=== PATIENT | female | born 1965 | race Caucasian/White ===

== ENCOUNTER 2023-06-02 13:28 | Outpatient (AMB) | payer MEDICARE, MEDICAID, SELFPAY ==
--- NOTE | 2023-06-02 13:35 | HO.NEPHOV ---
HPI HPI Comments History of Present Illness Details I had the privilege of seeing Yadira in follow-up of her chronic kidney disease and hypertension. She has history of mental health disorder and had taken lithium from 1991 which she had discontinued a few years ago. Recently her mom was diagnosed with atrial fibrillation and she was wondering whether she has the same. She does not have any chest pain, palpitation, shortness of breath, proximal nocturnal dyspnea, orthopnea, pedal edema, orthostatic or urinary symptoms. Her blood pressure has been at goal. She has not been initiated on any new medications. She has not had any recent hospitalizations. She does not take any excessive nonsteroidal anti-inflammatory medications. Otherwise she was feeling well. [facility] Medical History (Updated 06/03/23 @ 13:12 by Lavelle Alan MD) Hypertension Chronic kidney disease, stage 3a Surgical History (Updated 06/02/23 @ 13:43 by Chelsey Anaya MA) S/P tonsillectomy Family History (Updated 06/02/23 @ 13:44 by Chelsey Anaya MA) Mother A-fib Father Lung cancer Social History (Updated 06/02/23 @ 13:44 by Chelsey Anaya MA) Alcohol intake: never Patient Tobacco Use Status: Former Tobacco user Substance Use Type: Marijuana Vital Signs 06/02/23 13:36 06/02/23 14:00 Height 5 ft 7 in Weight 186 lb 2 oz BMI 29.1 BP 140/90 H 120/80 Blood Pressure Location Rt brachial Position Sitting Pulse 75 Pulse Source Pulse Oximeter Pulse Oximetry (%) 98 Oxygen Delivery Method Room Air Physical Exam Vital Signs: Last Vital Signs Pulse 75 06/02/23 13:36 BP 120/80 06/02/23 14:00 Pulse Ox 98 06/02/23 13:36 Oxygen Delivery Method Room Air 06/02/23 13:36 BMI result Body Mass Index 29.1 Const General: comfortable and no acute distress Orientation/consciousness: patient oriented x3 HEENT Head: Yes normocephalic Mouth: Normal oral and palatal mucosa present Eyes EOM: EOMs intact bilaterally Neck Neck: Yes supple Resp Auscultation: clear to auscultation bilaterally Cardio Jugular venous distension: no JVD Rate: regular rate GI Palpation (GI): Soft to palpation Auscultation: normal bowel sounds General: Yes no CVA tenderness Back/Spine/Pelvis Back: no CVA tenderness Skin General skin exam: no rashes or lesions noted Neuro General: patient oriented x3 and moves all extremities Extrem General: Yes no pedal edema Assessment & Plan Assessment & Plan (1) Chronic Kidney Disease: Code(s): N18.9 - Chronic kidney disease, unspecified Qualifiers: Chronic kidney disease stage: stage 3 (moderate) Chronic kidney disease stage 3 subtype: stage 3a (GFR 45-59) Qualified Code(s): N18.31 - Chronic kidney disease, stage 3a (2) Chronic kidney disease, stage 3a: Code(s): N18.31 - Chronic kidney disease, stage 3a (3) Hypertension: Code(s): I10 - Essential (primary) hypertension Qualifiers: Hypertension type: primary hypertension Qualified Code(s): I10 - Essential (primary) hypertension Plan 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 She does not have any proteinuria. Her blood pressure has been at goal. Her renal functions are currently stable. She is not taking any non steroidal anti-inflammatories, LAUREN inhibitor or ARB. She is on amlodipine which is keeping her blood pressure at goal. She has diabetes mellitus and is on metformin. She has been taking Topamax but has not had any significant weight loss. She has not had any renal stones. I plan to consider initiating her on Farxiga or Jardiance at the next visit. She likely is a great candidate for LAUREN-inhibitor or ARB after discontinuation of amlodipine, if her electrolytes or serum creatinine permits. She needs to lose some weight and maintain good hydration. All these have been discussed. Follow-up lab work ordered. Follow-up appointment given. Orders: Orders Creatinine 06/02/23 N18.31 - Chronic kidney disease, stage 3a Complete Blood Count Auto Diff 06/02/23 N18.31 - Chronic kidney disease, stage 3a Protein Creatinine Ratio, Ur 06/02/23 N18.31 - Chronic kidney disease, stage 3a Electrolytes Today N18.31 - Chronic kidney disease, stage 3a Blood Urea Nitrogen 06/02/23 N18.31 - Chronic kidney disease, stage 3a Electrolytes 06/02/23 N18.31 - Chronic kidney disease, stage 3a Calcium 06/02/23 N18.31 - Chronic kidney disease, stage 3a Hemoglobin A1c 06/02/23 N18.31 - Chronic kidney disease, stage 3a Blood Urea Nitrogen Today N18.31 - Chronic kidney disease, stage 3a Creatinine Today N18.31 - Chronic kidney disease, stage 3a Phosphorus Today N18.31 - Chronic kidney disease, stage 3a Calcium Today N18.31 - Chronic kidney disease, stage 3a Vitamin D 25-OH Total Today N18.31 - Chronic kidney disease, stage 3a Parathyroid Hormone Intact Today N18.31 - Chronic kidney disease, stage 3a Medications: New amlodipine 2.5 mg PO DAILY 90 days 90 tabs 3RF Coding Level of Care Code Est Pt Level 4 (81967) Diagnoses Stage 3a chronic kidney disease N18.31 Chronic kidney disease stage: stage 3 (moderate) Chronic kidney disease stage 3 subtype: stage 3a (GFR 45-59) Chronic kidney disease, stage 3a N18.31 Primary hypertension I10 Hypertension type: primary hypertension Results Reviewed Nephrology Results: Hgb 14.3 g/dl (12.0-16.0) 06/02/23 WBC 9.8 X10*3/uL (4.8-10.8) 06/02/23 Plt Count 337 X10*3/uL (160-400) 06/02/23 Sodium 138 mmol/L (135-145) 06/02/23 Potassium 3.8 mmol/L (3.3-5.1) 06/02/23 Chloride 109 mmol/L (96-108) H 06/02/23 Carbon Dioxide 21 mmol/L (22-29) L 06/02/23 BUN 22 mg/dL (9-16) H 06/02/23 Creatinine 1.63 mg/dL (0.5-1.4) H 06/02/23 Calcium 9.7 mg/dL (8.4-10.2) 06/02/23 Phosphorus 4.4 MG/DL (2.7-4.5) 02/07/18 Urine Protein NEG (NEG - TRACE) 02/07/18 Urine Creatinine 81.67 mg/dL 06/02/23 Protein/Creatinin Ratio TNP 06/02/23
[2023-06-02 13:36] VITALS: BP 140/90; PULSE 75; O2SAT 98; BMI 29.1
[2023-06-02 14:00] VITALS: BP 120/80
== END 2023-06-02 14:04 | disposition home or self-care (01) ==
PROVIDERS: PCP Internal Medicine; Visit Provider Internal Medicine Nephrology
DX: N18.31 Chronic kidney disease, stage 3a (principal); I10 Essential (primary) hypertension
CPT/HCPCS: 99214

== ENCOUNTER 2023-06-02 13:28 | Outpatient (REF) | payer MEDICARE, MEDICAID, SELFPAY ==
[2023-06-02 14:23] LABS: MANUAL DIFF FLAG NO
[2023-06-02 15:43] LABS: Basophils Absolute Auto 0.1 X10*3/uL (0.0-0.2); Basophils Percent Auto 0.8 % (0-2); Eosinophils Absolute Auto 0.3 X10*3/uL (0.0-0.4); Eosinophils Percent Auto 2.6 % (0-4); Hematocrit 43.2 % (37.0-47.0); Hemoglobin 14.3 g/dl (12.0-16.0); Imm Gran Abs Auto 0.02 X10*3/uL (0.00-0.03); Imm Gran Pct Auto 0.2 % (0.0-0.4); Lymphocytes Absolute Auto 3.3 X10*3/uL (1.2-4.9); Lymphocytes Percent Auto 33.9 % (20-40); Mean Corpuscular HGB Conc 33.1 g/dl (31.0-35.0); Mean Corpuscular Hemoglobin 28.5 pg (27.0-33.0); Mean Corpuscular Volume 86.1 fL (80.0-98.0); Mean Platelet Volume 10.6 fL (9.4-12.3); Monocytes Absolute Auto 0.8 X10*3/uL (0.1-1.2); Monocytes Percent Auto 8.5 % (2-11); Neutrophils Absolute Auto 5.3 x10*3/uL (2.0-8.3); Platelet Count 337 X10*3/uL (160-400); Red Blood Count 5.02 X10*6/uL (4.20-5.50); Red Cell Distribution Width 14.2 % (11.0-16.0); White Blood Count 9.8 X10*3/uL (4.8-10.8)
[2023-06-02 15:51] LABS: Estimated Average Glucose 105 mg/dL; Hemoglobin A1c % 5.3 % (<6.0)
[2023-06-02 16:00] LABS: Creatinine Urine 81.67 mg/dL; Total Protein Urine Random < 7 mg/dL (<12)
[2023-06-02 16:13] LABS: Anion Gap 12 (12-20); Blood Urea Nitrogen 22 mg/dL (9-16); Calcium 9.7 mg/dL (8.4-10.2); Carbon Dioxide 21 mmol/L (22-29); Chloride 109 mmol/L (96-108); Estimated Glomerular Filt Rate 33; Potassium 3.8 mmol/L (3.3-5.1); Sodium 138 mmol/L (135-145)
== END 2023-06-02 13:29 | disposition home or self-care (01) ==
LOC: HO.LAB 13:28
PROVIDERS: PCP Nurse Practitioner; Visit Provider Internal Medicine Nephrology
DX: I12.9 Hypertensive chronic kidney disease with stage 1 through stage 4 chronic kidney disease, or unspecified chronic kidney disease (principal); N18.31 Chronic kidney disease, stage 3a
CPT/HCPCS: 36415; 80051; 82310; 82565; 82570; 83036; 84156; 84520; 85025; 99212

== ENCOUNTER 2023-08-25 13:32 | Outpatient (AMB) | payer MEDICARE, MEDICAID, SELFPAY ==
--- NOTE | 2023-08-25 13:30 | HO.NEPHOV_ITS ---
HPI HPI Comments History of Present Illness Details I had the privilege of seeing Yadira in follow-up of her chronic kidney disease and hypertension. She has history of mental health disorder and had taken lithium from 1991 which she had discontinued a few years ago. Recently her mom was diagnosed with atrial fibrillation and she was wondering whether she has the same. She does not have any chest pain, palpitation, shortness of breath, proximal nocturnal dyspnea, orthopnea, pedal edema, orthostatic or urinary symptoms. Her blood pressure has been at goal. She has not been initiated on any new medications. She has not had any recent hospitalizations. She does not take any excessive nonsteroidal anti-inflammatory medications. Otherwise she was feeling well. [facility] Medical History (Updated 06/03/23 @ 13:12 by Lavelle Alan MD) Hypertension Chronic kidney disease, stage 3a Surgical History (Updated 06/02/23 @ 13:43 by Chelsey Anaya MA) S/P tonsillectomy Family History (Updated 06/02/23 @ 13:44 by Chelsey Anaya MA) Mother A-fib Father Lung cancer Social History (Updated 06/02/23 @ 13:44 by Chelsey Anaya MA) Alcohol intake: never Patient Tobacco Use Status: Former Tobacco user Substance Use Type: Marijuana Vital Signs 08/25/23 13:37 Height 5 ft 7 in Weight 184 lb 6 oz BMI 28.9 BP 134/84 Blood Pressure Location Rt brachial Position Sitting Pulse 72 Pulse Source Pulse Oximeter Pulse Oximetry (%) 96 Oxygen Delivery Method Room Air Physical Exam Const General: comfortable and no acute distress Orientation/consciousness: patient oriented x3 HEENT Head: Yes normocephalic Mouth: Normal oral and palatal mucosa present Eyes EOM: EOMs intact bilaterally Neck Neck: Yes supple Resp Auscultation: clear to auscultation bilaterally Cardio Jugular venous distension: no JVD Rate: regular rate GI Palpation (GI): Soft to palpation Auscultation: normal bowel sounds General: Yes no CVA tenderness Back/Spine/Pelvis Back: no CVA tenderness Skin General skin exam: no rashes or lesions noted Neuro General: patient oriented x3 and moves all extremities Extrem General: Yes no pedal edema Assessment & Plan Assessment & Plan (1) Chronic kidney disease, stage 3a: Code(s): N18.31 - Chronic kidney disease, stage 3a (2) Hypertension: Code(s): I10 - Essential (primary) hypertension Qualifiers: Hypertension type: primary hypertension Qualified Code(s): I10 - Essential (primary) hypertension Rosa May has a 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 She does not have any proteinuria. Her blood pressure has been at goal. Her renal functions are currently stable. She is not taking any non steroidal anti- inflammatories, LAUREN inhibitor or ARB. She is on amlodipine which is keeping her blood pressure at goal. She has been taking Topamax but has not had any significant weight loss. She has not had any renal stones. She likely is a great candidate for LAUREN-inhibitor or ARB after discontinuation of amlodipine, if her electrolytes or serum creatinine permits. She needs to lose some weight and maintain good hydration. All these have been discussed. Follow-up lab work ordered. Follow-up appointment given Orders: Orders Creatinine Today I10 - Essential (primary) hypertension, N18.31 - Chronic kidney disease, stage 3a Blood Urea Nitrogen Today I10 - Essential (primary) hypertension, N18.31 - Chronic kidney disease, stage 3a Electrolytes Today I10 - Essential (primary) hypertension, N18.31 - Chronic kidney disease, stage 3a Coding Level of Care Code Est Pt Level 4 (14004) Diagnoses Chronic kidney disease, stage 3a N18.31 Primary hypertension I10 Hypertension type: primary hypertension Results Reviewed Nephrology Results: Hgb 14.3 g/dl (12.0-16.0) 06/02/23 WBC 9.8 X10*3/uL (4.8-10.8) 06/02/23 Plt Count 337 X10*3/uL (160-400) 06/02/23 Sodium 138 mmol/L (135-145) 06/02/23 Potassium 3.8 mmol/L (3.3-5.1) 06/02/23 Chloride 109 mmol/L (96-108) H 06/02/23 Carbon Dioxide 21 mmol/L (22-29) L 06/02/23 BUN 22 mg/dL (9-16) H 06/02/23 Creatinine 1.63 mg/dL (0.5-1.4) H 06/02/23 Calcium 9.7 mg/dL (8.4-10.2) 06/02/23 Phosphorus 4.4 MG/DL (2.7-4.5) 02/07/18 Urine Protein NEG (NEG - TRACE) 02/07/18 Urine Creatinine 81.67 mg/dL 06/02/23 Protein/Creatinin Ratio TNP 06/02/23
[2023-08-25 13:37] VITALS: BP 134/84; PULSE 72; O2SAT 96; BMI 28.9
== END 2023-08-25 13:52 | disposition home or self-care (01) ==
PROVIDERS: PCP Internal Medicine; Visit Provider Internal Medicine Nephrology
DX: N18.31 Chronic kidney disease, stage 3a (principal); I10 Essential (primary) hypertension
CPT/HCPCS: 99214

== ENCOUNTER → 2023-08-25 13:32 | Outpatient (BNVA) | payer MEDICARE, MEDICAID, SELFPAY | PROVIDERS: PCP Internal Medicine; Visit Provider Internal Medicine Nephrology | DX: I12.9 Hypertensive chronic kidney disease with stage 1 through stage 4 chronic kidney disease, or unspecified chronic kidney disease (principal); N18.31 Chronic kidney disease, stage 3a | CPT/HCPCS: 99212 ==

== ENCOUNTER 2023-12-24 11:47 | Outpatient (AMB) | payer OTHER, SELFPAY ==
[2023-12-24 12:13] VITALS: BP 122/80; PULSE 69; O2SAT 97; BMI 29.5
--- NOTE | 2023-12-24 12:13 | HO.NEPHOV ---
Vital Signs 12/24/23 12:13 Height 5 ft 7 in Weight 188 lb 2 oz BMI 29.5 BP 122/80 Blood Pressure Location Lt brachial Position Sitting Pulse 69 Pulse Source Pulse Oximeter Pulse Oximetry (%) 97 Oxygen Delivery Method Room Air Intake Visit Reasons: CKD STG 3A/ 4 MO FU/ Conf Assistant Signal Maintainer Required: No Accompanied by: Self / Same As Patient Allergies gabapentin [GABAPENTIN] Allergy (Intermediate, Verified 12/24/23 12:15) SWELLING iloperidone [From FANAPT] Allergy (Mild, Verified 12/24/23 12:15) RASH Penicillins [PENICILLINS] Allergy (Mild, Verified 12/24/23 12:15) RASH sertraline [From ZOLOFT] Allergy (Mild, Verified 12/24/23 12:15) RASH HPI Comments Details: I had the privilege of seeing Yadira in follow-up of her chronic kidney disease and hypertension. She has history of mental health disorder and had taken lithium from 1991 which she had discontinued a few years ago. She does not have any chest pain, palpitation, shortness of breath, proximal nocturnal dyspnea, orthopnea, pedal edema, orthostatic or urinary symptoms. Her blood pressure has been at goal. She has not been initiated on any new medications. She has not had any recent hospitalizations. She does not take any excessive nonsteroidal anti-inflammatory medications. She is not on Topmax now. Otherwise she was feeling well. [facility] Medical History (Updated 06/03/23 @ 13:12 by Lavelle Alan MD) Hypertension Chronic kidney disease, stage 3a Surgical History S/P tonsillectomy Family History Mother A-fib Father Lung cancer Social History Alcohol intake: never Patient Tobacco Use Status: Former Tobacco user Substance Use Type: Marijuana Review of Systems Const All systems reviewed & are unremarkable except as noted in HPI and below Physical Exam Vital Signs: Last Vital Signs Pulse 69 12/24/23 12:13 BP 122/86 12/24/23 12:13 Pulse Ox 97 12/24/23 12:13 Oxygen Delivery Method Room Air 12/24/23 12:13 BMI result Body Mass Index 29.5 Const General: comfortable and no acute distress Orientation/consciousness: patient oriented x3 HEENT Head: Yes normocephalic Mouth: Normal oral and palatal mucosa present Eyes EOM: EOMs intact bilaterally Neck Neck: Yes supple Resp Auscultation: clear to auscultation bilaterally Cardio Jugular venous distension: no JVD Rate: regular rate GI Palpation (GI): Soft to palpation Auscultation: normal bowel sounds General: Yes no CVA tenderness Back/Spine/Pelvis Back: no CVA tenderness Skin General skin exam: no rashes or lesions noted Neuro General: patient oriented x3 and moves all extremities Extrem General: Yes no pedal edema Assessment & Plan Assessment & Plan (1) Chronic kidney disease, stage 3a: Code(s): N18.31 - Chronic kidney disease, stage 3a Category: Medical (2) Hypertension: Code(s): I10 - Essential (primary) hypertension Category: Medical Qualifiers: Hypertension type: primary hypertension Qualified Code(s): I10 - Essential (primary) hypertension Plan 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 She does not have any proteinuria. Her blood pressure has been at goal. Her renal functions are currently stable. She is not taking any non steroidal anti-inflammatories, LAUREN inhibitor or ARB. She is on amlodipine which is keeping her blood pressure at goal. She has not had any renal stones. She likely is a great candidate for LAUREN-inhibitor or ARB after discontinuation of amlodipine, if her electrolytes or serum creatinine permits. She needs to lose some weight and maintain good hydration. All these have been discussed. Follow-up lab work ordered. Follow-up appointment given Orders: Orders Electrolytes Today I10 - Essential (primary) hypertension, N18.31 - Chronic kidney disease, stage 3a Creatinine Today I10 - Essential (primary) hypertension, N18.31 - Chronic kidney disease, stage 3a Blood Urea Nitrogen Today I10 - Essential (primary) hypertension, N18.31 - Chronic kidney disease, stage 3a Coding Level of Care Code Est Pt Level 4 (90779) Diagnoses Chronic kidney disease, stage 3a N18.31 Primary hypertension I10 Hypertension type: primary hypertension
== END 2023-12-24 12:34 | disposition home or self-care (01) ==
PROVIDERS: PCP Internal Medicine; Visit Provider Internal Medicine Nephrology
DX: N18.31 Chronic kidney disease, stage 3a (principal); I10 Essential (primary) hypertension
CPT/HCPCS: 99214

== ENCOUNTER → 2023-12-24 11:47 | Outpatient (BNVA) | payer OTHER, SELFPAY | PROVIDERS: PCP Internal Medicine; Visit Provider Internal Medicine Nephrology | DX: I12.9 Hypertensive chronic kidney disease with stage 1 through stage 4 chronic kidney disease, or unspecified chronic kidney disease (principal); N18.31 Chronic kidney disease, stage 3a | CPT/HCPCS: 99212 ==

== ENCOUNTER 2024-03-15 11:21 | Outpatient (AMB) | payer OTHER, SELFPAY ==
--- NOTE | 2024-03-15 11:34 | HO.NEPHOV_ITS ---
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 She has history of mental health disorder and had taken lithium from 1991 which she had discontinued a few years ago. She does not have any chest pain, palpitation, shortness of breath, proximal nocturnal dyspnea, orthopnea, pedal edema, orthostatic or urinary symptoms. Her blood pressure has been at goal. She has not been initiated on any new medications. She does not take any excessive nonsteroidal anti-inflammatory medications. Otherwise she was feeling well. She was prescribed Wegovy by PCP which is uncomfortable taking & has not started it yet. COUNT INCLUDES THE [facility] Medical History (Updated 06/03/23 @ 13:12 by Lavelle Alan MD) Hypertension Chronic kidney disease, stage 3a Surgical History S/P tonsillectomy Family History Mother A-fib Father Lung cancer Social History Alcohol intake: never Patient Tobacco Use Status: Former Tobacco user Substance Use Type: Marijuana Review of Systems Const All systems reviewed & are unremarkable except as noted in HPI and below Physical Exam Vital Signs: Last Vital Signs Pulse 74 03/15/24 11:37 BP 120/78 03/15/24 11:37 Pulse Ox 96 03/15/24 11:37 Oxygen Delivery Method Room Air 03/15/24 11:37 BMI result Body Mass Index 28.8 Const General: comfortable and no acute distress Orientation/consciousness: patient oriented x3 HEENT Head: Yes normocephalic Mouth: Normal oral and palatal mucosa present Eyes EOM: EOMs intact bilaterally Neck Neck: Yes supple Resp Auscultation: clear to auscultation bilaterally Cardio Jugular venous distension: no JVD Rate: regular rate GI Palpation (GI): Soft to palpation Auscultation: normal bowel sounds General: Yes no CVA tenderness Back/Spine/Pelvis Back: no CVA tenderness Skin General skin exam: no rashes or lesions noted Neuro General: patient oriented x3 and moves all extremities Extrem General: Yes no pedal edema Assessment & Plan Assessment & Plan (1) Chronic kidney disease, stage 3a: Code(s): N18.31 - Chronic kidney disease, stage 3a Category: Medical (2) Hypertension: Code(s): I10 - Essential (primary) hypertension Category: Medical Qualifiers: Hypertension type: primary hypertension Qualified Code(s): I10 - Essential (primary) hypertension Plan 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 She does not have any proteinuria. Her blood pressure has been at goal. Her renal functions are currently stable. She is not taking any non steroidal anti- inflammatories, LAUREN inhibitor or ARB. She is on amlodipine which is keeping her blood pressure at goal. She has not had any renal stones. I discontinued her Metformin and started her on Jardiance 10 mg .She likely is a great candidate for LAUREN-inhibitor or ARB after discontinuation of amlodipine, if her electrolytes or serum creatinine permits. She needs to lose some weight and maintain good hydration. All these have been discussed. Follow-up lab work ordered. Follow-up appointment given Orders: Orders Blood Urea Nitrogen 2 Months I10 - Essential (primary) hypertension, N18.31 - Chronic kidney disease, stage 3a Electrolytes 2 Months I10 - Essential (primary) hypertension, N18.31 - Chronic kidney disease, stage 3a Creatinine 2 Months I10 - Essential (primary) hypertension, N18.31 - Chronic kidney disease, stage 3a Medications: New empagliflozin (Jardiance) 10 mg PO DAILY 90 tabs 6RF Coding Level of Care Code Est Pt Level 4 (23288) Diagnoses Chronic kidney disease, stage 3a N18.31 Primary hypertension I10 Hypertension type: primary hypertension
[2024-03-15 11:37] VITALS: BP 120/78; PULSE 74; O2SAT 96; BMI 28.8
== END 2024-03-15 12:03 | disposition home or self-care (01) ==
LOC: HO.HKA 11:22
PROVIDERS: PCP Internal Medicine; Visit Provider Internal Medicine Nephrology
DX: I12.9 Hypertensive chronic kidney disease with stage 1 through stage 4 chronic kidney disease, or unspecified chronic kidney disease (principal); N18.31 Chronic kidney disease, stage 3a
CPT/HCPCS: 99214

== ENCOUNTER → 2024-03-15 11:21 | Outpatient (BNVA) | payer OTHER, SELFPAY | PROVIDERS: PCP Internal Medicine; Visit Provider Internal Medicine Nephrology | DX: I12.9 Hypertensive chronic kidney disease with stage 1 through stage 4 chronic kidney disease, or unspecified chronic kidney disease (principal); N18.31 Chronic kidney disease, stage 3a | CPT/HCPCS: 99212 ==

== ENCOUNTER 2024-06-16 10:53 | Outpatient (AMB) | payer OTHER, SELFPAY ==
--- NOTE | 2024-06-16 11:09 | HO.NEPHOV ---
Vital Signs 06/16/24 11:10 Height 5 ft 7 in Weight 184 lb 8 oz BMI 28.9 BP 116/80 Blood Pressure Location Rt brachial Position Sitting Pulse 72 Pulse Source Pulse Oximeter Pulse Oximetry (%) 97 Oxygen Delivery Method Room Air Intake Visit Reasons: CKD-Conf Steam Press Operator Required: No Accompanied by: Self / Same As Patient Allergies gabapentin [GABAPENTIN] Allergy (Intermediate, Verified 06/16/24 11:10) SWELLING iloperidone [From FANAPT] Allergy (Mild, Verified 06/16/24 11:10) RASH Penicillins [PENICILLINS] Allergy (Mild, Verified 06/16/24 11:10) RASH sertraline [From ZOLOFT] Allergy (Mild, Verified 06/16/24 11:10) RASH HPI Comments Details: Yadira was seen in follow-up of her chronic kidney disease and hypertension. She has history of mental health disorder and had taken lithium from 1991 which she had discontinued a few years ago. She does not have any chest pain, palpitation, shortness of breath, proximal nocturnal dyspnea, orthopnea, pedal edema, orthostatic or urinary symptoms. Her blood pressure has been at goal. She has not been initiated on any new medications. She does not take any excessive nonsteroidal anti-inflammatory medications. Otherwise she was feeling well. She was prescribed Wegovy by PCP which is uncomfortable taking & has not started it yet. She is going to have a lesion on her left breast biopsied next Wednesday. She had a renal USS in [facility] , results of which are pending. She also is found to have a benign lung nodule. [facility] Medical History (Updated 06/03/23 @ 13:12 by Lavelle Alan MD) Hypertension Chronic kidney disease, stage 3a Surgical History S/P tonsillectomy Family History Mother A-fib Father Lung cancer Social History Alcohol intake: never Patient Tobacco Use Status: Former Tobacco user Substance Use Type: Marijuana Review of Systems Const All systems reviewed & are unremarkable except as noted in HPI and below Physical Exam Vital Signs: Last Vital Signs Pulse 72 06/16/24 11:10 BP 116/80 06/16/24 11:10 Pulse Ox 97 06/16/24 11:10 Oxygen Delivery Method Room Air 06/16/24 11:10 BMI result Body Mass Index 28.9 Const General: comfortable and no acute distress Orientation/consciousness: patient oriented x3 HEENT Head: Yes normocephalic Mouth: Normal oral and palatal mucosa present Eyes EOM: EOMs intact bilaterally Neck Neck: Yes supple Resp Auscultation: clear to auscultation bilaterally Cardio Jugular venous distension: no JVD Rate: regular rate GI Palpation (GI): Soft to palpation Auscultation: normal bowel sounds General: Yes no CVA tenderness Back/Spine/Pelvis Back: no CVA tenderness Skin General skin exam: no rashes or lesions noted Neuro General: patient oriented x3 and moves all extremities Extrem General: Yes no pedal edema Results Reviewed Nephrology Results: Hgb 14.3 g/dl (12.0-16.0) 06/02/23 WBC 9.8 X10*3/uL (4.8-10.8) 06/02/23 Plt Count 337 X10*3/uL (160-400) 06/02/23 Sodium 138 mmol/L (135-145) 06/02/23 Potassium 3.8 mmol/L (3.3-5.1) 06/02/23 Chloride 109 mmol/L (96-108) H 06/02/23 Carbon Dioxide 21 mmol/L (22-29) L 06/02/23 BUN 22 mg/dL (9-16) H 06/02/23 Creatinine 1.63 mg/dL (0.5-1.4) H 06/02/23 Calcium 9.7 mg/dL (8.4-10.2) 06/02/23 Phosphorus 4.4 MG/DL (2.7-4.5) 02/07/18 Urine Protein NEG (NEG - TRACE) 02/07/18 Urine Creatinine 81.67 mg/dL 06/02/23 Protein/Creatinin Ratio TNP 06/02/23 Assessment & Plan Assessment & Plan (1) Chronic kidney disease, stage 3a: Code(s): N18.31 - Chronic kidney disease, stage 3a Category: Medical (2) Hypertension: Code(s): I10 - Essential (primary) hypertension Category: Medical Qualifiers: Hypertension type: primary hypertension Qualified Code(s): I10 - Essential (primary) hypertension Plan 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 She does not have any proteinuria. Her blood pressure has been at goal. Her renal functions are currently stable. She is not taking any non steroidal anti-inflammatories, LAUREN inhibitor or ARB. She is on amlodipine which is keeping her blood pressure at goal. She has not had any renal stones.She should continue Jardiance 10 mg, which I plan to increase to 25 mg at next visit .She likely is a great candidate for LAUREN-inhibitor or ARB after discontinuation of amlodipine, if her electrolytes or serum creatinine permits. She needs to lose some weight and maintain good hydration. All these have been discussed. Follow-up lab work ordered. Follow-up appointment given Orders: Orders Creatinine 3 Months I10 - Essential (primary) hypertension, N18.31 - Chronic kidney disease, stage 3a Electrolytes 3 Months I10 - Essential (primary) hypertension, N18.31 - Chronic kidney disease, stage 3a Blood Urea Nitrogen 3 Months I10 - Essential (primary) hypertension, N18.31 - Chronic kidney disease, stage 3a Calcium 3 Months I10 - Essential (primary) hypertension, N18.31 - Chronic kidney disease, stage 3a Coding Level of Care Code Est Pt Level 4 (73183) Diagnoses Chronic kidney disease, stage 3a N18.31 Primary hypertension I10 Hypertension type: primary hypertension
[2024-06-16 11:10] VITALS: BP 116/80; PULSE 72; O2SAT 97; BMI 28.9
--- OUTSIDE RECORDS SUMMARY | 2024-06-16 11:56 | XMS_ITS | Encounter Summary ---
Author Organization On License [facility] [employer] Address [address] [place] [address] 7t [place] [address] Care Team Providers Care Cart Driver Name Role Phone [facility] Primary Care Provider +1 [phone] Encounter Details Date Type Department Care Team (Latest Contact Info) Description 12/29/2021 Abstract [facility] Dental, Provider, DDS Social History Tobacco Use Types Packs/Day Years Used Date Smoking Tobacco: Never Assessed Comments Unknown Sex and Gender Information Value Date Recorded Sex Assigned at Female 06/05/2022 2:51 PM EST Legal Sex Female 5:36 PM EDT Gender Identity Female 06/05/2022 2:51 PM EST Sexual Orientation Straight 06/05/2022 2: 51 PM EST documented as of this encounter Plan of Treatment Upcoming Encounters Date Type Department Care Team (Late st Contact Info) Description 08/16/2024 11:40 AM EDT Office Visit [facility] MEDICAL [address] [place] [address] [place], [place] [facility] 70 [place] [address] 12/12/2024 11:00 AM EDT Office Visit [place] [facility] Dental [address] [place] [address] Urvashi Gamble LLD 9 [place] [address] documented as of this encounter Visit Diagnoses Not on filedocumented in this encounter Care Teams Cart Driver Relationship Specialty Start Date End Date [facility] F[facility] [address] [facility] [place] [address] PCP - General Family Medicine 05/06/22 documented as of this encounter
--- OUTSIDE RECORDS SUMMARY | 2024-06-16 11:56 | XMS_ITS | Encounter Summary ---
Author Organization [facility] [employer] Address [address] [place] [address] 7t [place] [address] Care Team Providers Care Property Disposal Officer Name Role Phone [facility] Primary Care Provider +1 [phone] Encounter Details Date Type Department Care Team (Late st Contact Info) Description 08/12/2023 Orders Only [facility] [address] [place] [address] [place], [place] [facility] 70 [place] [address] Social History Tobacco Use Types Packs/Day Years Used Date Smoking Tobacco: Former Cigarettes Q uit: 2019 Smokeless Tobacco: Never Alcohol Use Standard Drinks/Week Comments Not Currently 0 (1 standard drink = 0.6 oz pur e alcohol) Depression Answer Date Recorded Patient Health Questionnaire-9 Score 15 08/06/2022 Depression Answer Date Recorded Patient Health Questionnaire-2 Score 2 08/06/2022 Comments No Sex and Gender Information Value Date Recorded Sex Assigned at Female 06/05/2022 2:51 PM EST Legal Sex Female 5:36 PM EDT Gender Identity Female 06/05/2022 2:51 PM EST Sexual Orientation Straight 06/05/2022 2: 51 PM EST documented as of this encounter Plan of Treatment Upcoming Encounters Date Type Department Care Team (Late st Contact Info) Description 08/16/2024 11:40 AM EDT Office Visit [place] [facility] MEDICAL [address] [place] [address] [facility] 70 [place] [address] 12/12/2024 11:00 AM EDT Office Visit [facility] Dental 70 [place] [address] Urvashi Gamble LLD [address] [place] [address] documented as of this encounter Procedures Procedure Name Priority Date/Time Associated Diagnosis Comments HM FIT DNA/COLOGUARD CANCER SCREENING Routine 03/11/2023 11:25 AM EDT documented in this encounter Results * FIT DNA/Cologuard Cancer Screening (03/11/2023 11:25 AM EDT) Stool [facility] HEALTH MAINTENANCE Final Result documented in this encounter Visit Diagnoses Not on filedocumented in this encounter Additional Health Concerns Assessment Noted Time PHQ-9 Depression Total Score: 15 023 11:33 AM EDT documented as of this encounter Care Teams Property Disposal Officer Relationship Specialty Start Date End Date [facility] [address] [place] [address] PCP - General Family Medicine 05/06/22 documented as of this encounter
--- OUTSIDE RECORDS SUMMARY | 2024-06-16 11:56 | XMS_ITS | Encounter Summary ---
Author Organization [facility] [employer] Address [address] [place] [address] 7t [place] [address] Care Team Providers Care Elevator Repairer Helper Name Role Phone [facility] Primary Care Provider [phone] [phone] Encounter Details Date Type Department Care Team (Latest Contact Info) Description 12/15/2019 Abstract [facility] Dental, Provider, DDS Social [...] Description 08/16/2024 11:40 AM EDT Office [facility] MEDICAL [address] [place] [address] [place], [place] [facility] 70 [place] [address] 12/12/2024 11:00 AM EDT Office Visit [place] [facility] Dental [address] [place] [address] Urvashi Gamble LLD 9 [place] [address] documented as of this encounter Visit Diagnoses Not on filedocumented in this encounter Care Teams Elevator Repairer Helper Relationship Specialty Start Date End Date [facility] ELEVATOR TECHNICIAN [address] [place] [address] PCP - General Family Medicine 05/06/22 documented as of this encounter
--- OUTSIDE RECORDS SUMMARY | 2024-06-16 11:56 | XMS_ITS | Encounter Summary ---
Author Organization [facility] [employer] Address [address] [place] [address] 7t [place] [address] Care Team Providers Care Drop Wire Stringer Name Role Phone [facility] Primary Care Provider [phone] [phone] Encounter Details Date Type Department Care Team (Latest Contact Info) Description 12/17/2020 Abstract [facility] Dental, Provider, DDS Social [...] Description 08/16/2024 11:40 AM EDT Office Visit [facility] MEDICAL 70 [place] [address] [place], [place] [facility] 70 [place] [address] 12/12/2024 11:00 AM EDT Office Visit [place] [facility] Dental 70 [place] [address] Urvashi Gamble LLD 9 [place] [address] documented as of this encounter Visit Diagnoses Not on filedocumented in this encounter Care Teams Drop Wire Stringer Relationship Specialty Start Date End Date [facility] [address] [facility] [place] [address] PCP - General Family Medicine 05/06/22 documented as of this encounter
--- OUTSIDE RECORDS SUMMARY | 2024-06-16 11:57 | XMS_ITS | Encounter Summary ---
Author Organization [facility] [employer] Address [address] [place] [address] 7t [place] [address] Care Team Providers Care Oil Inspector Name Role Phone Litzy Raines Primary Care Provider [phone] [phone] Reason for Referral * Imaging (Routine) - Closed Specialty Diagnoses / Procedures Referred By Chance quispe Referred To Contact Radiology Diagnoses Former smoker Procedures CT Lung Screening Low dose Litzy Raines FNP [address] [place], [place] Phone: tel: [facility] [place] [address] [place] [address] Phone: tel: fax: Referral ID Status Reason Start Date Expiration Date Visits Re quested Visits Authorized [id number] Closed 05/17/2024 05/17/2025 1 1 Reason for Visit * Reason Comments Follow-up Encounter Details Date Type Department Care Team (Late st Contact Info) Description 05/17/2024 11:20 AM EST Office Visit [place] [facility] MEDICAL 70 [place] [address] Litzy Raines FNP [address] [place] [address] Former smoker (Primary Dx); Mild persistent asthma without complication; Stage 3b chronic kidney disease (CMS/HCC); Essential hypertension; Schizoaffective disorder, unspecified type (CMS/HCC) Social History Tobacco Use Types Packs/Day Years Used Date Smoking Tobacco: Former Cigarettes 1 37 1 982 - 2019 Smokeless Tobacco: Never Alcohol Use Standard Drinks/Week Comments Not Currently 0 (1 standard drink = 0.6 oz pur e alcohol) Depression Answer Date Recorded Patient Health Questionnaire-9 Score 15 02/14/2024 Patient Health Questionnaire-9 Score 15 02/14/2024 Last PHQ-9: Questionnaire Data Not on file 1 Housing Stability Answer Date Recorded What is your housing situation today? I have augustina davonte 02/14/[address] you li ve. Do you have problems with any of the following? None of the above 02/14/2024 Food Insecurity Answer Date Recorded Within the past 12 months, y ou worried that your food would run out before you got money to buy more: Never True 02/14/2024 Within the past 12 months,th e food you bought just didn't last and you didn't have enough money to get more: Never True 11/2023 Transportation Answer Date Recorded In the past 12 months, has l ack of transportation kept you from medical appts, meetings, work or from getting things needed for daily living? No 02/14/2024 Utilities Answer Date Recorded In the past 12 months, has t he electric, gas, oil or water company threatened to shut off services in your home? No 02/14/2024 Depression Answer Date Recorded Patient Health Questionnaire-2 Score 3 02/14/2024 Internet Access Answer Date Recorded Internet Access Q1 Yes 02/14/2024 Internet Access Q2 Not on file 02/14/2024 Comments No Sex and Gender Information Value Date Recorded Sex Assigned at Female 06/05/2022 2:51 PM EST Legal Sex Female 5:36 PM EDT Gender Identity Female 06/05/2022 2:51 PM EST Sexual Orientation Straight 06/05/2022 2: 51 PM EST documented as of this encounter Last Filed Vital Signs Vital Sign Reading Time Taken Comments Blood Pressure 135/83 05/17/2024 11:07 AM EST Pulse 72 05/17/2024 11:07 AM EST Temperature 36.3 ??C (97.3 ??F) 05/17/2024 11:[address] Respiratory Rate - - Oxygen Saturation - - Inhaled Oxygen Concentration - - Weight 82.6 kg (182 lb) 05/17/2024 11:07 AM EST Height - - Body Mass Index 29.38 03/17/2024 1:58 PM EST documented in this encounter Progress Notes * Litzy Taylorambrose, RAMY - 05/17/2024 11:20 AM EST Riana Jeter [id number] Chief Complaint: Chief Complaint Patient presents with Follow-up HPI: Riana Jeter is a 58 y.o. female here today for Follow-up. Was on antibiotics for tooth issue. She had diarrhea, but that since resolved. Was taking jardiance, prescribed by manager concrete. Stopped it due to fear of ketoacidosis due to noteating 3 times daily. Wants lung scan. Worries about lung cancer, her dad had it. She smoked 1 ppd x 37 years, quit in 2019. Still smokes marijuana daily. Wheezes when she lays down. She got noticed that new insurance will not cover albuterol. Uses it almost every night. Continue to follow with [facility]. Patient Active Problem List Diagnosis Date Noted Class 1 obesity due to excess calories with serious comorbidity and body mass index (BMI) of 30.0 to 30.9 in adult 03/17/2024 ZAVALA (dyspnea on exertion) 01/20/2024 Stage 3b chronic kidney disease (CMS/HCC) 08/06/2022 Acquired hypothyroidism 05/06/2022 Age-related cataract of both eyes 05/06/2022 Bilateral hearing loss 05/06/2022 Chronic constipation 05/06/2022 Chronic GERD 05/06/2022 Hiatal hernia 05/06/2022 Insomnia 05/06/2022 Mild intermittent asthma without complication 05/06/2022 PTSD (post-traumatic stress disorder) 05/06/2022 Schizoaffective disorder (CMS/HCC) 05/06/2022 Migraine headache 02/18/2022 Raynaud's disease 02/18/2022 Spinal stenosis of cervical region 02/18/2022 Hot flashes due to menopause 11/30/2019 Marijuana use, continuous 10/03/2019 Chronic maxillary sinusitis 05/13/2018 Fibromyalgia 04/12/2018 Essential hypertension 10/20/2017 Chronic tension headache 10/20/2017 Chronic right-sided thoracic back pain 08/25/2017 Memory loss 08/25/2017 Past Medical History: Diagnosis Date Cataracts, bilateral Cervical spinal stenosis has had TSERING with some relief 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 Endometriosis Fibroids Fibromyalgia GERD (gastroesophageal reflux disease) h/o ulcer Hiatal hernia Hypertension Hypothyroid IBS (irritable bowel syndrome) Kidney stone on right side 02/2016 3 mm nonobstructing stone lower R kidney CT 02/2016 Menopause 2017 , s/p chemically induced menopause 2016, ASCUS/HPV+ Pap 2011, CHRIS 1 colpo, NILM/neg 09/2013 Migraines Mild intermittent asthma OA (osteoarthritis) of ankle OA of R ankle s/p leg fx @ age 20 - has had steroid injections w/good relief in the past Raynaud's syndrome Schizoaffective disorder (CMS/HCC) Followed by psychiatrist at [facility] Thyroid nodule 04/2021 ultrasound 04/2021, no follow-up indicated Current Outpatient Medications on File Prior to Visit Medication Sig Dispense Refill amLODIPine (Norvasc) 2.5 MG tablet TAKE 1 TABLET BY MOUTH 1 TIME EACH DAY. buPROPion (Wellbutrin) 75 MG tablet Take 75 mg by mouth in the morning. docusate sodium (Colace) 100 MG capsule TAKE 1 CAPSULE BY MOUTH EVERY DAY NEEDED 30 capsule 1 fluticasone (Flonase) 50 MCG/ACT nasal spray Administer 2 sprays into each nostril in the morning. Shake gently. Before first use, prime pump. After use, clean tip and replace cap. 16 g 11 Fyavolv 1-5 MG-MCG tablet Take 1 tablet by mouth in the morning. haloperidol (Haldol) 2 MG tablet Take 2 mg by mouth Once per day. levothyroxine (Synthroid, Levoxyl) 75 MCG tablet TAKE 1 TABLET BY MOUTH BEFOTRE BREAKFAST 90 tablet3 OLANZapine (ZyPREXA) 5 MG tablet Take 5 mg by mouth Once per day. propranolol (Inderal) 40 MG tablet TAKE 1 TABLET BY MOUTH EVERY DAY IN THE MORNING 90 tablet 3 senna (Senokot) 8.6 MG tablet TAKE 2 TABLETS AT BEDTIME NEEDED ORALLY ONCE A DAY 60 tablet 3 topiramate (Topamax) 25 MG tablet Take 50 mg by mouth in the morning. traZODone (Desyrel) 50 MG tablet Take 100 mg by mouth. zolpidem (Ambien) 5 MG tablet Take 5 mg by mouth if needed at bedtime. [DISCONTINUED] albuterol 108 (90 Base) MCG/ACT inhaler INHALE 2 PUFFS EVERY 4 (FOUR) HOURS IF NEEDED FOR WHEEZING OR SHORTNESS OF BREATH. 8.5 g 0 Jardiance 10 MG Take 10 mg by mouth Once per day. (Patient not taking: Reported on 05/17/2024) [DISCONTINUED] azithromycin (Zithromax) 250 MG tablet Take 2 tabs on day 1, then 1 tab day 2 onwards until finished. (Patient not taking: Reported on 05/17/2024) 5 tablet 0 No current facility-administered medications on file prior to visit. Allergies Allergen Reactions Gabapentin Swelling Latex [place] Other reaction(s): kidney damage Fluconazole Rash Iloperidone Rash Other reaction(s): Other (see comments) Penicillins Rash Other reaction(s): Other (see comments) Sertraline Rash Other reaction(s): Other (see comments) Past Surgical History: Procedure Laterality Date HYSTEROSCOPY D&C with Mirena IUD insertion HYSTEROSCOPY W/ POLYPECTOMY 2017 MYOMECTOMY 2014 TONSILLECTOMY Family History Problem Relation Name Age of Onset Breast cancer Mother Atrial fibrillation Mother Social History Tobacco Use Smoking status: Former Current packs/day: 0.00 Average packs/day: 1 pack/day for 37.0 years (37.0 ttl pk-yrs) Types: Cigarettes Start date: 1981 Quit date: 2019 Years since quittin.0 Smokeless tobacco: Never Vaping Use Vaping status: Never Used Substance Use Topics Alcohol use: Not Currently Drug use: Yes Types: Marijuana Comment: daily Social History Substance and Sexual Activity Sexual Activity Yes Partners: Male Social History Social History Narrative On disability. Lives alone. Has boyfriend. Had guardian appointed, Evie Dharmesh of [facility] in [place]. Guardianship reversed years later due to patient doing well. Review of Symptoms: Review of Systems Constitutional: Negative for chills and fever. Respiratory: Positive for wheezing. Negative for cough and shortness of breath. Cardiovascular: Negative for chest pain. Gastrointestinal: Negative for abdominal pain, constipation, diarrhea, nausea and vomiting. Neurological: Negative for headaches. Physical Exam: BP 135/83 Pulse 72 Temp 97.3 ??F (36.3 ??C) Wt 182 lb (82.6 kg) BMI 29.38 kg/m?? Physical Exam Constitutional: General: She is awake. She is not in acute distress. Cardiovascular: Rate and Rhythm: Normal rate and regular rhythm. Heart sounds: No murmur heard. Pulmonary: Effort: Pulmonary effort is normal. Breath sounds: Normal breath sounds and air entry. Neurological: General: No focal deficit present. Mental Status: She is alert and oriented to person, place, and time. Gait: Gait is intact. Gait normal. Psychiatric: Mood and Affect: Mood normal. ASSESSMENT AND PLAN 1. Former smoker (Primary) Low dose lung cancer screening CT ordered. - CT Lung Screening Low dose 2. Mild persistent asthma without complication Uncontrolled. Recommended she cut down on smoking marijuana. Trial of daily symbicort. - budesonide-formoterol (Symbicort) 80-4.5 MCG/ACT inhaler; Inhale 2 puffs in the morning and at bedtime. Rinse mouth with water after use to reduce aftertaste and incidence of candidiasis. Do not swallow. Dispense: 10.2 g; Refill: 3 - albuterol 108 (90 Base) MCG/ACT inhaler; Inhale 2 puffs every 4 (four) hours if needed for wheezing or shortness of breath. Dispense: 18 g; Refill: 1 3. Stage 3b chronic kidney disease (CMS/HCC) Follows with nephrology. Recommended she restart Jardiance. Increase water intake. 4. Essential hypertension Continue amlodipine. 5. Schizoaffective disorder, unspecified type (CMS/HCC) Follows with [facility] psychiatry. Follow up in about 3 months (around 08/15/2024) for In person follow up, w/ VF chronic disease followup. Litzy Raines, MSN, E COMMERCE MARKETING ANALYST-C [address] [address] documented in this encounter Plan of Treatment Upcoming Encounters Date Type Department Care Team (Late st Contact Info) Description 08/16/2024 11:40 AM EDT Office Visit [facility] MEDICAL 70 [place] [address] Litzy Raines FNP [address] [place] [address] 12/12/2024 11:00 AM EDT Office Visit [facility] Dental [address] [place] [address] Urvashi Gamble LLD 9 [place] [address] documented as of this encounter Procedures Procedure Name Priority Date/Time Associated Diagnosis Comments LDCT LUNG SCREENING Routine 06/06/2024 Former smoker documented in this encounter Results * CT Lung Screening Low dose (06/06/2024) Anatomical Region Laterality Modality Lung Computed Tomogra phy [facility] IM CT PROCEDURES Final R esult documented in this encounter Visit Diagnoses Diagnosis Former smoker- Primary Personal history of tobacco use, presenting hazards to health Mild persistent asthma without complication Stage 3b chronic kidney disease (CMS/HCC) Essential hypertension Unspecified essential hypertension Schizoaffective disorder, unspecified type (CMS/HCC) documented in this encounter Additional Health Concerns Assessment Noted Time PHQ-9 Depression Total Score: 15 024 11:25 AM EDT documented as of this encounter Care Teams Oil Inspector Relationship Specialty Start Date End Date Litzy Raines FNP [address] [place] [address] PCP - General Family Medicine 05/06/22 documented as of this encounter
--- OUTSIDE RECORDS SUMMARY | 2024-06-16 11:57 | XMS_ITS | Encounter Summary ---
Author Organization [employer] Address [address] [facility] 7t [place] [address] Care Team Providers Care Theatrical Scenic Designer Name Role Phone [facility] Primary Care Provider [phone] [phone] Reason for Visit * Reason Onset Date Comments testing questions 09/21/2023 Encounter Details Date Type Department Care Team (Late st Contact Info) Description 09/21/2023 Telephone [facility] MEDICAL [address] [place] [address] [facility] 70 [place] [address] testing questions Social History Tobacco Use Types Packs/Day Years [...] PM EST documented as of this encounter Miscellaneous Notes * Telephone Encounter - Nallely Barron LPN - 09/22/2023 10:29 AM EDT Spoke with pt. Reviewed VF's message. Pt states she is still very nervous about the contrast and will be calling her kidney doctor. * Telephone Encounter - Nallely Barron LPN - 09/22/2023 10:25 AM EDT Images from the original note were not included. RAMY Muro to [facility] Triage Nurses 09/22/23 10:05 AM No concerns, recommend proceeding with nuclear stress test. * Telephone Encounter - Nallely Barron LPN - 09/22/2023 9:51 AM EDT TE to provider. Any concern about contrast? * Telephone Encounter - Nallely Barron LPN - 09/22/2023 9:49 AM EDT Spoke with Pamella at [facility] central scheduling. Notified her pt has diagnosis of stage 3b chronic kidney disease. Pamella states she will add this to pt's record. * Telephone Encounter - Nlalely Barron LPN - 09/22/2023 9:44 AM EDT Adele Owens to [facility] Triage [facility] [place] 09/21/23 3:58 PM [facility] radiology. Phone number [phone] for central scheduling. * Telephone Encounter - Nallely Barron LPN - 09/22/2023 9:44 AM EDT Magalie Yang RN to [facility] Referrals 09/21/23 12:49 PM Can you tell the nurses where the referral was sent so that we can call the office and make sure they know about her kidney disease? Please return TE to triage, not me. Thank you! * Telephone Encounter - Aminata Kirk - 09/21/2023 12:28 PM EDT Problem list and allergy list does not get sent with a stress test order. Sometimes the facility will call and ask for it. * Telephone Encounter - Mary Sherwood - 09/21/2023 8:39 AM EDT Patient called. Patient has some questions regarding her upcoming appointment for mpi test. MPI is scheduled for October 10. Patient has questions regarding the contrast dye they will be using due to her kidney disease. documented in this encounter Plan of Treatment Upcoming Encounters Date Type Department Care Team (Late st Contact Info) Description 08/16/2024 11:40 AM EDT Office Visit [facility] MEDICAL [address] [place] [address] [place], [place] [facility] [address] [place] [address] 12/12/2024 11:00 AM EDT Office Visit [facility] Dental [address] [place] [address] Urvashi Gamble LLD 9 [place] [address] documented as of this encounter Visit Diagnoses Not on filedocumented in this encounter Additional Health Concerns Assessment Noted Time PHQ-9 Depression Total Score: 15 08/06/ 023 11:33 AM EDT documented as of this encounter Care Teams Theatrical Scenic Designer Relationship Specialty Start Date End Date Litzy Raines [facility] [address] [place] [address] PCP - General Family Medicine 05/06/22 documented as of this encounter
--- OUTSIDE RECORDS SUMMARY | 2024-06-16 11:57 | XMS_ITS | Encounter Summary ---
Author Organization [facility] [employer] Address [address] [place] [address] 7t [place] [address] Care Team Providers Care Tube Coremaker Name Role Phone [facility] Primary Care Provider [phone] [phone] Encounter Details Date Type Department Care Team (Latest Contact Info) Description 03/27/2019 Abstract [facility] Dental, Provider, DDS Social [...] Description 08/16/2024 11:40 AM EDT Office Visit [facility] MEDICAL [address] [place] [address] [place], [place] [facility] [address] [place] [address] 12/12/2024 11:00 AM EDT Office Visit [facility] Dental [address] [place] [address] Urvashi Gamble LLD 9 [place] [address] documented as of this encounter Visit Diagnoses Not on filedocumented in this encounter Care Teams Tube Coremaker Relationship Specialty Start Date End Date [facility] DOMESTIC TECHNICIAN [address] [place] [address] PCP - General Family Medicine 05/06/22 documented as of this encounter
--- OUTSIDE RECORDS SUMMARY | 2024-06-16 11:57 | XMS_ITS | Clinical Summary ---
Author Organization [facility] Address [address] [place] [address] Phone Care Team Providers Care Manager Drug Name Role Phone Olu Litzy Primary Care Provider [phone] Allergies Active Allergy Reactions Criticality Noted Date Comments Fluconazole Rash Low 04/12/2017 Gabapentin Swelling,Other (see comments) 07/22/2017 Iloperidone Rash,Other (see comments) Low 03/17/2017 Latex 09/10/2021 [place] 05/06/2022 Other reaction(s): kidney damage Penicillins Other (see comments) 06/27/2020 Sertraline Rash,Other (see comments) Low 03/17/2017 Medications docusate sodium (COLACE) 100 MG capsule Take 1 capsule by mouth 1 (one) time each day Active haloperidol decanoate (HALDOL DECANOATE) 100 MG/ML injection every 30 (thirty) days Active levothyroxine (SYNTHROID, LEVOTHROID) 75 MCG tablet Take 1 tablet by mouth 1 (one) time each day Active metFORMIN (GLUCOPHAGE) 500 MG tablet Take 1 tablet by mouth 1 (one) time each day Active OLANZapine (ZyPREXA) 5 MG tablet Take 1 tablet by mouth 1 (one) time each day Active propranolol (INDERAL) 10 MG tablet 40 mg 1 (one) time each day Active Sennosides 8.6 MG capsule Take 1 capsule by mouth 1 (one) time each day Active zolpidem (AMBIEN) 5 MG tablet Take 1 tablet by mouth 1 (one) time each day Active Fyavolv 1-5 MG-MCG per tablet Take 1 mg by mouth 1 (one) time each day Active albuterol 0.63 MG/3ML nebulizer solution Take 0.63 mg by nebulization every 6 (six) hours if needed for wheezing Active traZODone (DESYREL) 100 MG tablet Take 100 mg by mouth every night Active buPROPion (WELLBUTRIN) 75 MG tablet Take 75 mg by mouth 1 (one) time each day Active amLODIPine (NORVASC) 2.5 MG tablet TAKE 1 TABLET BY MOUTH 1 TIME EACH DAY. 90 tablet 3 3 Active Active Problems Problem Noted Date Diagnosed Date Acquired hypothyroidism 05/06/2022 12/03/19 23 Bilateral age-related cataract 05/06/2022 0 12/02/2022 Bilateral hearing loss 05/06/2022 3 Chronic constipation 05/06/2022 12/02/2022 Hiatal hernia 05/06/2022 12/02/2022 Mild intermittent asthma 05/06/2022 023 Hypertension 02/26/2021 Stage 3a chronic kidney disease 06/27/2020 Hypertensive renal disease 06/27/2020 Cannabis use, unspecified, uncomplicated 020 Overview (12/02/2022): 3 times or more daily for yrs 3 times or more daily for yrs Chronic kidney disease 04/12/2018 Overview (09/10/2021): 10/03/19- per pt Stage 3 CKD due to prior lithium use Last Assessment & Plan: Yadira states that she has CKD and she will go for the above lab work today. She notes that she has an appt with a kidney specialist. Essential hypertension 10/20/2017 Overview (06/27/2020): Last Assessment & Plan: Yadira Jeter has hypertension and she is taking the above medication as directed without any side effects. her blood pressure is within normal limits and stable. she will follow up as directed. Resolved Problems Problem Noted Date Diagnosed Date Resolved Date Abdominal pain 09/10/2021 09/10/2021 Bipolar disorder 09/10/2021 09/10/2021 Eating disorder 09/10/2021 09/10/2021 Fibromyositis 09/10/2021 09/10/2021 H/O: chickenpox 09/10/2021 09/10/2021 Migraine 09/10/2021 09/10/2021 Mixed anxiety and depressive disorder 09/10/2021 09/10/2021 Polyp of corpus uteri 09/10/20212021 Raynaud's disease 09/10/2021 09/10/2021 Spinal stenosis of cervical region 09/10/2021 09/10/2021 Swelling of limb 09/10/2021 09/10/2021 Overview (09/10/2021): per patient report right arm and leg, not confirmed on physical exam Asthenia 06/27/2020 02/25/2021 Headache 11/30/2019 02/25/2021 Neck pain 11/30/2019 02/25/2021 Disorder of thyroid gland 11/30/2019 Menopausal flushing 11/30/2019 02/26/20 21 Migraine without aura, not refractory 11/30/2019 02/25/2021 Schizophrenia 05/27/2018 02/25/2021 Chronic maxillary sinusitis 05/13/2018 02/25/2021 Overview (06/27/2020): Last Assessment & Plan: Yadira has a sinusitis and she was given the above antibiotic. She was also given diflucan to prevent a yeast infection. She failed treatment with the Flonase for her sinusitis. She will call if there is any other issues. Gastro-esophageal reflux dis ease without esophagitis 05/13/2018 02/25/2021 Overview (06/27/2020): Last Assessment & Plan: Yadiar has GERD and she was given Pepcid to be taken as directed. Rib pain 04/28/2018 02/25/2021 Overview (06/27/2020): Last Assessment & Plan: Yadira presents for left rib pain for the past 5 days after an accidental fall while tripping over her backpack. She was advised to go for the above image study and I will update her with the results. She will use heat as needed, and she was advised of pillow pressure to help with deep breathing and coughing. She will call if there is any other issues. Fibromyalgia 04/12/2018 02/25/2021 Overview (06/27/2020): Last Assessment & Plan: Yadira has fibromyalgia and she was referred to neurology and she was referred to chronic pain specialty today as well. She was appreciative of this. Other chronic pain 04/12/2018 Overview (06/27/2020): Last Assessment & Plan: Yadira has chronic pain and she was given a referral to a chronic pain today. She was appreciative of this. Tobacco use 04/12/2018 02/25/2021 Overview (06/27/2020): Discontinued Jan 2019 Last Assessment & Plan: Yadira is smoking above 20 cigarettes a day. She is ready to quit. She is asking for a higher dose of the nicotine patch. We discussed smoking cessation for 3 minutes. Myalgia 11/04/2017 02/25/2021 Overview (06/27/2020): Last Assessment & Plan: Patient's complaints of severe muscle spasms all over cannot perceive that she has fibromyalgia and no obvious spasm palpable will change Flexeril to tizanidine. Did discuss possible follow-up with physiatry and check labs like a CPK if persists. Tension-type headache 10/20/20172020 Overview (06/27/2020): Last Assessment & Plan: Patient headaches really sounds like a muscle tension not due to the high BP as she's had it only as high as 180. Also do it does not sound migrainous without any photophobia no aura associated nausea. Patient does have poor posture which could be contributing discussed possible injection triggerpoints recommend ovidio chronic she does have Flexeril which takes periodically and ibuprofen for the inflammation Chronic thoracic back pain 08/25/2017 1 Overview (06/27/2020): Last Assessment & Plan: Pt w mod large spasm L parathoracic muscles No CVA tenderness andnno focal trigger pt causing LUQ abd pain Pt missed her GI apptmt due to ride failure Hypoadrenalism 08/25/2017 02/25/2021 Overview (06/27/2020): Last Assessment & Plan: Discussed sx of hypo and hyper fx adrenals Doubt either as doesn't have hump but poor posture and no wgt issues to suggest Cortisol issues but start w Am cortisol level Memory loss 08/25/2017 02/25/2021 Overview (06/27/2020): Last Assessment & Plan: No sign MID/NPH but 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 ck B12 but nonfocal exam likely due to her a/d undertreatment Psychophysiologic insomnia 08/25/2017 1 Overview (06/27/2020): Last Assessment & Plan: rec take flexeril HS and rx for ambiem 14 given But feel she urgently needs fu psyche yashira she she stopped her meds except low dose lamictal And concern for bipolar sx Immunizations Name Administration Dates Next Due Influenza, MDCK, PF, Quadrivalent 01/22/2019 Influenza, Quadrivalent, Pre servative Free 01/25/2020,12/28/2017,12/18/2016,2014 Influenza, Unspecified 02/22/2015,2013,01/22/2011,2009 Moderna SARS-COV-2 04/09/2021,10/01/2020, 021 Tdap 12/07/2017,11/26/2010,11/26/2010 Social History Tobacco Use Types Packs/Day Years Used Date Smoking Tobacco: Former Cigarettes Smokeless Tobacco: Never Tobacco Cessation:Counseling Given: Not Answered Alcohol Use Standard Drinks/Week Comments No 0 (1 standard drink = 0.6 oz pur e alcohol) Comments Unknown Sex and Gender Information Value Date Recorded Sex Assigned at Not on file Legal Sex Female 4:42 PM EST Gender Identity Not on file Sexual Orientation Not on file Last Filed Vital Signs Vital Sign Reading Time Taken Comments Blood Pressure 110/80 12/02/2022 1:14 PM EDT Pulse 71 12/02/2022 1:14 PM EDT Temperature - - Respiratory Rate - - Oxygen Saturation 97% 09/10/2021 2:19 PM EDT Inhaled Oxygen Concentration - - Weight 82 kg (180 lb 12.8 oz) 12/02/2022 1:14 PM EDT Height 170.2 cm (5' 7 ) 12/15/2019 12:00 PM EDT Body Mass Index 28.32 12/15/2019 12:00 PM EDT Plan of Treatment Health Maintenance Due Date Last Done Comments Breast Cancer Screening 1965 Pneumococcal Vaccine: Pediat rics (0 to 5 Years) and At-Risk Patients (6 to 64 Years) (1 of 2 - PCV) 1971 Hepatitis B Vaccine (1 of 3 - 19+ 3-dose series) 1984 Colorectal Cancer Screening: Annual FOBT 2014 Colorectal Cancer Screening: Colonoscopy 2014 Colorectal Cancer Screening: Sigmoidoscopy 2014 Influenza Vaccine (#1) 2024 0, 01/22/2019, 12/28/2017, Additional history exists Insurance MEDICARE [place]ICAID [place]ICA[place] Care Teams Manager Drug Relationship Specialty Start Date End Date [place], [place] [address] [place] [address] PCP - General Ct Scan Technologist 09/10/21
--- OUTSIDE RECORDS SUMMARY | 2024-06-16 11:57 | XMS_ITS | Encounter Summary ---
Author Organization [facility] [employer] Address [address] [place] [address] 7t [place] [address] Care Team Providers Care Genetic Scientist Name Role Phone [facility] Primary Care Provider [phone] Reason for Visit * Reason Comments Med Refill Encounter Details Date Type Department Care Team (Late Contact Info) Description 10/14/2023 Refill [place] [facility] MEDICAL [address] [place] [address] [facility] [address] [place] [address] Social History Tobacco Use Types Packs/Day Years [...] Encounters Date Type Department Care Team (Late Contact Info) Description 08/16/2024 11:40 AM EDT Office Visit [place] [facility] MEDICAL [address] [place] [address] [facility] [address] [place] [address] 12/12/2024 11:00 AM EDT Office Visit [place] [facility] Dental [address] [place] [address] Urvashi Gamble LLD [address] [place] [address] documented as of this encounter Visit Diagnoses Not on filedocumented in this encounter Additional Health Concerns Assessment Noted Time PHQ-9 Depression Total Score: 15 023 11:33 AM EDT documented as of this encounter Care Teams Genetic Scientist Relationship Specialty Start Date End Date Litzy Raines FNP [address] [place] [address] PCP - General Family Medicine 05/06/22 documented as of this encounter
--- OUTSIDE RECORDS SUMMARY | 2024-06-16 11:57 | XMS_ITS | Encounter Summary ---
Author Organization [employer] Address [address] [facility] 7t [place] [address] Care Team Providers Care Ticket Sales Agent Name Role Phone Litzy Raines PATIENT PLACEMENT COORDINATOR Primary Care Provider [phone] Reason for Visit * Reason Comments Routine Cleaning Dental Exam Encounter Details Date Type Department Care Team (Latest Contact Info) Description 06/13/2024 9:20 AM EST Office Visit [place] [facility] Dental [address] [place] [address] Urvashi Gamble LLD [address] [place] [address] Stage 2 grade B generalized periodontitis per AAP/EFP 2017 classification (Primary Dx); Encounter for dental examination Social History Tobacco Use Types Packs/Day Years Used Date Smoking Tobacco: Former Cigarettes 1 37 1 - 2018 Smokeless Tobacco: Never Alcohol Use Standard Drinks/Week Comments Not Currently 0 (1 standard drink = 0.6 oz pur e alcohol) Depression Answer Date Recorded Patient Health Questionnaire-9 Score 15 02/14/2024 Patient Health Questionnaire-9 Score 15 02/14/2024 Last PHQ-9: Questionnaire Data Not on file 1 Housing Stability Answer Date Recorded What is your housing situation today? I have augustina arauz 02/14/[address] you li [...] PM EST documented as of this encounter Patient Instructions * Patient Instructions* HOMERO Patrick - 06/13/2024 9:20 AM EST 1. Brushing 2x daily Regular brushing is a good basis to keep your teeth healthy for a long time: you should reach for the brush at least twice a day, preferably in the morning before breakfast (so that plaque which has formed over night is removed before eating) and in the evening before bedtime. 2. The right tools make the difference A good toothbrush has a short head, soft plastic bristles with rounded bristle ends and a planar bristle field. Good cleaning results can also be achieved with modern electric toothbrushes - you are best advised by your dentist. When you purchase your toothpaste make sure it contains fluoride. 3. Important: do not forget interdental spaces In addition to regular brushing, clean your interdental spaces with dental floss or interdental brushes, as this area is particularly prone to caries. Seek advice from your dentist as to what tools are best suited for your teeth. 4. Tongue cleaning The importance of cleaning your teeth regularly for good oral care is known. The tongue is, however, often forgotten - a coated tongue is a common cause of bad breath. Cleaning one???s tongue regularly, reduces the amount of harmful germs in the mouth and simultaneously provides fresh breath. Pharmacies and well- stocked supermarkets carry special brushes and scrapers for the removal of tongue coating. 5. Biannual dental check-ups documented in this encounter Progress Notes * HOMERO Patrick - 06/13/2024 9:20 AM EST + recall / Perio exam MH: no changes since last visit CC: none expressed. Adult OCS: WNL. IOE:nsf Today's TX: pre- rinse with [employer] Peroxyl, (Due to Covid-19 Questionnaire Perio Case Type: Type II Generalized. Grade B Oral Hygiene: Fair. generalized moderate plaque, localized calculus, lingual lower anterior X-Rays; No x-rays taken.. . No decay noted. Light scaling with hand instruments and Cavitron. ultrasonic with Releaf high speed suction OHI:tooth brushing with Guillermo technique and flossing instruction. Educational material dispensed: None dispensed. Exam by Dr KALIA WOODRUFF plan presented with risks, recommendations and alternatives. Referral (s): None given . . NV:6 [facility] NOTES:patient did great!! Urvashi Gamble documented in this encounter Plan of Treatment Upcoming Encounters Date Type Department Care Team (Late st Contact Info) Description 08/16/2024 11:40 AM EDT Office Visit [facility] MEDICAL [address] [place] [address] [place], [place] [facility] 70 [place] [address] 12/12/2024 11:00 AM EDT Office Visit [place] [facility] Dental [address] [place] [address] Urvashi Gamble LLD [address] [place] [address] documented as of this encounter Procedures Procedure Name Priority Date/Time Associated Diagnosis Comments Full PROPHYLAXIS - ADULT Routine 025 9:20 AM EST PERIODIC ORAL EVALUATION - ESTABLISHED PATIENT Routine 06/13/2024 9:20 AM EST ORAL HYGIENE INSTRUCTIONS Routine 2024 9:20 AM EST documented in this encounter Visit Diagnoses Diagnosis Stage 2 grade B generalized periodontitis per AAP/EFP 2017 classification- Primary Encounter for dental examination documented in this encounter Additional Health Concerns Assessment Noted Time PHQ-9 Depression Total Score: 15 024 11:25 AM EDT documented as of this encounter Care Teams Ticket Sales Agent Relationship Specialty Start Date End Date Litzy Raines FNP [address] [place] [address] PCP - General Family Medicine 05/06/22 documented as of this encounter
--- OUTSIDE RECORDS SUMMARY | 2024-06-16 11:57 | XMS_ITS | Encounter Summary ---
Author Organization [employer] Address [address] [facility] 7t [place] [address] Care Team Providers Care Historical Site Guide Name Role Phone [facility] Primary Care Provider [phone] Reason for Visit * Reason Onset Date Comments Medication Question 06/12/2024 Encounter Details Date Type Department Care Team (Late st Contact Info) Description 06/12/2024 Telephone [facility] MEDICAL [address] [place] [address] [facility] [address] [place] [address] Medication Question Social History Tobacco Use Types Packs/Day Years [...] Telephone Encounter - Nallely Barron LPN - 06/12/2024 12:44 PM EST Pt notified. * Telephone Encounter - RAMY Muro - 06/12/2024 12:25 PM EST She can just wait later in the day until she eats to take the Jardiance. (She has some anxiety around that medication and her eating schedule). * Telephone Encounter - Nallely Barron LPN - 06/12/2024 12:24 PM EST Please advise. * Telephone Encounter - Mary Sherwood - 06/12/2024 12:13 PM EST Patient called. Patient has a kidney US coming up which she was told not to eat before, should she still take the following medication the day of the US or should she wait until she is able to eat to take it Jardiance 10 MG documented in this encounter Plan of Treatment Upcoming Encounters Date Type Department Care Team (Late st Contact Info) Description 08/16/2024 11:40 AM EDT Office Visit [place] [facility] MEDICAL [address] [place] [address] [facility] LitzyRAMY [address] [facility] [address] [facility] [place] [address] 12/12/2024 11:00 AM EDT Office Visit [place] [facility] Dental [address] [facility] [place] [address] Urvashi Gamble LLD [address] [place] [address] documented as of this encounter Visit Diagnoses Not on filedocumented in this encounter Additional Health Concerns Assessment Noted Time PHQ-9 Depression Total Score: 15 024 11:25 AM EDT documented as of this encounter Care Teams Historical Site Guide Relationship Specialty Start Date End Date [place], [place] [facility] [address] [facility] [place] [address] PCP - General Family Medicine 05/06/22 documented as of this encounter
--- OUTSIDE RECORDS SUMMARY | 2024-06-16 11:57 | XMS_ITS | Encounter Summary ---
Author Organization [employer] Address [address] [facility] 7t [place] [address] Care Team Providers Care Bar Porter Name Role Phone Litzy Raines PAPER PRODUCTION ENGINEER Primary Care Provider [phone] Reason for Visit * Reason Comments Med Change Request Encounter Details Date Type Department Care Team (Late st Contact Info) Description 06/01/2024 Refill [place] [facility] MEDICAL [address] [place] [address] Cierra Alexandre MD [address] [place] [address] Mild persistent asthma without complication Social History Tobacco Use Types Packs/Day Years [...] encounter Miscellaneous Notes * Telephone Encounter - Paola Parson - 06/01/2024 12:18 PM EST Med queued for provider to send. documented in this encounter Plan of Treatment Upcoming Encounters Date Type Department Care Team (Late st Contact Info) Description 08/16/2024 11:40 AM EDT Office Visit [place] [facility] MEDICAL [address] [place] [address] [place], [place] [facility] [address] [place] [address] 12/12/2024 11:00 AM EDT Office Visit [place] [facility] Dental [address] [place] [address] Urvashi Gamble LLD 9 [place] [address] documented as of this encounter Visit Diagnoses Diagnosis Mild persistent asthma without complication documented in this encounter Additional Health Concerns Assessment Noted Time PHQ-9 Depression Total Score: 15 024 11:25 AM EDT documented as of this encounter Care Teams Bar Porter Relationship Specialty Start Date End Date [facility] [place], [facility] [address] [facility] [place] [address] PCP - General Family Medicine 05/06/22 documented as of this encounter
--- OUTSIDE RECORDS SUMMARY | 2024-06-16 11:57 | XMS_ITS | Encounter Summary ---
Author Organization [facility] [employer] Address [address] [place] [address] 7t [place] [address] Care Team Providers Care Compliance Field Technician Name Role Phone [facility] Primary Care Provider [phone] Encounter Details Date Type Department Care Team (Late st Contact Info) Description 09/09/2023 Orders Only [place] [facility] MEDICAL [address] [place] [address] [place], [place] [facility] [address] [place] [address] ZAVALA (dyspnea on exertion) Social History Tobacco Use Types Packs/Day Years [...] 08/16/2024 11:40 AM EDT Office Visit [place] [facility] MEDICAL [address] [place] [address] [place], [place] [facility] 70 [place] [address] 12/12/2024 11:00 AM EDT Office Visit [place] [facility] Dental [address] [place] [address] Urvashi Gamble LLD 9 [place] [address] documented as of this encounter Procedures Procedure Name Priority Date/Time Associated Diagnosis Comments STRESS TEST ONLY Routine 09/09/2023 ZAVALA (dyspnea on exertion) STRESS TEST WITH MYOCARDIAL PERFUSION Routine 09/09/2023 ZAVALA (dyspnea on exertion) documented in this encounter Results * Stress test (09/09/2023) [facility] [place] [facility] CV STRESS PROCEDURES Kim l Result * Stress test with myocardial perfusion (09/09/2023) [facility] [place] [facility] CV STRESS PROCEDURES Kim l Result documented in this encounter Visit Diagnoses Diagnosis ZAVALA (dyspnea on exertion) Other dyspnea and respiratory abnormality documented in this encounter Additional Health Concerns Assessment Noted Time PHQ-9 Depression Total Score: 15 023 11:33 AM EDT documented as of this encounter Care Teams Compliance Field Technician Relationship Specialty Start Date End Date [facility] [address] [place] [address] PCP - General Family Medicine 05/06/22 documented as of this encounter
--- OUTSIDE RECORDS SUMMARY | 2024-06-16 11:57 | XMS_ITS | Encounter Summary ---
Author Organization [facility] [employer] [facility] [employer] Address [address] [place] [address] [address] [place] [address] Care Team Providers Care Prop Maker Name Role Phone Litzy Raines Primary Care Provider [phone] Reason for Referral * Imaging (Routine) - Pending Review Specialty Diagnoses / Procedures Referred By Chance quispe Referred To Contact Radiology Diagnoses Lung nodule Former smoker Procedures CT Lung Screening Low dose Litzy Raines FNP [address] [place], [place] Phone: tel: fax: [facility] [address] Phone: tel: fax: Referral ID Status Reason Start Date Expiration Date V isits Requested Visits Authorized [id number] Pending Review 12/07/2024 06/09/2025 1 1 * Imaging (Routine) - Closed Specialty Diagnoses / Procedures Referred By Chance quispe Referred To Contact Radiology Diagnoses Hydronephrosis of right kidney Procedures US Renal Complete Litzy Raines FNP [address] [place], [place] Phone: tel: fax: [facility] [address] Phone: tel: fax: Referral ID Status Reason Start Date Expiration Date Visits Re quested Visits Authorized [id number] Closed 06/09/2024 06/09/2025 1 1 Reason for Visit * Reason Onset Date Comments Results 06/09/2024 Encounter Details Date Type Department Care Team (Late st Contact Info) Description 06/09/2024 Telephone [facility] [address] [facility] [place] [address] Litzy Raines FNP 70 [facility] [place] [address] Results Social History Tobacco Use Types Packs/Day Years [...] encounter Miscellaneous Notes * Telephone Encounter - Marion Sadler RN - 06/09/2024 10:16 AM EST Placed call to patient and advised of imaging results, she indicates understanding. Will have US performed. No questions at this time. * Telephone Encounter - RAMY Muro - 06/09/2024 9:[address] chest shows no concerning issues with lungs. Small nodule seen, recommend repeat CT chest in 1 year, ordered. They did see some mild swelling in her right kidney, recommend kidney ultrasound for further assess, ordered. documented in this encounter Plan of Treatment Upcoming Encounters Date Type Department Care Team (Late st Contact Info) Description 08/16/2024 11:40 AM EDT Office Visit [facility] [address] [place] [address] Litzy Raines FNP [address] [place] [address] 12/12/2024 11:00 AM EDT Office Visit [facility] [address] [place] [address] Urvashi Gamble LLD [address] [place] [address] Scheduled Orders Name Type Priority Associated Diagnoses Orde r Schedule CT Lung Screening Low dose Imaging Routine Lung nodule Former smoker Expected: 05/10/2025 (Approximate), Expires: 06/09/2025 documented as of this encounter Procedures Procedure Name Priority Date/Time Associated Diagnosis Comments US RENAL COMPLETE Routine 06/14/2024 Hydronephrosis of right kidney documented in this encounter Results * US Renal Complete (06/14/2024) Anatomical Region Laterality Modality Kidney Ultrasound Litzy MCCANN IM US PROCEDURES Final R esult documented in this encounter Visit Diagnoses Diagnosis Hydronephrosis of right kidney- Primary Hydronephrosis Lung nodule Other diseases of lung, not elsewhere classified Former smoker Personal history of tobacco use, presenting hazards to health documented in this encounter Additional Health Concerns Assessment Noted Time PHQ-9 Depression Total Score: 15 024 11:25 AM EDT documented as of this encounter Care Teams Prop Maker Relationship Specialty Start Date End Date Litzy Raines FNP [address] [place] [address] PCP - General Family Medicine 05/06/22 documented as of this encounter
--- OUTSIDE RECORDS SUMMARY | 2024-06-16 11:57 | XMS_ITS | Encounter Summary ---
Author Organization [employer] Address [address] [facility] 7[address] [place] [address] Care Team Providers Care Toll Gate Keeper Name Role Phone [facility] Primary Care Provider [phone] Reason for Visit * Reason Onset Date Comments Med Change Request 05/30/2024 Encounter Details Date Type Department Care Team (Late st Contact Info) Description 05/30/2024 Telephone [facility] [address] [place] [address] [place], [place], [facility] [address] [place] [address] Med Change Request Social History Tobacco Use Types Packs/Day Years Used Date Smoking Tobacco: Former Cigarettes 1 37 1 98 - 2019 Smokeless Tobacco: Never Alcohol Use [...] encounter Miscellaneous Notes * Telephone Encounter - Cierra Alexandre MD - 05/30/2024 12:45 PM EST [employer] with ELSY sent. * Telephone Encounter - RASHAWN Todd - 05/30/2024 9:03 AM EST Last OV: 05/17/24 Next OV: 08/16/24 RX QUED FOR COVERNG PROVIDER TO REVIEW AND SEND RYAN FOR VF *I COULD NOT FIND THIS SPECIFIC BRAND IN THE DATABASE* COVERING PROVIDER TO ENTER PATIENTS REQUEST FOR THE TEVA BRAND INHALER * Telephone Encounter - Reyna Leon - 05/30/2024 8:35 AM EST Pt called, reports albuterol 108 (90 Base) MCG/ACT inhaler [[id number]] is not working and would like to switch back to albuterol 108 (90 Base) MCG/ACT inhaler [[id number]] DISCONTINUED (Teva(?), red and white inhaler, reports she had been using the name brand before, and it had worked) Aware her insurance does not cover the name brand and wants to pay for it with [employer] card documented in this encounter Plan of Treatment Upcoming Encounters Date Type Department Care Team (Late st Contact Info) Description 08/16/2024 11:40 AM EDT Office Visit [facility] [address] [place] [address] Litzy Raines FNP [address] [place] [address] 12/12/2024 11:00 AM EDT Office Visit [place] [facility] [address] [place] [address] Urvashi Gamble LLD [address] [place] [phone] documented as of this encounter Visit Diagnoses Diagnosis Mild persistent asthma without complication- Primary documented in this encounter Additional Health Concerns Assessment Noted Time PHQ-9 Depression Total Score: 15 024 11:25 AM EDT documented as of this encounter Care Teams Toll Gate Keeper Relationship Specialty Start Date End Date Litzy Raines FNP [address] [place] [address] PCP - General Family Medicine 05/06/22 documented as of this encounter
--- OUTSIDE RECORDS SUMMARY | 2024-06-16 11:57 | XMS_ITS | Clinical Summary ---
Author Organization [employer] Address [address] [place] [address] [address] [place] [address] Care Team Providers Care Jersey Knitter Name Role Phone Litzy Raines MACHINE OPERATOR REPLANTER Primary Care Provider [phone] Allergies Active Allergy Reactions Criticality Noted Date Comments Fluconazole Rash Low 04/12/2017 Gabapentin Swelling 07/22/2017 Iloperidone Rash Low 03/17/2017 Other reaction(s): Other (see comments) Latex 09/10/2021 [place] 05/06/2022 Other reaction(s): kidney damage Penicillins Rash Low 07/22/2017 Other reaction(s): Other (see comments) Sertraline Rash Low 03/17/2017 Other reaction(s): Other (see comments) Medications amLODIPine (Norvasc) 2.5 MG tablet TAKE 1 TABLET BY MOUTH 1 TIME EACH DAY. 02/16/20 22 Active buPROPion (Wellbutrin) 75 MG tablet Take 75 mg by mouth in the morning. 01/20/20 22 Active Fyavolv 1-5 MG-MCG tablet Take 1 tablet by mouth in the morning. 04/01/20 22 Active traZODone (Desyrel) 50 MG tablet Take 100 mg by mouth. Active zolpidem (Ambien) 5 MG tablet Take 5 mg by mouth if needed at bedtime. 10/11/19 19 Active docusate sodium (Colace) 100 MG capsuleIndicatio ns:Constipation, unspecified constipation type TAKE 1 CAPSULE BY MOUTH EVERY DAY NEEDED 30 capsule 1 06/08/19 23 Active topiramate (Topamax) 25 MG tablet Take 50 mg by mouth in the morning. 12/19/19 23 Active propranolol (Inderal) 40 MG tabletIndication s:Essential (primary) hypertension TAKE 1 TABLET BY MOUTH EVERY DAY IN THE MORNING 90 tablet 3 05/25/19 24 Active fluticasone (Flonase) 50 MCG/ACT nasal sprayIndications :Chronic sinusitis, unspecified location Administer 2 sprays into each nostril in the morning. Shake gently. Before first use, prime pump. After use, clean tip and replace cap. 16 g 08/11/19 24 025 Active senna (Senokot) 8.6 MG tabletIndication s:Chronic constipation TAKE 2 TABLETS AT BEDTIME NEEDED ORALLY ONCE A DAY 60 tablet 3 08/19/19 24 Active haloperidol (Haldol) 2 MG tablet Take 2 mg by mouth Once per day. 09/24/19 24 Active OLANZapine (ZyPREXA) 5 MG tablet Take 5 mg by mouth Once per day. Active levothyroxine (Synthroid, Levoxyl) 75 MCG tablet TAKE 1 TABLET BY MOUTH BEFOTRE BREAKFAST 90 tablet 3 10/15/19 24 Active Jardiance 10 MG Take 10 mg by mouth Once per day. 03/15/20 24 Active budesonide-formo terol (Symbicort) 80-4.5 MCG/ACT inhalerIndicatio ns:Mild persistent asthma without complication Inhale 2 puffs in the morning and at bedtime. Rinse mouth with water after use to reduce aftertaste and incidence of candidiasis. Do not swallow. 10.2 g 05/17/19 25 026 Active Albuterol Sulfate, sensor, (ProAir Digihaler) 108 (90 Base) MCG/ACT aerosol powderIndication s:Mild persistent asthma without complication Inhale 2 puffs Every 4-6 hours as needed (wheezing). 1 each 06/01/19 25 Active albuterol 108 (90 Base) MCG/ACT inhalerIndicatio ns:Mild persistent asthma without complication Inhale 2 puffs every 4 (four) hours if needed for wheezing or shortness of breath. 18 g 05/17/19 25 025 Discontinued ProAir HFA 108 (90 Base) MCG/ACT inhalerIndicatio ns:Mild persistent asthma without complication Inhale 2 puffs every 6 (six) hours if needed for wheezing. 18 g 05/30/19 25 025 Discontinued Active Problems Problem Noted Date Diagnosed Date Lung nodule 06/09/2024 Hydronephrosis of right kidney 06/09/2024 Class 1 obesity due to exces s calories with serious comorbidity and body mass index (BMI) of 30.0 to 30.9 in adult 03/17/2024 ZAVALA (dyspnea on exertion) 01/20/2024 Stage 3b chronic kidney disease 08/06/2022 Acquired hypothyroidism 05/06/2022 Age-related cataract of both eyes 05/06/2022 Bilateral hearing loss 05/06/2022 Chronic constipation 05/06/2022 Chronic GERD 05/06/2022 Hiatal hernia 05/06/2022 Insomnia 05/06/2022 Mild intermittent asthma without complication PTSD (post-traumatic stress disorder) 05/06/2022 Schizoaffective disorder 05/06/2022 Migraine headache 02/18/2022 Raynaud's disease 02/18/2022 Spinal stenosis of cervical region 02/18/2022 Hot flashes due to menopause 11/30/2019 Marijuana use, continuous 10/03/2019 Overview (05/06/2022): 3 times or more daily for yrs Chronic maxillary sinusitis 05/13/2018 Overview (05/06/2022): Last Assessment & Plan: Yadira has a sinusitis and she was given the above antibiotic. She was also given diflucan to prevent a yeast infection. She failed treatment with the Flonase for her sinusitis. She will call if there is any other issues. Fibromyalgia 04/12/2018 Overview (05/06/2022): Last Assessment & Plan: Yadira has fibromyalgia and she was referred to neurology and she was referred to chronic pain specialty today as well. She was appreciative of this. Essential hypertension 10/20/2017 Overview (05/06/2022): Last Assessment & Plan: Yadira Jeter has hypertension and she is taking the above medication as directed without any side effects. her blood pressure is within normal limits and stable. she will follow up as directed. Last Assessment & Plan: Yadira Jeter has hypertension and she is taking the above medication as directed without any side effects. her blood pressure is within normal limits and stable. she will follow up as directed. Chronic tension headache 10/20/2017 Chronic right-sided thoracic back pain 8 Overview (05/06/2022): Last Assessment & Plan: Pt w mod large spasm L parathoracic muscles No CVA tenderness andnno focal trigger pt causing LUQ abd pain Pt missed her GI apptmt due to ride failure Last Assessment & Plan: Yadira has chronic pain and she was given a referral to a chronic pain today. She was appreciative of this. Memory loss 08/25/2017 Overview (05/06/2022): Last Assessment & Plan: No sign MID/NPH but 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 ck B12 but nonfocal exam likely due to her a/d undertreatment Resolved Problems Problem Noted Date Diagnosed Date Resolved Date 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/18/2022 08/06/2022 Mixed anxiety depressive disorder 02/18/2022 08/06/2022 Asthenia 06/27/2020 08/06/2022 Hypertensive renal disease 06/27/2020 0 08/06/2022 Stage 3a chronic kidney disease 06/27/2020 08/06/2022 Headache 11/30/2019 08/06/2022 Neck pain 11/30/2019 08/06/2022 Migraine without aura and re sponsive to treatment 11/30/2019 08/06/2022 Disorder of thyroid 11/30/2019 08/07/19 Rib pain on left side 04/28/20182022 Overview (05/06/2022): Last Assessment & Plan: Yadira presents for [...] call if there is any other issues. Chronic kidney disease 04/12/201808/06 Overview (05/06/2022): 10/03/19- per pt Stage 3 CKD due to prior lithium use Last Assessment & Plan: Yadira states that she has CKD and she will go for the above lab work today. She notes that she has an appt with a kidney specialist. 10/03/19- per pt Stage 3 CKD due to prior lithium use 10/03/19- per pt Stage 3 CKD due to prior lithium use Last Assessment & Plan: Yadira states that she has CKD and she will go for the above lab work today. She notes that she has an appt with a kidney specialist. Last Assessment & Plan: Yadira states that she has CKD and she will go for the above lab work today. She notes that she has an appt with a kidney specialist. Myalgia 11/04/2017 08/06/2022 Overview (05/06/2022): Last Assessment & Plan: Patient's complaints of severe muscle spasms all over cannot perceive that she has fibromyalgia and no obvious spasm palpable will change Flexeril to tizanidine. Did discuss possible follow-up with physiatry and check labs like a CPK if persists. Adrenal insufficiency 08/25/20172022 Overview (05/06/2022): Last Assessment & Plan: Discussed sx of hypo and hyper fx adrenals Doubt either as doesn't have hump but poor posture and no wgt issues to suggest Cortisol issues but start w Am cortisol level Bipolar disorder 08/25/2017 02/14/2024 Overview (05/06/2022): Last Assessment & Plan: Yadira has bipolar disorder and she is followed by her specialist. Psychophysiological insomnia 08/25/2017 08/06/2022 Overview (05/06/2022): Last Assessment & Plan: rec take flexeril HS and rx for ambiem 14 given But feel she urgently needs fu psyche yashira she she stopped her meds except low dose lamictal And concern for bipolar sx Encounters Date Type Department Care Team Description 06/13/2024 9:20 AM EST Office Visit [facility] [address] [place] [address] Urvashi Gamble LLD Stage 2 grade B generalized periodontitis per AAP/EFP 2017 classification (Primary Dx); Encounter for dental examination 06/12/2024 Telephone [facility] [address] [place] [address] [place], [place] [facility] Medication Question 06/09/2024 Telephone [facility] [address] [place] [address] [facility] Results 06/01/[address] [address] Cierra Alexandre MD Mild persistent asthma without complication 05/30/[address] [address] [place], [place] [facility] Med Change Request 05/17/2024 11:20 AM EST Office Visit [address] [address] [place], [place] [facility] Former smoker (Primary Dx); Mild persistent asthma without complication; Stage 3b chronic kidney disease (CMS/HCC); Essential hypertension; Schizoaffective disorder, unspecified type ([facility]/HCC) 04/19/2024 Telephone [facility] [address] [place] [address] [facility] Results (Abnormal mammogram) 04/13/2024 12:30 PM EST Office Visit [facility] [address] [place] [address] Yolette Rosales DDS Extraction of tooth needed (Primary Dx) 04/08/2024 Refill [facility] [address] [place] [address] [facility] 03/30/2024 Telephone [facility] [address] [place] [address] [facility] Nutrition outreach 03/17/2024 2:00 PM EST Office Visit [facility] [address] [place] [address] [facility] Stage 3b chronic kidney disease ([facility]) (Primary Dx); Class 1 obesity due to excess calories with serious comorbidity and body mass index (BMI) of 30.0 to 30.9 in adult; Schizoaffective disorder, unspecified type ([facility]) from Last 3 Months Immunizations Name Administration Dates Next Due Influenza Injectable Quadriv alant Preservative Free IIV4 MDCK 01/22/2019 Influenza injectable quadriv alent IIV4 with preservative 02/08/2023 Influenza injectable quadriv alent preservative free 01/25/2020,12/28/2017,12/18/2016,2014 Influenza, IIV3, injectable 01/29/2022,1 06/19/2020,02/22/2015,2010 Influenza, Injectable, MDCK, preservative free 01/11/2024 Influenza, Unspecified 01/29/2022,2020,02/22/2015,2013,01/10/2010 Moderna Covid-19 Vaccine 12+ 04/09/2021,10/02/19 21,09/03/2020 Tdap 12/07/2017,11/26/2010,11/26/2010 Zoster, Recombinant 04/25/2023,12/18/2022 Family History Medical History Relation Name Comments Atrial fibrillation Mother Breast cancer Mother Relation Name Status Comments Father Mother Social History Tobacco Use Types Packs/Day Years [...] Orientation Straight 06/05/2022 2: 51 PM EST Last Filed Vital Signs Vital Sign Reading Time Taken Comments Blood Pressure 135/83 05/17/2024 11:07 AM EST Pulse 72 05/17/2024 11:07 AM EST Temperature 36.3 ??C (97.3 ??F) 05/17/2024 11:[address] Respiratory Rate 16 08/11/2023 12:09 PM EDT Oxygen Saturation 96% 03/17/2024 1:58 PM EST Inhaled Oxygen Concentration - - Weight 82.6 kg (182 lb) 05/17/2024 11:07 AM EST Height 167.6 cm (5' 6 ) 03/17/2024 1:58 PM EST Body Mass Index 29.38 03/17/2024 1:58 PM EST Plan of Treatment Upcoming Encounters Date Type Department Care Team (Late st Contact Info) Description 08/16/2024 11:40 AM EDT Office Visit [facility] [address] [place] [address] [facility] Litzy [facility] [address] [place] [address] 12/12/2024 11:00 AM EDT Office Visit [facility] [address] [place] [address] Urvashi Gamble LLD [address] [place] [address] Health Maintenance Due Date Last Done Comments CT Colonography 1965 Colonoscopy 1965 FIT 1965 FOBT 1965 Sigmoidoscopy 1965 Derm Melanoma Skin Check 1965 Alcohol/Substance Use Screening 1977 Hepatitis C Screening 1983 Hepatitis B Vaccines (1 of 3 - 19+ 3-dose series) 1984 Pneumococcal Vaccine: 50+ Years (1 of 2 - PCV) 1984 Depression Monitoring (PHQ-9) 08/14/2024 02/14/2024, 02/14/2024 Dental X-Ray: Bitewings 10/12/2024 10/12/19 24, 07/14/2022, 06/26/2021, Additional history exists Cervical Cancer Screening 11/29/2024 HPV/Cotest 11/29/2024 12/20/2017 Pap Smear 11/29/2024 11/30/2019, 11/08, 12/20/2017, Additional history exists Dental Oral Exam 12/12/2024 06/13/2024, 08/2023, 01/19/2023, Additional history exists Dental Prophylaxis 12/12/2024 06/13/2024, 0 10/12/2023, 01/19/2023, Additional history exists Depression Screening 02/13/2025 02/14/2024, 02/14/20 SDOH Screening 02/13/2025 02/14/2024 Lung Cancer Screening 06/06/2025 06/06/2024 Tobacco Screening 06/13/2025 06/13/2024 Dental X-Ray: Full Mouth 07/15/2025 07/14/2022, 11/08 Colorectal Cancer Screening 03/11/2026 FIT DNA/Cologuard 03/11/2026 03/11/2023, 03/11/2023 Mammogram 06/01/2026 06/01/2024, 05/11, 06/01/2024, Additional history exists DTaP/Tdap/Td Vaccines (4 - Td or Tdap) 12/08/2027 12/07/2017, 11/26/2010, 11/26/2010 Lipid Panel 02/14/2029 02/15/2024, 01/09, 01/29/2022, Additional history exists RSV Patients and Patients Aged 60 years or older (1 - 1-dose 75+ series) 2040 HIV Screening Completed 07/21/2018 Zoster Vaccines Completed 04/25/2023, 12/18/2022 COVID-19 Vaccine Completed 01/11/2024, , 03/17/2022, Additional history exists Influenza Vaccine Completed 01/11/2024, , 01/29/2022, Additional history exists HIB Vaccines Aged Out No longer eligi ble based on patient's age to complete this topic HPV Vaccines Aged Out No longer eligi ble based on patient's age to complete this topic Hepatitis A Vaccines Aged Out No long er eligible based on patient's age to complete this topic IPV Vaccines Aged Out No longer eligi ble based on patient's age to complete this topic Meningococcal Vaccine Aged Out No cassia john eligible based on patient's age to complete this topic RSV under 20 months Aged Out No longe r eligible based on patient's age to complete this topic Rotavirus Vaccines Aged Out No longer eligible based on patient's age to complete this topic Procedures Procedure Name Priority Date/Time Associated Diagnosis Comments US RENAL COMPLETE Routine 06/14/2024 Hydronephrosis of right kidney ORAL HYGIENE INSTRUCTIONS Routine 06/13/2024 9:20 AM EST Full PROPHYLAXIS - ADULT Routine 06/13/2024 9:20 AM EST PERIODIC ORAL EVALUATION - ESTABLISHED PATIENT Routine 06/13/2024 9:20 AM EST LDCT LUNG SCREENING Routine 06/06/2024 Former smoker AMB REFERRAL TO PODIATRY Routine 06/05/2024 Right foot pain Callus BI US BREAST COMPLETE LEFT Routine 06/01/2024 Mass of left breast, unspecified quadrant Abnormal mammogram of left breast BI MAMMOGRAM DIAGNOSTIC LEFT Routine 06/01/2024 Mass of left breast, unspecified quadrant Abnormal mammogram of left breast BI MAMMOGRAM SCREENING BILATERAL Routine 04/14/2024 Encounter for screening mammogram for malignant neoplasm of breast 4 INTRAORAL - PERIAPICAL FIRST RADIOGRAPHIC IMAGE Routine 04/13/2024 12:30 PM EST ADJUNCTIVE GENERAL SERVICES - PROFESSIONAL VISITS - CASE PRESENTATION, SUBSEQUENT TO DETAILED AND EXTENSIVE TREATMENT PLANNING Routine 04/13/2024 12:30 PM EST 4 EXTRACTION, ERUPTED TOOTH OR EXPOSED ROOT (ELEVATION AND/OR FORCEPS REMOVAL) Routine 04/13/2024 12:30 PM EST LIPID PANEL, STANDARD Routine 02/15/2024 Screening for lipid disorders BITEWINGS - 4 RADIOGRAPHIC IMAGES Routine 10/12/2023 11:00 AM EDT HM FIT DNA/COLOGUARD CANCER SCREENING Routine 03/11/2023 11:25 AM EDT DIAGNOSTIC - DIAGNOSTIC IMAGING - INTRAORAL - COMPREHENSIVE SERIES OF RADIOGRAPHIC IMAGES Routine 07/14/2022 2:00 PM EST Encounter for dental examination PAP SMEAR Routine 11/30/2019 12:00 AM EDT HM HIV 1/2 ANTIGEN AND ANTIBODY Routine 07/21/2018 THIN PREP PAP, WITH HPV Routine 12/20/2017 12:00 AM EDT from Last 3 Months or Most Recently Relevant to Health Maintenance Results * US Renal Complete (06/14/2024) Anatomical Region Laterality Modality Kidney Ultrasound [facility] IMG US PROCEDURES Final R esult * CT Lung Screening Low dose (06/06/2024) Anatomical Region Laterality Modality Lung Computed Tomogra phy [facility] IMG CT PROCEDURES Final R esult * Referral to Podiatry (06/05/2024) Result [facility] OUTPATIENT REFERRAL ORDER TIFFANY Final Result * BI Mammogram Diagnostic Left (06/01/2024) Anatomical Region Laterality Modality Breast Left Mammography [facility] IMG BI PROCEDURES Final R esult * BI US Breast Complete Left (06/01/2024) Anatomical Region Laterality Modality Breast Left Ultrasound [facility] IMG US PROCEDURES Final R esult * BI Mammogram Screening Bilateral (04/14/2024) Anatomical Region Laterality Modality Breast Bilateral Mammography [facility] IMG BI PROCEDURES Final R esult * Lipid Panel, Standard (02/15/2024) Blood Venous blood specimen / Unknown Result [facility] LAB BLOOD ORDERABLES Kim l Result EXTERNAL LAB * FIT DNA/Cologuard Cancer Screening (03/11/2023 11:25 AM EDT) Stool Result [facility] HEALTH MAINTENANCE Final Result * Pap Smear (11/30/2019 12:00 AM EDT) Swab Historical Provider MD LAB CYTOLOGY ORDERABLES F inal Result EXTERNAL LAB * HM HIV 1/2 Antigen and Antibody (07/21/2018) HIV Ag/Ab Nonreactive [facility] HEALTH MAINTENANCE Final Result * THIN PREP PAP, WITH HPV (12/20/2017 12:00 AM EDT) Historical Provider LAB CYTOLOGY ORDERABLES F inal Result [facility] [address] [place] [address] from Last 3 Months or Most Recently Relevant to Health Maintenance Insurance [facility] MEDICAID STAND ADULT Care Teams Jersey Knitter Relationship Specialty Start Date End Date Litzy Raines FNP [address] [facility] [place] [place] PCP - General Family Medicine 05/06/22
--- OUTSIDE RECORDS SUMMARY | 2024-06-16 11:57 | XMS_ITS | Encounter Summary ---
Author Organization [facility] [employer] Address [address] [place] [address] [address] [place] [address] Care Team Providers Care It Analyst Name Role Phone [facility] Primary Care Provider [phone] Encounter Details Date Type Department Care Team (Late st Contact Info) Description 10/21/2023 Orders Only [facility] [address] [place] [address] [place], [place] [facility] [address] [place] [address] Callus Social History Tobacco Use Types Packs/Day Years [...] Description 08/16/2024 11:40 AM EDT Office Visit [facility] [address] [place] [address] [place], [place] [facility] [address] [place] [address] 12/12/2024 11:00 AM EDT Office Visit [facility] [address] [place] [address] Urvashi Gamble LLD [address] [place] [address] documented as of this encounter Procedures Procedure Name Priority Date/Time Associated Diagnosis Comments AMB REFERRAL TO PODIATRY Routine 04/19/2023 Callus documented in this encounter Results * Referral to Podiatry (04/19/2023) [facility] OUTPATIENT REFERRAL ORDER TIFFANY Final Result documented in this encounter Visit Diagnoses Diagnosis Callus Corns and callosities documented in this encounter Additional Health Concerns Assessment Noted Time PHQ-9 Depression Total Score: 15 08/06/ 023 11:33 AM EDT documented as of this encounter Care Teams It Analyst Relationship Specialty Start Date End Date [facility] [address] [place] [address] PCP - General Family Medicine 05/06/22 documented as of this encounter
--- OUTSIDE RECORDS SUMMARY | 2024-06-16 11:57 | XMS_ITS | Encounter Summary ---
Author Organization [employer] Address [address] [facility] [address] [place] [address] Care Team Providers Care Molder Inflated Ball Name Role Phone [facility] Primary Care Provider [phone] Reason for Visit * Reason Comments Med Refill Encounter Details Date Type Department Care Team (Late st Contact Info) Description 04/08/2024 Refill [place] [address] [place] [address] [facility] [address] [place] [address] Social History Tobacco Use Types Packs/Day Years [...] Description 08/16/2024 11:40 AM EDT Office Visit [place] [facility] [address] [place] [address] [place], [place] [facility] [address] [place] [address] 12/12/2024 11:00 AM EDT Office Visit [place] [facility] [address] [place] [address] Urvashi Gamble LLD [address] [place] [address] documented as of this encounter Visit Diagnoses Not on filedocumented in this encounter Additional Health Concerns Assessment Noted Time PHQ-9 Depression Total Score: 15 024 11:25 AM EDT documented as of this encounter Care Teams Molder Inflated Ball Relationship Specialty Start Date End Date [place], [place] [facility] [address] [place] [address] PCP - General Family Medicine 05/06/22 documented as of this encounter
== END 2024-06-16 11:32 | disposition home or self-care (01) ==
PROVIDERS: PCP Nurse Practitioner; Visit Provider Internal Medicine Nephrology
DX: N18.31 Chronic kidney disease, stage 3a (principal); I10 Essential (primary) hypertension
CPT/HCPCS: 99214

== ENCOUNTER → 2024-06-16 10:53 | Outpatient (BNVA) | payer OTHER, SELFPAY | PROVIDERS: PCP Nurse Practitioner; Visit Provider Internal Medicine Nephrology | DX: I12.9 Hypertensive chronic kidney disease with stage 1 through stage 4 chronic kidney disease, or unspecified chronic kidney disease (principal); N18.31 Chronic kidney disease, stage 3a | CPT/HCPCS: 99212 ==

== ENCOUNTER 2024-09-22 10:16 | Outpatient (AMB) | payer OTHER, SELFPAY ==
--- NOTE | 2024-09-22 10:19 | HO.NEPHOV ---
Vital Signs 09/22/24 10:21 Height 5 ft 7 in Weight 184 lb 8 oz BMI 28.9 BP 120/82 Blood Pressure Location Lt brachial Position Sitting Pulse 68 Pulse Source Pulse Oximeter Pulse Oximetry (%) 97 Oxygen Delivery Method Room Air Intake Visit Reasons: CKD-Conf Scalehouse Attendant Required: No Accompanied by: Self / Same As Patient Allergies gabapentin [GABAPENTIN] Allergy (Intermediate, Verified 09/22/24 10:20) SWELLING iloperidone [From FANAPT] Allergy (Mild, Verified 09/22/24 10:20) RASH Penicillins [PENICILLINS] Allergy (Mild, Verified 09/22/24 10:20) RASH sertraline [From ZOLOFT] Allergy (Mild, Verified 09/22/24 10:20) RASH HPI Comments Details: Yadira was seen in follow-up of her chronic kidney disease and hypertension. She has history of mental health disorder and had taken lithium from 1991 which she had discontinued a few years ago. She does not have any chest pain, palpitation, shortness of breath, proximal nocturnal dyspnea, orthopnea, pedal edema, orthostatic or urinary symptoms. Her blood pressure has been at goal. She has not been initiated on any new medications. She does not take any excessive nonsteroidal anti-inflammatory medications. Otherwise she was feeling well. She was prescribed Wegovy by PCP which is uncomfortable taking & has not started it yet. She had a renal USS which showed small B/L renal benign cysts. She also is found to have a benign lung nodule PENDING SALE TO [facility] Medical History (Updated 06/03/23 @ 13:12 by Lavelle Alan MD) Hypertension Chronic kidney disease, stage 3a Surgical History S/P tonsillectomy Family History Mother A-fib Father Lung cancer Social History Alcohol intake: never Patient Tobacco Use Status: Former Tobacco user Substance Use Type: Marijuana Review of Systems Const All systems reviewed & are unremarkable except as noted in HPI and below Physical Exam Vital Signs: Last Vital Signs Pulse 68 09/22/24 10:21 BP 120/82 09/22/24 10:21 Pulse Ox 97 05/16/25 10:21 Oxygen Delivery Method Room Air 09/22/24 10:21 BMI result Body Mass Index 28.9 Const General: comfortable and no acute distress Orientation/consciousness: patient oriented x3 HEENT Head: Yes normocephalic Mouth: Normal oral and palatal mucosa present Eyes EOM: EOMs intact bilaterally Neck Neck: Yes supple Resp Auscultation: clear to auscultation bilaterally Cardio Jugular venous distension: no JVD Rate: regular rate GI Palpation (GI): Soft to palpation Auscultation: normal bowel sounds General: Yes no CVA tenderness Back/Spine/Pelvis Back: no CVA tenderness Skin General skin exam: no rashes or lesions noted Neuro General: patient oriented x3 and moves all extremities Extrem General: Yes no pedal edema Assessment & Plan Assessment & Plan (1) Chronic kidney disease, stage 3a: Code(s): N18.31 - Chronic kidney disease, stage 3a Category: Medical (2) Hypertension: Code(s): I10 - Essential (primary) hypertension Category: Medical Qualifiers: Hypertension type: primary hypertension Qualified Code(s): I10 - Essential (primary) hypertension Plan 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 She does not have any proteinuria. Her blood pressure has been at goal. Her renal functions are currently stable. She is not taking any non steroidal anti-inflammatories, LAUREN inhibitor or ARB. She is on amlodipine which is keeping her blood pressure at goal which she could take it at night. She has not had any renal stones.She should continue Jardiance 10 mg, which I plan to increase to 25 mg at next visit .She likely is a great candidate for LAUREN-inhibitor or ARB after discontinuation of amlodipine, if her electrolytes or serum creatinine permits. She needs to lose some weight and maintain good hydration. All these have been discussed. Follow-up lab work ordered. Follow-up appointment given Orders: Orders Blood Urea Nitrogen Today I10 - Essential (primary) hypertension, N18.31 - Chronic kidney disease, stage 3a Creatinine Today I10 - Essential (primary) hypertension, N18.31 - Chronic kidney disease, stage 3a Electrolytes Today I10 - Essential (primary) hypertension, N18.31 - Chronic kidney disease, stage 3a Coding Level of Care Code Est Pt Level 4 (65870) Diagnoses Chronic kidney disease, stage 3a N18.31 Primary hypertension I10 Hypertension type: primary hypertension
[2024-09-22 10:21] VITALS: BP 120/82; PULSE 68; O2SAT 97; BMI 28.9
--- OUTSIDE RECORDS SUMMARY | 2024-09-22 10:37 | XMS_ITS | Encounter Summary ---
Author Organization [email or web address] Address [address] [facility] 7t [place] [address] Care Team Providers Care Er Rn Name Role Phone [facility] Primary Care Provider +1 [phone] Encounter Details Date Type Department Care Team [...] Care Team (Late st Contact Info) Description 11/08/2024 11:40 AM EDT Office Visit [place] [facility] 70 [place] [address] [place], [place] [facility] 70 [place] [address] 12/12/2024 11:00 AM EDT Office Visit [place] [facility] 70 [place] [address] Urvashi Gamble LLD [address] [place] [address] documented as of this encounter Visit Diagnoses Not on filedocumented in this encounter Care Teams Er Rn Relationship Specialty Start Date End Date [place], [place] [facility] 70 [facility] [place] [address] PCP - General Family Medicine 05/06/22 documented as of this encounter
--- OUTSIDE RECORDS SUMMARY | 2024-09-22 10:37 | XMS_ITS | Encounter Summary ---
Author Organization [employer] Address 75 [facility] 7t [place] [address] Care Team Providers Care Neonatal Pediatric Nurse Name Role Phone [facility] Primary Care Provider +1 [phone] Encounter Details Date Type Department Care Team [...] Description 11/08/2024 11:40 AM EDT Office Visit [place] [facility] 70 [place] [address] [place], [place] [facility] 70 [place] [address] 12/12/2024 11:00 AM EDT Office Visit [place] [facility] 70 [place] [address] Urvashi Gamble LLD [address] [place] [address] documented as of this encounter Visit Diagnoses Not on filedocumented in this encounter Care Teams Neonatal Pediatric Nurse Relationship Specialty Start Date End Date [place], [place] [facility] [place] [address] PCP - General Family Medicine 05/06/22 documented as of this encounter
--- OUTSIDE RECORDS SUMMARY | 2024-09-22 10:37 | XMS_ITS | Encounter Summary ---
Author Organization [employer] Address 75 [facility] 7t [place] [address] Care Team Providers Care Banquet Director Name Role Phone [facility] Primary Care Provider +1 [phone] Reason for Visit * Reason Onset Date Comments testing questions 09/21/2023 Encounter Details Date Type Department Care Team (Late st Contact Info) Description 09/21/2023 Telephone [facility] [address] [place] [address] [place], [place], [facility] 70 [place] [address] testing questions Social History Tobacco Use Types [...] from the original note were not included. Litzy Raines, RAMY to [place] [facility] 09/22/23 10:05 AM No concerns, recommend proceeding with nuclear stress test. * Telephone Encounter - Nallely Barron LPN - 09/22/2023 9:51 AM EDT TE to provider. Any concern about contrast? * Telephone Encounter - Nallely Barron LPN - 09/22/2023 9:49 AM EDT Spoke with Pamella at [facility] central scheduling. Notified her pt has diagnosis of stage 3b chronic kidney disease. Pamella states she will add this to pt's record. * Telephone Encounter - Nallely Barron LPN - 09/22/2023 9:44 AM EDT dAele Owens to [place] [facility] [place] 09/21/23 3:58 PM [facility] radiology. Phone number [phone] for central scheduling. * Telephone Encounter - Nallely Barron LPN - 09/22/2023 9:44 AM EDT Magalie Yang RN to [place] Referrals 09/21/23 12:49 PM Can you tell [...] Description 11/08/2024 11:40 AM EDT Office Visit [place] [facility] 70 [place] [address] [place], [place] [facility] 70 [place] [address] 12/12/2024 11:00 AM EDT Office Visit [place] [facility] 70 [place] [address] Urvashi Gamble LLD [address] [place] [address] documented as of this encounter Visit Diagnoses Not on filedocumented in this encounter Additional Health Concerns Assessment Noted Time PHQ-9 Depression Total Score: 15 023 11:33 AM EDT documented as of this encounter Care Teams Banquet Director Relationship Specialty Start Date End Date [facility] 70 [place] [address] PCP - General Family Medicine 05/06/22 documented as of this encounter
--- OUTSIDE RECORDS SUMMARY | 2024-09-22 10:37 | XMS_ITS | Encounter Summary ---
Author Organization [employer] Address [address] [place] [address] 7t [place] [address] Care Team Providers Care Supervisor Blast Furnace Name Role Phone [facility] Primary Care Provider +1 [phone] Reason for Visit * Reason Comments Med Refill Encounter Details Date Type Department Care Team (Late st Contact Info) Description 10/14/2023 Refill [place] [facility] 70 [place] [address] [place], [place] [facility] 70 [place] [address] Social History Tobacco Use Types Packs/Day Years [...] Description 11/08/2024 11:40 AM EDT Office Visit [place] [facility] 70 [place] [address] [place], [place] [facility] 70 [place] [address] 12/12/2024 11:00 AM EDT Office Visit [place] [facility] 70 [place] [address] Urvashi Gamble LLD 9 [place] [address] documented as of this encounter Visit Diagnoses Not on filedocumented in this encounter Additional Health Concerns Assessment Noted Time PHQ-9 Depression Total Score: 15 023 11:33 AM EDT documented as of this encounter Care Teams Supervisor Blast Furnace Relationship Specialty Start Date End Date Litzy Raines FNP 70 [place] [address] PCP - General Family Medicine 05/06/22 documented as of this encounter
--- OUTSIDE RECORDS SUMMARY | 2024-09-22 10:37 | XMS_ITS | Encounter Summary ---
Author Organization [employer] Address 75 [facility] 7t [place] [address] Care Team Providers Care Forms Designer Name Role Phone [facility] Primary Care Provider +1 [phone] Encounter Details Date Type Department Care Team [...] Description 11/08/2024 11:40 AM EDT Office Visit [place] [facility] 70 [place] [address] [place], [place] [facility] 70 [place] [address] 12/12/2024 11:00 AM EDT Office Visit [place] [facility] 70 [place] [address] Urvashi Gamble LLD 9 [place] [address] documented as of this encounter Visit Diagnoses Not on filedocumented in this encounter Care Teams Forms Designer Relationship Specialty Start Date End Date [place], [place] [facility] [address] [place] [address] PCP - General Family Medicine 05/06/22 documented as of this encounter
--- OUTSIDE RECORDS SUMMARY | 2024-09-22 10:37 | XMS_ITS | Encounter Summary ---
Author Organization [employer] Address [address] [facility] [address] 7t [place] [address] Care Team Providers Care Endoscopic Technician Name Role Phone [facility] Primary Care Provider [phone] [phone] Encounter Details Date Type Department Care Team (Late st Contact Info) Description 06/23/2024 Orders Only [place] [address] [place] [address] [place], [place], [facility] 70 [place] [address] Social History Tobacco Use Types Packs/Day Years [...] Description 11/08/2024 11:40 AM EDT Office Visit [facility] 70 [place] [address] [facility] 70 [place] [address] 12/12/2024 11:00 AM EDT Office Visit [facility] 70 [place] [address] Urvashi Gamble LLD 9 [place] [address] documented as of this encounter Procedures Procedure Name Priority Date/Time Associated Diagnosis Comments PATHOLOGY REPORT (HISTOPATHOLOGY) Routine 06/20/2024 11:54 AM EST documented in this encounter Results * Pathology Report (Histopathology) (06/20/2024 11:54 AM EST) Tissue [facility] LAB PATHOLOGY ORDERABLES Final Result documented in this encounter Visit Diagnoses Not on filedocumented in this encounter Additional Health Concerns Assessment Noted Time PHQ-9 Depression Total Score: 15 024 11:25 AM EDT documented as of this encounter Care Teams Endoscopic Technician Relationship Specialty Start Date End Date Litzy Raines, RAMY [address] [place] [address] PCP - General Family Medicine 05/06/22 documented as of this encounter
--- OUTSIDE RECORDS SUMMARY | 2024-09-22 10:37 | XMS_ITS | Encounter Summary ---
Author Organization [employer] Address 75 [facility] 7t [place] [address] Care Team Providers Care Filling Separator Name Role Phone [facility] Primary Care Provider [phone] [phone] Reason for Visit * Reason Comments Med Refill Encounter Details Date Type Department Care Team (Late st Contact Info) Description 04/08/2024 Refill [place] [facility] 70 [place] [address] [place], [place], [facility] 70 [place] [address] Social History Tobacco Use Types Packs/Day Years [...] Description 11/08/2024 11:40 AM EDT Office Visit [place] [facility] 70 [place] [address] [facility] Litzy [facility] 70 [place] [address] 12/12/2024 11:00 AM EDT Office Visit [place] [facility] 70 [place] [address] Urvashi Gamble LLD [address] [place] [address] documented as of this encounter Visit Diagnoses Not on filedocumented in this encounter Additional Health Concerns Assessment Noted Time PHQ-9 Depression Total Score: 15 024 11:25 AM EDT documented as of this encounter Care Teams Filling Separator Relationship Specialty Start Date End Date Litzy Raines FNP 70 [place] [address] PCP - General Family Medicine 05/06/22 documented as of this encounter
--- OUTSIDE RECORDS SUMMARY | 2024-09-22 10:37 | XMS_ITS | Encounter Summary ---
Author Organization [employer] Address 75 [facility] 7t [place] [address] Care Team Providers Care Student Assistance Counselor Name Role Phone [facility] Primary Care Provider +1 [phone] Encounter Details Date Type Department Care Team [...] Description 11/08/2024 11:40 AM EDT Office Visit [place] [facility] 70 [place] [address] [place], [place] [facility] 70 [place] [address] 12/12/2024 11:00 AM EDT Office Visit [place] [facility] 70 [place] [address] Urvashi Gamble LLD 9 [place] [address] documented as of this encounter Visit Diagnoses Not on filedocumented in this encounter Care Teams Student Assistance Counselor Relationship Specialty Start Date End Date [place], [place] [facility] [address] [place] [address] PCP - General Family Medicine 05/06/22 documented as of this encounter
--- OUTSIDE RECORDS SUMMARY | 2024-09-22 10:37 | XMS_ITS | Encounter Summary ---
Author Organization [employer] Address 75 [facility] 7t [place] [address] Care Team Providers Care Social Media Senior Associate Name Role Phone [facility] Primary Care Provider +1 [phone] Encounter Details Date Type Department Care Team (Late st Contact Info) Description 08/12/2023 Orders Only [facility] [address] [place] [address] [facility] 70 [place] [address] Social History Tobacco Use Types Packs/Day Years [...] 11/08/2024 11:40 AM EDT Office Visit [place] [facility] 70 [place] [address] [facility] 70 [place] [address] 12/12/2024 11:00 AM EDT Office Visit [place] [facility] 70 [place] [address] Urvashi Gamble LLD 9 [place] [address] documented as of this encounter Procedures Procedure Name Priority Date/Time Associated Diagnosis Comments HM FIT DNA/COLOGUARD CANCER SCREENING Routine 03/11/2023 11:25 AM EDT documented in this encounter Results * FIT DNA/Cologuard Cancer Screening (03/11/2023 11:25 AM EDT) Stool [facility] HEALTH MAINTENANCE Final Result documented in this encounter Visit Diagnoses Not on filedocumented in this encounter Additional Health Concerns Assessment Noted Time PHQ-9 Depression Total Score: 15 08/06/ 023 11:33 AM EDT documented as of this encounter Care Teams Social Media Senior Associate Relationship Specialty Start Date End Date [facility] 70 [place] [address] PCP - General Family Medicine 05/06/22 documented as of this encounter
--- OUTSIDE RECORDS SUMMARY | 2024-09-22 10:37 | XMS_ITS | Encounter Summary ---
Author Organization [employer] Address 75 [facility] 7t [place] [address] Care Team Providers Care General Supervisor Name Role Phone [facility] Primary Care Provider [phone] [phone] Reason for Visit * Reason Comments Med Refill Encounter Details Date Type Department Care Team (Late st Contact Info) Description 09/19/2024 Refill [place] [facility] 70 [place] [address] [facility] 70 [place] [address] Chronic sinusitis, unspecified location Social History Tobacco Use Types Packs/Day Years [...] Description 11/08/2024 11:40 AM EDT Office Visit [place] [facility] 70 [place] [address] [place], [place] [facility] 70 [place] [address] 12/12/2024 11:00 AM EDT Office Visit [place] [facility] 70 [place] [address] Urvashi Gamble LLD [address] [place] [address] documented as of this encounter Visit Diagnoses Diagnosis Chronic sinusitis, unspecified location documented in this encounter Additional Health Concerns Assessment Noted Time PHQ-9 Depression Total Score: 15 024 11:25 AM EDT documented as of this encounter Care Teams General Supervisor Relationship Specialty Start Date End Date [facility] Litzy [facility] 70 [place] [address] PCP - General Family Medicine 05/06/22 documented as of this encounter
--- OUTSIDE RECORDS SUMMARY | 2024-09-22 10:37 | XMS_ITS | Clinical Summary ---
Author Organization [facility] Address [address] [facility] [address] [place] [address] Phone Care Team Providers Care Senior Manufacturing Supervisor Name Role Phone [facility]zy Primary Care Provider [phone] Allergies Active Allergy Reactions Criticality Noted Date Comments Fluconazole Rash Low 04/12/2017 Gabapentin Swelling,Other (see comments) 07/22/2017 Iloperidone Rash,Other (see comments) Low 03/17/2017 Latex 09/10/2021 [place] 05/06/2022 Other reaction(s): kidney damage Penicillins Other [...] (06/27/2020): Last Assessment & Plan: Yadira has GERD and she was given Pepcid [...] lamictal And concern for bipolar sx Immunizations Immunization Administration Dates Next Due Influenza, MDCK, PF, [...] Last Done Comments Breast Cancer Screening 1965 Hepatitis B Vaccine (1 of 3 - 19+ 3-dose series) 1984 Pneumococcal Vaccine: 50+ Ye ars (1 of 2 - PCV) 1984 Colorectal Cancer Screening: Annual FOBT 2014 Colorectal Cancer Screening: Colonoscopy 2014 Colorectal Cancer Screening: Sigmoidoscopy 2014 Influenza Vaccine (Season Ended) 2025 01/25/2020, 01/22/2019, 12/28/2017, Additional history exists Insurance Medicare Medicaid [place] Medicare Medicaid [place] Care Teams Senior Manufacturing Supervisor Relationship Specialty Start Date End Date [place], [place] [address] [place] [address] PCP - General Water Resource Consultant 09/10/21
--- OUTSIDE RECORDS SUMMARY | 2024-09-22 10:37 | XMS_ITS | Encounter Summary ---
Author Organization [employer] Address 75 [facility] 7t [place] [address] Care Team Providers Care Patrol Sergeant Name Role Phone [facility] Primary Care Provider [phone] [phone] Encounter Details Date Type Department Care Team (Late st Contact Info) Description 10/21/2023 Orders Only [place] [facility] 70 [place] [address] [facility] 70 [place] [address] [place] Social History Tobacco Use Types Packs/Day [...] Description 11/08/2024 11:40 AM EDT Office Visit [place] [facility] 70 [place] [address] [facility] 70 [place] [address] 12/12/2024 11:00 AM EDT Office Visit [place] [facility] [address] [place] [address] Urvashi Gamble LLD [address] [place] [address] documented as of this encounter Procedures Procedure Name Priority Date/Time Associated Diagnosis Comments AMB REFERRAL TO PODIATRY Routine 04/19/2023 [place] documented in this encounter Results * Referral to Podiatry (04/19/2023) [facility] OUTPATIENT REFERRAL ORDER TIFFANY Final Result documented in this encounter Visit Diagnoses Diagnosis Callus Corns and callosities documented in this encounter Additional Health Concerns Assessment Noted Time PHQ-9 Depression Total Score: 15 08/06/ 023 11:33 AM EDT documented as of this encounter Care Teams Patrol Sergeant Relationship Specialty Start Date End Date [facility] 70 [place] [address] PCP - General Family Medicine 05/06/22 documented as of this encounter
--- OUTSIDE RECORDS SUMMARY | 2024-09-22 10:37 | XMS_ITS | Encounter Summary ---
Author Organization [employer] Address 75 [facility] 7t [place] [address] Care Team Providers Care Poultry And Fish Butcher Name Role Phone [facility] Primary Care Provider [phone] [phone] Encounter Details Date Type Department Care Team (Late st Contact Info) Description 09/09/2023 Orders Only [place] [facility] 70 [place] [address] [place], [place] [facility] 70 [place] [address] ZAVALA (dyspnea on exertion) Social History Tobacco [...] 11/08/2024 11:40 AM EDT Office Visit [place] [facility] 70 [place] [address] [place], [place] [facility] 70 [place] [address] 12/12/2024 11:00 AM EDT Office Visit [place] [facility] Dental 70 [place] [address] Urvashi Gamble LLD 9 [place] [address] documented as of this encounter Procedures Procedure Name Priority Date/Time Associated Diagnosis Comments STRESS TEST ONLY Routine 09/09/2023 ZAVALA (dyspnea on exertion) STRESS TEST WITH MYOCARDIAL PERFUSION Routine 09/09/2023 ZAVALA (dyspnea on exertion) documented in this encounter Results * Stress test (09/09/2023) [facility] CV STRESS PROCEDURES Kim l Result * Stress test with myocardial perfusion (09/09/2023) [facility] CV STRESS PROCEDURES Kim l Result documented in this encounter Visit Diagnoses Diagnosis ZAVALA (dyspnea on exertion) Other dyspnea and respiratory abnormality documented in this encounter Additional Health Concerns Assessment Noted Time PHQ-9 Depression Total Score: 15 023 11:33 AM EDT documented as of this encounter Care Teams Poultry And Fish Butcher Relationship Specialty Start Date End Date [facility] 70 [place] [address] PCP - General Family Medicine 05/06/22 documented as of this encounter
--- OUTSIDE RECORDS SUMMARY | 2024-09-22 10:37 | XMS_ITS | Clinical Summary ---
Author Organization [employer] Address [address] [facility] 7t [place] [address] Care Team Providers Care Last Picker Name Role Phone Litzy Raines [facility] Primary Care Provider [phone] Allergies Active Allergy Reactions Criticality Noted Date Comments Fluconazole Rash Low 04/12/2017 Gabapentin Swelling 07/22/2017 Iloperidone Rash Low 03/17/2017 Other reaction(s): Other (see comments) Latex 09/10/2021 [place] 05/06/2022 Other reaction(s): kidney damage Penicillins Rash [...] mouth in the morning. 12/19/19 23 Active senna (Senokot) 8.6 MG tabletIndication s:Chronic [...] mouth Once per day. 03/15/20 24 Active propranolol (Inderal) 40 MG tabletIndication s:Essential (primary) hypertension TAKE 1 TABLET BY MOUTH EVERY DAY IN THE MORNING 90 tablet 3 07/03/19 25 Active budesonide-formo terol (Symbicort) 80-4.5 MCG/ACT inhalerIndicatio ns:Mild persistent asthma without complication Inhale 2 puffs in the morning and at bedtime. Rinse mouth with water after use to reduce aftertaste and incidence of candidiasis. Do not swallow. 10.2 g 07/27/19 25 026 Active Albuterol Sulfate, sensor, (ProAir Digihaler) 108 (90 Base) MCG/ACT aerosol powderIndication s:Mild persistent asthma without complication Inhale 2 puffs Every 4-6 hours as needed (wheezing). 1 each 08/05/19 25 Active fluticasone (Flonase) 50 MCG/ACT nasal sprayIndications :Chronic sinusitis, unspecified location SPRAY 2 SPRAYS INTO EACH NOSTRIL IN THE MORNING SHAKE GENTLY/PRIME BEFORE 1ST USE&CLEAN TIP/REPLACE CAP 48 mL 09/21/19 25 Active fluticasone (Flonase) 50 MCG/ACT nasal sprayIndications :Chronic sinusitis, unspecified location Administer 2 sprays into each nostril in the morning. Shake gently. Before first use, prime pump. After use, clean tip and replace cap. 16 g 08/11/19 24 025 Discontinued Active Problems Problem Noted Date [...] 05/13/2018 Overview (05/06/2022): Last Assessment & Plan: Riana has a sinusitis and she was given the above antibiotic. She was also given diflucan to prevent a yeast infection. She failed treatment with the Flonase for her sinusitis. She will call if there is any other issues. Fibromyalgia 04/12/2018 Overview (05/06/2022): Last Assessment & Plan: Riana has fibromyalgia and she was referred to neurology and she was referred to chronic pain specialty today as well. She was appreciative of this. Essential hypertension 10/20/2017 Overview (05/06/2022): Last Assessment & Plan: Riana Jeter has hypertension and she is taking the above medication as directed without any side effects. her blood pressure is within normal limits and stable. she will follow up as directed. Last Assessment & Plan: Riana Jeter has hypertension and she is taking [...] to ride failure Last Assessment & Plan: Riana has chronic pain and she was given [...] 11/30/2019 08/06/2022 Disorder of thyroid 11/30/2019 08/07/19 23 Rib pain on left side 04/28/20182022 Overview (05/06/2022): Last Assessment & Plan: Riana presents for left rib pain for the [...] prior lithium use Last Assessment & Plan: Riana states that she has CKD and she will go for the above lab work today. She notes that she has an appt with a kidney specialist. 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 She notes that she has an appt with a kidney specialist. Last Assessment & Plan: Riana states that she has CKD and she [...] 02/14/2024 Overview (05/06/2022): Last Assessment & Plan: Riana has bipolar disorder and she is followed by her specialist. Psychophysiological insomnia 08/25/2017 08/06/2022 Overview (05/06/2022): Last Assessment & Plan: rec take flexeril HS and rx for ambiem 14 given But feel she urgently needs fu psyche yashira she she stopped her meds except low dose lamictal And concern for bipolar sx Encounters Date Type Department Care Team Description 09/19/2024 Refill [facility] [address] [place] [address] [place], [place], SEAM TAPER MACHINE Chronic sinusitis, unspecified location 08/21/2024 9:00 AM EDT Office Visit [facility] [address] [place] [address] Marion Canales LLD 08/04/2024 1:40 PM EDT Office Visit [facility] [address] [place] [address] [place], [place], SEAM TAPER MACHINE Lower respiratory infection (Primary Dx); Mild persistent asthma without complication 07/24/2024 Telephone [facility] [address] [place] [address] [place], [place], [facility] Influenza 07/18/2024 Telephone [facility] MED[facility] [address] [place] [address] [place], [place], [facility] Flu Symptoms [address] [facility] MED[facility] [address] [place] [address] [place], [place], SEAM TAPER MACHINE Essential (primary) hypertension from Last 3 Months Immunizations Immunization Administration Dates Next Due Influenza Injectable Quadriv alant Preservative Free IIV4 MDCK 01/22/2019 Influenza injectable quadriv alent IIV4 with preservative 02/08/2023,12/28/2017 Influenza injectable quadriv alent preservative free 01/25/2020,12/28/2017,12/18/2016,2014 [...] Smoking Tobacco: Former Cigarettes 1 37 1 2018 Smokeless Tobacco: Never Alcohol Use Standard [...] Sign Reading Time Taken Comments Blood Pressure 125/85 08/04/2024 1:39 PM EDT Pulse 67 08/04/2024 1:39 PM EDT Temperature 36.7 ??C (98 ??F) 08/04/2024 1:39 PM EDT Respiratory Rate 16 08/11/2023 12:09 PM EDT Oxygen Saturation 96% 03/17/2024 1:58 PM EST Inhaled Oxygen Concentration - - Weight 85.7 kg (189 lb) 08/04/2024 1:39 PM EDT Height 167.6 cm (5' 6 ) 03/17/2024 1:58 PM EST Body Mass Index 30.51 03/17/2024 1:58 PM EST Plan of Treatment Upcoming Encounters Date Type Department Care Team (Late st Contact Info) Description 11/08/2024 11:40 AM EDT Office Visit [facility] [address] [place] [address] [place], [place], [facility] [address] [place] [address] 12/12/2024 11:00 AM EDT Office Visit [facility] [address] [place] [address] Urvashi Gamble LLD [address] [place] [address] Health Maintenance Due Date Last Done Comments CT Colonography 1965 Colonoscopy 1965 FIT 1965 Sigmoidoscopy 1965 Derm Melanoma Skin Check 1965 Alcohol/Substance Use Screening 1977 Hepatitis C Screening 1983 Hepatitis B Vaccines (1 of 3 - 19+ 3-dose series) 1984 Pneumococcal Vaccine: 50+ Years (1 of 2 - PCV) 1984 FOBT 03/11/2024 03/11/2023 Dental X-Ray: Bitewings 10/12/2024 10/12/19, 07/14/2022, 06/26/2021, Additional history exists Cervical Cancer Screening 11/29/2024 HPV/Cotest 11/29/2024 12/20/2017 Pap Smear 11/29/2024 11/30/2019, 11/08, 12/20/2017, Additional history exists Dental Oral Exam 12/12/2024 06/13/2024, 08/2023, 01/19/2023, Additional history exists Dental Prophylaxis 12/12/2024 06/13/2024, 0 10/12/2023, 01/19/2023, Additional history exists Depression Screening 02/13/2025 02/14/2024, 02/14/20 SDOH Screening 02/13/2025 02/14/2024 Lung Cancer Screening 06/06/2025 06/06/2024 Dental X-Ray: Full Mouth 07/15/2025 07/14/2022, 11/08 Tobacco Screening 08/04/2025 08/04/2024 Colorectal Cancer Screening 03/11/2026 FIT DNA/Cologuard 03/11/2026 03/11/2023, 03/11/2023 Mammogram 06/20/2026 06/20/2024, 06/10, 06/01/2024, Additional history exists DTaP/Tdap/Td Vaccines (4 [...] patient's age to complete this topic Meningococcal B Vaccine Aged Out No l onger eligible based on patient's age to complete [...] Procedure Name Priority Date/Time Associated Diagnosis Comments 13 LIMITED ORAL EVALUATION - PROBLEM FOCUSED Routine 08/21/2024 9:00 AM EDT 13 INTRAORAL - PERIAPICAL FIRST RADIOGRAPHIC IMAGE Routine 08/21/2024 9:00 AM EDT Full PROPHYLAXIS - ADULT Routine 06/13/2024 9:20 AM EST PERIODIC ORAL EVALUATION - ESTABLISHED PATIENT Routine 06/13/2024 9:20 AM EST LDCT LUNG SCREENING Routine 06/06/2024 Former smoker BI US BREAST COMPLETE LEFT Routine 06/01/2024 Mass of left breast, unspecified quadrant Abnormal mammogram of left breast LIPID PANEL, STANDARD Routine 02/15/2024 Screening for lipid disorders BITEWINGS - 4 RADIOGRAPHIC IMAGES Routine 10/12/2023 11:00 AM EDT HM FIT DNA/COLOGUARD CANCER SCREENING Routine 03/11/2023 11:25 AM EDT INTRAORAL - COMPLETE SERIES OF RADIOGRAPHIC IMAGES Routine 07/14/2022 2:00 PM EST Encounter for dental examination PAP SMEAR Routine 11/30/2019 12:00 AM EDT HM HIV 1/2 ANTIGEN AND ANTIBODY Routine 07/21/2018 THIN PREP PAP, WITH HPV Routine 12/20/2017 12:00 AM EDT from Last 3 Months or Most Recently Relevant to Health Maintenance Results * CT Lung Screening Low dose (06/06/2024) Anatomical Region Laterality Modality Lung Computed Tomogra phy Result [facility] IM CT PROCEDURES Final R esult * BI US Breast Complete Left (06/01/2024) Anatomical Region Laterality Modality Breast Left Ultrasound Result [facility] IMG US PROCEDURES Final R esult * Lipid Panel, Standard (02/15/2024) Blood Venous blood specimen / Unknown Result [facility] LAB BLOOD ORDERABLES Kim l Result EXTERNAL LAB * FIT DNA/Cologuard Cancer Screening (03/11/2023 11:25 AM EDT) Stool Result [facility] HEALTH MAINTENANCE Final Result * Pap Smear (11/30/2019 12:00 AM EDT) Swab Result [facility] Historical Provider MD LAB CYTOLOGY ORDERABLES F inal Result Performing Organization Address [facility] Co de Phone Number EXTERNAL LAB * HM HIV 1/2 Antigen and Antibody (07/21/2018) HIV Ag/Ab Nonreactive Result [facility] HEALTH MAINTENANCE Final Result * THIN PREP PAP, WITH HPV (12/20/2017 12:00 AM EDT) Result [facility] Historical Provider MD LAB CYTOLOGY ORDERABLES F inal Result [facility] [address] [place] [address] from Last 3 Months or Most Recently Relevant to Health Maintenance Insurance FORMERLY [facility] ONE CARE < 65 DENTAL - [facility] Care Teams Last Picker Relationship Specialty Start Date End Date [facility] [address] [place], [place] PCP - General Family Medicine 05/06/22
== END 2024-09-22 10:37 | disposition home or self-care (01) ==
LOC: HO.HKA 10:16
PROVIDERS: Visit Provider Internal Medicine Nephrology
DX: N18.31 Chronic kidney disease, stage 3a (principal); I10 Essential (primary) hypertension
CPT/HCPCS: 99214

== ENCOUNTER → 2024-09-22 10:16 | Outpatient (BNVA) | payer OTHER, SELFPAY | PROVIDERS: Visit Provider Internal Medicine Nephrology | DX: I12.9 Hypertensive chronic kidney disease with stage 1 through stage 4 chronic kidney disease, or unspecified chronic kidney disease (principal); N18.31 Chronic kidney disease, stage 3a | CPT/HCPCS: 99212 ==

== ENCOUNTER 2024-12-20 11:57 | Outpatient (REF) | payer OTHER, SELFPAY ==
--- OUTSIDE RECORDS SUMMARY | 2024-12-20 12:46 | XMS_ITS | Clinical Summary ---
Author Organization [facility] Address [address] [place] [address] Phone Care Team Providers Care Sheet Metal Worker Helper Name Role Phone Olu Litzy Primary Care Provider [phone] Allergies Active Allergy Reactions Criticality Noted Date Comments Fluconazole Rash Low 04/12/2017 Gabapentin Swelling,Other (see comments) 07/22/2017 Iloperidone Rash,Other (see comments) Low 03/17/2017 Latex 09/10/2021 [place] 05/06/2022 Other reaction(s): kidney damage Penicillins Other [...] Cancer Screening: Sigmoidoscopy 2014 Influenza Vaccine (#1) 2025 0, 01/22/2019, 12/28/2017, Additional history exists Insurance Medicare Medicaid [place] Medicare Medicaid [place] Care Teams Sheet Metal Worker Helper Relationship Specialty Start Date End Date [place], [place] [address] [place] [address] PCP - General Licensing Engineer 09/10/21
--- OUTSIDE RECORDS SUMMARY | 2024-12-20 12:46 | XMS_ITS | Encounter Summary ---
Author Organization [facility] Address [address] [facility] [address] [place] [address] Phone Care Team Providers Care Servicer Travel Trailers Name Role Phone Danish Alfredo MD Unavailable Julio Johnson MD Unavailable [phone] Litzy Raines Primary Care Provide r Reason for Referral * MRI/CAT Scan - Authorized Specialty Diagnoses / Procedures Referred By Chance quispe Referred To Contact Radiology Diagnoses Chronic bilateral low back pain with bilateral sciatica Procedures MRI Lumbar Spine CHG MRI, LUMBAR SPINE Litzy Raines FNP [address] [place] [address] Phone: tel: fax: Referral ID Status Reason Start Date Expiration Date V isits Requested Visits Authorized [id number] Authorized 11/23/2024 05/09/2025 1 1 Encounter Details Date Type Department Care Team (Late st Contact Info) Description 11/23/2024 Transcribe Orders Virtual Department [address] [place] [address] Litzy Raines FNP [address] [place] [address] Chronic bilateral low back pain with bilateral sciatica (Primary Dx) Social History Tobacco Use Types Packs/Day Years Used Date Smoking Tobacco: Former Cigarettes Q uit: 01/2019 Smokeless Tobacco: Former Comments:quit Jan 2019 Alcohol Use Standard Drinks/Week Comments Never 0 (1 standard drink = 0.6 oz pur e alcohol) Education Answer Date Recorded Are you interested in more education? Not on arun e 09/04/2022 Are you concerned about learning? Not on file 09/04/2022 No 09/04/2022 No 09/04/2022 Digital Access Answer Date Recorded No 10/03/2022 No 10/03/2022 Reliable internet access at home? Not on file 10/03/2022 Device with a working camera? Not on file Comments No Sex and Gender Information Value Date Recorded Sex Assigned at Female 10/14/2017 9:05 AM EDT Legal Sex Female 9:40 PM EDT Gender Identity Female 10/14/2017 9:05 AM EDT Sexual Orientation Straight 10/14/2017 9: 05 AM EDT Occupation Industry Job Start Date Job End Date disability Not on file Not on file Not on file documented as of this encounter Plan of Treatment Upcoming Encounters Date Type Department Care Team (Late st Contact Info) Description 11/23/2024 Procedure Pass [address] [address] 12/28/2024 4:25 PM EDT Appointment [address] [address] Litzy Raines FNP [address] [place] [address] Scheduled Orders Name Type Priority Associated Diagnoses Orde r Schedule MRI Lumbar Spine Imaging Routine Chronic bilateral low back pain with bilateral sciatica Expected: 11/23/2024, Expires: 11/23/2025 documented as of this encounter Visit Diagnoses Diagnosis Chronic bilateral low back pain with bilateral sciatica- Primary documented in this encounter Care Teams Servicer Travel Trailers Relationship Specialty Start Date End Date Litzy Raines FNP [address] [place] [address] PCP - General Nurse Practitioner 10/26/24 Danish Alfredo MD [address] [address] [email or web address] Historical LMR Provider 02/28/17 Julio Johnson MD [address] [place] [address], [facility] [address] [place] [address] [email or web address] Historical LMR Provider 02/28/17 documented as of this encounter Additional Source Comments The information contained in this document represents components of the legal health record. It is not the complete legal health record.[facility]
--- OUTSIDE RECORDS SUMMARY | 2024-12-20 12:46 | XMS_ITS | Encounter Summary ---
Author Organization [employer] Address [address] [facility] 7t [place] [address] Care Team Providers Care Speech Pathologist Name Role Phone [facility] Primary Care Provider [phone] Encounter Details Date Type Department Care Team (Late st Contact Info) Description 06/23/2024 Orders Only [facility] [address] [place] [address] [place], [place], [facility] 70 [place] [address] Social History Tobacco Use Types Packs/Day Years [...] Care Team (Late st Contact Info) Description 01/12/2025 9:40 AM EDT Office Visit [facility] MED[facility] [address] [place] [address] [place], [place] [facility] 70 [place] [address] 01/26/2025 10:40 AM EDT Office Visit [facility] MED[facility] [address] [place] [address] Cierra Alexandre MD [address] [place] [address] 06/20/2025 11:00 AM EST Office Visit [facility] Dental [address] [place] [address] Urvashi Gamble LLD [address] [place] [address] documented as of this encounter Procedures Procedure Name Priority Date/Time Associated Diagnosis Comments PATHOLOGY REPORT (HISTOPATHOLOGY) Routine 06/20/2024 11:54 AM EST documented in this encounter Results * Pathology Report (Histopathology) (06/20/2024 11:54 AM EST) Tissue Litzy Raines [facility] LAB PATHOLOGY ORDERABLES Final Result documented in this encounter Visit Diagnoses Not on filedocumented in this encounter Additional Health Concerns Assessment Noted Time PHQ-9 Depression Total Score: 15 024 11:25 AM EDT documented as of this encounter Care Teams Speech Pathologist Relationship Specialty Start Date End Date [facility] [address] [place] [address] PCP - General Family Medicine 05/06/22 documented as of this encounter
[2024-12-20 12:57] LABS: Anion Gap 12 (12-20); Blood Urea Nitrogen 22 mg/dL (9-16); Calcium 9.2 mg/dL (8.4-10.2); Carbon Dioxide 21 mmol/L (22-29); Chloride 111 mmol/L (96-108); Estimated Glomerular Filt Rate 29; Potassium 4.1 mmol/L (3.3-5.1); Sodium 140 mmol/L (135-145)
== END 2024-12-20 11:58 | disposition home or self-care (01) ==
LOC: HO.LAB 11:57
PROVIDERS: PCP Nurse Practitioner; Visit Provider Nurse Practitioner Family
DX: N18.30 Chronic kidney disease, stage 3 unspecified (principal); E87.20 Acidosis, unspecified
CPT/HCPCS: 36415; 80048; 82010

== ENCOUNTER 2024-12-28 14:47 | Outpatient (REF) | payer OTHER, SELFPAY ==
--- OUTSIDE RECORDS SUMMARY | 2024-12-28 14:51 | XMS_ITS | Encounter Summary ---
Author Organization [facility] Address [address] [facility] [address] [place] [address] Phone Care Team Providers Care Behavioral Health Worker Name Role Phone Danish Alfredo MD Unavailable Julio Johnson MD Unavailable [phone] Litzy Raines NP Primary Care Provider Reason for Referral * MRI/CAT Scan - Authorized Specialty Diagnoses / Procedures Referred By Chance quispe Referred To Contact Radiology Diagnoses Chronic bilateral low back pain with bilateral sciatica Procedures MRI Lumbar Spine CHG MRI, LUMBAR SPINE Litzy Raines NP [address] [place] [address] Phone: tel: fax: Referral ID Status Reason Start Date Expiration Date V isits Requested Visits Authorized [id number] Authorized 11/23/2024 05/09/2025 1 1 Encounter Details Date Type Department Care Team (Late st Contact Info) Description 11/23/2024 Transcribe Orders Virtual Department [address] [place] [address] Litzy Raines NP [address] [place] [address] Chronic bilateral low back pain with bilateral [...] Care Team (Late st Contact Info) Description 12/28/2024 4:25 PM EDT Appointment [facility] Mri - [address] [address] [place], [place] MARGARITA Case [address] [place] [address] Scheduled Orders Name Type Priority Associated Diagnoses Orde r Schedule MRI Lumbar Spine Imaging Routine Chronic bilateral low back pain with bilateral sciatica Expected: 11/23/2024, Expires: 11/23/2025 documented as of this encounter Visit Diagnoses Diagnosis Chronic bilateral low back pain with bilateral sciatica- Primary documented in this encounter Care Teams Behavioral Health Worker Relationship Specialty Start Date End Date Litzy Raines NP [address] [place] [address] PCP - General Nurse Practitioner 10/26/24 Danish Alfredo MD [address] [facility], [address] [place] [address] Historical LMR Provider 02/28/17 Julio Johnson MD [address] [place] [address], [facility] [address] [place] [address] [email or web address] Historical LMR Provider 02/28/17 documented as of this encounter Additional Source Comments The information contained in this document represents components of the legal health record. It is not the complete legal health record.[facility]
--- OUTSIDE RECORDS SUMMARY | 2024-12-28 14:51 | XMS_ITS | Encounter Summary ---
Author Organization [employer] Address [address] [facility] 7t [place] [address] Care Team Providers Care Process Area Supervisor Name Role Phone [facility] Primary Care Provider [phone] Encounter Details Date Type Department Care Team (Late st Contact Info) Description 06/23/2024 Orders Only [facility] [address] [place] [address] [place], [place], [facility] [address] [place] [address] Social History Tobacco Use Types Packs/Day Years [...] Description 01/12/2025 9:40 AM EDT Office Visit [address] [address] [facility] [address] [place] [address] 01/26/2025 10:40 AM EDT Office Visit [address] [address] Cierra Alexandre MD [address] [place] [address] 03/01/2025 12:20 PM EDT Office Visit [address] [address] [facility] 70 [place] [address] 06/20/2025 11:00 AM EST Office Visit [facility] Dental [address] [place] [address] Urvashi Gamble LLD [address] [place] [address] documented as of this encounter Procedures Procedure Name Priority Date/Time Associated Diagnosis Comments PATHOLOGY REPORT (HISTOPATHOLOGY) Routine 06/20/2024 11:54 AM EST documented in this encounter Results * Pathology Report (Histopathology) (06/20/2024 11:54 AM EST) Tissue [facility] LAB PATHOLOGY ORDERABLES Final Result documented in this encounter Visit Diagnoses Not on filedocumented in this encounter Additional Health Concerns Assessment Noted Time PHQ-9 Depression Total Score: 15 024 11:25 AM EDT documented as of this encounter Care Teams Process Area Supervisor Relationship Specialty Start Date End Date Litzy Raines [facility] [address] [place] [address] PCP - General Family Medicine 05/06/22 documented as of this encounter
--- OUTSIDE RECORDS SUMMARY | 2024-12-28 14:51 | XMS_ITS | Clinical Summary ---
Author Organization [facility] Address [address] [place] [address] Phone Care Team Providers Care Shell Assembler Name Role Phone Olu Litzy Primary Care Provider [phone] Allergies Active Allergy Reactions Criticality Noted Date Comments Fluconazole Rash Low 04/12/2017 Gabapentin Swelling,Other (see comments) 07/22/2017 Iloperidone Rash,Other (see comments) Low 03/17/2017 Latex 09/10/2021 [place] 05/06/2022 Other reaction(s): kidney damage Penicillins Other [...] Medicaid [place] Medicare Medicaid [place] Care Teams Shell Assembler Relationship Specialty Start Date End Date [place], [place] [address] [place] [address] PCP - General Champion Of Sustainable Design 09/10/21
[2024-12-28 16:16] LABS: Anion Gap 12 (12-20); Blood Urea Nitrogen 23 mg/dL (9-16); Calcium 9.2 mg/dL (8.4-10.2); Carbon Dioxide 16 mmol/L (22-29); Chloride 112 mmol/L (96-108); Estimated Glomerular Filt Rate 33; Potassium 4.0 mmol/L (3.3-5.1); Sodium 136 mmol/L (135-145)
== END 2024-12-28 14:48 | disposition home or self-care (01) ==
LOC: HO.LAB 14:47
PROVIDERS: Internal Medicine Nephrology; PCP Nurse Practitioner; Visit Provider Nurse Practitioner Family
DX: I12.9 Hypertensive chronic kidney disease with stage 1 through stage 4 chronic kidney disease, or unspecified chronic kidney disease (principal); N18.31 Chronic kidney disease, stage 3a
CPT/HCPCS: 36415; 80051; 82010; 82310; 82565; 84520

== ENCOUNTER 2025-01-01 11:31 | Outpatient (AMB) | payer OTHER, SELFPAY ==
--- NOTE | 2025-01-01 11:34 | HO.NEPHOV ---
Vital Signs 01/01/25 11:37 Height 5 ft 7 in Weight 185 lb 4 oz BMI 29.0 BP 120/80 Blood Pressure Location Rt brachial Position Sitting Pulse 76 Pulse Source Pulse Oximeter Pulse Oximetry (%) 97 Oxygen Delivery Method Room Air Intake Visit Reasons: 3mon follow-up w/labs-Conf Trailer Park Manager Required: No Accompanied by: Other Relationship Allergies gabapentin (GABAPENTIN) Allergy (Intermediate, Verified 01/01/25 11:37) SWELLING iloperidone (From FANAPT) Allergy (Mild, Verified 01/01/25 11:37) RASH Penicillins (PENICILLINS) Allergy (Mild, Verified 01/01/25 11:37) RASH sertraline (From ZOLOFT) Allergy (Mild, Verified 01/01/25 11:37) RASH HPI Comments Details: Yadira was seen in follow-up of her chronic kidney disease and hypertension. She has history of mental health disorder and had taken lithium from 1991 which she had discontinued a few years ago. She does not have any chest pain, palpitation, shortness of breath, proximal nocturnal dyspnea, orthopnea, pedal edema, orthostatic or urinary symptoms. Her blood pressure has been at goal. She does not take any excessive nonsteroidal anti-inflammatory medications. Otherwise she was feeling well. She was prescribed Wegovy by PCP which is uncomfortable taking & has not started it yet. She had a renal USS which showed small B/L renal benign cysts. She also is found to have a benign lung nodule as well as BCC of right lower eyelid for which she is going to undergo surgery. She has been metabolically acidotic and is on NaHCO3. She takes Topamax and Jardiance. [facility] Medical History (Updated 12/13/24 @ 15:37 by Jennifer Khanna, DNP, MILLINERY COPYIST-) Hypertension Chronic kidney disease, stage 3a Surgical History S/P tonsillectomy Family History Mother A-fib Father Lung cancer Social History Alcohol intake: never Patient Tobacco Use Status: Former Tobacco user Substance Use Type: Marijuana Review of Systems Const All systems reviewed & are unremarkable except as noted in HPI and below Physical Exam Vital Signs: Last Vital Signs Pulse 76 08/25/25 11:37 BP 144/98 H 01/01/25 11:37 Pulse Ox 97 01/01/25 11:37 Oxygen Delivery Method Room Air 01/01/25 11:37 BMI result Body Mass Index 29.0 Const General: comfortable and no acute distress Orientation/consciousness: patient oriented x3 HEENT Head: Yes normocephalic Mouth: Normal oral and palatal mucosa present Eyes EOM: EOMs intact bilaterally Neck Neck: Yes supple Resp Auscultation: clear to auscultation bilaterally Cardio Jugular venous distension: no JVD Rate: regular rate GI Palpation (GI): Soft to palpation Auscultation: normal bowel sounds General: Yes no CVA tenderness Back/Spine/Pelvis Back: no CVA tenderness Skin General skin exam: no rashes or lesions noted Neuro General: patient oriented x3 and moves all extremities Extrem General: Yes no pedal edema Results Reviewed Nephrology Results: Sodium, (135-145) 136 mmol/L 12/28/24 Potassium, (3.3-5.1) 4.0 mmol/L 12/28/24 Chloride, (96-108) 112 mmol/L H 12/28/24 Carbon Dioxide, (22-29) 16 mmol/L L 12/28/24 BUN, (9-16) 23 mg/dL H 12/28/24 Creatinine, (0.5-1.4) 1.59 mg/dL H 12/28/24 Calcium, (8.4-10.2) 9.2 mg/dL 12/28/24 Assessment & Plan Assessment & Plan (1) Chronic kidney disease, stage 3a: Code(s): N18.31 - Chronic kidney disease, stage 3a Category: Medical (2) Hypertension: Code(s): I10 - Essential (primary) hypertension Category: Medical Qualifiers: Hypertension type: primary hypertension Qualified Code(s): I10 - Essential (primary) hypertension (3) Metabolic acidosis: Code(s): E87.20 - Acidosis, unspecified Category: Medical Plan 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 She does not have any proteinuria. Her blood pressure has been at goal. Her renal functions are currently stable. She is not taking any non steroidal anti-inflammatories, LAUREN inhibitor or ARB. She is on amlodipine which is keeping her blood pressure at goal which she could take it at night. She has not had any renal stones.She should continue Jardiance 10 mg, which I plan to increase to 25 mg with time if her acidosis is stable/corrected. She was asked to talk to her Psychiatrist to see whether she can come off Topamax to see whether it is contributing to her acidosis. Even after stopping it, if acidosis is an issue, we may have hold her Jardiance. She likely is a great candidate for LAUREN-inhibitor or ARB after discontinuation of amlodipine, if her electrolytes or serum creatinine permits. She needs to lose some weight and maintain good hydration. All these have been discussed. Follow-up lab work ordered. Follow-up appointment given Orders: Orders Creatinine 2 Months E87.20 - Acidosis, unspecified, I10 - Essential (primary) hypertension, N18.31 - Chronic kidney disease, stage 3a Creatinine 1 Month E87.20 - Acidosis, unspecified, I10 - Essential (primary) hypertension, N18.31 - Chronic kidney disease, stage 3a Blood Urea Nitrogen 2 Months E87.20 - Acidosis, unspecified, I10 - Essential (primary) hypertension, N18.31 - Chronic kidney disease, stage 3a Electrolytes 2 Months E87.20 - Acidosis, unspecified, I10 - Essential (primary) hypertension, N18.31 - Chronic kidney disease, stage 3a Electrolytes 1 Month E87.20 - Acidosis, unspecified, I10 - Essential (primary) hypertension, N18.31 - Chronic kidney disease, stage 3a Blood Urea Nitrogen 1 Month E87.20 - Acidosis, unspecified, I10 - Essential (primary) hypertension, N18.31 - Chronic kidney disease, stage 3a Coding Level of Care Code Est Pt Level 4 (79515) Diagnoses Chronic kidney disease, stage 3a N18.31 Primary hypertension I10 Hypertension type: primary hypertension Metabolic acidosis E87.20
[2025-01-01 11:37] VITALS: BP 120/80; PULSE 76; O2SAT 97; BMI 29.0
--- OUTSIDE RECORDS SUMMARY | 2025-01-01 13:02 | XMS_ITS | Encounter Summary ---
Author Organization [employer] Address [address] [facility] 7t [place] [address] Care Team Providers Care Hearing Healthcare Practitioner Name Role Phone [facility] Primary Care Provider [phone] Encounter Details Date Type Department Care Team (Late st Contact Info) Description 06/23/2024 Orders Only [facility] [address] [place] [address] [place], [place], [facility] [address] [place] [address] Social History Tobacco Use Types Packs/Day Years [...] Description 01/12/2025 9:40 AM EDT Office Visit [address] [address] [facility] [address] [place] [address] 01/26/2025 10:40 AM EDT Office Visit [address] [address] Cierra Alexandre MD [address] [place] [address] 03/01/2025 12:20 PM EDT Office Visit [address] [address] [facility] [address] [place] [address] 06/20/2025 11:00 AM EST Office Visit [facility] [address] [place] [address] Urvashi Gamble LLD [address] [place] [address] documented as of this encounter Procedures Procedure Name Priority Date/Time Associated Diagnosis Comments PATHOLOGY REPORT (HISTOPATHOLOGY) Routine 06/20/2024 11:54 AM EST documented in this encounter Results * Pathology Report (Histopathology) (06/20/2024 11:54 AM EST) Tissue [facility] LAB PATHOLOGY ORDERABLES Final Result documented in this encounter Visit Diagnoses Not on filedocumented in this encounter Additional Health Concerns Assessment Noted Time PHQ-9 Depression Total Score: 15 024 11:25 AM EDT documented as of this encounter Care Teams Hearing Healthcare Practitioner Relationship Specialty Start Date End Date Litzy Raines [facility] [address] [place] [address] PCP - General Family Medicine 05/06/22 documented as of this encounter
--- OUTSIDE RECORDS SUMMARY | 2025-01-01 13:03 | XMS_ITS | Clinical Summary ---
Author Organization [facility] Address [address] [place] [address] Phone Care Team Providers Care Associate Director Of Development Name Role Phone Olu Litzy Primary Care Provider [phone] Allergies Active Allergy Reactions Criticality Noted Date Comments Fluconazole Rash Low 04/12/2017 Gabapentin Swelling,Other (see comments) 07/22/2017 Iloperidone Rash,Other (see comments) Low 03/17/2017 Latex 09/10/2021 [place] 05/06/2022 Other reaction(s): kidney damage Penicillins Other [...] Medicaid [place] Medicaid [place] Care Teams Associate Director Of Development Relationship Specialty Start Date End Date [place], [place] [address] [place] [address] PCP - General Corrections Specialist 09/10/21
== END 2025-01-01 12:01 | disposition home or self-care (01) ==
LOC: HO.HKA 11:32
PROVIDERS: Visit Provider Internal Medicine Nephrology
DX: N18.31 Chronic kidney disease, stage 3a (principal); I10 Essential (primary) hypertension; E87.20 Acidosis, unspecified
CPT/HCPCS: 99214

== ENCOUNTER → 2025-01-01 11:31 | Outpatient (BNVA) | payer OTHER, SELFPAY | PROVIDERS: Visit Provider Internal Medicine Nephrology | DX: N18.31 Chronic kidney disease, stage 3a (principal); I10 Essential (primary) hypertension; E87.20 Acidosis, unspecified | CPT/HCPCS: 99212 ==

== ENCOUNTER 2025-01-30 11:10 | Outpatient (REF) | payer OTHER, SELFPAY ==
--- OUTSIDE RECORDS SUMMARY | 2025-01-24 10:00 | XMS_ITS | Encounter Summary ---
Author Organization [employer] Address [address] [facility] 7t [place] [address] Care Team Providers Care Track Vehicle Repairer Name Role Phone Litzy Raines TAPE FASTENER MACHINE OPERATOR Primary Care Provider [phone] Reason for Visit * Reason Comments Dentures Encounter Details Date Type Department Care Team (Late st Contact Info) Description 01/24/2025 10:00 AM EDT Office Visit [place] [facility] Dental [address] [place] [address] Marion Canales LLD [address] [place] [address] Social History Tobacco Use Types Packs/Day Years Used Date Smoking Tobacco: Former Cigarettes 1 37 1 982 - 2019 Smokeless Tobacco: Never Alcohol Use Standard Drinks/Week Comments Not Currently 0 (1 standard drink = 0.6 oz pur e alcohol) Alcohol Answer Date Recorded How often do you have a drink containing alcohol ? 0 01/12/2025 How many drinks containing a lcohol do you have on a typical day when you are drinking? 0 01/12/2025 How often do you have six or more drinks on one occasion? 0 01/12/2025 Depression Answer Date Recorded Patient Health Questionnaire-9 Score 17 11/08/2024 Patient Health Questionnaire-9 Score 17 11/08/2024 Last PHQ-9: Questionnaire Data Not on file 0 11/08/2024 Housing Stability Answer Date Recorded What is [...] the past 12 months, has t he [employer], gas, oil or water [employer] threatened to shut off services in your home? No 02/14/2024 Depression Answer Date Recorded Patient Health Questionnaire-2 Score 2 11/08/2024 Internet Access Answer Date Recorded Internet Access [...] Sign Reading Time Taken Comments Blood Pressure 130/87 01/24/2025 10:05 AM EDT Pulse 71 01/24/2025 10:05 AM EDT Temperature - - Respiratory Rate - - Oxygen Saturation - - Inhaled Oxygen Concentration - - Weight - - Height - - Body Mass Index - - documented in this encounter Progress Notes * HOMERO Mcdaniel - 01/24/2025 10:00 AM EDT Date of Procedure: 01/24/2025 Insurance Status: Patient has active insurance coverage for today's appointment. Regulatory guidelines from CDC, DPH, OSHA and ADA were followed during the visit. Chief Complaint: I am here to get my partial . Assessment: Reviewed medical history and history of present illness: Patient's medical history doesn't present contra-indications to care, and MH is non-contributory to present dental illness Medication Taken for Present Illness: none Medical Clearance: none requested Reviewed dental treatment plan Assessment: Reviewed medical history and history of present illness: Patient's medical history doesn't present contra-indications to care, and MH is non-contributory to present dental illness Medication Taken for Present Illness: none Medical Clearance: none requested Reviewed dental treatment plan Completed upper partial denture delivered Fit, comfort and occlusion verified, patient please with partial. Care for partial has been explained, for it to be removed in the evenings, denture brush provided for pt to brush denture with soap in the evenings. Pt is aware to sleep with out the partial Instructions as to use of adhesive has been provided. Dismiss Note Crucible Packer: Dental Care and patient education provided and emphasized Referral No Oral cancer screening: No significant oral pathology noted. Patient left understanding directions for care Phase I Completed : yes Came to visit with : N/A Next Visit Follow up for denture adjustment documented in this encounter Plan of Treatment Upcoming Encounters Date Type Department Care Team (Late st Contact Info) Description 03/01/2025 12:20 PM EDT Office Visit [facility] MEDICAL [address] [place] [address] [facility] [address] [place] [address] 06/20/2025 11:00 AM EST Office Visit [facility] Dental [address] [place] [address] Urvashi Gamble LLD [address] [place] [address] documented as of this encounter Procedures Procedure Name Priority Date/Time Associated Diagnosis Comments 2,3,4,5,12,14,15 MAXILLARY PARTIAL DENTURE - RESIN BASE (INCLUDING, RETENTIVE/CLASPING MATERIALS, RESTS, AND TEETH) Routine 01/24/2025 10:00 AM EDT documented in this encounter Visit Diagnoses Not on filedocumented in this encounter Additional Health Concerns Assessment Noted Time PHQ-9 Depression Total Score: 17 025 11:51 AM EDT documented as of this encounter Care Teams Track Vehicle Repairer Relationship Specialty Start Date End Date [place], [place], RAMY [address] Zhang [facility] [place] [address] PCP - General Family Medicine 05/06/22 documented as of this encounter
--- OUTSIDE RECORDS SUMMARY | 2025-01-29 11:00 | XMS_ITS | Encounter Summary ---
Author Organization [employer] Address [address] [facility] 7t [place] [address] Care Team Providers Care Profile Grinder Name Role Phone Litzy Raines MANAGER OF PHARMACY Primary Care Provider [phone] Reason for Visit * Reason Comments partial adjustment Encounter Details Date Type Department Care Team (Late st Contact Info) Description 01/29/2025 11:00 AM EDT Office Visit [place] [facility] Dental [address] [place] [address] Marion Canales LLD [address] [place] [address] Social History Tobacco Use Types Packs/Day Years [...] the past 12 months, has t he [employer], gas, oil or water [employer] threatened to shut off services in your [...] Sign Reading Time Taken Comments Blood Pressure 127/91 01/29/2025 11:13 AM EDT Pulse 74 01/29/2025 11:13 AM EDT Temperature - - Respiratory Rate - - Oxygen Saturation - - Inhaled Oxygen Concentration - - Weight - - Height - - Body Mass Index - - documented in this encounter Progress Notes * HOMERO Mcdaniel - 01/29/2025 11:00 AM EDT Date of Procedure: 01/30/2025 Insurance Status: Patient has active insurance coverage for today's appointment. Regulatory guidelines from CDC, DPH, OSHA and ADA were followed during the visit. Chief Complaint: I am here to check my denture . Assessment: Reviewed medical history and history of present illness: Patient's medical history doesn't present contra-indications to care, and MH is non-contributory to present dental illness Medication Taken for Present Illness: none Medical Clearance: none requested Reviewed dental treatment plan Reviewed medical history and history of present illness: Patient's medical history doesn't present contra-indications to care, and MH is non-contributory to present dental illness Medication Taken for Present Illness: none Medical Clearance: none requested Patient very pleased with treatment. Dismiss Note Elevator Inspector: Dental Care and patient education provided and emphasized Referral No Oral cancer screening: No significant oral pathology noted. Patient left understanding directions for care Phase I Completed? No Came to visit with : N/A Regulatory guidelines from CDC, DPH, OSHA and ADA were followed during the visit. Next Visit Follow up documented in this encounter Plan of Treatment Upcoming Encounters Date Type Department Care Team (Late st Contact Info) Description 03/01/2025 12:20 PM EDT Office Visit [place] [facility] [address] [place] [address] [facility] [address] [place] [address] 06/20/2025 11:00 AM EST Office Visit [facility] Dental [address] [place] [address] Urvashi Gamble LLD [address] [place] [address] documented as of this encounter Procedures Procedure Name Priority Date/Time Associated Diagnosis Comments DENTURE ADJUSTMENT Routine 01/29/2025 11:00 AM EDT documented in this encounter Visit Diagnoses Not on filedocumented in this encounter Additional Health Concerns Assessment Noted Time PHQ-9 Depression Total Score: 17 025 11:51 AM EDT documented as of this encounter Care Teams Profile Grinder Relationship Specialty Start Date End Date [facility] [address] [place] [address] PCP - General Family Medicine 05/06/22 documented as of this encounter
[2025-01-30 13:19] LABS: Anion Gap 14 (12-20); Blood Urea Nitrogen 29 mg/dL (9-16); Carbon Dioxide 26 mmol/L (22-29); Chloride 106 mmol/L (96-108); Estimated Glomerular Filt Rate 29; Potassium 4.5 mmol/L (3.3-5.1); Sodium 141 mmol/L (135-145)
--- OUTSIDE RECORDS SUMMARY | 2025-01-30 13:57 | XMS_ITS | Encounter Summary ---
Author Organization [employer] Address [address] [facility] 7t [place] [address] Care Team Providers Care Test Grader Name Role Phone [facility] Primary Care Provider [phone] Encounter Details Date Type Department Care Team (Late st Contact Info) Description 06/23/2024 Orders Only [place] [facility] [address] [place] [address] [place], [place], [facility] [address] [place] [address] Social History Tobacco Use Types Packs/Day Years [...] Description 03/01/2025 12:20 PM EDT Office Visit [facility] MEDICAL [address] [place] [address] [facility] [address] [place] [address] 06/20/2025 11:00 AM EST Office Visit [facility] Dental [address] [place] [address] Urvashi Gamble LLD [address] [place] [address] documented as of this encounter Procedures Procedure Name Priority Date/Time Associated Diagnosis Comments PATHOLOGY REPORT (HISTOPATHOLOGY) Routine 06/20/2024 11:54 AM EST documented in this encounter Results * Pathology Report (Histopathology) (06/20/2024 11:54 AM EST) Tissue [facility] LAB PATHOLOGY ORDERABLES Final Result documented in this encounter Visit Diagnoses Not on filedocumented in this encounter Additional Health Concerns Assessment Noted Time PHQ-9 Depression Total Score: 15 024 11:25 AM EDT documented as of this encounter Care Teams Test Grader Relationship Specialty Start Date End Date Litzy Raines, RAM[place] [address] [place] [address] PCP - General Family Medicine 05/06/22 documented as of this encounter
--- OUTSIDE RECORDS SUMMARY | 2025-01-30 13:57 | XMS_ITS | Encounter Summary ---
Author Organization [facility] Address [address] [facility] [address] [place] [address] Phone Care Team Providers Care Non Profit Financial Controller Name Role Phone Danish Alfredo MD Unavailable Julio Johnson MD Unavailable [phone] [facility] Primary Care Provide r [facility] Primary Care Provide r [facility] Primary Care Provide r Encounter Details Date Type Department Care Team (Late st Contact Info) Description 02/18/2022 Procedure Pass [facility] - [address] [place] [address] Social History Tobacco Use Types Packs/Day Years Used Date Smoking Tobacco: Former Cigarettes Q uit: 01/2019 Smokeless Tobacco: Former Comments:quit Jan 2019 Alcohol Use Standard Drinks/Week Comments Never 0 (1 standard drink = 0.6 oz pur e alcohol) Comments No Sex and Gender Information Value [...] as of this encounter Plan of Treatment Not on file documented as of this encounter Visit Diagnoses Not on filedocumented in this encounter Additional Health Concerns Infection Onset Date Last Indicated Resolved Time CoV-Risk 07/18/2024 07/25/2024 08/05/2024 1:21 AM EDT Influenza A 07/18/2024 07/18/2024 07/25/2024 1:22 AM EDT Influenza A 07/25/2024 07/25/2024 08/01/2024 1:21 AM EDT documented as of this encounter Care Teams Non Profit Financial Controller Relationship Specialty Start Date End Date [facility] [place] [facility] [address] [address] PCP - General Family Medicine 01/29/22 02/14/24 [facility] [address] [place] [address] PCP - General Nurse Practitioner 02/15/24 10/25/24 [facility] [address] [place] [address] PCP - General Nurse Practitioner 10/26/24 Danish Alfredo MD [address] [place] [address] Historical LMR Provider 02/28/17 Julio Johnson MD [address] [place] [address] Historical LMR Provider 02/28/17 documented as of this encounter Additional Source Comments The information contained in this document represents components of the legal health record. It is not the complete legal health record.[facility]
--- OUTSIDE RECORDS SUMMARY | 2025-01-30 13:57 | XMS_ITS | Encounter Summary ---
Author Organization [facility] Address [address] [place] [address] Phone Care Team Providers Care Director Of Direct Marketing Name Role Phone Chon Tipton DO Unavailable [phone] Sandy Romo CABLE SUPERVISOR Unavailable Cierra Ramirez DO Unavailable Guy LagunasBS, PhD Unavailable Cindy Mesa CABLE SUPERVISOR Unavailable Giovanna Padgett CNM Unavailable Danish Alfredo MD Unavailable Jennifer Stein MD Unavailable Mabel Bowman MD Unavailable Jesusita Walters CNM Unavailable Fahad June MD Unavailable Iglesia Pizarro MD Unavailable Pipe Simmons MD Unavailable Elisabeth Hills CABLE SUPERVISOR Unavailable [phone] Dayna Perez MD Unavailable [phone] Julio Johnson MD Unavailable Tigre Shrestha MD Unavailable [phone] Yolanda Harrison MD Unavailable [phone] Angel Byrd MD Unavailable [phone] LeiterGisela celestin Keisha CABLE SUPERVISOR Unavailable [phone] Betsey Long MD Primary Care Provider [facility] Primary Care Provide r [facility] Primary Care Provide r [facility] Primary Care Provide r Encounter Details Date Type Department Care Team (Late st Contact Info) Description 04/21/2021 Procedure Pass [facility] - [address] [place] [address] Social History Tobacco Use Types Packs/Day Years [...] documented as of this encounter Care Teams Director Of Direct Marketing Relationship Specialty Start Date End Date Betsey Long MD [address] [place] [address] [email or web address] PCP - General Family Medicine 11/01/19 01/28/22 Litzy Raines FNP [address] [place] [address] PCP - General Family Medicine 01/29/22 02/14/24 Litzy Raines FNP [address] [place] [address] PCP - General Nurse Practitioner 02/15/24 10/25/24 Litzy Raines FNP [address] [place] [address] PCP - General Nurse Practitioner 10/26/24 Chon Tipton DO [address] [place] [address] Historical LMR Provider 02/28/17 05/17/21 Sandy Romo CABLE SUPERVISOR [address] [place] [address] Historical LMR Provider 02/28/17 05/17/21 Cierra Ramirez DO [address] [place] [address], [address] [place] [address] [email or web address] Historical LMR Provider 02/28/17 05/17/21 Guy Lagunas MBBS, PhD [address] [place] [address] [facility] Department of NeurologyWACC [address] [place] [address] [email or web address] Historical LMR Provider 02/28/17 05/17/21 Cindy Mesa NP [address] [place] [address] Historical LMR Provider 02/28/17 05/17/21 Giovanna Padgett CNM [address] [place] [address] Historical LMR Provider 02/28/17 05/17/21 Danish Alfredo MD [address] [place] [address] [email or web address] Historical LMR Provider 02/28/17 Jennifer Stein MD [address] [place] [address] Historical LMR Provider 02/28/17 05/17/21 Mabel Bowman MD [address] [place] [address] Historical LMR Provider 02/28/17 05/17/21 Jesusita Walters CNM [address] [place] [address] Historical LMR Provider 02/28/17 05/17/21 Fahad June MD [address] [place] [address] [email or web address] Historical LMR Provider 02/28/17 05/17/21 Iglesia Pizarro MD [address] [place] [address] Historical LMR Provider 02/28/17 05/17/21 Pipe Simmons MD [address] [place] [address] [address] [place] [address] [email or web address] Historical LMR Provider 02/28/17 05/17/21 Elisabeth Hills NP [address] [place] [address] Historical LMR Provider 02/28/17 05/17/21 Dayna Perez MD [address], [place] [address] Historical LMR Provider 02/28/17 05/17/21 Julio Johnson MD [address] [place] [address] [address] [place] [address] [email or web address] Historical LMR Provider 02/28/17 Tigre Shrestha MD [address] [place] [address] Historical LMR Provider 02/28/17 05/17/21 Yolanda Harrison MD [address] [place] [address] Historical LMR Provider 02/28/17 05/17/21 Angel Byrd MD [address] [place] [address] Historical LMR Provider 02/28/17 05/17/21 Gisela Dorsey NP [address] [place] [address] Historical LMR Provider 02/28/17 05/17/21 documented as of this encounter Additional Source Comments The information contained in this document represents components of the legal health record. It is not the complete legal health record.[facility]
--- OUTSIDE RECORDS SUMMARY | 2025-01-30 13:57 | XMS_ITS | Encounter Summary ---
Author Organization [facility] Address [address] [place] [address] Phone Care Team Providers Care Scalper Operator Name Role Phone Danish Alfredo MD Unavailable Julio Johnson MD Unavailable [phone] Litzy Raines Primary Care Provide r Reason for Referral * MRI/CAT Scan - Closed Specialty Diagnoses / Procedures Referred By Chance quispe Referred To Contact Radiology Diagnoses Chronic bilateral low back pain with bilateral sciatica Procedures MRI Lumbar Spine CHG MRI, LUMBAR SPINE Litzy Raines FNP [address] [place] [address] Phone: tel: fax: Referral ID Status Reason Start Date Expiration Date Visits Re quested Visits Authorized [id number] Closed 11/23/2024 05/09/2025 1 1 Encounter Details Date Type Department Care Team (Late st Contact Info) Description 11/23/2024 Transcribe Orders Virtual Department [address] [place] [address] Litzy Raines FNP [address] [place] [address] Chronic bilateral low back pain with bilateral [...] on file documented as of this encounter Results * MRI LUMBAR SPINE (NEURO) WITHOUT CONTRAST (12/28/2024 5:11 PM EDT) Anatomical Region Laterality Modality L-spine Magnetic Resonan ce 01/01/2025 7:43 AM EDT Impressions 01/01/2025 8:03 AM EDT 1. Severe facet arthropathy at L4-5 with bilateral facet joint effusions and mild widening of the right facet joint, which may indicate hypermobility at this level. Mild degenerative disc disease at L4-5. These findings contribute to mild spinal canal stenosis and mild bilateral foraminal stenosis at L4-5. Narrative 01/01/2025 8:03 AM EDT MRI LUMBAR SPINE (NEURO) WITHOUT CONTRAST Referring clinician's provided indication for this examination in Epic: Outside Radiology Order; low back pain TECHNIQUE: MRI LUMBAR SPINE (NEURO) WITHOUT CONTRAST Multi-sequence, multi-planar MRI of the lumbar spine was performed without intravenous contrast. COMPARISON: US KIDNEYS 2024- FINDINGS: LUMBAR SPINE: Alignment and Vertebrae: Slight levocurvature. No spondylolisthesis. No compression fracture. Marrow: No bone marrow replacing lesion. Discs and Endplates: Disc desiccation and mild disc height loss at L4-5. No endplate edema. Conus: Conus is normal in signal and terminates at the mid L2 level. Soft Tissues: Normal. No prevertebral edema. Other Findings: Bilateral renal cysts are noted, better evaluated on prior renal ultrasound. Findings by level: T12-L1: No spinal canal or foraminal stenosis. L1-L2: No spinal canal or foraminal stenosis. L2-L3: No spinal canal or foraminal stenosis. L3-L4: No spinal canal or foraminal stenosis. Mild facet arthropathy. L4-L5: Disc bulging. Severe facet arthropathy with bilateral facet joint effusions and widening of the right facet joint. Bilateral ligamentum flavum thickening. Mild spinal canal stenosis. Mild right greater than left foraminal stenosis. L5-S1: Mild facet arthropathy. No spinal canal or foraminal stenosis. Procedure Note Jean-Pierre Waldrop MD - 01/01/2025 MRI LUMBAR SPINE (NEURO) WITHOUT CONTRAST Referring clinician's provided indication for this examination in Epic:Outside Radiology Order; low back pain TECHNIQUE: MRI LUMBAR SPINE (NEURO) WITHOUT CONTRAST Multi-sequence, multi-planar MRI of the lumbar spine was performed withoutintravenous contrast. COMPARISON: US KIDNEYS 2024- FINDINGS: LUMBAR SPINE: Alignment and Vertebrae: Slight levocurvature. No spondylolisthesis. Nocompression fracture. Marrow: No bone marrow replacing lesion. Discs and Endplates: Disc desiccation and mild disc height loss at L4-5.No endplate edema. Conus: Conus is normal in signal and terminates at the mid L2 level. Soft Tissues: Normal. No prevertebral edema. Other Findings: Bilateral renal cysts are noted, better evaluated on priorrenal ultrasound. Findings by level: T12-L1: No spinal canal or foraminal stenosis. L1-L2: No spinal canal or foraminal stenosis. L2-L3: No spinal canal or foraminal stenosis. L3-L4: No spinal canal or foraminal stenosis. Mild facet arthropathy. L4-L5: Disc bulging. Severe facet arthropathy with bilateral facet jointeffusions and widening of the right facet joint. Bilateral ligamentumflavum thickening. Mild spinal canal stenosis. Mild right greater thanleft foraminal stenosis. L5-S1: Mild facet arthropathy. No spinal canal or foraminal stenosis. IMPRESSION: 1. Severe facet arthropathy at L4-5 with bilateral facet joint effusionsand mild widening of the right facet joint, which may indicatehypermobility at this level. Mild degenerative disc disease at L4-5. Thesefindings contribute to mild spinal canal stenosis and mild bilateralforaminal stenosis at L4-5. [facility] Evie [facility] IMG MR XSPECIALTY Fin al Result documented in this encounter Visit Diagnoses Diagnosis Chronic bilateral low back pain with bilateral sciatica- Primary Chronic bilateral low back pain with bilateral sciatica documented in this encounter Care Teams Scalper Operator Relationship Specialty Start Date End Date [facility] RAMY De Souza [address] [place] [address] PCP - General Nurse Practitioner 10/26/24 Danish Alfredo MD [address] [place] [address] Historical LMR Provider 02/28/17 Julio Johnson MD [address] [place] [address] Historical LMR Provider 02/28/17 documented as of this encounter Additional Source Comments The information contained in this document represents components of the legal health record. It is not the complete legal health record.[facility]
--- OUTSIDE RECORDS SUMMARY | 2025-01-30 13:57 | XMS_ITS | Encounter Summary ---
Author Organization [facility] Address [address] [place] [address] Phone Care Team Providers Care Prism Measurer Name Role Phone Chon Tipton DO Unavailable [phone] Sandy Romo FINANCIAL SERVICE PROFESSIONAL Unavailable Cierra Ramirez DO Unavailable Guy LagunasBS, PhD Unavailable Cindy Mesa FINANCIAL SERVICE PROFESSIONAL Unavailable Giovanna Padgett CNM Unavailable Danish Alfredo MD Unavailable Jennifer Stein MD Unavailable Mabel Bowman MD Unavailable Jesusita Walters CNM Unavailable Fahad June MD Unavailable Iglesia Pizarro MD Unavailable Pipe Simmons MD Unavailable Elisabeth Hills FINANCIAL SERVICE PROFESSIONAL Unavailable [phone] Dayna Perez MD Unavailable [phone] Julio Johnson MD Unavailable Tigre Shrestha MD Unavailable [phone] Yolanda Harrison MD Unavailable [phone] Angel Byrd MD Unavailable [phone] Gisela Dorsey FINANCIAL SERVICE PROFESSIONAL Unavailable Jeimy Sawant FINANCIAL SERVICE PROFESSIONAL Primary Care Provider + Betsey Long MD Primary Care Provider [place], [place] Evie [facility] Primary Care Provide r [facility] Primary Care Provide r [facility] Primary Care Provide r Encounter Details Date Type Department Care Team (Latest Contact Info) Description 10/18/2019 Transcribe Orders Virtual Department [address] [place] [address] Chon Gutierrez MD [address] [place] [address] [email or web address] Encounter for pre-operative laboratory testing (Primary Dx) Social History Tobacco Use Types Packs/Day Years Used Date Smoking Tobacco: Former Cigarettes Q uit: 01/2019 Smokeless Tobacco: Former Comments:quit Jan 2019 Alcohol Use Standard Drinks/Week Comments No 0 [...] documented as of this encounter Results * COVID-19 PCR Order (10/30/2019 9:50 AM EDT) Specimen Source NASOPHARYNGEAL SWAB (FINANCIAL SERVICE PROFESSIONAL) [facility] COVID Testing Status Sent to [facility] Other 10/30/2019 9:50 AM EDT 10/30/2019 10:13 AM EDT Chon Gutierrez MD BODY FLUIDS AND STOOLS ORDER TIFFANY Final Result [facility] [address] [place] [address] documented in this encounter Visit Diagnoses Diagnosis Encounter for pre-operative laboratory testing- Primary documented in this encounter Additional Health Concerns Infection Onset Date Last Indicated Resolved Time CoV-Risk 07/18/2024 07/25/2024 08/05/2024 1:21 AM EDT Influenza A 07/18/2024 07/18/2024 07/25/2024 1:22 AM EDT Influenza A 07/25/2024 07/25/2024 08/01/2024 1:21 AM EDT documented as of this encounter Care Teams Prism Measurer Relationship Specialty Start Date End Date Jeimy Sawant NP [address] [place] [address] PCP - General Unknown Provider Specialty 10/10/19 10/31/19 Betsey Long MD [address] [place] [address] [email or web address] PCP - General Family Medicine 11/01/19 01/28/22 Litzy Raines FNP [address] [place] [address] PCP - General Family Medicine 01/29/22 02/14/24 Litzy Raines FNP [address] [place] [address] PCP - General Nurse Practitioner 02/15/24 10/25/24 Litzy Raines FNP [address] [place] [address] PCP - General Nurse Practitioner 10/26/24 Chon Tipton DO [address] [place] [address] [address] [place] [address] Historical LMR Provider 02/28/17 05/17/21 Sandy Romo NP [address] [place] [address] Historical LMR Provider 02/28/17 05/17/21 Cierra Ramirez DO [address] [place] [address] [address] [place] [address] [email or web address] Historical LMR Provider 02/28/17 05/17/21 Guy Lagunas MBBS, PhD [address] [place] [address] [facility] Neurophysiology Unit [facility] Department of NeurologyWACC [address] [place] [address] [email or web address] Historical LMR Provider 02/28/17 05/17/21 Cindy Mesa, MARGARITA [address] [place] [address] Historical LMR Provider 02/28/17 05/17/21 Giovanna Padgett CNM [address] [place] [address] Historical LMR Provider 02/28/17 05/17/21 Danish Alfredo MD [address] [facility] [address] [place] [address] [email or web address] Historical LMR Provider 02/28/17 Jennifer Stein MD [address] [place] [address] [place] [address] [email or web address] Historical LMR Provider 02/28/17 05/17/21 Mabel Bowman MD [address] [place] [address], [address] [place] [address] [email or web address] Historical LMR Provider 02/28/17 05/17/21 Jesusita Walters CNM [address] [place] [address] [email or web address] Historical LMR Provider 02/28/17 05/17/21 Fahad June MD [address] [place] [address] [place] [address] [email or web address] Historical LMR Provider 02/28/17 05/17/21 Iglesia Pizarro MD [address] [place] [address] Historical LMR Provider 02/28/17 05/17/21 Pipe Simmons MD [address] [place] [address] [email or web address] Historical LMR Provider 02/28/17 05/17/21 Elisabeth Hills NP [address] [place] [address] Historical LMR Provider 02/28/17 05/17/21 Dayna Perez MD [address] [place] [address] Historical LMR Provider 02/28/17 05/17/21 Julio Johnson MD [address] [place] [address] Historical LMR Provider 02/28/17 Tigre Shrestha MD [address] [place] [address] Historical LMR Provider 02/28/17 05/17/21 Yolanda Harrison MD [address] [place] [address] Historical LMR Provider 02/28/17 05/17/21 Angel Byrd MD [address] [place] [address] Historical LMR Provider 02/28/17 05/17/21 Gisela Dorsey NP [address] [place] [address] Historical LMR Provider 02/28/17 05/17/21 documented as of this encounter Additional Source Comments The information contained in this document represents components of the legal health record. It is not the complete legal health record.[facility]
--- OUTSIDE RECORDS SUMMARY | 2025-01-30 13:57 | XMS_ITS | Encounter Summary ---
Author Organization [facility] Address [address] [place] [address] Phone Care Team Providers Care Job Printer Apprentice Name Role Phone Danish Alfredo MD Unavailable Julio Johnson MD Unavailable [phone] Litzy Raines [facility] Primary Care Provide r Litzy Raines [facility] Primary Care Provide r Litzy Raines [facility] Primary Care Provide r Reason for Referral * MRI/CAT Scan - Closed Specialty Diagnoses / Procedures Referred By Chance quispe Referred To Contact Radiology Diagnoses Acute nonintractable headache, unspecified headache type Procedures CT Head Litzy Raines FNP Phone: tel: fax: Referral ID Status Reason Start Date Expiration Date Visits Re quested Visits Authorized [id number] Closed 08/13/2022 1 1 Encounter Details Date Type Department Care Team (Latest Contact Info) Description 08/13/2022 Transcribe Orders Virtual Department [address] [place] [address] Lityz Raines [facility] [address] [place] [address] Acute nonintractable headache, unspecified headache type (Primary Dx); Thyromegaly Social History Tobacco Use Types Packs/Day Years [...] documented as of this encounter Results * US Thyroid Gland (08/31/2022 2:11 PM EDT) Anatomical Region Laterality Modality Neck, Head, Chest Ultrasound 09/01/2022 4:37 PM EDT Impressions 09/01/2022 4:43 PM EDT No suspicious interval change affecting indeterminate left lobe nodule continuing to exhibit features just meeting criteria for TI-RADS 4 nodule (solid and hypoechoic), but below size threshold which would warrant biopsy. Narrative 09/01/2022 4:43 PM EDT History: Follow-up thyroid nodule. TECHNIQUE: Ultrasound of the thyroid bilaterally with color flow imaging. COMPARISON: Thyroid ultrasound 04/29/2021 and 02/26/2020. FINDINGS: Normal size thyroid bilaterally. No right-sided or isthmus nodules. Smoothly marginated mildly hypoechoic solid left-sided nodule measures 0.4 x 0.8 x 0.8 cm currently, previously measuring 0.4 x 0.8 x 1.0 cm. No adjacent lymphadenopathy or focal fluid collection. No calcifications defined on current study. Right lobe measures 1.0 x 1.2 x 2.8 cm and left lobe measures 1.0 x 1.1 x 2.8 cm. Procedure Note Orville Loza MD - 09/01/2022 History: Follow-up thyroid nodule. TECHNIQUE: Ultrasound of the thyroid bilaterally with color flowimaging. COMPARISON: Thyroid ultrasound 04/29/2021 and 02/26/2020. FINDINGS: Normal size thyroid bilaterally. No right-sided or isthmusnodules. Smoothly marginated mildly hypoechoic solid left-sided nodulemeasures 0.4 x 0.8 x 0.8 cm currently, previously measuring 0.4 x 0.8 x1.0 cm. No adjacent lymphadenopathy or focal fluid collection. Nocalcifications defined on current study. Right lobe measures 1.0 x 1.2 x 2.8 cm and left lobe measures 1.0 x 1.1 x2.8 cm. IMPRESSION: No suspicious interval change affecting indeterminate left lobe nodulecontinuing to exhibit features just meeting criteria for TI-RADS 4 nodule(solid and hypoechoic), but below size threshold which would warrantbiopsy. [facility] [employer] POLICE OFFICER IMG US THYROID Final Result * CT HEAD WITHOUT CONTRAST (08/31/2022 2:00 PM EDT) Anatomical Region Laterality Modality Head Computed Tomogra phy 08/31/2022 3:02 PM EDT Impressions 08/31/2022 3:39 PM EDT No acute intracranial abnormality. Narrative 08/31/2022 3:[address] HEAD WITHOUT CONTRAST History: Headache, now resolved TECHNIQUE: Multidetector-row CT of the head was performed without intravenous contrast using tailored dose modulation techniques. Images were reconstructed in the axial, coronal, and sagittal planes. COMPARISON: CT head 11/13/2019 FINDINGS: Brain Parenchyma: No midline shift, mass effect, parenchymal hemorrhage, or evidence of acute territorial infarct. There are areas of hypodensity in the periventricular white matter, specifically at the right frontal lobe which again may reflect manifestation of chronic small vessel disease. Ventricular System and Extra-Axial Spaces: No extra-axial fluid collections. Basal cisterns are patent. No hydrocephalus. Osseous and Extracranial Structures: Atherosclerotic calcification of the carotid siphon. Mucoperiosteal thickening and right maxillary sinus. No significant paranasal sinus disease. No orbital abnormality. Procedure Note Perlita Meek MD - 08/31/2022 CT HEAD WITHOUT CONTRAST History: Headache, now resolved TECHNIQUE: Multidetector-row CT of the head was performed withoutintravenous contrast using tailored dose modulation techniques. Imageswere reconstructed in the axial, coronal, and sagittal planes. COMPARISON: CT head 11/13/2019 FINDINGS: Brain Parenchyma: No midline shift, mass effect, parenchymal hemorrhage,or evidence of acute territorial infarct. There are areas of hypodensityin the periventricular white matter, specifically at the right frontallobe which again may reflect manifestation of chronic small vesseldisease. Ventricular System and Extra-Axial Spaces: No extra-axial fluidcollections. Basal cisterns are patent. No hydrocephalus. Osseous and Extracranial Structures: Atherosclerotic calcification of thecarotid siphon. Mucoperiosteal thickening and right maxillary sinus. Nosignificant paranasal sinus disease. No orbital abnormality. IMPRESSION: No acute intracranial abnormality. Litzy Raines [facility] IM CT HEAD/NECK Kim l Result documented in this encounter Visit Diagnoses Diagnosis Acute nonintractable headache, unspecified headache type- Primary Thyromegaly Goiter, unspecified Thyromegaly Goiter, unspecified Acute nonintractable headache, unspecified headache type documented in this encounter Additional Health Concerns Infection Onset Date Last Indicated Resolved Time CoV-Risk 07/18/2024 07/25/2024 08/05/2024 1:21 AM EDT Influenza A 07/18/2024 07/18/2024 07/25/2024 1:22 AM EDT Influenza A 07/25/2024 07/25/2024 08/01/2024 1:21 AM EDT documented as of this encounter Care Teams Job Printer Apprentice Relationship Specialty Start Date End Date Litzy Raines FNP [address] [facility], [address] [address] PCP - General Family Medicine 01/29/22 02/14/24 Litzy Raines FNP [address] [facility], [address] [address] PCP - General Nurse Practitioner 02/15/24 10/25/24 Litzy Raines FNP [address] [place] [address] PCP - General Nurse Practitioner 10/26/24 Danish Alfredo MD [address] [place] [address] Historical LMR Provider 02/28/17 Julio Johnson MD [address] [place] [address] Historical LMR Provider 02/28/17 documented as of this encounter Additional Source Comments The information contained in this document represents components of the legal health record. It is not the complete legal health record.[facility]
--- OUTSIDE RECORDS SUMMARY | 2025-01-30 13:57 | XMS_ITS | Encounter Summary ---
Author Organization [facility] Address [address] [place] [address] Phone Care Team Providers Care Vehicle Delivery Worker Name Role Phone Chon Tipton DO Unavailable Sandy Romo RIGGING SLINGER Unavailable Cierra Ramirez DO Unavailable Guy LagunasBS, PhD Unavailable [phone] Cindy Mesa RIGGING SLINGER Unavailable Giovanna Padgett CNM Unavailable Danish Alfredo MD Unavailable Jennifer Stein MD Unavailable Mabel Bowman MD Unavailable Jesusita Walters CNM Unavailable Fahad June MD Unavailable Iglesia Pizarro MD Unavailable Pipe Simmons MD Unavailable Elisabeth Hills RIGGING SLINGER Unavailable [phone] Dayna Perez MD Unavailable [phone] Julio Johnson MD Unavailable Tigre Shrestha MD Unavailable [phone] Yolanda Harrison MD Unavailable [phone] Angel Byrd MD Unavailable [phone] Gisela Dorsey RIGGING SLINGER Unavailable [phone] Fahad June MD Primary Care Provider + Janina Moncada MD Primary Care Provider Fahad Crenshaw DO Primary Care Provider Janina Moncada MD Primary Care Provider [phone] Kash Live RIGGING SLINGER Primary Care Provide r Cornelius Zelaya MD Primary Care Provider [phone] Jeimy Sawant RIGGING SLINGER Primary Care Provider + Betsey Long MD Primary Care Provider [facility] Primary Care Provide r [facility] Primary Care Provide r [facility] Primary Care Provide r Encounter Details Date Type Department Care Team (Late st Contact Info) Description 12/08/2017 Ancillary Orders Virtual Department [address] [place] [address] Janina Moncada MD [address] [place] [address] [email or web address] Abnormal mammogram Social History Tobacco Use Types Packs/Day Years Used Date Smoking Tobacco: Every Day Cigarettes Smokeless Tobacco: Current Alcohol Use Standard Drinks/Week Comments No 0 (1 standard drink = 0.6 oz pur e alcohol) Comments No Sex and Gender Information Value Date Recorded Sex Assigned at Female 10/14/2017 9:05 AM EDT Legal Sex Female 9:40 PM EDT Gender Identity Female 10/14/2017 9:05 AM EDT Sexual Orientation Straight 10/14/2017 9: 05 AM EDT documented as of this encounter Plan of Treatment Not on file documented as of this encounter Results * BI MAMMOGRAM DIAGNOSTIC WITH TOMOSYNTHESIS WITH CAD (LEFT) (12/16/2017 11:03 AM EDT) Anatomical Region Laterality Modality Breast Left, Breast Bilateral Left Ma mmography 12/16/2017 11:0 7 AM EDT Impressions 12/16/2017 11:41 AM EDT Microcalcifications in the left breast are very likely benign. Bilateral screening mammography in six months recommended for further evaluation. The results were given to the patient by the technologist at the time of the examination. BI-RADS CATEGORY: 2 - Benign finding. DENSITY: The breast tissue is heterogeneously dense, an appearance which lowers the sensitivity of mammography. POS - CDHMAMA Narrative 12/16/2017 11:41 AM EDT HISTORY: Abnormal left mammogram. EXAM: Six month follow-up unilateral left full field digital mammography was obtained with computer-aided detection. 2-D and 2-D C view imaging obtained as well as tomosynthesis images in two projections of the breast was also obtained. COMPARISON: Mammograms from 04/13/2012 to 06/02/2017. FINDINGS: The small cluster of microcalcifications in the posterior upper outer left breast are stable or slightly decreased in the number of microcalcifications. Microcalcifications are once again punctate. No evidence of an underlying mass or architectural distortion. The second small cluster of microcalcifications located more inferomedially is less conspicuous and at least some of the microcalcifications seem to have partially resolved. No new suspicious microcatheter occasions. No suspicious masses or areas of architectural distortion. Procedure Note Chon Marroquin MD - 12/16/2017 HISTORY: Abnormal left mammogram. EXAM: Six month follow-up unilateral left full field digital mammographywas obtained with computer-aided detection. 2-D and 2-D C view imagingobtained as well as tomosynthesis images in two projections of the breastwas also obtained. COMPARISON: Mammograms from 04/13/2012 to 06/02/2017. FINDINGS: The small cluster of microcalcifications in the posterior upperouter left breast are stable or slightly decreased in the number ofmicrocalcifications. Microcalcifications are once again punctate. Noevidence of an underlying mass or architectural distortion. The secondsmall cluster of microcalcifications located more inferomedially is lessconspicuous and at least some of the microcalcifications seem to havepartially resolved. No new suspicious microcatheter occasions. Nosuspicious masses or areas of architectural distortion. IMPRESSION: Microcalcifications in the left breast are very likely benign. Bilateralscreening mammography in six months recommended for further evaluation. The results were given to the patient by the technologist at the time ofthe examination. BI-RADS CATEGORY: 2 - Benign finding. DENSITY: The breast tissue is heterogeneously dense, an appearance whichlowers the sensitivity of mammography. POS - CDHMAMA Janina Moncada MD IMG MG EXAMS Final Result documented in this encounter Visit Diagnoses Diagnosis Abnormal mammogram Abnormal mammogram, unspecified Abnormal mammogram Abnormal mammogram, unspecified documented in this encounter Additional Health Concerns Infection Onset Date Last Indicated Resolved Time CoV-Risk 07/18/2024 07/25/2024 08/05/2024 1:21 AM EDT Influenza A 07/18/2024 07/18/2024 07/25/2024 1:22 AM EDT Influenza A 07/25/2024 07/25/2024 08/01/2024 1:21 AM EDT documented as of this encounter Care Teams Vehicle Delivery Worker Relationship Specialty Start Date End Date Fahad June MD [address] [place] [address] [email or web address] PCP - General Family Medicine 03/17/17 12/15/17 Janina Moncada MD [address] [place] [address] [email or web address] PCP - General Family Medicine 12/16/17 04/11/18 Fahad Crenshaw DO [address] [place] [address], [address] [place] [address] [email or web address] PCP - General Family Medicine 04/12/18 09/13/18 Janina Moncada MD [address] [facility] [place]. [address] [place] [address] [email or web address] PCP - General Family Medicine 11/14/18 04/19/19 Kash Live, MARGARITA [address] [place] [address] 7 [place] [address] PCP - General 04/20/19 10/03/19 Cornelius Zelaya MD [address] [place] [address] [email or web address] PCP - General Internal Medicine 10/04/19 10/09/19 Jeimy Sawant NP [address] [place] [address] PCP - General Unknown Provider Specialty 10/10/19 10/31/19 Betsey Long MD 70 [place] [address] [email or web address] PCP - General Family Medicine 11/01/19 01/28/22 Litzy Raines FNP 70 [place] [address] PCP - General Family Medicine 01/29/22 02/14/24 Litzy Raines FNP 70 [place] [address] PCP - General Nurse Practitioner 02/15/24 10/25/24 Litzy Raines FNP 70 [place] [address] PCP - General Nurse Practitioner 10/26/24 Chon Tipton DO [address] [facility] [address] [place] [address] Historical LMR Provider 02/28/17 05/17/21 Sandy Romo RIGGING SLINGER 1 [place] [address] Historical LMR Provider 02/28/17 05/17/21 Cierra Ramirez DO [address] [place] [address] [email or web address] Historical LMR Provider 02/28/17 05/17/21 Guy Lagunas MBBS, PhD [address] [facility] Intraopera Neurophysiology [facility] [address] [place] [address] [email or web address] Historical LMR Provider 02/28/17 05/17/21 Cindy Mesa, MARGARITA 29 [place] [address] Historical LMR Provider 02/28/17 05/17/21 Giovanna Padgett CNM 30 [place] [address] Historical LMR Provider 02/28/17 05/17/21 Danish Alfredo MD 22 [facility] [address] [place] [address] [email or web address] Historical LMR Provider 02/28/17 Jennifer Stein MD [address] [place] [address], [address] [place] [address] [email or web address] Historical LMR Provider 02/28/17 05/17/21 Mabel Bowman MD [address] [place] [address], 2nd [place] [address] [email or web address] Historical LMR Provider 02/28/17 05/17/21 Jesusita Walters CN [address] [place] [address], [address] [place] [address] [email or web address] Historical LMR Provider 02/28/17 05/17/21 Fahad June MD [address] [place], [place] [address] [address] [email or web address] Historical LMR Provider 02/28/17 05/17/21 Iglesia Pizarro MD [address] [place] [address] Historical LMR Provider 02/28/17 05/17/21 Pipe Simmons MD [address] [place] [address] [email or web address] Historical LMR Provider 02/28/17 05/17/21 Elisabeth Hills NP [address] [place] [address] Historical LMR Provider 02/28/17 05/17/21 Dayna Perez MD [address] [place] [address] Historical LMR Provider 02/28/17 05/17/21 Julio Johnson MD [address] [place] [address], [address] [address] [email or web address] Historical LMR Provider 02/28/17 Tigre Shrestha MD [address] [place] [address] Historical LMR Provider 02/28/17 05/17/21 Yolanda [place] MD [address] [place] [address] Historical LMR Provider 02/28/17 05/17/21 Angel Byrd MD [address] [place] [address] Historical LMR Provider 02/28/17 05/17/21 Gisela Dorsey NP [address] [place] [address] Historical LMR Provider 02/28/17 05/17/21 documented as of this encounter Additional Source Comments The information contained in this document represents components of the legal health record. It is not the complete legal health record.[facility]
--- OUTSIDE RECORDS SUMMARY | 2025-01-30 13:58 | XMS_ITS | Encounter Summary ---
Author Organization [facility] Address [address] [place] [address] Phone Care Team Providers Care Door Repairman Name Role Phone Chon Tipton DO Unavailable Sandy Romo LEAD TECHNICAL WRITER Unavailable Cierra Ramirez DO Unavailable Guy LagunasBS, PhD Unavailable [phone] Cindy Mesa LEAD TECHNICAL WRITER Unavailable Giovanna Padgett CNM Unavailable Danish Alfredo MD Unavailable Jennifer Stein MD Unavailable Mabel Bowman MD Unavailable Jesusita Walters CNM Unavailable Fahad June MD Unavailable Iglesia Pizarro MD Unavailable Pipe Simmons MD Unavailable Elisabeth Hills LEAD TECHNICAL WRITER Unavailable [phone] Dayna Perez MD Unavailable [phone] Julio Johnson MD Unavailable Tigre Shrestha MD Unavailable [phone] Yolanda Harrison MD Unavailable [phone] Angel Byrd MD Unavailable [phone] Gisela Dorsey Keisha LEAD TECHNICAL WRITER Unavailable [phone] Fahad June MD Primary Care Provider + Janina Moncada MD Primary Care Provider [phone] Fahad Crenshaw DO Primary Care Provider [phone] Janina Moncada MD Primary Care Provider [phone] Kash Live LEAD TECHNICAL WRITER Primary Care Provide r Cornelius Zelaya MD Primary Care Provider [phone] Jeimy Sawant LEAD TECHNICAL WRITER Primary Care Provider + Betsey Long MD Primary Care Provider [facility] Primary Care Provide r [facility] Primary Care Provide r [facility] Primary Care Provide r Encounter Details Date Type Department Care Team (Late st Contact Info) Description 06/08/2017 Ancillary Orders [facility] [address] [place] [address] [place] [address] Fahad June MD [address] [place] [address] [facility] [place] [address] [email or web address] Social History Tobacco Use Types Packs/Day Years Used Date Smoking Tobacco: Every Day Smokeless Tobacco: Current Comments No Sex and Gender Information Value [...] documented as of this encounter Care Teams Door Repairman Relationship Specialty Start Date End Date Fahad June MD [address] [place] [address] [email or web address] PCP - General Family Medicine 03/17/17 12/15/17 Janina Moncada MD [address] [place] [address] [email or web address] PCP - General Family Medicine 12/16/17 04/11/18 Fahad Crenshaw DO [address] [place] [address] 7 [place] [address] [email or web address] PCP - General Family Medicine 04/12/18 09/13/18 Janina Moncada MD [address] [place] [address] [email or web address] PCP - General Family Medicine 11/14/18 04/19/19 Kash Live, MARGARITA [address] [place] [address] 7 [place] [address] PCP - General 04/20/19 10/03/19 Cornelius Zelaya MD [address] [place] [address] PCP - General Internal Medicine 10/04/19 10/09/19 Jeimy Sawant NP [address] [place] [address] PCP - General Unknown Provider Specialty 10/10/19 10/31/19 Betsey Long MD 70 [facility] [place] [address] [email or web address] PCP - General Family Medicine 11/01/19 01/28/22 Litzy [place] [address] PCP - General Family Medicine 01/29/22 02/14/24 [place] [address] PCP - General Nurse Practitioner 02/15/24 10/25/24 [place] [address] PCP - General Nurse Practitioner 10/26/24 Chon Tipton DO [address] [place] [address] [address] [place] [address] Historical LMR Provider 02/28/17 05/17/21 Sandy Romo LEAD TECHNICAL WRITER [address] [place] [address] LISA Cool [address] Historical LMR Provider 02/28/17 05/17/21 Cierra Ramirez DO [address] [place] [address], [address] [place] [address] [email or web address] Historical LMR Provider 02/28/17 05/17/21 Guy Lagunas MBBS, PhD [address] [place] [address] [facility] Neurophysiology [facility] Department of [facility] [address] [place] [address] [email or web address] Historical LMR Provider 02/28/17 05/17/21 Cindy Mesa, MARGARITA [address] [place] [address] Historical LMR Provider 02/28/17 05/17/21 Giovanna Padgett CNM [address] [place] [address] Historical LMR Provider 02/28/17 05/17/21 Danish Alfredo MD [address] [place] [address] [email or web address] Historical LMR Provider 02/28/17 Jennifer Stein MD [address] [place] [email or web address] Historical LMR Provider 02/28/17 05/17/21 Mabel Bowman MD [address] [place] [address], 2nd [place] [address] [email or web address] Historical LMR Provider 02/28/17 05/17/21 Jesusita Walters CNM [address] [place] [address] [email or web address] Historical LMR Provider 02/28/17 05/17/21 Fahad June MD [address] [place] [address] 2[address] [place] [address] [email or web address] Historical LMR Provider 02/28/17 05/17/21 Iglesia Pizarro MD [address] [place] [address] Historical LMR Provider 02/28/17 05/17/21 Pipe Simmons MD [address] [place] [address] 7 [place] [address] [email or web address] Historical LMR Provider 02/28/17 05/17/21 Elisabeth Hills NP [address] [place] [address] Historical LMR Provider 02/28/17 05/17/21 Dayna Perez MD [address] [place] [address] Historical LMR Provider 02/28/17 05/17/21 Julio Johnson MD [address] [place] [address] Historical LMR Provider 02/28/17 Tigre Shrestha MD [address] [place] [address] Historical LMR Provider 02/28/17 05/17/21 Yolanda [place] MD [address] [place] [address] Historical LMR Provider 02/28/17 05/17/21 Angel Byrd MD [address] [place] [address] Historical LMR Provider 02/28/17 05/17/21 Gisela Dorsey NP [address] [place] [address] Historical LMR Provider 02/28/17 05/17/21 documented as of this encounter Additional Source Comments The information contained in this document represents components of the legal health record. It is not the complete legal health record.[facility]
--- OUTSIDE RECORDS SUMMARY | 2025-01-30 13:58 | XMS_ITS | Encounter Summary ---
Author Organization [facility] Address [address] [facility] [address] [place] [address] Phone Care Team Providers Care Vice President Risk Management Name Role Phone Chon Tipton DO Unavailable Sandy Romo SUPERVISOR BINDERY Unavailable Cierra Ramirez DO Unavailable Guy LagunasBS, PhD Unavailable [phone] Cindy Mesa SUPERVISOR BINDERY Unavailable Giovanna Padgett CNM Unavailable Danish Alfredo MD Unavailable Jennifer Stein MD Unavailable Mabel Bowman MD Unavailable Jesusita Walters CNM Unavailable Fahad June MD Unavailable Iglesia Pizarro MD Unavailable Pipe Simmons MD Unavailable Elisabeth Hills SUPERVISOR BINDERY Unavailable [phone] Dayna Perez MD Unavailable [phone] Julio Johnson MD Unavailable Tigre Shrestha MD Unavailable [phone] Yolanda Harrison MD Unavailable [phone] Angel Byrd MD Unavailable [phone] Wilfredo Dorseyon Keisha SUPERVISOR BINDERY Unavailable [phone] Jeimy Sawant SUPERVISOR BINDERY Primary Care Provider + Betsey Long MD Primary Care Provider [facility] Primary Care Provide r [facility] Primary Care Provide r [facility] Primary Care Provide r Encounter Details Date Type Department Care Team (Late st Contact Info) Description 10/20/2019 Transcribe Orders [address] [place] [address] Shahida Andrews PA-C [address], [place] [place] [address] [email or web address] Social History Tobacco Use Types Packs/Day Years [...] documented as of this encounter Care Teams Vice President Risk Management Relationship Specialty Start Date End Date Jeimy Sawant NP [address] [facility] [place] [address] PCP - General Unknown Provider Specialty 10/10/19 10/31/19 Betsey Long MD 70 [facility] [place] [address] [email or web address] PCP - General Family Medicine 11/01/19 01/28/22 [place] [address] PCP - General Family Medicine 01/29/22 02/14/24 [place] [address] PCP - General Nurse Practitioner 02/15/24 10/25/24 Litzy Rain[place] [address] PCP - General Nurse Practitioner 10/26/24 Chon Tipton DO [address] [place] [address] [address] [place] [address] Historical LMR Provider 02/28/17 05/17/21 Sandy Romo, SUPERVISOR BINDERY [address] [place] [address] RipariusLISA [address] Historical LMR Provider 02/28/17 05/17/21 Cierra Ramirez DO [address] [place] [address], [address] [place] [address] [email or web address] Historical LMR Provider 02/28/17 05/17/21 Guy Lagunas MBBS, PhD [address] [place] [address] [facility] Department of [facility] [address] [place] [address] [email or web address] Historical LMR Provider 02/28/17 05/17/21 Cindy Mesa, MARGARITA [address] [place] [address] Historical LMR Provider 02/28/17 05/17/21 Gioavnna Padgett CNM [address] [place] [address] Historical LMR Provider 02/28/17 05/17/21 Danish Alfredo MD [address] [place] [address] [email or web address] Historical LMR Provider 02/28/17 Jennifer Stein MD [address] [place] [address] [email or web address] Historical LMR Provider 02/28/17 05/17/21 Mabel Bowman MD [address] [place] [address], 2nd [place] [address] [email or web address] Historical LMR Provider 02/28/17 05/17/21 Jesusita Walters CNM [address] [place] [address] [email or web address] Historical LMR Provider 02/28/17 05/17/21 Fahad June MD [address] [place] [address] 2[address] [place] [address] [email or web address] Historical LMR Provider 02/28/17 05/17/21 Iglesia Pizarro MD [address] [place] [address] Historical LMR Provider 02/28/17 05/17/21 Pipe Simmons MD [address] [place] [address] [email or web address] Historical LMR Provider 02/28/17 05/17/21 Elisabeth Hills NP [address] [place] [address] Historical LMR Provider 02/28/17 05/17/21 Dayna Perez MD [address] [place] [address] Historical LMR Provider 02/28/17 05/17/21 Julio Johnson MD [address] [place] [address] [address] [place] [address] [email or web address] Historical LMR Provider 02/28/17 Tigre Shrestha MD [address] [place] [address] Historical LMR Provider 02/28/17 05/17/21 Yolanda [place] MD [address] [place] [address] Historical LMR Provider 02/28/17 05/17/21 Angel Byrd MD [address] [place] [address] Historical LMR Provider 02/28/17 05/17/21 Gisela Dorsey NP [address] [place] [address] Historical LMR Provider 02/28/17 05/17/21 documented as of this encounter Additional Source Comments The information contained in this document represents components of the legal health record. It is not the complete legal health record.[facility]
--- OUTSIDE RECORDS SUMMARY | 2025-01-30 13:58 | XMS_ITS | Encounter Summary ---
Author Organization [facility] Address [address] [place] [address] Phone Care Team Providers Care Spray Booth Operator Name Role Phone Chon Tipton DO Unavailable Sandy Romo EMBRYOLOGY TEACHER Unavailable Cierra Ramirez DO Unavailable Guy LagunasBS, PhD Unavailable [phone] Cindy Mesa EMBRYOLOGY TEACHER Unavailable Giovanna Padgett CNM Unavailable Danish Alfredo MD Unavailable Jennifer Stein MD Unavailable Mabel Bowman MD Unavailable Jesusita Walters CNM Unavailable Fahad June MD Unavailable Iglesia Pizarro MD Unavailable Pipe Simmons MD Unavailable Elisabeth Hills EMBRYOLOGY TEACHER Unavailable [phone] Dayna Perez MD Unavailable [phone] Julio Johnson MD Unavailable Tigre Shrestha MD Unavailable [phone] Yolanda Harrison MD Unavailable [phone] Angel Byrd MD Unavailable SalineWilfredo astudilloon Keisha AVILA Unavailable Betsey Long MD Primary Care Provider [facility] Primary Care Provide r [facility] Primary Care Provide r [facility] Primary Care Provide r Encounter Details Date Type Department Care Team (Latest Contact Info) Description 05/29/2020 Transcribe Orders [address] [place] [address] Lavelle Alan MD [address] [place] [address] Hypertensive chronic kidney disease with stage 1 through stage 4 chronic kidney disease, or unspecified chronic kidney disease (Primary Dx); Stage 3 chronic kidney disease, unspecified whether stage 3a or 3b CKD; Weakness Social History Tobacco Use Types Packs/Day Years [...] documented as of this encounter Results * TOTAL PROTEIN CREATININE RATIO, RANDOM URINE (05/29/2020 11:35 AM EST) URINE TOTAL PROTEIN 18.2 mg/dL [facility] URINE CREATININE 141 mg/dL [facility] URINE TP CRE RATIO 0.13 0 - 0.19 [facility] Urine (Urine) 05/29/2020 11: 35 AM EST 05/29/2020 11:44 AM EST us Lavelle Alan MD URINE ORDERABLES Final Result Performing Organization Address [facility] Co de Phone Number [address] [address] * Urinalysis w/reflex Urine Culture (05/29/2020 11:35 AM EST) COLOR Yellow Yellow [facility] CLARITY Clear [facility] GLUCOSE Negative Negative [facility] BILI Negative Negative [facility] KETONES Negative Negative [facility] SPECIFIC GRAVITY 1.020 1.005 - 1.030 [facility] BLOOD Negative Negative [facility] PH 6.0 5.0 - 8.0 [facility] Protein-UA Negative Negative [facility] NITRITE Negative Negative [facility] Leukocyte esterase, ur Negative Negative [facility] Urine (Urine) 05/29/2020 11: 35 AM EST 05/29/2020 11:45 AM EST us Lavelle Alan MD URINE ORDERABLES Final Result Performing Organization Address [facility] Phone Number [address] [address] * PT-INR (05/29/2020 11:35 AM EST) PT 10.4 10.2 - 12.9 sec [facility] INR 0.9 0.9 - 1.1 [facility] Comment:Therapeutic range fo r oral Vitamin K antagonists: 2.0-3.5 Blood 05/29/2020 11:3 5 AM EST 05/29/2020 11:45 AM EST us Lavelle Alan MD LAB BLOOD ORDERAB LES Final Result Performing Organization Address [facility]/ZIP Co de Phone Number [address] [address] * (ABNORMAL) CBC and differential (05/29/2020 11:35 AM EST) WBC 10.80 4.00 - 11.00 K/uL [facility] Comment:Note Reference Range updates to all CBC and Differential results. RBC 5.04 3.72 - 5.30 M/uL [facility] HGB 14.0 10.6 - 15.5 g/dL [facility] Comment:Note updated Referen ce Ranges for all CBC and Differential results. HCT 42.7 32.0 - 45.0 % [facility] PLT 354 140 - 430 K/uL [facility] MCV 84.7 78.0 - 97.0 fL [facility] MCH 27.8 25.0 - 33.0 pg [facility] MCHC 32.8 32.0 - 36.0 g/dL [facility] RDW 14.1 11.0 - 16.0 % [facility] MPV 10.6 8.4 - 12.8 fl [facility] NRBC 0.00 0 /100 WBCs [facility] ABSOLUTE NRBC 0.00 0 K/uL [facility] DIFF METHOD Auto [facility] NEUTS 77.0(H) 43.0 - 75.0 % [facility] LYMPHS 13.3(L) 18.2 - 47.4 % [facility] MONOS 7.5 4.00 - 11.00 % [facility] EOS 1.3 0.0 - 8.0 % [facility] BASOS 0.4 0.0 - 2.0 % [facility] Granulocytes, immature (%) 0.5 0.0 - 0.9 % [facility] ABSOLUTE NEUTS 8.32(H) 1.80 - 7.70 K/uL [facility] ABSOLUTE LYMPHS 1.44 1.00 - 3.10 K/uL [facility] ABSOLUTE MONOS 0.81(H) 0.20 - 0.80 K/uL [facility] ABSOLUTE EOS 0.14 0.00 - 0.80 K/uL [facility] ABSOLUTE BASOS 0.04 0.00 - 0.09 K/uL [facility] Granulocytes, immature 0.05 0.00 - 0.05 K/uL [facility] Blood 05/29/2020 11:3 5 AM EST 05/29/2020 11:45 AM EST us Lavelle Alan MD LAB BLOOD ORDERAB LES Final Result Performing Organization Address [facility] Co de Phone Number [address] [address] * (ABNORMAL) Renal panel (05/29/2020 11:35 AM EST) SODIUM 137 133 - 146 mmol/L [facility] POTASSIUM 4.0 3.3 - 5.1 mmol/L [facility] CHLORIDE 105 96 - 108 mmol/L [facility] CO2 20(L) 21 - 35 mmol/L [facility] GLUCOSE 120(H) 70 - 99 mg/dL [facility] BUN 21(H) 6 - 19 mg/dL [facility] CREATININE 1.30 0.5 - 1.5 mg/dL [facility] CALCIUM 9.2 8.4 - 10.3 mg/dL [facility] PHOSPHORUS 2.7 2.7 - 4.5 mg/dL [facility] ALBUMIN 4.2 3.9 - 4.8 g/dL [facility] EGFR 46(L) >59 mL/min/1.7 3m2 [facility] Comment:Estimated glomerular filtration rate calculated using the CKD-EPI equation. ANION GAP 16 10 - 20 mmol/L [facility] Blood 05/29/2020 11:3 5 AM EST 05/29/2020 11:45 AM EST us Lavelle Alan MD LAB BLOOD ORDERAB LES Final Result Performing Organization Address City/[facility]/ZIP Co de Phone Number [address] [address] documented in this encounter Visit Diagnoses Diagnosis Hypertensive chronic kidney disease with stage 1 through stage 4 chronic kidney disease, or unspecified chronic kidney disease- Primary Stage 3 chronic kidney disease, unspecified whether stage 3a or 3b CKD Weakness Other malaise and fatigue documented in this encounter Additional Health Concerns Infection Onset Date Last Indicated Resolved Time CoV-Risk 07/18/2024 07/25/2024 08/05/2024 1:21 AM EDT Influenza A 07/18/2024 07/18/2024 07/25/2024 1:22 AM EDT Influenza A 07/25/2024 07/25/2024 08/01/2024 1:21 AM EDT documented as of this encounter Care Teams Spray Booth Operator Relationship Specialty Start Date End Date Betsey Long MD [address] [place] [phone] [email or web address] PCP - General Family Medicine 11/01/19 01/28/22 Litzy Raines FNP [address] [place] [phone] PCP - General Family Medicine 01/29/22 02/14/24 Litzy Raines FNP [address] [place] [phone] PCP - General Nurse Practitioner 02/15/24 10/25/24 Litzy Raines FNP [address] [place] [phone] PCP - General Nurse Practitioner 10/26/24 Chon Tipton DO [address] [place] [address] [address] [place] [address] Historical LMR Provider 02/28/17 05/17/21 Sandy Romo NP [address] [place] [address] Historical LMR Provider 02/28/17 05/17/21 Cierra Ramirez DO [address] [place] [address] [address] [place] [address] [email or web address] Historical LMR Provider 02/28/17 05/17/21 Guy Lagunas MBBS, PhD [address] [place] [address] [facility] [address] [place] [address] [email or web address] Historical LMR Provider 02/28/17 05/17/21 Cindy Mesa, MARGARITA [address] [place] [address] Historical LMR Provider 02/28/17 05/17/21 Giovanna Padgett CNM [address] [place] [address] Historical LMR Provider 02/28/17 05/17/21 Danish Alfredo MD [address] [place] [address] [email or web address] Historical LMR Provider 02/28/17 Jennifer Stein MD [address] [place] [email or web address] Historical LMR Provider 02/28/17 05/17/21 Mabel Bowman MD [address] [place] [address], [address] [place] [address] [email or web address] Historical LMR Provider 02/28/17 05/17/21 Jesusita Walters CNM [address] [place] [address] [email or web address] Historical LMR Provider 02/28/17 05/17/21 Fahad June MD [address] [place] [address] [email or web address] Historical LMR Provider 02/28/17 05/17/21 Iglesia Pizarro MD [address] [place] [address] Historical LMR Provider 02/28/17 05/17/21 Pipe Simmons MD [address] [place] [address] [address] [place] [address] [email or web address] Historical LMR Provider 02/28/17 05/17/21 Elisabeth Hills NP [address] [place] [address] Historical LMR Provider 02/28/17 05/17/21 Dayna Perez MD [address] [place] [address] Historical LMR Provider 02/28/17 05/17/21 Julio Johnson MD [address] [place] [address] [email or web address] Historical LMR Provider 02/28/17 Tigre Shrestha MD [address] [place] [phone] Historical LMR Provider 02/28/17 1 Yolanda Harrison MD [address] [place] [place] [address] Historical LMR Provider 02/28/17 05/17/21 Angel Byrd MD [address] [place] [address] Historical LMR Provider 02/28/17 05/17/21 Gisela Dorsey NP [address] [place] [phone] Historical LMR Provider 02/28/17 05/17/21 documented as of this encounter Additional Source Comments The information contained in this document represents components of the legal health record. It is not the complete legal health record.[facility]
--- OUTSIDE RECORDS SUMMARY | 2025-01-30 13:58 | XMS_ITS | Encounter Summary ---
Author Organization [facility] Address [address] [place] [address] Phone Care Team Providers Care Data Processing Mechanic Name Role Phone Danish Alfredo MD Unavailable Julio Johnson MD Unavailable [phone] [facility] Primary Care Provide r [facility] Primary Care Provide r Encounter Details Date Type Department Care Team (Late st Contact Info) Description 04/17/2024 Ancillary Orders [facility], [facility] [address] [place] [address] Danish Alfredo MD [address] [place] [address] [email or web address] Abnormal mammogram (Primary Dx) Social History Tobacco Use Types [...] documented as of this encounter Results * (ABNORMAL) BI US BREAST LIMITED (LEFT) (06/01/2024 1:05 PM EST) Anatomical Region Laterality Modality Breast Left, Breast Bilateral Left Ul trasound 06/01/2024 12:4 0 PM EST Impressions 06/01/2024 1:09 PM EST 8 mm mass in the 12:00 position 5 cm deep to the nipple on ultrasound. Is possible this could be a cyst but it is difficult to characterize given the depth of the mass. FNA and possible biopsy using ultrasound guidance is recommended BI-RADS 4 SUSPICIOUS Discussed with the patient immediately following the imaging. Narrative 06/01/2024 1:09 PM EST BI MAMMOGRAM DIAGNOSTIC WITH TOMOSYNTHESIS WITH CAD (LEFT), BI US BREAST LIMITED (LEFT) Additional patient information: COMPARISON: Comparison is made with relevant prior imaging. Breast composition: The breast tissue is heterogeneously dense which may obscure small masses. FINDINGS: Left Mammogram: There is a persisting small well-circumscribed mass in the slight upper posterior aspect of the breast. Left Ultrasound: Targeted real-time ultrasound was performed. Correlating with the mammographic finding in the 12:00 position 5 cm deep to the nipple is an 8 mm x 5 x 4 mm smoothly marginated hypoechoic mass with slightly macrolobulated margins. Orientation is parallel. There are relatively low level internal echoes present within the mass. There is a sharp posterior wall. No evidence of internal vascularity. No other sonographic abnormality. us Danish Alfredo MD IM US BREAST Final Result * (ABNORMAL) BI MAMMOGRAM DIAGNOSTIC WITH TOMOSYNTHESIS WITH CAD (LEFT) (06/01/2024 12:27 PM EST) Anatomical Region Laterality Modality Breast Left Left Mammography 06/01/2024 12:4 0 PM EST Impressions 06/01/2024 1:09 PM EST 8 mm mass in the 12:00 position 5 cm deep to the nipple on ultrasound. Is possible this could be a cyst but it is difficult to characterize given the depth of the mass. FNA and possible biopsy using ultrasound guidance is recommended BI-RADS 4 SUSPICIOUS Discussed with the patient immediately following the imaging. Narrative 06/01/2024 1:09 PM EST BI MAMMOGRAM DIAGNOSTIC WITH TOMOSYNTHESIS WITH CAD (LEFT), BI US BREAST LIMITED (LEFT) Additional patient information: COMPARISON: Comparison is made with relevant prior imaging. Breast composition: The breast tissue is heterogeneously dense which may obscure small masses. FINDINGS: Left Mammogram: There is a persisting small well-circumscribed mass in the slight upper posterior aspect of the breast. Left Ultrasound: Targeted real-time ultrasound was performed. Correlating with the mammographic finding in the 12:00 position 5 cm deep to the nipple is an 8 mm x 5 x 4 mm smoothly marginated hypoechoic mass with slightly macrolobulated margins. Orientation is parallel. There are relatively low level internal echoes present within the mass. There is a sharp posterior wall. No evidence of internal vascularity. No other sonographic abnormality. Procedure Note Chon Christina MD - 06/01/2024 BI MAMMOGRAM DIAGNOSTIC WITH TOMOSYNTHESIS WITH CAD (LEFT), BI US BREASTLIMITED (LEFT) Additional patient information: COMPARISON: Comparison is made with relevant prior imaging. Breast composition: The breast tissue is heterogeneously dense which mayobscure small masses. FINDINGS: Left Mammogram: There is a persisting small well-circumscribed mass in the slight upperposterior aspect of the breast. Left Ultrasound: Targeted real-time ultrasound was performed. Correlatingwith the mammographic finding in the 12:00 position 5 cm deep to thenipple is an 8 mm x 5 x 4 mm smoothly marginated hypoechoic mass withslightly macrolobulated margins. Orientation is parallel. There arerelatively low level internal echoes present within the mass. There is asharp posterior wall. No evidence of internal vascularity. No othersonographic abnormality. IMPRESSION: 8 mm mass in the 12:00 position 5 cm deep to the nipple on ultrasound. Ispossible this could be a cyst but it is difficult to characterize giventhe depth of the mass. FNA and possible biopsy using ultrasound guidanceis recommended BI-RADS 4 SUSPICIOUS Discussed with the patient immediately following the imaging. Danish Alfredo MD IMG MG EXAMS Final Result documented in this encounter Visit Diagnoses Diagnosis Abnormal mammogram- Primary Abnormal mammogram, unspecified Abnormal mammogram Abnormal mammogram, unspecified Abnormal mammogram Abnormal mammogram, unspecified documented in this encounter Additional Health Concerns Infection Onset Date Last Indicated Resolved Time CoV-Risk 07/18/2024 07/25/2024 08/05/2024 1:21 AM EDT Influenza A 07/18/2024 07/18/2024 07/25/2024 1:22 AM EDT Influenza A 07/25/2024 07/25/2024 08/01/2024 1:21 AM EDT documented as of this encounter Care Teams Data Processing Mechanic Relationship Specialty Start Date End Date [facility] [address] [place] [phone] PCP - General Nurse Practitioner 02/15/24 10/25/24 Litzy Raines FNP [address] [place] [address] PCP - General Nurse Practitioner 10/26/24 Danish Alfredo MD [address] [place] [address] Historical LMR Provider 02/28/17 Julio Johnsno MD [address] [place] [address], [address] [address] (work) [email or web address] Historical LMR Provider 02/28/17 documented as of this encounter Additional Source Comments The information contained in this document represents components of the legal health record. It is not the complete legal health record.[facility]
--- OUTSIDE RECORDS SUMMARY | 2025-01-30 13:58 | XMS_ITS | Encounter Summary ---
Author Organization [facility] Address [address] [place] [address] Phone Care Team Providers Care Supervisor Sleeping Bag Department Name Role Phone Danihs Alfredo MD Unavailable Julio Johnson MD Unavailable [phone] Litzy Raines Primary Care Provide r Litzy Raines Primary Care Provide r Reason for Referral * MRI/CAT Scan - Closed Specialty Diagnoses / Procedures Referred By Chance quispe Referred To Contact Radiology Diagnoses Former smoker Procedures CT Chest Lung Cancer Screening Initial Or Annual CHG COMPUTED TOMOGRAPHY THORAX LW DOSE LNG CA SCR C- Litzy Raines FNP [address], [address] [place] [address] Phone: tel: fax: Referral ID Status Reason Start Date Expiration Date Visits Re quested Visits Authorized [id number] Closed 05/26/2024 05/09/2025 1 1 Encounter Details Date Type Department Care Team (Late st Contact Info) Description 05/26/2024 Transcribe Orders Virtual Department [address] [place] [address] Litzy Raines FNP [address] [place] [address] Former smoker (Primary Dx) Social History Tobacco Use Types [...] documented as of this encounter Results * CT CHEST LUNG CANCER SCREENING INITIAL (06/06/2024 4:13 PM EST) MGB IMG RECOMMENDATION COMMENT incompletely imaged; Mild right hydronephrosis; visualized mild right hydronephrosis; Partially visualized renal [facility] Anatomical Region Laterality Modality Chest Computed Tomogra phy 06/08/2024 4:29 PM EST Impressions 06/08/2024 4:36 PM EST Lung-RADS Category: 2/S. The identified solid nodule has a very low likelihood of becoming a clinically active cancer, due to size and/or lack of growth. There are potentially significant incidental finding(s): -Mild right hydronephrosis, incompletely imaged. Recommend kidney ultrasound for further assessment. Follow-up recommendations were communicated and documented using a closed loop communication system. Continue Lung-RADS Annual Lung Cancer Screening Chest CT in 12-14 months if patient meets eligibility criteria. To order, please type CT CHEST SCREENING ([email or web address]) and select ANNUAL for patient program status. Recommendation for potentially significant incidental finding: follow up as clinically indicated. Explanation of the Lung-RADS categories can be found at: [email or web address] Narrative 06/08/2024 4:[address] CHEST LUNG CANCER SCREENING INITIAL Referring clinician's provided indication for this examination in [facility]: Lung Cancer Screening - FORMER smoker, quit in past 15 yrs (20+ pk-yrs, age 50-80) - ICD-10 Z87.891 TECHNIQUE: Low dose multidetector CT of the chest was performed without intravenous contrast using tailored dose modulation techniques. COMPARISON: XR RIBS 2 VIEWS (LEFT) FINDINGS: Devices/Tubes/Lines: None. Lungs: The central airways are patent. No focal consolidation. Mild paraseptal emphysema in the upper lobes. Mild dependent atelectasis. Few scattered lung nodules measuring up to 5 mm in the peribronchial left upper lobe (5; 170). Pleura: No pleural effusion or pneumothorax. Mediastinum: No thyroid nodules. Heart size is normal. No significant pericardial effusion. Mild amount of coronary calcifications. Atherosclerotic aorta and branches. Lymph Nodes: No enlarged supraclavicular, axillary, mediastinal, or hilar lymph nodes by CT threshold criteria. Upper Abdomen: Absence/Timing of intravenous contrast limits sensitivity for detecting solid organ findings. Prominent partially visualized duodenal diverticulum. Partially visualized mild right hydronephrosis could be further assessed with renal ultrasound. Chest Wall: No chest wall mass. Bones: No suspicious lytic or blastic lesions. Degenerative changes. Procedure Note Crystal Moncada MD - 06/08/2024 CT CHEST LUNG CANCER SCREENING INITIAL Referring clinician's provided indication for this examination in [facility]:Lung Cancer Screening - FORMER smoker, quit in past 15 yrs (20+ pk-yrs,age 50-80) - ICD-10 Z87.891 TECHNIQUE: Low dose multidetector CT of the chest was performed withoutintravenous contrast using tailored dose modulation techniques. COMPARISON: XR RIBS 2 VIEWS (LEFT) FINDINGS: Devices/Tubes/Lines: None. Lungs: The central airways are patent. No focal consolidation. Mildparaseptal emphysema in the upper lobes. Mild dependent atelectasis. Fewscattered lung nodules measuring up to 5 mm in the peribronchial leftupper lobe (5; 170). Pleura: No pleural effusion or pneumothorax. Mediastinum: No thyroid nodules. Heart size is normal. No significantpericardial effusion. Mild amount of coronary calcifications.Atherosclerotic aorta and branches. Lymph Nodes: No enlarged supraclavicular, axillary, mediastinal, or hilarlymph nodes by CT threshold criteria. Upper Abdomen: Absence/Timing of intravenous contrast limits sensitivityfor detecting solid organ findings. Prominent partially visualizedduodenal diverticulum. Partially visualized mild right hydronephrosiscould be further assessed with renal ultrasound. Chest Wall: No chest wall mass. Bones: No suspicious lytic or blastic lesions. Degenerative changes. IMPRESSION: Lung-RADS Category: 2/S. The identified solid nodule has a very lowlikelihood of becoming a clinically active cancer, due to size and/or lackof growth. There are potentially significant incidental finding(s): -Mild right hydronephrosis, incompletely imaged. Recommend kidneyultrasound for further assessment. Follow-up recommendations were communicated and documented using a closedloop communication system. Continue Lung-RADS Annual Lung Cancer Screening Chest CT in 12-14 monthsif patient meets eligibility criteria. To order, please type CT CHEST SCREENING ([email or web address]) and selectANNUAL for patient program status. Recommendation for potentially significant incidental finding: follow upas clinically indicated. Explanation of the Lung-RADS categories can be found at:[email or web address] [facility] IM CT CHEST Final Result documented in this encounter Visit Diagnoses Diagnosis Former smoker- Primary Personal history of tobacco use, presenting hazards to health Former smoker Personal history of tobacco use, presenting hazards to health documented in this encounter Additional Health Concerns Infection Onset Date Last Indicated Resolved Time CoV-Risk 07/18/2024 07/25/2024 08/05/2024 1:21 AM EDT Influenza A 07/18/2024 07/18/2024 07/25/2024 1:22 AM EDT Influenza A 07/25/2024 07/25/2024 08/01/2024 1:21 AM EDT documented as of this encounter Care Teams Supervisor Sleeping Bag Department Relationship Specialty Start Date End Date Litzy Raines RAMY Case [address] [address] PCP - General Nurse Practitioner 02/15/24 10/25/24 ClaudiaLitzy boggs FNP [address] [place] [address] PCP - General Nurse Practitioner 10/26/24 Danish Alfredo MD [address] [address] Historical LMR Provider 02/28/17 Julio Johnson MD [address] [place] [address] Historical LMR Provider 02/28/17 documented as of this encounter Additional Source Comments The information contained in this document represents components of the legal health record. It is not the complete legal health record.[facility]
--- OUTSIDE RECORDS SUMMARY | 2025-01-30 13:58 | XMS_ITS | Encounter Summary ---
Author Organization [facility] Address [address] [place] [address] Phone Care Team Providers Care Heavy Equipment Rental Associate Name Role Phone Chon Tipton DO Unavailable Sandy Romo HOSPICE RN Unavailable Cierra Ramirez DO Unavailable Guy LagunasBS, PhD Unavailable Cindy Mesa HOSPICE RN Unavailable Giovanna Padgett CNM Unavailable Danish Alfredo MD Unavailable Jennifer Stein MD Unavailable Mabel Bowman MD Unavailable Jesusita Walters CNM Unavailable Fahad June MD Unavailable Iglesia Pizarro MD Unavailable Pipe Simmons MD Unavailable Elisabeth Hills HOSPICE RN Unavailable Dayna Perez MD Unavailable [phone] Julio Johnson MD Unavailable Tigre Shrestha MD Unavailable [phone] Yolanda Harrison MD Unavailable [phone] Angel Byrd MD Unavailable [phone] AdaGisela Keisha HOSPICE RN Unavailable Betsey Long MD [facility] Provider [facility] Primary Care Provide r [facility] Litzy Evie [facility] Primary Care Provide r [facility] Primary Care Provide r Encounter Details Date Type Department Care Team (Late st Contact Info) Description 04/21/2021 Transcribe Orders Virtual Department [address] [place] [address] [facility] [address] [place] [address] Breast screening (Primary Dx) Social History Tobacco Use Types [...] of this encounter Results * BI MAMMOGRAM SCREENING WITH TOMOSYNTHESIS WITH CAD (BILATERAL) (05/27/2021 1:45 PM EST) Anatomical Region Laterality Modality Breast Left, Breast Right, Breast Bilateral Bila teral Mammography 05/27/2021 7:06 PM EST Impressions 05/27/2021 7:41 PM EST BILATERAL BREASTS: Negative, no evidence of malignancy. Normal interval follow- up is recommended in 12 months. Bi-RADS: BI-RADS CATEGORY: 1 - Negative. DENSITY: There are scattered fibroglandular densities. Narrative 05/27/2021 7:41 PM EST STUDY: Bilateral screening mammography with tomosynthesis and CAD TECHNIQUE: Bilateral full-field digital screening mammography is obtained and read in conjunction with computer-aided detection. Tomosynthesis as well as 2-D C view imaging were obtained. COMPARISON: Comparison made to multiple prior, most recent March 19, 2020, and most remote April 29, 2016. BREAST COMPOSITION: There are scattered areas of fibroglandular density BILATERAL BREASTS: No significant masses, suspicious calcifications or other abnormalities are seen. Procedure Note Stan Marlow MD - 05/27/2021 STUDY: Bilateral screening mammography with tomosynthesis and CAD TECHNIQUE: Bilateral full-field digital screening mammography is obtainedand read in conjunction with computer-aided detection. Tomosynthesis aswell as 2-D C view imaging were obtained. COMPARISON: Comparison made to multiple prior, most recent March, and most remote April 29, 2016. BREAST COMPOSITION: There are scattered areas of fibroglandulardensity BILATERAL BREASTS: No significant masses, suspicious calcifications orother abnormalities are seen. IMPRESSION: BILATERAL BREASTS: Negative, no evidence of malignancy. Normal intervalfollow-up is recommended in 12 months. Bi-RADS: BI-RADS CATEGORY: 1 - Negative. DENSITY: There are scattered fibroglandular densities. [facility] BASKET PERSON IMG MG EXAMS Final Result documented in this encounter Visit Diagnoses Diagnosis Breast screening- Primary Breast screening, unspecified Breast screening Breast screening, unspecified documented in this encounter Additional Health Concerns Infection Onset Date Last Indicated Resolved Time CoV-Risk 07/18/2024 07/25/2024 08/05/2024 1:21 AM EDT Influenza A 07/18/2024 07/18/2024 07/25/2024 1:22 AM EDT Influenza A 07/25/2024 07/25/2024 08/01/2024 1:21 AM EDT documented as of this encounter Care Teams Heavy Equipment Rental Associate Relationship Specialty Start Date End Date Betsey Long MD [address] [place] [address] [email or web address] PCP - General Family Medicine 11/01/19 01/28/22 [facility] [address] [place] [address] PCP - General Family Medicine 01/29/22 02/14/24 [facility] [address] [place] [address] PCP - General Nurse Practitioner 02/15/24 10/25/24 [facility] [address] [place] [address] PCP - General Nurse Practitioner 10/26/24 Chon Tipton DO [address] [place] [address] [place] [address] Historical LMR Provider 02/28/17 05/17/21 Sandy Romo HOSPICE RN [address] [place] [address] Historical LMR Provider 02/28/17 05/17/21 Cierra Ramirez DO [address] [place] [address], [address] [place] [address] [email or web address] Historical LMR Provider 02/28/17 05/17/21 Guy Lagunas MBBS, PhD [address] [place] [address] [facility] [place] Department of NeurologyWA [address] [place] [address] [email or web address] Historical LMR Provider 02/28/17 05/17/21 Cindy Mesa NP [address] [place] [address] Historical LMR Provider 02/28/17 05/17/21 Giovanna Padgett CNM [address] [place] [address] Historical LMR Provider 02/28/17 05/17/21 Danish Alfredo MD [address] [place] [address] Historical LMR Provider 02/28/17 Jennifer Stein MD [address] [place] [address] Historical LMR Provider 02/28/17 05/17/21 Mabel Bowman MD [address] [place] [address], [address] [place] [address] Historical LMR Provider 02/28/17 05/17/21 Jesusita Walters CNM [address] [place] [address] Historical LMR Provider 02/28/17 05/17/21 Fahad June MD [address] [place], [place] [address] [address] [email or web address] Historical LMR Provider 02/28/17 05/17/21 Iglesia Pizarro MD [address] [place] [address] Historical LMR Provider 02/28/17 05/17/21 Pipe Simmons MD [address] [place] [address] [address] [place] [address] [email or web address] Historical LMR Provider 02/28/17 05/17/21 Elisabeth Hills NP [address] [place] [address] Historical LMR Provider 02/28/17 05/17/21 Dayna Perez MD [address] [place] [address] Historical LMR Provider 02/28/17 05/17/21 Julio Johnson MD [address] [place] [address] [email or web address] Historical LMR Provider 02/28/17 Tigre Shrestha MD [address] [place] [address] Historical LMR Provider 02/28/17 05/17/21 Yolanda Hrarison MD [address] [place] [address] Historical LMR Provider 02/28/17 05/17/21 Angel Byrd MD [address] [place] [address] Historical LMR Provider 02/28/17 05/17/21 Gisela Dorsey NP [address] [place] [address] Historical LMR Provider 02/28/17 05/17/21 documented as of this encounter Additional Source Comments The information contained in this document represents components of the legal health record. It is not the complete legal health record.[facility]
--- OUTSIDE RECORDS SUMMARY | 2025-01-30 13:58 | XMS_ITS | Encounter Summary ---
Author Organization [facility] Address [address] [place] [address] Phone Care Team Providers Care Midwife Name Role Phone Chon Tipton DO Unavailable Sandy Romo MOSAICIST Unavailable Cierra Ramirez DO Unavailable Guy LagunasBS, PhD Unavailable [phone] Cindy Mesa MOSAICIST Unavailable Giovanna Padgett CNM Unavailable Danish Alfredo MD Unavailable Jennifer Stein MD Unavailable Mabel Bowman MD Unavailable Jesusita Walters CNM Unavailable Fahad June MD Unavailable Iglesia Pizarro MD Unavailable Pipe Simmons MD Unavailable Elisabeth Hills MOSAICIST Unavailable [phone] Dayna Perez MD Unavailable [phone] Julio Johnson MD Unavailable Tigre Shrestha MD Unavailable [phone] Yolanda Harrison MD Unavailable [phone] Angel Byrd MD Unavailable [phone] Gisela Dorsey Keisha MOSAICIST Unavailable [phone] Fahad June MD Primary Care Provider + Janina Moncada MD Primary Care Provider [phone] Fahad Crenshaw DO Primary Care Provider Janina Moncada MD Primary Care Provider [phone] Kash Live MOSAICIST Primary Care Provide r Cornelius Zelaya MD Primary Care Provider [phone] Jeimy Sawant MOSAICIST Primary Care Provider + Betsey Long MD Primary Care Provider [facility] Primary Care Provide r [facility] Primary Care Provide r [facility] Primary Care Provide r Encounter Details Date Type Department Care Team (Late st Contact Info) Description 05/31/2017 Ancillary Orders [facility] [address] [place] [address] [place] [address] Fahad June MD [address] [place] [address] [place] [address] [email or web address] Breast screening Social History Tobacco Use Types Packs/Day Years Used Date Smoking Tobacco: Every Day Smokeless Tobacco: Current Comments Unknown Sex and Gender Information Value Date Recorded Sex Assigned at Female 10/14/2017 9:05 AM EDT Legal Sex Female 9:40 PM EDT Gender Identity Female 10/14/2017 9:05 AM EDT Sexual Orientation Straight 10/14/2017 9: 05 AM EDT documented as of this encounter Plan of Treatment Not on file documented as of this encounter Results * (ABNORMAL) BI MAMMOGRAM SCREENING WITH TOMOSYNTHESIS WITH CAD (BILATERAL) (06/02/2017 2:54 PM EST) Anatomical Region Laterality Modality Breast Left, Breast Right, Breast Bilateral Bila teral Mammography 06/02/2017 3:28 PM EST Impressions 06/02/2017 3:38 PM EST Recommend additional imaging for left breast calcifications. No new suspicious findings on the right. The radiology department will attempt to recall the patient. BI-RADS CATEGORY: 0 - Incomplete. Need additional imaging evaluation. DENSITY: The breast tissue is heterogeneously dense, an appearance which lowers the sensitivity of mammography. RIGHT RECOMMENDATION DATE: Mammography screening LEFT RECOMMENDATION DATE: Additional Imaging CALLBACK VIEWS: Left 90 ML, magnification ML and CC views POS - CDHMAMA Narrative 06/02/2017 3:38 PM EST FINDINGS: Bilateral full-field digital screening mammography is obtained and read in conjunction with computer-aided detection. 3-D tomosynthesis as well as 2-D C view imaging is also performed. Comparison includes the most recent exam from 04/29/2016 and as far back as 04/13/2012. Breasts are composed of heterogeneously dense fibroglandular tissue which limits mammographic sensitivity. There are two groupings of calcifications in the left breast. One grouping is in the upper and slightly outer breast posteriorly and may have benign milk of calcium forms. The other grouping is located more inferior and medial. Additional imaging is recommended to better assess the morphology. Waxing and waning pattern of circumscribed lesions bilaterally in a pattern seen with cysts. No one area has more suspicious features than another. No architectural distortion, focal skin thickening, or new asymmetry is detected. Procedure Note Jacquie Duran MD - 06/02/2017 FINDINGS: Bilateral full-field digital screening mammography is obtained and read inconjunction with computer-aided detection. 3-D tomosynthesis as well as2-D C view imaging is also performed. Comparison includes the most recentexam from 04/29/2016 and as far back as 04/13/2012. Breasts are composed of heterogeneously dense fibroglandular tissue whichlimits mammographic sensitivity. There are two groupings ofcalcifications in the left breast. One grouping is in the upper andslightly outer breast posteriorly and may have benign milk of calciumforms. The other grouping is located more inferior and medial.Additional imaging is recommended to better assess the morphology. Waxing and waning pattern of circumscribed lesions bilaterally in apattern seen with cysts. No one area has more suspicious features thananother. No architectural distortion, focal skin thickening, or newasymmetry is detected. IMPRESSION: Recommend additional imaging for left breast calcifications. No newsuspicious findings on the right. The radiology department will attemptto recall the patient. BI-RADS CATEGORY: 0 - Incomplete. Need additional imaging evaluation. DENSITY: The breast tissue is heterogeneously dense, an appearance whichlowers the sensitivity of mammography. RIGHT RECOMMENDATION DATE: Mammography screening LEFT RECOMMENDATION DATE: Additional Imaging CALLBACK VIEWS: Left 90 ML, magnification ML and CC views POS - CDHMAMA Fahad June MD IMG MG EXAMS Final Re sult documented in this encounter Visit Diagnoses Diagnosis Breast screening Breast screening, unspecified Breast screening Breast screening, unspecified Screening breast examination Other screening breast examination documented in this encounter Additional Health Concerns Infection Onset Date Last Indicated Resolved Time CoV-Risk 07/18/2024 07/25/2024 08/05/2024 1:21 AM EDT Influenza A 07/18/2024 07/18/2024 07/25/2024 1:22 AM EDT Influenza A 07/25/2024 07/25/2024 08/01/2024 1:21 AM EDT documented as of this encounter Care Teams Midwife Relationship Specialty Start Date End Date Fahad June MD [address] [place] [address] [email or web address] PCP - General Family Medicine 03/17/17 12/15/17 Janina Moncada MD [address] [place] [address] [email or web address] PCP - General Family Medicine 12/16/17 04/11/18 Fahad Crenshaw DO [address] [place] [address] 7 [place] [address] [email or web address] PCP - General Family Medicine 04/12/18 09/13/18 Janina Moncada MD [address] [address] [email or web address] PCP - General Family Medicine 11/14/18 04/19/19 Kash Live NP [address] [place] [address] 7 [place] [address] PCP - General 04/20/19 10/03/19 Cornelius Zelaya MD [address] [place] [address] [email or web address] PCP - General Internal Medicine 10/04/19 10/09/19 Jeimy Sawant NP [address] [place] [address] PCP - General Unknown Provider Specialty 10/10/19 10/31/19 Betsey Long MD 70 [place] [address] [email or web address] PCP - General Family Medicine 11/01/19 01/28/22 Litzy Raines FNP 70 [place] [address] PCP - General Family Medicine 01/29/22 02/14/24 Litzy Raines FNP 70 [place] [address] PCP - General Nurse Practitioner 02/15/24 10/25/24 Litzy Raines FNP 70 [place] [address] PCP - General Nurse Practitioner 10/26/24 Chon Tipton DO [address] [facility] [address] [place] [address] Historical LMR Provider 02/28/17 05/17/21 Sandy Romo MOSAICIST 1 [place] [address] Historical LMR Provider 02/28/17 05/17/21 Cierra Ramirez DO [address] [place] [address], [address] [place] [address] [email or web address] Historical LMR Provider 02/28/17 05/17/21 Guy Lagunas MBBS, PhD [address] [place] [address] [facility] Department of [facility] [address] [place] [address] [email or web address] Historical LMR Provider 02/28/17 05/17/21 Cindy Mesa, MARGARITA 29 [place] [address] Historical LMR Provider 02/28/17 05/17/21 Giovanna Padgett CNM 30 [place] [address] Historical LMR Provider 02/28/17 05/17/21 Danish Alfredo MD [address] [place] [address] Historical LMR Provider 02/28/17 Jennifer Stein MD [address] [place] [address] Historical LMR Provider 02/28/17 05/17/21 Mabel Bowman MD [address] [place] [address], 2nd [place] [address] [email or web address] Historical LMR Provider 02/28/17 05/17/21 Jesusita Walters CN [address] [place] [address] [place] [address] [email or web address] Historical LMR Provider 02/28/17 05/17/21 Fahad June MD [address] [place] [address] [place] [address] [email or web address] Historical LMR Provider 02/28/17 05/17/21 Iglesia Pizarro MD [address] [place] [address] Historical LMR Provider 02/28/17 05/17/21 Pipe Simmons MD [address] [place] [address] 7 [place] [address] [email or web address] Historical LMR Provider 02/28/17 05/17/21 Elisabeth Hills NP 30 [place] [address] Historical LMR Provider 02/28/17 05/17/21 Dayna Perez MD [address] [place] [address] Historical LMR Provider 02/28/17 05/17/21 Julio Johnson MD [address] [address] [email or web address] Historical LMR Provider 02/28/17 Tigre Shrestha MD 61 [place] [address] Historical LMR Provider 02/28/17 05/17/21 Yolanda Harrison MD 444 [place] [address] Historical LMR Provider 02/28/17 05/17/21 Angel Byrd MD 61 [place] [address] Historical LMR Provider 02/28/17 05/17/21 Gisela Dorsey NP [address] [place] [address] Historical LMR Provider 02/28/17 05/17/21 documented as of this encounter Additional Source Comments The information contained in this document represents components of the legal health record. It is not the complete legal health record.[facility]
--- OUTSIDE RECORDS SUMMARY | 2025-01-30 13:58 | XMS_ITS | Encounter Summary ---
Author Organization [facility] Address [address] [place] [address] Phone Care Team Providers Care Zinc Chloride Operator Name Role Phone Chon Tipton DO Unavailable Sandy Romo THREAD DRAWER Unavailable Cierra Ramirez DO Unavailable Guy LagunasBS, PhD Unavailable Cindy Mesa THREAD DRAWER Unavailable Giovanna Padgett CNM Unavailable Danish Alfredo MD Unavailable Jennifer Stein MD Unavailable Mabel Bowman MD Unavailable Jesusita Walters CNM Unavailable Fahad June MD Unavailable Iglesia Pizarro MD Unavailable Pipe Simmons MD Unavailable Elisabeth Hills THREAD DRAWER Unavailable [phone] Dayna Perez MD Unavailable [phone] Julio Johnson MD Unavailable Tigre Shrestha MD Unavailable [phone] Yolanda Harrison MD Unavailable [phone] Angel Byrd MD Unavailable [phone] [place]fredo [place] Keisha THREAD DRAWER Unavailable [phone] Jeimy Sawant THREAD DRAWER Primary Care Provider + Betsey Long MD Primary Care Provider [facility] Primary Care Provide r [facility] Primary Care Provide r [facility] Primary Care Provide r Encounter Details Date Type Department Care Team (Late st Contact Info) Description 10/14/2019 Procedure Pass [facility], Ct Scan - [address] [address] Social History Tobacco Use Types Packs/Day Years [...] documented as of this encounter Care Teams Zinc Chloride Operator Relationship Specialty Start Date End Date Jeimy Sawant NP [address] [place] [address] PCP - General Unknown Provider Specialty 10/10/19 10/31/19 Betsey Long MD 70 [place] [address] PCP - General Family Medicine 11/01/19 01/28/22 Litzy Raines FNP 70 [facility] [place] [address] PCP - General Family Medicine 01/29/22 02/14/24 Litzy Raines FNP 70 [place] [address] PCP - General Nurse Practitioner 02/15/24 10/25/24 Litzy Raines FNP [address] [place] [address] PCP - General Nurse Practitioner 10/26/24 Chon Tipton DO [address] [place] [address] Historical LMR Provider 02/28/17 05/17/21 Sandy Romo, THREAD DRAWER 1 [place] [address] Historical LMR Provider 02/28/17 05/17/21 Cierra Ramirez DO [address] [place] [address], [address] [place] [address] Historical LMR Provider 02/28/17 05/17/21 Guy Lagunas MBBS, PhD [address] [place] [address] [facility] Department [facility] [address] [place] [address] [email or web address] Historical LMR Provider 02/28/17 05/17/21 Cindy Mesa NP [address] [place] [address] Historical LMR Provider 02/28/17 05/17/21 Giovanna Padgett CNM [address] [place] [address] Historical LMR Provider 02/28/17 05/17/21 Danish Alfredo MD [address] [place] [address] [email or web address] Historical LMR Provider 02/28/17 Jennifer Stein MD [address] [place] [address] [email or web address] Historical LMR Provider 02/28/17 05/17/21 Mabel Bowman MD [address] [place] [address], 2nd [place] [address] Historical LMR Provider 02/28/17 05/17/21 Jesusita Walters CNM [address] [place] [address] Historical LMR Provider 02/28/17 05/17/21 Fahad June MD [address] [place] [address] 2[address] [place] [address] [email or web address] Historical LMR Provider 02/28/17 05/17/21 Iglesia Pizarro MD [address] [place] [address] Historical LMR Provider 02/28/17 05/17/21 Pipe Simmons MD [address] [place] [address] 7 [place] [address] [email or web address] Historical LMR Provider 02/28/17 05/17/21 Elisabeth Hills NP 30 [place] [address] Historical LMR Provider 02/28/17 05/17/21 Dayna Perez MD [address] [place] [address] Historical LMR Provider 02/28/17 05/17/21 Julio Johnson MD [address] [place] [address] 102 [place] [address] Historical LMR Provider 02/28/17 Tigre Shrestha MD 61 [place] [address] Historical LMR Provider 02/28/17 05/17/21 Yolanda [place] MD 444 [place] [address] Historical LMR Provider 02/28/17 05/17/21 Angel Byrd MD [address] [place] [address] Historical LMR Provider 02/28/17 05/17/21 Gisela Dorsey NP [address] [place] [address] Historical LMR Provider 02/28/17 05/17/21 documented as of this encounter Additional Source Comments The information contained in this document represents components of the legal health record. It is not the complete legal health record.[facility]
--- OUTSIDE RECORDS SUMMARY | 2025-01-30 13:58 | XMS_ITS | Encounter Summary ---
Author Organization [facility] Address [address] [place] [address] Phone Care Team Providers Care Membership Manager Name Role Phone Chon Tipton DO Unavailable Sandy Romo ELEMENTARY ESL TEACHER Unavailable Cierra Ramirez DO Unavailable Guy LagunasBS, PhD Unavailable Cindy Mesa ELEMENTARY ESL TEACHER Unavailable Giovanna Padgett CNM Unavailable Danish Alfredo MD Unavailable Jennifer Stein MD Unavailable Mabel Bowman MD Unavailable Jesusita Walters CNM Unavailable Fahad June MD Unavailable Iglesia Pizarro MD Unavailable Pipe Simmons MD Unavailable Elisabeth Hills ELEMENTARY ESL TEACHER Unavailable [phone] Dayna Perez MD Unavailable [phone] Julio Johnson MD Unavailable Tigre Shrestha MD Unavailable [phone] Yolanda Harrison MD Unavailable [phone] Angel Byrd MD Unavailable [phone] TrumbullGisela celestin Keisha ELEMENTARY ESL TEACHER Unavailable Betsey Long MD Primary Care Provider [facility] Primary Care Provide r [facility] Primary Care Provide r [facility] Primary Care Provide r Encounter Details Date Type Department Care Team (Latest Contact Info) Description 02/19/2021 Transcribe Orders [address] [place] [address] Lavelle Alan MD [address] [place] [address] Stage 3 chronic kidney disease, unspecified whether stage 3a or 3b CKD (Primary Dx); Hypertensive renal disease Social History Tobacco Use Types Packs/Day Years [...] * TOTAL PROTEIN CREATININE RATIO, RANDOM URINE (02/19/2021 12:25 PM EDT) URINE TOTAL PROTEIN 2.8 mg/dL [facility] URINE CREATININE 25 mg/dL [facility] URINE TP CRE RATIO NOT CALCULATED 0 - 0.19 [facility] Comment:DUE TO URINE PROTEIN <4.0 Urine (Urine) 02/19/2021 12: 25 PM EDT 02/19/2021 12:28 PM EDT us Lavelle Alan MD URINE ORDERABLES Final Result Performing Organization Address City/[facility]/ZIP Co de Phone Number [address] [address] * (ABNORMAL) Renal panel (02/19/2021 12:25 PM EDT) SODIUM 136 133 - 146 mmol/L [facility] POTASSIUM 4.8 3.3 - 5.1 mmol/L [facility] CHLORIDE 103 96 - 108 mmol/L [facility] CO2 23 21 - 35 mmol/L [facility] GLUCOSE 90 70 - 99 mg/dL [facility] BUN 16 6 - 19 mg/dL [facility] CREATININE 1.30 0.5 - 1.5 mg/dL [facility] CALCIUM 9.4 8.4 - 10.3 mg/dL [facility] PHOSPHORUS 3.8 2.7 - 4.5 mg/dL [facility] ALBUMIN 4.3 3.9 - 4.8 g/dL [facility] EGFR 46(L) >59 mL/min/1.7 3m2 [facility] Comment:Estimated glomerular filtration rate calculated using the CKD-EPI equation. ANION GAP 15 10 - 20 mmol/L [facility] Blood 02/19/2021 12:2 5 PM EDT 02/19/2021 12:28 PM EDT us Lavelle Alan MD LAB BLOOD ORDERAB LES Final Result [address] [address] documented in this encounter Visit Diagnoses Diagnosis Stage 3 chronic kidney disease, unspecified whether stage 3a or 3b CKD- Primary Hypertensive renal disease Unspecified hypertensive kidney disease with chronic kidney disease stage I through stage IV, or unspecified documented in this encounter Additional Health Concerns Infection Onset Date Last Indicated Resolved Time CoV-Risk 07/18/2024 07/25/2024 08/05/2024 1:21 AM EDT Influenza A 07/18/2024 07/18/2024 07/25/2024 1:22 AM EDT Influenza A 07/25/2024 07/25/2024 08/01/2024 1:21 AM EDT documented as of this encounter Care Teams Membership Manager Relationship Specialty Start Date End Date Betsey Long MD [address] [place] [address] PCP - General Family Medicine 11/01/19 01/28/22 [facility] [address] [place] [address] PCP - General Family Medicine 01/29/22 02/14/24 [facility] [address] [place] [address] PCP - General Nurse Practitioner 02/15/24 10/25/24 [facility] [address] [place] [address] PCP - General Nurse Practitioner 10/26/24 Chon Tipton DO 71 [facility] [address] [place] [address] Historical LMR Provider 02/28/17 05/17/21 Sandy Romo ELEMENTARY ESL TEACHER [address] [place] [address] Historical LMR Provider 02/28/17 05/17/21 Cierra Ramirez DO [address] [place] [address], [address] [place] [address] Historical LMR Provider 02/28/17 05/17/21 Guy Lagunas MBBS, PhD [address] [place] [address] [facility] of [facility] [address] [place] [address] [email or web address] Historical LMR Provider 02/28/17 05/17/21 Cindy Mesa, MARGARITA 29 [place] [address] Historical LMR Provider 02/28/17 05/17/21 Giovanna Padgett CNM [address] [place] [address] Historical LMR Provider 02/28/17 05/17/21 Danish Alfredo MD [address] [place] [address] [email or web address] Historical LMR Provider 02/28/17 Jennifer Stein MD [address] [place] [address] [email or web address] Historical LMR Provider 02/28/17 05/17/21 Mabel Bowman MD [address] [place] [address], 2nd [place] [address] [email or web address] Historical LMR Provider 02/28/17 05/17/21 Jesusita Walters CNM [address] [place] [address] [email or web address] Historical LMR Provider 02/28/17 05/17/21 Fahad June MD [address] [place] [address] [place] [address] [email or web address] Historical LMR Provider 02/28/17 05/17/21 Iglesia Pizarro MD [address] [place] [address] Historical LMR Provider 02/28/17 05/17/21 Pipe Simmons MD [address] [place] [address] [email or web address] Historical LMR Provider 02/28/17 05/17/21 Elisabeth Hills NP 30 [place] [address] Historical LMR Provider 02/28/17 05/17/21 Dayna Perez MD [address] [place] [address] Historical LMR Provider 02/28/17 05/17/21 Julio Johnson MD [address] [place] [address] 102 [place] [address] [email or web address] Historical LMR Provider 02/28/17 Tigre Shrestha MD 61 [place] [address] Historical LMR Provider 02/28/17 05/17/21 Yolanda [place] MD 444 [place] [address] Historical LMR Provider 02/28/17 05/17/21 Angel Byrd MD [address] [place] [address] Historical LMR Provider 02/28/17 05/17/21 Gisela Dorsey NP [address] [place] [address] Historical LMR Provider 02/28/17 05/17/21 documented as of this encounter Additional Source Comments The information contained in this document represents components of the legal health record. It is not the complete legal health record.[facility]
--- OUTSIDE RECORDS SUMMARY | 2025-01-30 13:58 | XMS_ITS | Encounter Summary ---
Author Organization [facility] Address [address] [facility] [address] [place] [address] Phone Care Team Providers Care Roll Cleaner Name Role Phone Danihs Alfredo MD Unavailable Julio Johnson MD Unavailable [phone] [facility] Primary Care Provide r [facility] Primary Care Provide r Encounter Details Date Type Department Care Team (Late st Contact Info) Description 04/17/2024 Procedure Pass [facility] - [address] [place] [address] Social History Tobacco Use Types Packs/Day Years [...] documented as of this encounter Care Teams Roll Cleaner Relationship Specialty Start Date End Date Litzy Raines FNP [address] [place] [address] PCP - General Nurse Practitioner 02/15/24 10/25/24 Litzy Raines FNP [address] [place] [address] PCP - General Nurse Practitioner 10/26/24 Danish Alfredo MD [address] [place] [address] Historical LMR Provider 02/28/17 Julio Johnsno MD [address] [place] [address] Historical LMR Provider 02/28/17 documented as of this encounter Additional Source Comments The information contained in this document represents components of the legal health record. It is not the complete legal health record.[facility]
--- OUTSIDE RECORDS SUMMARY | 2025-01-30 13:58 | XMS_ITS | Encounter Summary ---
Author Organization [facility] Address [address] [place] [address] Phone Care Team Providers Care Out Of School Hours Care Worker Name Role Phone Danish Alfredo MD Unavailable Julio Johnson MD Unavailable [phone] [facility] Primary Care Provide r [facility] Primary Care Provide r Reason for Referral * Outpatient Procedure - Closed Specialty Diagnoses / Procedures Referred By Contlisa t Referred To Contact Radiology Diagnoses Abnormal mammogram of left breast Procedures Mammogram Diagnostic Post Procedure (Left) Danish Alfredo MD Phone: tel: fax: mailto:[email or web address] Referral ID Status Reason Start Date Expiration Date Visits Re quested Visits Authorized [id number] Closed 06/20/2024 1 1 Encounter Details Date Type Department Care Team (Late st Contact Info) Description 06/20/2024 Ancillary Orders [facility] [address] [place] [address] [place] [address] Danish Alfredo MD [address] [facility], [address] [place] [address] [email or web address] Abnormal mammogram of left breast (Primary Dx) Social History Tobacco Use Types [...] this encounter Results * BI MAMMOGRAM DIAGNOSTIC POST PROCEDURE NO TOMOSYNTHESIS NO CAD (LEFT) (06/20/2024 11:50 AM EST) Anatomical Region Laterality Modality Breast Left Left Mammography 06/20/2024 12:0 4 PM EST Addenda Addendum by Alivia Tenorio MD on 06/23/2024 7:13 AM EST ADDENDUM: PATHOLOGY RESULTS LEFT breast: 12:00, complex cyst, Heart shape clip. PATHOLOGY: Benign with predominantly fibrosis and rare calcifications. No atypia or malignancy on multiple levels. Radiologist comments: Benign pathologic diagnosis is concordant with imaging findings. The cyst was noted to resolve following 2 core samples. Recommendation: Annual screening mammography. The patient will be notified by the referring provider as per current protocol. Impressions 06/20/2024 12:06 PM EST Ultrasound-guided core needle biopsy of the left breast - please see report content for details. An addendum to this report will be dictated when pathology results are available. Narrative 06/20/2024 12:06 PM EST BI LONG TERM BIOPSY OF BREAST (LEFT), BI MAMMOGRAM DIAGNOSTIC POST PROCEDURE NO TOMOSYNTHESIS NO CAD (LEFT) Additional patient information: Left breast complex cystic mass, 12:00 COMPARISON: Comparison is made with relevant prior imaging. TECHNIQUE: The procedure was explained to the patient, including discussion of risks and benefits, and written informed consent was obtained. A preprocedural timeout was performed to confirm patient identity with multiple identifiers, as well as the side of the procedure to be performed. Ultrasound imaging was performed to localize the target. The procedure site was prepped using standard aseptic technique. Local anesthesia was administered and documented in the EMR. Under ultrasound guidance, core biopsy was performed of the target lesion. FINDINGS: SITE #1 Location: Left breast 12:00 Target: 10 mm mass Device: 14-gauge core biopsy needle Clip: A heart shape clip was placed at the procedure site. Post procedure mammogram: Biopsy clip in good position. Specimen: Multiple cores obtained. Submitted in formalin to pathology. The patient tolerated the procedure and there were no immediate complications. Procedure Note Alivia Tenorio MD - 06/20/2024 BI LONG TERM BIOPSY OF BREAST (LEFT), BI MAMMOGRAM DIAGNOSTIC POST PROCEDURE NOTOMOSYNTHESIS NO CAD (LEFT) Additional patient information: Left breast complex cystic mass, 12:00 COMPARISON: Comparison is made with relevant prior imaging. TECHNIQUE: The procedure was explained to the patient, including discussion of risksand benefits, and written informed consent was obtained. A preproceduraltimeout was performed to confirm patient identity with multipleidentifiers, as well as the side of the procedure to be performed. Ultrasound imaging was performed to localize the target. The proceduresite was prepped using standard aseptic technique. Local anesthesia wasadministered and documented in the EMR. Under ultrasound guidance, corebiopsy was performed of the target lesion. FINDINGS: SITE #1 Location: Left breast 12:00 Target: 10 mm mass Device: 14-gauge core biopsy needle Clip: A heart shape clip was placed at the procedure site. Post procedure mammogram: Biopsy clip in good position. Specimen: Multiple cores obtained. Submitted in formalin to pathology. The patient tolerated the procedure and there were no immediatecomplications. IMPRESSION: Ultrasound-guided core needle biopsy of the left breast - please seereport content for details. An addendum to this report will be dictated when pathology results areavailable. Danish Alfredo MD IMG MG EXAMS Edited Result - Final documented in this encounter Visit Diagnoses Diagnosis Abnormal mammogram of left breast- Primary Abnormal mammogram of left breast documented in this encounter Additional Health Concerns Infection Onset Date Last Indicated Resolved Time CoV-Risk 07/18/2024 07/25/2024 08/05/2024 1:21 AM EDT Influenza A 07/18/2024 07/18/2024 07/25/2024 1:22 AM EDT Influenza A 07/25/2024 07/25/2024 08/01/2024 1:21 AM EDT documented as of this encounter Care Teams Out Of School Hours Care Worker Relationship Specialty Start Date End Date Litzy Raines FNP [address] [place] [address] PCP - General Nurse Practitioner 02/15/24 10/25/24 Litzy Raines FNP [address] [place] [address] PCP - General Nurse Practitioner 10/26/24 Danish Alfredo MD [address] [place] [address] Historical LMR Provider 02/28/17 Julio Johnson MD [address] [place] [address] Historical LMR Provider 02/28/17 documented as of this encounter Additional Source Comments The information contained in this document represents components of the legal health record. It is not the complete legal health record.[facility]
--- OUTSIDE RECORDS SUMMARY | 2025-01-30 13:58 | XMS_ITS | Encounter Summary ---
Author Organization [facility] Address [address] [place] [address] Phone Care Team Providers Care Train Driver Name Role Phone Chon Tipton DO Unavailable Sandy Romo MANAGER STRATEGIC Unavailable Cierra Ramirez DO Unavailable Guy LagunasBS, PhD Unavailable Cindy Mesa MANAGER STRATEGIC Unavailable Giovanna Padgett CNM Unavailable Danish Alfredo MD Unavailable Jennifer Stein MD Unavailable Mabel Bowman MD Unavailable Jesusita Walters CNM Unavailable Fahad June MD Unavailable Iglesia Pizarro MD Unavailable Pipe Simmons MD Unavailable Elisabeth Hills MANAGER STRATEGIC Unavailable [phone] Dayna Perez MD Unavailable [phone] Julio Johnson MD Unavailable Tigre Shrestha MD Unavailable [phone] Yolanda Harrison MD Unavailable [phone] Angel Byrd MD Unavailable [phone] GildfordWilfredo astudilloon Keisha MANAGER STRATEGIC Unavailable Betsey Long MD Primary [facility] Primary Care Provide r [facility] Primary Care Provide r [facility] Primary Care Provide r Encounter Details Date Type Department Care Team (Late st Contact Info) Description 04/18/2021 Transcribe Orders [address] [place] [address] [facility] [address] [place] [address] Hypothyroidism, unspecified type (Primary Dx); Abdominal bloating; Change in stool habits Social History Tobacco Use Types Packs/Day Years [...] as of this encounter Results * (ABNORMAL) Comprehensive metabolic panel (04/18/2021 12:04 PM EST) SODIUM 137 133 - 146 mmol/L [facility] POTASSIUM 4.5 3.3 - 5.1 mmol/L [facility] CHLORIDE 105 96 - 108 mmol/L [facility] CO2 20(L) 21 - 35 mmol/L [facility] BUN 22(H) 6 - 19 mg/dL [facility] CREATININE 1.20 0.5 - 1.5 mg/dL [facility] GLUCOSE 79 70 - 99 mg/dL [facility] ALBUMIN 4.3 3.9 - 4.8 g/dL [facility] TOTAL PROTEIN 7.3 6.5 - 8.0 g/dL [facility] CALCIUM 9.5 8.4 - 10.3 mg/dL [facility] ALKALINE PHOSPHATASE 80 39 - 117 U/L [facility] TOTAL BILIRUBIN 0.3 0.0 - 1.2 mg/dL [facility] AST 14 0 - 37 U/L [facility] ALT 10 0 - 40 U/L [facility] GLOBULIN 3.0 1 - 4.8 g/dL [facility] EGFR 53(L) >59 mL/min/1.7 3m2 [facility] Comment:Estimated glomerular filtration rate calculated using the CKD-EPI refit equation. ANION GAP 17 10 - 20 mmol/L [facility] Blood 04/18/2021 12:0 4 PM EST 04/18/2021 12:07 PM EST [facility] LAB BLOOD ORDERABLES Final Result [facility] [address] [place], [place] [id number] * CBC and differential (04/18/2021 12:04 PM EST) WBC 8.86 4.00 - 11.00 K/uL [facility] RBC 4.84 3.72 - 5.30 M/uL [facility] HGB 13.9 10.6 - 15.5 g/dL [facility] HCT 41.3 32.0 - 45.0 % [facility] PLT 379 140 - 430 K/uL [facility] MCV 85.3 78.0 - 97.0 fL [facility] MCH 28.7 25.0 - 33.0 pg [facility] MCHC 33.7 32.0 - 36.0 g/dL [facility] RDW 13.9 11.0 - 16.0 % [facility] MPV 10.3 8.4 - 12.8 fl [facility] NRBC 0.00 0 /100 WBCs [facility] ABSOLUTE NRBC 0.00 0 K/uL [facility] DIFF METHOD Auto [facility] NEUTS 61.7 43.0 - 75.0 % [facility] LYMPHS 26.7 18.2 - 47.4 % [facility] MONOS 7.4 4.00 - 11.00 % [facility] EOS 3.2 0.0 - 8.0 % [facility] BASOS 0.7 0.0 - 2.0 % [facility] Granulocytes, immature (%) 0.3 0.0 - 0.9 % [facility] ABSOLUTE NEUTS 5.46 1.80 - 7.70 K/uL [facility] ABSOLUTE LYMPHS 2.37 1.00 - 3.10 K/uL [facility] ABSOLUTE MONOS 0.66 0.20 - 0.80 K/uL [facility] ABSOLUTE EOS 0.28 0.00 - 0.80 K/uL [facility] ABSOLUTE BASOS 0.06 0.00 - 0.09 K/uL [facility] Granulocytes, immature 0.03 0.00 - 0.05 K/uL [facility] Blood 04/18/2021 12:0 4 PM EST 04/18/2021 12:07 PM EST [facility] LAB BLOOD ORDERABLES Final Result Performing Organization Address [facility] Co de Phone Number [address] [address] * TSH with reflex (04/18/2021 12:04 PM EST) TSH 0.87 0.27 - 4.20 uIU/mL [facility] Blood 04/18/2021 12:0 4 PM EST 04/18/2021 12:07 PM EST [facility] LAB BLOOD ORDERABLES Final Result Performing Organization Address [facility] Co de Phone Number [address] [address] documented in this encounter Visit Diagnoses Diagnosis Hypothyroidism, unspecified type- Primary Abdominal bloating Flatulence, eructation, and gas pain Change in stool habits documented in this encounter Additional Health Concerns Infection Onset Date Last Indicated Resolved Time CoV-Risk 07/18/2024 07/25/2024 08/05/2024 1:21 AM EDT Influenza A 07/18/2024 07/18/2024 07/25/2024 1:22 AM EDT Influenza A 07/25/2024 07/25/2024 08/01/2024 1:21 AM EDT documented as of this encounter Care Teams Train Driver Relationship Specialty Start Date End Date Betsey Long MD [address] [place] [address] [email or web address] PCP - General Family Medicine 11/01/19 01/28/22 Litzy Raines FNP [address] [place] [address] PCP - General Family Medicine 01/29/22 02/14/[address] [facility] [address] [place] [address] PCP - General Nurse Practitioner 02/15/24 10/25/24 [facility] [address] [place] [address] PCP - General Nurse Practitioner 10/26/24 Chon Tipton DO [address] [place] [address] Historical LMR Provider 02/28/17 05/17/21 Sandy Romo MANAGER STRATEGIC [address] [place] [address] Historical LMR Provider 02/28/17 05/17/21 Cierra Ramirez DO [address] [place] [address] [address] [place] [address] [email or web address] Historical LMR Provider 02/28/17 05/17/21 Guy Lagunas MBBS, PhD [address] [place] [address] [facility] Department of NeurologyIDCC [address] [place] [address] [email or web address] Historical LMR Provider 02/28/17 05/17/21 Cindy Mesa NP [address] [place] [address] Historical LMR Provider 02/28/17 05/17/21 Giovanna Padgett CNM [address] [place] [address] Historical LMR Provider 02/28/17 05/17/21 Danish Alfredo MD [address] [facility] [address] [place] [address] [email or web address] Historical LMR Provider 02/28/17 Jennifer Stein MD [address] [facility] [address] [place] [address] [email or web address] Historical LMR Provider 02/28/17 05/17/21 Mabel Bowman MD [address] [place] [address], 2[address] [place] [address] [email or web address] Historical LMR Provider 02/28/17 05/17/21 Jesusita Walters CNM [address] [place] [address] [email or web address] Historical LMR Provider 02/28/17 05/17/21 Fahad June MD [address] [place] [address] [email or web address] Historical LMR Provider 02/28/17 05/17/21 Iglesia Pizarro MD [address] [place] [address] Historical LMR Provider 02/28/17 05/17/21 Pipe Simmons MD [address] [place] [address] [email or web address] Historical LMR Provider 02/28/17 05/17/21 Elisabeth Hills NP [address] [place] [address] Historical LMR Provider 02/28/17 05/17/21 Dayna Perez MD [address] [place] [address] Historical LMR Provider 02/28/17 05/17/21 Julio Johnson MD [address] [place] [address] [email or web address] Historical LMR Provider 02/28/17 Tigre Shrestha MD [address] [place] [phone] Historical LMR Provider 02/28/17 05/17/21 Yolanda Harrison MD [address] [place] [address] Historical LMR Provider 02/28/17 05/17/21 Angel Byrd MD [address] [place] [address] Historical LMR Provider 02/28/17 05/17/21 Gisela Dorsey NP [address] [place] [address] Historical LMR Provider 02/28/17 05/17/21 documented as of this encounter Additional Source Comments The information contained in this document represents components of the legal health record. It is not the complete legal health record.[facility]
--- OUTSIDE RECORDS SUMMARY | 2025-01-30 13:58 | XMS_ITS | Encounter Summary ---
Author Organization [facility] Address [address] [place] [address] Phone Care Team Providers Care Behavioral Health Clinician Name Role Phone Chon Tipton DO Unavailable Sandy Romo CARAMEL CANDY MAKER HELPER Unavailable Cierra Ramirez DO Unavailable Guy LagunasBS, PhD Unavailable [phone] Cindy Mesa CARAMEL CANDY MAKER HELPER Unavailable Giovanna Padgett CNM Unavailable Danish Alfredo MD Unavailable Jennifer Stein MD Unavailable Mabel Bowman MD Unavailable Jesusita Walters CNM Unavailable Fahad June MD Unavailable Iglesia Pizarro MD Unavailable Pipe Simmons MD Unavailable Elisabeth Hills CARAMEL CANDY MAKER HELPER Unavailable [phone] Dayna Perez MD Unavailable [phone] Julio Johnson MD Unavailable Tigre Shrestha MD Unavailable [phone] Yolanda Harrison MD Unavailable [phone] Angel Byrd MD Unavailable [phone] Gisela Dorsey Keisha AVILA Unavailable Betsey Long MD Primary Care Provider [facility] Primary Care Provide r [facility] Primary Care Provide r [facility] Primary Care Provide r Encounter Details Date Type Department Care Team (Late st Contact Info) Description 03/19/2020 Ancillary Orders [facility] [address] [place] [address] Danish Alfredo MD [address] [place] [address], [address] [place] [address] [email or web address] Breast screening Social History Tobacco Use Types [...] MAMMOGRAM SCREENING WITH TOMOSYNTHESIS WITH CAD (BILATERAL) (03/19/2020 1:45 PM EST) Anatomical Region Laterality Modality Breast Left, Breast Right, Breast Bilateral Bila teral Mammography 03/19/2020 2:44 PM EST Impressions 03/19/2020 3:42 PM EST No mammographic signs of malignancy. Annual screening is recommended. BI-RADS CATEGORY: 2 - Benign finding. DENSITY: The breast tissue is heterogeneously dense, which could obscure a lesion on mammography. Narrative 03/19/2020 3:42 PM EST Bilateral mammography is performed in conjunction with computed aided detection. 3-D tomography along with 2-D C view imaging was also performed. Comparison made to previous dated as far back as 03/13/2014 and as recent as 02/09/2019. No suspicious masses, areas of architectural distortion or suspicious microcalcifications. A few diffuse calcifications with benign characteristics bilaterally are stable. Procedure Note Chon Christina MD - 03/19/2020 Bilateral mammography is performed in conjunction with computed aideddetection. 3-D tomography along with 2-D C view imaging was alsoperformed. Comparison made to previous dated as far back as 03/13/2014 andas recent as 02/09/2019. No suspicious masses, areas of architectural distortion or suspiciousmicrocalcifications. A few diffuse calcifications with benigncharacteristics bilaterally are stable. IMPRESSION: No mammographic signs of malignancy. Annual screening is recommended. BI-RADS CATEGORY: 2 - Benign finding. DENSITY: The breast tissue is heterogeneously dense, which could obscurea lesion on mammography. Danish Alfredo MD IMG MG EXAMS Final [...] documented as of this encounter Care Teams Behavioral Health Clinician Relationship Specialty Start Date End Date Betsey Long MD [address] [place] [address] [email or web address] PCP - General Family Medicine 11/01/19 01/28/22 Litzy Raines FNP [address] [place] [address] PCP - General Family Medicine 01/29/22 02/14/24 [facility] [address] [place] [address] PCP - General Nurse Practitioner 02/15/24 10/25/24 [facility] [address] [place] [address] PCP - General Nurse Practitioner 10/26/24 Chon Tipton DO [address] [place] [address] [place] [address] Historical LMR Provider 02/28/17 05/17/21 Sandy Romo NP [address] [place] [address] Historical LMR Provider 02/28/17 05/17/21 Cierra Ramirez DO [address] [place] [address], [address] [place] [address] [email or web address] Historical LMR Provider 02/28/17 05/17/21 Guy Lagunas MBBS, PhD [address] [place] [address] [facility] Department of NeurologyWA [address] [place] [address] [email or web address] Historical LMR Provider 02/28/17 05/17/21 Cindy Mesa NP [address] [place] [address] Historical LMR Provider 02/28/17 05/17/21 Giovanna Padgett CNM [address] [place] [address] Historical LMR Provider 02/28/17 05/17/21 Danish Alfredo MD [address] [place] [address] [email or web address] Historical LMR Provider 02/28/17 Jennifer Stein MD [address] [place] [address] [email or web address] Historical LMR Provider 02/28/17 05/17/21 Mabel Bowman MD [address] [place] [address], [address] [place] [address] [email or web address] Historical LMR Provider 02/28/17 05/17/21 Jesusita Walters CNM [address] [place] [address], [address] [address] [email or web address] Historical LMR Provider 02/28/17 05/17/21 Fahad June MD [address] [place], [place] [address] [address] [email or web address] Historical LMR Provider 02/28/17 05/17/21 Iglesia Pizarro MD [address] [place] [address] Historical LMR Provider 02/28/17 05/17/21 Pipe Simmons MD [address] [place] [address] 7 [place] [address] [email or web address] Historical LMR Provider 02/28/17 05/17/21 Elisabeth Hills NP [address] [place] [address] Historical LMR Provider 02/28/17 05/17/21 Dayna Perez MD [address] [place] [address] Historical LMR Provider 02/28/17 05/17/21 Julio Johnson MD [address] [place] [address] [address] [place] [address] [email or web address] Historical LMR Provider 02/28/17 Tigre Shrestha MD [address] [place] [address] Historical LMR Provider 02/28/17 05/17/21 Yolanda Harrison MD [address] [place] [address] Historical LMR Provider 02/28/17 05/17/21 Angel Byrd MD [address] [place] [address] Historical LMR Provider 02/28/17 05/17/21 Gisela Dorsey NP [address] [place] [address] Historical LMR Provider 02/28/17 05/17/21 documented as of this encounter Additional Source Comments The information contained in this document represents components of the legal health record. It is not the complete legal health record.[facility]
--- OUTSIDE RECORDS SUMMARY | 2025-01-30 13:58 | XMS_ITS | Encounter Summary ---
Author Organization [facility] Address [address] [facility] [address] [place] [address] Phone Care Team Providers Care Climbing Guide Name Role Phone Chon Tipton DO Unavailable Sandy Romo HAMMER SMITH Unavailable Cierra Ramirez DO Unavailable Guy LagunasBS, PhD Unavailable [phone] Cindy Mesa HAMMER SMITH Unavailable Giovanna Padgett CNM Unavailable Danish Alfredo MD Unavailable Jennifer Stein MD Unavailable Mabel Bowman MD Unavailable Jesusita Walters CNM Unavailable Fahad June MD Unavailable Iglesia Pizarro MD Unavailable Pipe Simmons MD Unavailable Elisabeth Hills HAMMER SMITH Unavailable [phone] Dayna Perez MD Unavailable [phone] Julio Johnson MD Unavailable Tigre Shrestha MD Unavailable [phone] Yolanda Harrison MD Unavailable [phone] Angel Byrd MD Unavailable [phone] SturgeonGisela celestin Keisha HAMMER SMITH Unavailable [phone] Betsey Long MD Primary Care Provider [facility] Primary Care Provide r [facility] Primary Care Provide r [facility] Primary Care Provide r Encounter Details Date Type Department Care Team (Late st Contact Info) Description 02/08/2020 Procedure Pass [facility] - [address] [place] [address] Social History Tobacco Use Types Packs/Day Years [...] documented as of this encounter Care Teams Climbing Guide Relationship Specialty Start Date End Date Betsey Long MD [address] [place] [address] [email or web address] PCP - General Family Medicine 11/01/19 01/28/22 Litzy Raines FNP [address] [place] [address] PCP - General Family Medicine 01/29/22 02/14/24 Litzy Raines FNP [address] [place] [address] PCP - General Nurse Practitioner 02/15/24 10/25/24 Litzy Raines FNP [address] [place] [address] PCP - General Nurse Practitioner 10/26/24 Chon Tipton DO [address] [place] [address] Historical LMR Provider 02/28/17 05/17/21 Sandy Romo HAMMER SMITH [address] [place] [address] Historical LMR Provider 02/28/17 05/17/21 Cierra Ramirez DO [address] [place] [address], [facility] [address] [place] [address] [email or web address] Historical LMR Provider 02/28/17 05/17/21 Guy Lagunas MBBS, PhD [address] [place] [address] [facility] Department of NeurologyWACC [address] [place] [address] [email or web address] Historical LMR Provider 02/28/17 05/17/21 Cindy Mesa NP [address] [place] [address] Historical LMR Provider 02/28/17 05/17/21 Giovanna Padgett CNM [address] [place] [address] Historical LMR Provider 02/28/17 05/17/21 Danish Alfredo MD [address] [place] [address] [email or web address] Historical LMR Provider 02/28/17 Jennifer Stein MD [address] [place] [address] Historical LMR Provider 02/28/17 05/17/21 Mabel Bowman MD [address] [place] [address] [email or web address] Historical LMR Provider 02/28/17 05/17/21 Jesusita Walters CNM [address] [place] [address] Historical LMR Provider 02/28/17 05/17/21 Fahad June MD [address] [place] [address] [email or web address] Historical LMR Provider 02/28/17 05/17/21 Iglesia Pizarro MD [address] [place] [address] Historical LMR Provider 02/28/17 05/17/21 Pipe Simmons MD [address] [place] [address] 7 [place] [address] [email or web address] Historical LMR Provider 02/28/17 05/17/21 Elisabeth Hills NP [address] [place] [address] Historical LMR Provider 02/28/17 05/17/21 Dayna Perez MD [address], [place] [address] Historical LMR Provider 02/28/17 05/17/21 Julio Johnson MD [address] [place] [address] [address] [place] [address] [email or web address] Historical LMR Provider 02/28/17 Tigre Shrestha MD [address] [place] [address] Historical LMR Provider 02/28/17 05/17/21 Yolanda Harrison MD [address] [place] [address] Historical LMR Provider 02/28/17 05/17/21 Angel Byrd MD [address] [place] [address] Historical LMR Provider 02/28/17 05/17/21 Gisela Dorsey NP [address] [place] [address] Historical LMR Provider 02/28/17 05/17/21 documented as of this encounter Additional Source Comments The information contained in this document represents components of the legal health record. It is not the complete legal health record.[facility]
--- OUTSIDE RECORDS SUMMARY | 2025-01-30 13:58 | XMS_ITS | Encounter Summary ---
Author Organization [facility] Address [address] [facility] [address] [facility] [address] [place] [address] Phone Care Team Providers Care Computer Science Instructor Name Role Phone Chon Tipton DO Unavailable Sandy Romo TELEPHONE DIAPHRAGM ASSEMBLER Unavailable Cierra Ramirez DO Unavailable Guy LagunasBS, PhD Unavailable [phone] Cindy Mesa TELEPHONE DIAPHRAGM ASSEMBLER Unavailable Giovanna Padgett CNM Unavailable Danish Alfredo MD Unavailable Jennifer Stein MD Unavailable Mabel Bowman MD Unavailable Jesusita Walters CNM Unavailable Fahad June MD Unavailable Iglesia Pizarro MD Unavailable Pipe Simmons MD Unavailable Elisabeth Hills TELEPHONE DIAPHRAGM ASSEMBLER Unavailable [phone] Dayna Perez MD Unavailable [phone] Julio Johnson MD Unavailable Tigre Shrestha MD Unavailable [phone] Yolanda Harrison MD Unavailable [phone] Angel Byrd MD Unavailable [phone] Gisela Dorsey NP Unavailable [phone] Betsey Long MD Primary Care Provider [facility] Primary Care Provide r [facility] Primary Care Provide r [facility] Primary Care Provide r Encounter Details Date Type Department Care Team (Late st Contact Info) Description 02/08/2020 Transcribe Orders Virtual Department [address] [place] [address] System, Provider Not In, [place] [address] Thyroid nodule (Primary Dx) Social History Tobacco Use Types [...] this encounter Results * US Thyroid Gland (02/26/2020 3:39 PM EDT) Anatomical Region Laterality Modality Neck, Head, Chest Ultrasound 02/26/2020 3:45 PM EDT Impressions 02/26/2020 3:52 PM EDT The left mid thyroid pole nodule is stable in size. New solitary potential microcalcification/TR 4 versus benign colloid/TR 3. Continued sonographic surveillance recommended. *Thyroid Imaging Reporting and Data System: TI-RADS*: TR1: Benign; No FNA TR2: Not Suspicious; No FNA TR3: Mildly Suspicious; FNA if 2.5 cm; Follow if 1.5 cm TR4: Moderately Suspicious; FNA if 1.5 cm; Follow 1 cm. TR5: Highly Suspicious; FNA if 1cm; Follow if 0.5 cm Narrative 02/26/2020 3:52 PM EDT COMPARISON: 02/07/2019. THYROID ULTRASOUND FINDINGS: RIGHT LOBE: Size: 3.8 x 1.1 x 1.1 cm. No hypervascularity or calcifications. LEFT LOBE: Size: 3.7 x 1.1 x 1 cm. No hypervascularity or calcifications. Upper:No nodules. Mid: Stable mixed echogenicity solid nodule measuring 0.9 x 0.5 x 0.8 cm. There is a new 5 mm echogenic focus within the nodule. There is questionable associated ringdown artifact. Lower: No nodules. ISTHMUS: 0.1 cm Procedure Note Reece Luevano MD - 02/26/2020 COMPARISON: 02/07/2019. THYROID ULTRASOUND FINDINGS: RIGHT LOBE: Size: 3.8 x 1.1 x 1.1 cm. No hypervascularity or calcifications. LEFT LOBE: Size: 3.7 x 1.1 x 1 cm. No hypervascularity or calcifications. Upper:No nodules. Mid: Stable mixed echogenicity solid nodule measuring 0.9 x 0.5 x 0.8 cm.There is a new 5 mm echogenic focus within the nodule. There isquestionable associated ringdown artifact. Lower: No nodules. ISTHMUS: 0.1 cm IMPRESSION: The left mid thyroid pole nodule is stable in size. New solitary potentialmicrocalcification/TR 4 versus benign colloid/TR 3. Continued sonographicsurveillance recommended. *Thyroid Imaging Reporting and Data System: TI-RADS*: TR1: Benign; No FNA TR2: Not Suspicious; No FNA TR3: Mildly Suspicious; FNA if 2.5 cm; Follow if 1.5 cm TR4: Moderately Suspicious; FNA if 1.5 cm; Follow 1 cm. TR5: Highly Suspicious; FNA if 1cm; Follow if 0.5 cm us Provider Not In System PhD IMG US THYROID Final Result documented in this encounter Visit Diagnoses Diagnosis Thyroid nodule- Primary Nontoxic uninodular goiter Thyroid nodule Nontoxic uninodular goiter documented in this encounter Additional Health Concerns Infection Onset Date Last Indicated Resolved Time CoV-Risk 07/18/2024 07/25/2024 08/05/2024 1:21 AM EDT Influenza A 07/18/2024 07/18/2024 07/25/2024 1:22 AM EDT Influenza A 07/25/2024 07/25/2024 08/01/2024 1:21 AM EDT documented as of this encounter Care Teams Computer Science Instructor Relationship Specialty Start Date End Date Betsey Long MD [address] [place] [address] [email or web address] PCP - General Family Medicine 11/01/19 01/28/22 [facility] [address] [place] [address] PCP - General Family Medicine 01/29/22 02/14/24 [facility] [address] [place] [address] PCP - General Nurse Practitioner 02/15/24 10/25/24 [facility] F[facility] [address] [place] [address] PCP - General Nurse Practitioner 10/26/24 Chon Tipton DO [address] [place] [address] [address] [place] [address] Historical LMR Provider 02/28/17 05/17/21 Sandy Romo TELEPHONE DIAPHRAGM ASSEMBLER [address] [place] [address] Historical LMR Provider 02/28/17 05/17/21 Cierra Ramirez DO [address] [place] [address], [address] [place] [address] [email or web address] Historical LMR Provider 02/28/17 05/17/21 Guy Lagunas MBBS, PhD [address] [place] [address] Intraopera ve Neurophysiology Unit [facility] [place] [facility] [address] [place] [address] [email or web address] Historical LMR Provider 02/28/17 05/17/21 Cindy Mesa NP [address] [place] [address] Historical LMR Provider 02/28/17 05/17/21 Giovanna Padgett CNM [address] [place] [address] Historical LMR Provider 02/28/17 05/17/21 Danish Alfredo MD [address] [place] [address] [email or web address] Historical LMR Provider 02/28/17 Jennifer Stein MD [address] [place] [address] [email or web address] Historical LMR Provider 02/28/17 05/17/21 Mabel Bowman MD [address] [place] [address], [address] [place] [address] [email or web address] Historical LMR Provider 02/28/17 05/17/21 Jesusita Walters CNM [address] [place] [address] [email or web address] Historical LMR Provider 02/28/17 05/17/21 Fahad June MD [address] [place] [address] [email or web address] Historical LMR Provider 02/28/17 05/17/21 Iglesia Pizarro MD [address] [place] [address] Historical LMR Provider 02/28/17 05/17/21 Pipe Simmons MD [address] [place] [address] 7 [place] [address] [email or web address] Historical LMR Provider 02/28/17 05/17/21 Elisabeth Hills TELEPHONE DIAPHRAGM ASSEMBLER [address] [place] [address] Historical LMR Provider 02/28/17 05/17/21 Dayna Perez MD [address] [place] [address] Historical LMR Provider 02/28/17 05/17/21 Julio Johnson MD [address] [place] [address] [email or web address] Historical LMR Provider 02/28/17 Tigre Shrestha MD [address] [place] [address] Historical LMR Provider 02/28/17 05/17/21 Yolanda Harrison MD [address] [place] [address] Historical LMR Provider 02/28/17 05/17/21 Angel Byrd MD [address] [place] [address] Historical LMR Provider 02/28/17 05/17/21 Gisela Dorsey NP [address] [place] [address] Historical LMR Provider 02/28/17 05/17/21 documented as of this encounter Additional Source Comments The information contained in this document represents components of the legal health record. It is not the complete legal health record.[facility]
--- OUTSIDE RECORDS SUMMARY | 2025-01-30 13:58 | XMS_ITS | Encounter Summary ---
Author Organization [facility] Address [address] [facility] [address] [place] [address] Phone Care Team Providers Care Box Office Attendant Name Role Phone Chon Tipton DO Unavailable [phone] Sandy Romo ADMISSIONS EVALUATOR Unavailable Cierra Ramirez DO Unavailable Guy LagunasBS, PhD Unavailable Cindy Mesa ADMISSIONS EVALUATOR Unavailable Giovanna Padgett CNM Unavailable Danish Alfredo MD Unavailable Jennifer Stein MD Unavailable Mabel Bowman MD Unavailable Jesusita Walters CNM Unavailable Fahad June MD Unavailable Iglesia Pizarro MD Unavailable Pipe Simmons MD Unavailable Elisabeth Hills ADMISSIONS EVALUATOR Unavailable Dayna Perez MD Unavailable [phone] Julio Johnson MD Unavailable Tigre Shrestha MD Unavailable [phone] Yolanda Harrison MD Unavailable [phone] Angel Byrd MD Unavailable [phone] FranktonWilfredo [email or web address] Keisha ADMISSIONS EVALUATOR Unavailable Betsey Long MD Primary Care Provider [facility] Primary Care Provide r [facility] Primary Care Provide r [facility] Primary Care Provide r Encounter Details Date Type Department Care Team (Late st Contact Info) Description 02/08/2020 Ancillary Orders Virtual Department [address] [place] [address] [phone] System, Provider Not In, [place] [address] Breast screening Social History Tobacco Use Types [...] as of this encounter Visit Diagnoses Diagnosis Breast screening Breast screening, unspecified documented in this encounter Additional Health Concerns Infection Onset Date Last Indicated Resolved Time CoV-Risk 07/18/2024 07/25/2024 08/05/2024 1:21 AM EDT Influenza A 07/18/2024 07/18/2024 07/25/2024 1:22 AM EDT Influenza A 07/25/2024 07/25/2024 08/01/2024 1:21 AM EDT documented as of this encounter Care Teams Box Office Attendant Relationship Specialty Start Date End Date Betsey Long MD [address] [place] [address] [email or web address] PCP - General Family Medicine 11/01/19 01/28/22 Litzy Raines FNP [address] [place] [address] PCP - General Family Medicine 01/29/22 02/14/24 Litzy Raines FNP [address] [place] [address] PCP - General Nurse Practitioner 02/15/24 10/25/24 Litzy Raines FNP [address] [place] [address] PCP - General Nurse Practitioner 10/26/24 Chon Tipton DO [address] [place] [address] [place] [address] Historical LMR Provider 02/28/17 05/17/21 Sandy Romo, ADMISSIONS EVALUATOR [address] [place] [address] Historical LMR Provider 02/28/17 05/17/21 Cierra Ramirez DO [address] [place] [address], [address] [place] [address] [email or web address] Historical LMR Provider 02/28/17 05/17/21 Guy Lagunas MBBS, PhD [address] [place] [address] Intraopera Neurophysiology Unit [facility] [address] [place] [address] [email or web address] Historical LMR Provider 02/28/17 05/17/21 Cindy Mesa NP [address] [place] [address] Historical LMR Provider 02/28/17 05/17/21 Giovanna Padgett CNM [address] [place] [address] Historical LMR Provider 02/28/17 05/17/21 Danish Alfredo MD [address] [place] [address] Historical LMR Provider 02/28/17 Jennifer Stein MD [address] [place] [email or web address] Historical LMR Provider 02/28/17 05/17/21 Mabel Bowman MD [address] [place] [address], [address] [place] [address] Historical LMR Provider 02/28/17 05/17/21 Jesusita Walters CNM [address] [place] [address] Historical LMR Provider 02/28/17 05/17/21 Fahad June MD [address] [place] [address] [email or web address] Historical LMR Provider 02/28/17 05/17/21 Iglesia Pizarro MD [address] [place] [address] Historical LMR Provider 02/28/17 05/17/21 Pipe Simmons MD [address] [place] [address] 7 [place] [address] Historical LMR Provider 02/28/17 05/17/21 Elisabeth Hills NP [address] [place] [address] Historical LMR Provider 02/28/17 05/17/21 Dayna Perez MD [address] [place] [address] Historical LMR Provider 02/28/17 05/17/21 Julio Johnson MD [address] [place] [address] [address] [place] [address] Historical LMR Provider 02/28/17 Tigre Shrestha MD [address] [place] [address] Historical LMR Provider 02/28/17 05/17/21 Yolanda Harrison MD [address] [place] [address] Historical LMR Provider 02/28/17 05/17/21 Angel Byrd MD [address] [place] [address] Historical LMR Provider 02/28/17 05/17/21 Gisela Doresy NP [address] [place] [address] Historical LMR Provider 02/28/17 05/17/21 documented as of this encounter Additional Source Comments The information contained in this document represents components of the legal health record. It is not the complete legal health record.[facility]
--- OUTSIDE RECORDS SUMMARY | 2025-01-30 13:58 | XMS_ITS | Encounter Summary ---
Author Organization [facility] Address [address] [place] [address] Phone Care Team Providers Care Laundry Clerk Name Role Phone Chon Tipton DO Unavailable Sandy Romo EXTRUDER Unavailable Cierra Ramirez DO Unavailable Guy LagunasBS, PhD Unavailable Cindy Mesa EXTRUDER Unavailable Giovanna Padgett CNM Unavailable Danish Alfredo MD Unavailable Jennifer Stein MD Unavailable Mabel Bowman MD Unavailable Jesusita Walters CNM Unavailable Fahad June MD Unavailable Iglesia Pizarro MD Unavailable Pipe Simmons MD Unavailable Elisabeth Hills EXTRUDER Unavailable [phone] Dayna Perez MD Unavailable [phone] Julio Johnson MD Unavailable Tigre Shrestha MD Unavailable [phone] Yolanda Harrison MD Unavailable [phone] Angel Byrd MD Unavailable [phone] AlexandriaGisela Keisha EXTRUDER Unavailable [phone] Fahad June MD Primary Care Provider + Janina Moncada MD Primary Care Provider Fahad Crenshaw DO Primary Care Provider Janina Moncada MD Primary Care Provider [phone] Kash Live EXTRUDER Primary Care Provide r Cornelius Zelaya MD Primary Care Provider [phone] Jeimy Sawant EXTRUDER Primary Care Provider + Betsey Long MD Primary Care Provider [facility] Primary Care Provide r [facility] Primary Care Provide r [facility] Primary Care Provide r Encounter Details Date Type Department Care Team (Late st Contact Info) Description 06/02/2017 [facility] [address] [place] [address] [place] [address] Beatrice George MD [address] [place] [address], 2nd [place] [address] [email or web address] Screening breast examination Social History Tobacco Use Types Packs/Day [...] as of this encounter Visit Diagnoses Diagnosis Screening breast examination Other screening breast examination documented in this encounter Additional Health Concerns Infection Onset Date Last Indicated Resolved Time CoV-Risk 07/18/2024 07/25/2024 08/05/2024 1:21 AM EDT Influenza A 07/18/2024 07/18/2024 07/25/2024 1:22 AM EDT Influenza A 07/25/2024 07/25/2024 08/01/2024 1:21 AM EDT documented as of this encounter Care Teams Laundry Clerk Relationship Specialty Start Date End Date Fahad June MD [address] [place] [address] [email or web address] PCP - General Family Medicine 03/17/17 12/15/17 Janina Moncada MD [address] [place] [address] [email or web address] PCP - General Family Medicine 12/16/17 04/11/18 Fahad Crenshaw DO [address] [place] [address] [email or web address] PCP - General Family Medicine 04/12/18 09/13/18 Janina Moncada MD [address] [place] [address] [email or web address] PCP - General Family Medicine 11/14/18 04/19/19 Kash Live, MARGARITA [address] [place] [address] PCP - General 04/20/19 10/03/19 Cornelius Zelaya MD [address] [place] [address] [email or web address] PCP - General Internal Medicine 10/04/19 10/09/19 Jeimy Sawant NP [address] [place] [place] [address] [place] [address] PCP - General Unknown Provider Specialty 10/10/19 10/31/19 Betsey Long MD [address] [place] [address] [email or web address] PCP - General Family Medicine 11/01/19 01/28/22 Litzy Raines [place] [address] PCP - General Family Medicine 01/29/22 02/14/24 Litzy Raines FNP [address] [place] [address] PCP - General Nurse Practitioner 02/15/24 10/25/24 Litzy Raines FNP [address] [place] [address] PCP - General Nurse Practitioner 10/26/24 Chon Tipton DO [address] [place] [address] [place] [address] Historical LMR Provider 02/28/17 05/17/21 Sandy Romo EXTRUDER [address] [place] [address] Historical LMR Provider 02/28/17 05/17/21 Cierra Ramirez DO [address] [place] [address] 7 [place] [address] [email or web address] Historical LMR Provider 02/28/17 05/17/21 Guy Lagunas MBBS, PhD [address] [place] [address] Intraopera Neurophysiology Unit [facility] Department of [facility]rologySW[facility] [address] [place] [address] [email or web address] Historical LMR Provider 02/28/17 05/17/21 Cindy Mesa, MARGARITA [address] [place] [address] Historical LMR Provider 02/28/17 05/17/21 Giovanna Padgett CNM [address] [place] [address] Historical LMR Provider 02/28/17 05/17/21 Danish Alfredo MD [address] [place] [address] [email or web address] Historical LMR Provider 02/28/17 Jennifer Stein MD [address] [place] [address] [email or web address] Historical LMR Provider 02/28/17 05/17/21 Mabel Bowman MD [address] [place] [address], 2[address] [place] [address] [email or web address] Historical LMR Provider 02/28/17 05/17/21 Jesusita Walters CNM [address] [place] [address] [email or web address] Historical LMR Provider 02/28/17 05/17/21 Fahad June MD [address] [place] [address] 2nd [place] [address] [email or web address] Historical LMR Provider 02/28/17 05/17/21 Iglesia Pizarro MD [address] [place] [address] Historical LMR Provider 02/28/17 05/17/21 Pipe Simmons MD [address] [place] [address] 7 [place] [address] [email or web address] Historical LMR Provider 02/28/17 05/17/21 Elisabeth Hills NP [address] [place] [address] Historical LMR Provider 02/28/17 05/17/21 Dayna Perez MD [address] [place] [address] Historical LMR Provider 02/28/17 05/17/21 Julio Johnson MD [address] [place] [address] [email or web address] Historical LMR Provider 02/28/17 Tigre Shrestha MD [address] [place] [address] Historical LMR Provider 02/28/17 05/17/21 Yolanda Harrison MD [address] [place] [address] Historical LMR Provider 02/28/17 05/17/21 Angel Byrd MD [address] [place] [address] Historical LMR Provider 02/28/17 05/17/21 Gisela Dorsey NP [address] [place] [address] Historical LMR Provider 02/28/17 05/17/21 documented as of this encounter Additional Source Comments The information contained in this document represents components of the legal health record. It is not the complete legal health record.[facility]
--- OUTSIDE RECORDS SUMMARY | 2025-01-30 13:58 | XMS_ITS | Encounter Summary ---
Author Organization [facility] Address [address] [place] [address] Phone Care Team Providers Care Restaurant Kitchen And Service Manager Name Role Phone Chon Tipton DO Unavailable Sandy Romo FILM LABORATORY TECHNICIAN Unavailable Cierra Ramirez DO Unavailable Guy LagunasBS, PhD Unavailable Cindy Mesa FILM LABORATORY TECHNICIAN Unavailable Giovanna Padgett CNM Unavailable Danish Alfredo MD Unavailable Jennifer Stein MD Unavailable Mabel Bowman MD Unavailable Jesusita Walters CNM Unavailable Fahad June MD Unavailable Iglesia Pizarro MD Unavailable Pipe Simmons MD Unavailable Elisabeth Hills FILM LABORATORY TECHNICIAN Unavailable Dayna Perez MD Unavailable [phone] Julio Johnson MD Unavailable Tigre Shrestha MD Unavailable [phone] Yolanda Harrison MD Unavailable [phone] Angel Byrd MD Unavailable [phone] Gisela Dorsey Keisha FILM LABORATORY TECHNICIAN Unavailable Betsey Long MD Primary Care Provider Litzy Raines [facility] Primary [facility] Provide r [facility] Primary Care Provide r Encounter Details Date Type Department Care Team (Late st Contact Info) Description 04/21/2021 Transcribe Orders Virtual Department [address] [place] [address] [facility] [address] [place] [address] Thyroid nodule (Primary Dx) Social History Tobacco [...] this encounter Results * US Thyroid Gland (04/29/2021 1:08 PM EST) Anatomical Region Laterality Modality Neck, Head, Chest Ultrasound 04/29/2021 1:10 PM EST Impressions 04/29/2021 1:32 PM EST Left lower pole thyroid nodule categorized as TI-RADS 3. According to the ACR- TIRADS, no specific follow-up recommended. Narrative 04/29/2021 1:32 PM EST THYROID ULTRASOUND INDICATION: Thyroid Nodule TECHNIQUE: Ultrasound evaluation of the thyroid gland was performed with bautista scale and color Doppler imaging. COMPARISON: Thyroid ultrasound on February 26, 2020 FINDINGS: RIGHT THYROID: Right thyroid lobe demonstrates homogeneous echotexture measuring 2.2 cm x 0.9 cm x 1.1 cm. There are no thyroid nodules identified. LEFT THYROID: Left thyroid lobe demonstrates homogeneous echotexture measuring 3.6 cm x 1.1 cm x 0.8 cm. Nodule(s) in the left lobe are as described: 1.Nodule in lower pole is mixed cystic and solid (1), hypoechoic (2), pheek-zjvr-cjhb (0), with ill-defined margins (0) and with large comet-tail artifacts (0). Nodule measures 1.0 cm x 0.4 cm x 0.8 cm (prior measurements of 0.9 cm x 0.5 cm x 0.8 cm). As per ACR TI-RADS nodule is categorized as TR-3 () Recommendation per ACR-TIRADS: No specific follow up or fine needle aspiration is recommended. ISTHMUS: The isthmus is 0.1 cm wide. Procedure Note Stan Marlow MD - 04/29/2021 THYROID ULTRASOUND INDICATION: Thyroid Nodule TECHNIQUE: Ultrasound evaluation of the thyroid gland was performed withgray scale and color Doppler imaging. COMPARISON: Thyroid ultrasound on February 26, 2020 FINDINGS: RIGHT THYROID: Right thyroid lobe demonstrates homogeneous echotexturemeasuring 2.2 cm x 0.9 cm x 1.1 cm. There are no thyroid nodulesidentified. LEFT THYROID: Left thyroid lobe demonstrates homogeneous echotexturemeasuring 3.6 cm x 1.1 cm x 0.8 cm. Nodule(s) in the left lobe are asdescribed: 1.Nodule in lower pole is mixed cystic and solid (1), hypoechoic (2),dndmu-qogx-jqql (0), with ill-defined margins (0) and with largecomet-tail artifacts (0). Nodule measures 1.0 cm x 0.4 cm x 0.8 cm (priormeasurements of 0.9 cm x 0.5 cm x 0.8 cm). As per ACR TI-RADS nodule iscategorized as TR-3 () Recommendation per ACR-TIRADS: No specificfollow up or fine needle aspiration is recommended. ISTHMUS: The isthmus is 0.1 cm wide. IMPRESSION: Left lower pole thyroid nodule categorized as TI-RADS 3. According to theACR- TIRADS, no specific follow-up recommended. [facility] Evie Raines [facility] US THYROID Final Result documented in this [...] documented as of this encounter Care Teams Restaurant Kitchen And Service Manager Relationship Specialty Start Date End Date Betsey Long MD [address] [place] [address] [email or web address] PCP - General Family Medicine 11/01/19 01/28/22 [facility] [address] [place] [address] PCP - General Family Medicine 01/29/22 02/14/24 [facility] [address] [place] [address] PCP - General Nurse Practitioner 02/15/24 10/25/24 [facility] [address] [place] [address] PCP - General Nurse Practitioner 10/26/24 Chon Tipton DO [address] [place] [address] [address] [place] [address] Historical LMR Provider 02/28/17 05/17/21 Sandy Romo FILM LABORATORY TECHNICIAN [address] [place] [address] Historical LMR Provider 02/28/17 05/17/21 Cierra Ramirez DO [address] [place] [address] 7 [place] [address] [email or web address] Historical LMR Provider 02/28/17 05/17/21 Guy Lagunas MBBS, PhD [address] [place] [address] Intraopera Neurophysiology Unit [facility] Department of [facility] [address] [place] [address] [email or web address] Historical LMR Provider 02/28/17 05/17/21 Cindy Mesa, MARGARITA [address] [place] [address] Historical LMR Provider 02/28/17 05/17/21 Giovanna Padgett CNM [address] [place] [address] Historical LMR Provider 02/28/17 05/17/21 Danish Alfredo MD [address] [address] [email or web address] Historical LMR Provider 02/28/17 Jennifer Stein MD [address] [place] [address], [address] [place] [address] [email or web address] Historical LMR Provider 02/28/17 05/17/21 Mabel Bowman MD [address] [place] [address], 2nd [place] [address] [email or web address] Historical LMR Provider 02/28/17 05/17/21 Jesusita Walters CNM [address] [place] [address], [address] [place] [address] [email or web address] Historical LMR Provider 02/28/17 05/17/21 Fahad June MD [address] [place] [address] [place] [address] [email or web address] Historical LMR Provider 02/28/17 05/17/21 Iglesia Pizarro MD [address] [place] [address] Historical LMR Provider 02/28/17 05/17/21 Pipe Simmons MD [address] [place] [address] 7 [place] [address] [email or web address] Historical LMR Provider 02/28/17 05/17/21 Elisabeth Hills NP [address] [place] [address] Historical LMR Provider 02/28/17 05/17/21 Dayna Perez MD [address] [place] [address] Historical LMR Provider 02/28/17 05/17/21 Julio Johnson MD [address] [place] [address] [address] [place] [address] [email or web address] Historical LMR Provider 02/28/17 Tigre Shrestha MD [address] [place] [address] Historical LMR Provider 02/28/17 05/17/21 Yolanda Harrison MD [address] [place] [address] Historical LMR Provider 02/28/17 05/17/21 Angel Byrd MD [address] [place] [address] Historical LMR Provider 02/28/17 05/17/21 Gisela Dorsey NP [address] [place] [address] Historical LMR Provider 02/28/17 05/17/21 documented as of this encounter Additional Source Comments The information contained in this document represents components of the legal health record. It is not the complete legal health record.[facility]
--- OUTSIDE RECORDS SUMMARY | 2025-01-30 13:58 | XMS_ITS | Encounter Summary ---
Author Organization [facility] Address [address] [place] [address] Phone Care Team Providers Care Integrity Director Name Role Phone Danish Alfredo MD Unavailable Julio Johnson MD Unavailable [phone] [facility] Primary Care Provide r [facility] Primary Care Provide r Encounter Details Date Type Department Care Team (Late st Contact Info) Description 05/26/2024 Procedure Pass [facility], Ct Scan - [facility] [address] [place] [address] Social History Tobacco Use Types Packs/Day Years [...] documented as of this encounter Care Teams Integrity Director Relationship Specialty Start Date End Date Litzy Raines FNP [address] [place] [address] PCP - General Nurse Practitioner 02/15/24 10/25/24 Litzy Raines FNP [address] [place] [address] PCP - General Nurse Practitioner 10/26/24 Danish Alfredo MD [address] [place] [address] Historical LMR Provider 02/28/17 Julio Johnson MD [address] [place] [address] Historical LMR Provider 02/28/17 documented as of this encounter Additional Source Comments The information contained in this document represents components of the legal health record. It is not the complete legal health record.[facility]
--- OUTSIDE RECORDS SUMMARY | 2025-01-30 13:58 | XMS_ITS | Encounter Summary ---
Author Organization [facility] Address [address] [place] [address] Phone Care Team Providers Care System Software Programmer Name Role Phone Chon Tipton DO Unavailable Sandy Romo PRESS SECRETARY Unavailable Cierra Ramirez DO Unavailable Guy LagunasBS, PhD Unavailable [phone] Cindy Mesa PRESS SECRETARY Unavailable Giovanna Padgett CNM Unavailable Danish Alfredo MD Unavailable Jennifer Stein MD Unavailable Mabel Bowman MD Unavailable Jesusita Walters CNM Unavailable Fahad June MD Unavailable Iglesia Pizarro MD Unavailable Pipe Simmons MD Unavailable Elisabeth Hills PRESS SECRETARY Unavailable [phone] Dayna Perez MD Unavailable [phone] Julio Johnson MD Unavailable Tigre Shrestha MD Unavailable [phone] Yolanda Harrison MD Unavailable [phone] Angel Byrd MD Unavailable [phone] Gisela Dorsey Keisha PRESS SECRETARY Unavailable Betsey Long MD Primary Care Provider [facility] Primary Care Provide r [facility] Primary Care Provide r [facility] Primary Care Provide r Encounter Details Date Type Department Care Team (Latest Contact Info) Description 04/23/2020 Transcribe Orders [address] [place] [address] Rebeca Romeo PA [address] [place] [address]. [place] [address] [email or web address] Baldness (Primary Dx) Social History Tobacco Use Types [...] documented as of this encounter Results * TSH with reflex (04/23/2020 1:03 PM EST) TSH 0.37 0.27 - 4.20 uIU/mL [facility] Blood 04/23/2020 1:03 PM EST 04/23/2020 1:08 PM EST Rebeca BUENO LAB BLOOD ORDERABLES Final Re sult [address] [address] * CBC (04/23/2020 1:03 PM EST) WBC 10.19 4.00 - 11.00 K/uL [facility] Comment:Note Reference Range updates to all CBC and Differential results. RBC 4.96 3.72 - 5.30 M/uL [facility] HGB 13.8 10.6 - 15.5 g/dL [facility] Comment:Note updated Referen ce Ranges for all CBC and Differential results. HCT 42.8 32.0 - 45.0 % [facility] PLT 368 140 - 430 K/uL [facility] MCV 86.3 78.0 - 97.0 fL [facility] MCH 27.8 25.0 - 33.0 pg [facility] MCHC 32.2 32.0 - 36.0 g/dL [facility] RDW 14.0 11.0 - 16.0 % [facility] MPV 10.9 8.4 - 12.8 fl [facility] NRBC 0.00 0 /100 WBCs [facility] ABSOLUTE NRBC 0.00 0 K/uL [facility] Blood 04/23/2020 1:03 PM EST 04/23/2020 1:08 PM EST Rebeca [facility] LAB BLOOD ORDERABLES Final Re vincent Performing Organization Address [facility]/ZIP Co de Phone Number [address] [address] * (ABNORMAL) Basic metabolic panel (04/23/2020 1:03 PM EST) SODIUM 136 133 - 146 mmol/L [facility] CHLORIDE 103 96 - 108 mmol/L [facility] POTASSIUM 4.3 3.3 - 5.1 mmol/L [facility] CO2 23 21 - 35 mmol/L [facility] BUN 17 6 - 19 mg/dL [facility] CREATININE 1.20 0.5 - 1.5 mg/dL [facility] GLUCOSE 85 70 - 99 mg/dL [facility] CALCIUM 9.7 8.4 - 10.3 mg/dL [facility] EGFR 51(L) >59 mL/min/1.7 3m2 [facility] Comment:Estimated glomerular filtration rate calculated using the CKD-EPI equation. ANION GAP 14 10 - 20 mmol/L [facility] Blood 04/23/2020 1:03 PM EST 04/23/2020 1:08 PM EST Rebeca [facility] LAB BLOOD ORDERABLES Final Re sult [facility] [address] [place] [address] documented in this encounter Visit Diagnoses Diagnosis Baldness- Primary Unspecified alopecia documented in this encounter Additional Health Concerns Infection Onset Date Last Indicated Resolved Time CoV-Risk 07/18/2024 07/25/2024 08/05/2024 1:21 AM EDT Influenza A 07/18/2024 07/18/2024 07/25/2024 1:22 AM EDT Influenza A 07/25/2024 07/25/2024 08/01/2024 1:21 AM EDT documented as of this encounter Care Teams System Software Programmer Relationship Specialty Start Date End Date Betsey Long MD [address] [place] [address] [email or web address] PCP - General Family Medicine 11/01/19 01/28/22 Litzy Raines FNP [address] [place] [address] PCP - General Family Medicine 01/29/22 02/14/24 Litzy Raines FNP [address] [place] [address] PCP - General Nurse Practitioner 02/15/24 10/25/24 Litzy Raines FNP [address] [place] [address] PCP - General Nurse Practitioner 10/26/24 Chon Tipton DO [address] [facility] [address] [place] [address] Historical LMR Provider 02/28/17 05/17/21 Sandy Romo PRESS SECRETARY [address] [place] [address] Historical LMR Provider 02/28/17 05/17/21 Cierra Ramirez DO [address] [place] [address] 7 [place] [address] [email or web address] Historical LMR Provider 02/28/17 05/17/21 Guy Lagunas MBBS, PhD [address] [facility] Intraopera Neurophysiology Unit [facility] [address] [place] [address] [email or web address] Historical LMR Provider 02/28/17 05/17/21 Cindy Mesa, MARGARITA [address] [place] [address] Historical LMR Provider 02/28/17 05/17/21 Giovanna Padgett CNM [address] [place] [address] Historical LMR Provider 02/28/17 05/17/21 Danish Alfredo MD [address] [facility] [place] [address] Historical LMR Provider 02/28/17 Jennifer Stein MD [address] [place] [address] Historical LMR Provider 02/28/17 05/17/21 Mabel Bowman MD [address] [place] [address], 2[address] [place] [address] [email or web address] Historical LMR Provider 02/28/17 05/17/21 Jesusita Walters CNM [address] [place] [address] [email or web address] Historical LMR Provider 02/28/17 05/17/21 Fahad June MD [address] [place] [address] [place] [address] [email or web address] Historical LMR Provider 02/28/17 05/17/21 Iglesia Pizarro MD [address] [place] [address] Historical LMR Provider 02/28/17 05/17/21 Pipe Simmons MD [address] [place] [address] 7 [place] [address] [email or web address] Historical LMR Provider 02/28/17 05/17/21 Elisabeth Hills NP [address] [place] [address] Historical LMR Provider 02/28/17 05/17/21 Dayna Perez MD [address] [place] [address] Historical LMR Provider 02/28/17 05/17/21 Julio Johnson MD [address] [facility], [address] [address] Historical LMR Provider 02/28/17 Tigre Shrestha MD [address] [place] [address] Historical LMR Provider 02/28/17 05/17/21 Yolanda Harrison MD [address] [place] [address] Historical LMR Provider 02/28/17 05/17/21 Angel Byrd MD [address] [place] [address] Historical LMR Provider 02/28/17 05/17/21 Gisela Dorsey NP [address] [place] [address] Historical LMR Provider 02/28/17 05/17/21 documented as of this encounter Additional Source Comments The information contained in this document represents components of the legal health record. It is not the complete legal health record.[facility]
--- OUTSIDE RECORDS SUMMARY | 2025-01-30 13:58 | XMS_ITS | Encounter Summary ---
Author Organization [facility] Address [address] [facility] [address] [place] [address] Phone Care Team Providers Care Track Layer Name Role Phone Chon Tipton DO Unavailable Sandy Romo BUGGY LADLE TENDER Unavailable Cierra Ramirez DO Unavailable Guy LagunasBS, PhD Unavailable Cindy Mesa BUGGY LADLE TENDER Unavailable Giovanna Padgett CNM Unavailable Danish Alfredo MD Unavailable Jennifer Stein MD Unavailable Mabel Bowman MD Unavailable Jesusita Walters CNM Unavailable Fahad June MD Unavailable Iglesia Pizarro MD Unavailable Pipe Simmons MD Unavailable Elisabeth Hills BUGGY LADLE TENDER Unavailable [phone] Dayna Perez MD Unavailable [phone] Julio Johnson MD Unavailable Tigre Shrestha MD Unavailable [phone] Yolanda Harrison MD Unavailable [phone] Angel Byrd MD Unavailable [phone] Gisela Dorsey Keisha BUGGY LADLE TENDER Unavailable Fahad June MD Primary Care Provider + Janina Moncada MD Primary Care Provider Fahad Crenshaw DO Primary Care Provider [phone] Janina Moncada MD Primary Care Provider [phone] Kash Live BUGGY LADLE TENDER Primary Care Provide r Cornelius Zelaya MD Primary Care Provider [phone] Jeimy Sawant BUGGY LADLE TENDER Primary Care Provider + Betsey Long MD Primary Care Provider [facility] Primary Care Provide r [facility] Primary Care Provide r [facility] Primary Care Provide r Encounter Details Date Type Department Care Team (Late st Contact Info) Description 06/08/2017 Ancillary Orders Virtual Department 30 [place] [address] Fahad June MD [address] [place] [address] 2nd [place] [address] [email or web address] Abnormal mammogram Social History Tobacco Use Types [...] MAMMOGRAM DIAGNOSTIC WITH TOMOSYNTHESIS WITH CAD (LEFT) (06/10/2017 2:14 PM EST) Anatomical Region Laterality Modality Breast Left Left Mammography 06/10/2017 2:21 PM EST Impressions 06/10/2017 2:29 PM EST Two tiny clusters of microcalcifications which do not have highly suspicious features and are probably benign. Reevaluation recommended in six months by diagnostic mammogram. No other findings suspicious for malignancy. The results were given to the patient by the technologist at the time of the examination. BI-RADS CATEGORY: 3 - Probably benign finding. Short interval follow up suggested. POS - CDHMAMA Narrative 06/10/2017 2:29 PM EST HISTORY: Abnormal left mammogram. EXAM: Left diagnostic mammogram. COMPARISON: Previous left mammograms as far back as 04/13/2012 and is recent as 06/02/2016. FINDINGS: On the spot magnification CC and spot magnification 90 degree views of the left breast there are two tiny clusters of microcalcifications. These are located slightly laterally with one located slightly superiorly and the other slightly inferiorly. Each cluster contains approximately 3-4 microcalcifications which appear fairly punctate. No evidence of an underlying mass or architectural distortion. Fahad June MD IMG MG EXAMS Final [...] as of this encounter Care Teams Track Layer Relationship Specialty Start Date End Date Fahad June MD [address] [place] [address] [email or web address] PCP - General Family Medicine 03/17/17 12/15/17 Janina Moncada MD 15 [facility] 201 [place] [address] [email or web address] PCP - General Family Medicine 12/16/17 04/11/18 Fahad Crenshaw DO [address] [place] [address] 7 [place] [address] [email or web address] PCP - General Family Medicine 04/12/18 09/13/18 Janina Moncada MD 15 [facility] 201 [place] [address] [email or web address] PCP - General Family Medicine 11/14/18 04/19/19 Kash Live NP [address] [place] [address] 7 [place] [address] PCP - General 04/20/19 10/03/19 Cornelius Zelaya MD [address] [place] [address] [email or web address] PCP - General Internal Medicine 10/04/19 10/09/19 Jeimy Sawant NP [address] [place] [address] PCP - General Unknown Provider Specialty 10/10/19 10/31/19 Betsey Long MD 70 [place] [address] [email or web address] PCP - General Family Medicine 11/01/19 01/28/22 Litzy Raines FNP 70 [place] [address] PCP - General Family Medicine 01/29/22 02/14/24 Litzy Raines FNP 70 [place] [address] PCP - General Nurse Practitioner 02/15/24 10/25/24 Litzy Raines FNP 70 [place] [address] PCP - General Nurse Practitioner 10/26/24 Chon Tipton DO [address] [place] [address] Historical LMR Provider 02/28/17 05/17/21 Sandy Romo BUGGY LADLE TENDER [address] [place] [address] Historical LMR Provider 02/28/17 05/17/21 Cierra Ramirez DO [address] [place] [address], [address] [place] [address] [email or web address] Historical LMR Provider 02/28/17 05/17/21 Guy Lagunas MBBS, PhD [address] [place] [address] [facility] Department of NeurologyWA [address] [place] [address] [email or web address] Historical LMR Provider 02/28/17 05/17/21 Cindy Mesa, MARGARITA [address] [place] [address] Historical LMR Provider 02/28/17 05/17/21 Giovanna Padgett CNM [address] [place] [address] Historical LMR Provider 02/28/17 05/17/21 Danish Alfredo MD [address] [place] [address] [email or web address] Historical LMR Provider 02/28/17 Jennifer Stein MD [address] [place] [email or web address] Historical LMR Provider 02/28/17 05/17/21 Mabel Bowman MD [address] [place] [address] [place] [address] [email or web address] Historical LMR Provider 02/28/17 05/17/21 Jesusita Walters CNM [address] [place] [address], [address] [address] [email or web address] Historical LMR Provider 02/28/17 05/17/21 Fahad June MD [address] [place], [place] [address] [place] [address] [email or web address] Historical LMR Provider 02/28/17 05/17/21 Iglesia Pizarro MD [address] [place] [address] Historical LMR Provider 02/28/17 05/17/21 Pipe Simmons MD [address] [place] [address] 7 [place] [address] [email or web address] Historical LMR Provider 02/28/17 05/17/21 Elisabeth Hills NP 30 [place] [address] Historical LMR Provider 02/28/17 05/17/21 Dayna Perez MD [address] [place] [address] Historical LMR Provider 02/28/17 05/17/21 Julio Johnson MD [address] [place] [address] 102 [place] [address] [email or web address] Historical LMR Provider 02/28/17 Tigre Shrestha MD 61 [place] [address] Historical LMR Provider 02/28/17 05/17/21 Yolanda Harrison MD 4 [place] [address] Historical LMR Provider 02/28/17 05/17/21 Angel Byrd MD 61 [place] [address] Historical LMR Provider 02/28/17 05/17/21 Gisela Dorsey NP [address] [place] [address] Historical LMR Provider 02/28/17 05/17/21 documented as of this encounter Additional Source Comments The information contained in this document represents components of the legal health record. It is not the complete legal health record.[facility]
--- OUTSIDE RECORDS SUMMARY | 2025-01-30 13:58 | XMS_ITS | Encounter Summary ---
Author Organization [facility] Address [address] [facility] [address] [place] [address] Phone Care Team Providers Care Lead Custodian Name Role Phone Danish Alfredo MD Unavailable Julio Johnson MD Unavailable [phone] [facility] Primary Care Provide r [facility] Primary Care Provide r Encounter Details Date Type Department Care Team (Latest Contact Info) Description 06/09/2024 Transcribe Orders Virtual Department 30 [place] [address] [place], [place] [facility] [address] [place] [address] Hydronephrosis of right kidney (Primary Dx) Social History Tobacco Use Types [...] as of this encounter Results * US Kidneys (06/14/2024 1:51 PM EST) Anatomical Region Laterality Modality Abdomen, Kidney Ultrasound 06/14/2024 2:52 PM EST Impressions 06/14/2024 2:54 PM EST Small bilateral renal cysts. No hydronephrosis. Narrative 06/14/2024 2:54 PM EST US KIDNEYS Referring clinician's provided indication for this examination in [facility]: Outside Radiology Order; Hydronephrosis of right kidney TECHNIQUE: Kidney Ultrasound. COMPARISON: Chest CT 05/29/2024 FINDINGS: Right Kidney: Size: 10.9 cm Simple cysts measure up to 1.4 cm. No stones or hydronephrosis. Left Kidney: Size: 10.9 cm Subcentimeter cysts measure up to 0.8 cm. No stones or hydronephrosis. Bladder: Normal. Procedure Note Ted Harrington MD - 06/14/2024 US KIDNEYS Referring clinician's provided indication for this examination in [facility]:Outside Radiology Order; Hydronephrosis of right kidney TECHNIQUE: Kidney Ultrasound. COMPARISON: Chest CT 05/29/2024 FINDINGS: Right Kidney: Size: 10.9 cm Simple cysts measure up to 1.4 cm. No stones or hydronephrosis. Left Kidney: Size: 10.9 cm Subcentimeter cysts measure up to 0.8 cm. No stones or hydronephrosis. Bladder: Normal. IMPRESSION: Small bilateral renal cysts. No hydronephrosis. [facility] COOKIE MIXER HELPER IMG US RENAL Final Result documented in this encounter Visit Diagnoses Diagnosis Hydronephrosis of right kidney- Primary Hydronephrosis Hydronephrosis of right kidney Hydronephrosis documented in this encounter Additional Health Concerns Infection Onset Date Last Indicated Resolved Time CoV-Risk 07/18/2024 07/25/2024 08/05/2024 1:21 AM EDT Influenza A 07/18/2024 07/18/2024 07/25/2024 1:22 AM EDT Influenza A 07/25/2024 07/25/2024 08/01/2024 1:21 AM EDT documented as of this encounter Care Teams Lead Custodian Relationship Specialty Start Date End Date Litzy Raines FNP [address] [address] PCP - General Nurse Practitioner 02/15/24 10/25/24 Litzy Raines FNP [address] [place] [address] PCP - General Nurse Practitioner 10/26/24 Danish Alfredo MD [address] [place] [address] Historical LMR Provider 02/28/17 Julio Johnson MD [address] [place] [address] Historical LMR Provider 02/28/17 documented as of this encounter Additional Source Comments The information contained in this document represents components of the legal health record. It is not the complete legal health record.[facility]
--- OUTSIDE RECORDS SUMMARY | 2025-01-30 13:59 | XMS_ITS | Encounter Summary ---
Author Organization [employer] Address 75 [facility] 7t [place] [address] Care Team Providers Care Revenue Integrity Analyst Name Role Phone [facility] Primary Care Provider [phone] Encounter Details Date Type Department Care Team [...] Description 03/01/2025 12:20 PM EDT Office Visit [place] [facility] MED[facility] 70 [place] [address] [place], [place] [facility] 70 [place] [address] 06/20/2025 11:00 AM EST Office Visit [place] [facility] Dental 70 [place] [address] Urvashi Gamble LLD 9 [place] [address] documented as of this encounter Visit Diagnoses Not on filedocumented in this encounter Care Teams Revenue Integrity Analyst Relationship Specialty Start Date End Date [place], [place] [facility] 70 [place] [address] PCP - General Family Medicine 05/06/22 documented as of this encounter
--- OUTSIDE RECORDS SUMMARY | 2025-01-30 13:59 | XMS_ITS | Encounter Summary ---
Author Organization [employer] Address [address] [place] [address] 7t [place] [address] Care Team Providers Care Windows Deployment Technician Name Role Phone [facility] Primary Care Provider [phone] Encounter Details Date Type Department Care Team [...] Description 03/01/2025 12:20 PM EDT Office Visit [place] [facility] MEDICAL 70 [place] [address] [place], [place] [facility] 70 [place] [address] 06/20/2025 11:00 AM EST Office Visit [place] [facility] Dental 70 [place] [address] Urvashi Gamble LLD 9 [place] [address] documented as of this encounter Visit Diagnoses Not on filedocumented in this encounter Care Teams Windows Deployment Technician Relationship Specialty Start Date End Date [place], [place] [facility] 70 [place] [address] PCP - General Family Medicine 05/06/22 documented as of this encounter
--- OUTSIDE RECORDS SUMMARY | 2025-01-30 13:59 | XMS_ITS | Encounter Summary ---
Author Organization [employer] Address [address] [facility] 7t [place] [address] Care Team Providers Care Rehabilitation Nurse Name Role Phone [facility] Primary Care Provider [phone] Encounter Details Date Type Department Care Team [...] Description 03/01/2025 12:20 PM EDT Office Visit [place] [facility] 70 [place] [address] [place], [place] [facility] 70 [place] [address] 06/20/2025 11:00 AM EST Office Visit [place] [facility] Dental 70 [place] [address] Urvashi Gamble LLD [address] [place] [address] documented as of this encounter Visit Diagnoses Not on filedocumented in this encounter Care Teams Rehabilitation Nurse Relationship Specialty Start Date End Date [place], [place] [facility] [address] [place] [address] PCP - General Family Medicine 05/06/22 documented as of this encounter
--- OUTSIDE RECORDS SUMMARY | 2025-01-30 13:59 | XMS_ITS | Encounter Summary ---
Author Organization [employer] Address 75 [facility] 7t [place] [address] Care Team Providers Care Associate [employer] Retail Name Role Phone [facility] Primary Care Provider [phone] Reason for Visit * Reason Comments Med Refill Encounter Details Date Type Department Care Team (Late st Contact Info) Description 04/08/2024 Refill [place] [facility] 70 [place] [address] [place], [place], [facility] 70 [place] [address] Social History Tobacco Use Types Packs/Day Years [...] Description 03/01/2025 12:20 PM EDT Office Visit [place] [facility] 70 [place] [address] [facility] 70 [place] [address] 06/20/2025 11:00 AM EST Office Visit [place] [facility] Dental 70 [place] [address] Urvashi Gamble LLD 9 [place] [address] documented as of this encounter Visit Diagnoses Not on filedocumented in this encounter Additional Health Concerns Assessment Noted Time PHQ-9 Depression Total Score: 15 024 11:25 AM EDT documented as of this encounter Care Teams Associate [employer] Relationship Specialty Start Date End Date Litzy Raines FNP 70 [place] [address] PCP - General Family Medicine 05/06/22 documented as of this encounter
--- OUTSIDE RECORDS SUMMARY | 2025-01-30 13:59 | XMS_ITS | Encounter Summary ---
Author Organization [facility] Address [address] [facility] [address] [place] [address] Phone Care Team Providers Care Director Operations Broadcast Name Role Phone Chon Tipton DO Unavailable [phone] Sandy Romo WELT CUTTER Unavailable Cierra Ramirez DO Unavailable Guy LagunasBS, PhD Unavailable [phone] Cindy Mesa WELT CUTTER Unavailable Giovanna Padgett CNM Unavailable Danish Alfredo MD Unavailable Jennifer Stein MD Unavailable Mabel Bowman MD Unavailable Jesusita Walters CNM Unavailable Fahad June MD Unavailable Iglesia Pizarro MD Unavailable Pipe Simmons MD Unavailable Elisabeth Hills WELT CUTTER Unavailable [phone] Dayna Perez MD Unavailable [phone] Julio Johnson MD Unavailable Tigre Shrestha MD Unavailable [phone] Yolanda Harrison MD Unavailable [phone] Angel Byrd MD Unavailable [phone] GallagherGisela Keisha WELT CUTTER Unavailable Janina Moncada MD Primary Care Provider Kash Live WELT CUTTER Primary Care Provide r Cornelius Zelaya MD Primary Care Provider [phone] Jeimy Sawant WELT CUTTER Primary Care Provider + Betsey Long MD Primary Care Provider [facility] Primary Care Provide r [facility] Primary Care Provide r [facility] Primary Care Provide r Encounter Details Date Type Department Care Team (Latest Contact Info) Description 03/06/2019 Transcribe Orders Virtual Department 30 [place] [address] Janina Moncada MD [address] [place] [address] [email or web address] Dysphagia, unspecified type (Primary Dx) Social History Tobacco Use Types Packs/Day Years Used Date Smoking Tobacco: Every Day Cigarettes Last attempted to quit: 12/07/2017 Smokeless Tobacco: Current Alcohol Use Standard Drinks/Week [...] Industry Job Start Date Job End Date not working Not on file Not on file Not on file documented as of this encounter Plan of Treatment Not on file documented as of this encounter Visit Diagnoses Diagnosis Dysphagia, unspecified type- Primary documented in this encounter Additional Health Concerns Infection Onset Date Last Indicated Resolved Time CoV-Risk 07/18/2024 07/25/2024 08/05/2024 1:21 AM EDT Influenza A 07/18/2024 07/18/2024 07/25/2024 1:22 AM EDT Influenza A 07/25/2024 07/25/2024 08/01/2024 1:21 AM EDT documented as of this encounter Care Teams Director Operations Broadcast Relationship Specialty Start Date End Date Janina Moncada MD [address] [address] PCP - General Family Medicine 11/14/18 04/19/19 Kash Live, MARGARITA [address] [place] [address] PCP - General 04/20/19 10/03/19 Cornelius Zelaya MD [address] [place] [address] PCP - General Internal Medicine 10/04/19 10/09/19 Jeimy Sawant NP 70 [place] [address] PCP - General Unknown Provider Specialty 10/10/19 10/31/19 Betsey Long MD 70 [place] [address] PCP - General Family Medicine 11/01/19 01/28/22 Litzy Raines FNP 70 [place] [address] PCP - General Family Medicine 01/29/22 02/14/24 Litzy Raines FNP 70 [place] [address] PCP - General Nurse Practitioner 02/15/24 10/25/24 Litzy Raines FNP 70 [place] [address] PCP - General Nurse Practitioner 10/26/24 Chon Tipton DO [address] [place] [address] [place] [address] Historical LMR Provider 02/28/17 05/17/21 Sandy Romo NP 1 [place] [address] Historical LMR Provider 02/28/17 05/17/21 Cierra Ramirez DO [address] [place] [address], [facility] 7 [place] [address] [email or web address] Historical LMR Provider 02/28/17 05/17/21 Guy Lagunas MBBS, PhD [address] [place] [address] [facility] Department of NeurologyWA [address] [place] [address] [email or web address] Historical LMR Provider 02/28/17 05/17/21 Cindy Mesa, MARGARITA 29 [place] [address] Historical LMR Provider 02/28/17 05/17/21 Giovanna Padgett CNM [address] [place] [address] Historical LMR Provider 02/28/17 05/17/21 Danish Alfredo MD [address] [place] [address] [email or web address] Historical LMR Provider 02/28/17 Jennifer Stein MD [address] [place] [address] [email or web address] Historical LMR Provider 02/28/17 05/17/21 Mabel Bowman MD [address] [place] [address], [address] [place] [address] [email or web address] Historical LMR Provider 02/28/17 05/17/21 Jesusita Walters CN [address] [place] [address] [email or web address] Historical LMR Provider 02/28/17 05/17/21 Fahad June MD [address] [place], [place] [address] [place] [address] [email or web address] Historical LMR Provider 02/28/17 05/17/21 Iglesia Pizarro MD [address] [place] [address] Historical LMR Provider 02/28/17 05/17/21 Pipe Simmons MD [address] [place] [address] 7 [place] [address] Historical LMR Provider 02/28/17 05/17/21 Elisabeth Hills NP 30 [place] [address] Historical LMR Provider 02/28/17 05/17/21 Dayna Perez MD [address] [place] [address] Historical LMR Provider 02/28/17 05/17/21 Julio Johnson MD [address] [place] [address] [email or web address] Historical LMR Provider 02/28/17 Tigre Shrestha MD [address] [place] [address] Historical LMR Provider 02/28/17 05/17/21 Yolanda Harrison MD [address] [place] [address] Historical LMR Provider 02/28/17 05/17/21 Angel Byrd MD [address] [place] [address] Historical LMR Provider 02/28/17 05/17/21 Gisela Dorsey NP [address] [place] [address] Historical LMR Provider 02/28/17 05/17/21 documented as of this encounter Additional Source Comments The information contained in this document represents components of the legal health record. It is not the complete legal health record.[facility]
--- OUTSIDE RECORDS SUMMARY | 2025-01-30 13:59 | XMS_ITS | Encounter Summary ---
Author Organization [employer] Address [address] [place] [address] 7t [place] [address] Care Team Providers Care Washer Machine Name Role Phone [facility] Primary Care Provider [phone] Encounter Details Date Type Department Care Team (Late st Contact Info) Description 09/09/2023 Orders Only [place] [facility] MED[facility] 70 [place] [address] [place], [place] [facility] 70 [place] [address] ZAVALA (dyspnea on exertion) Social History Tobacco [...] Description 03/01/2025 12:20 PM EDT Office Visit [place] [facility] 70 [place] [address] [place], [place] [facility] 70 [place] [address] 06/20/2025 11:00 AM EST Office Visit [place] [facility] Dental 70 [place] [address] Urvashi Gamble LLD 9 [place] [address] documented as of this encounter Procedures Procedure Name Priority Date/Time Associated Diagnosis Comments STRESS TEST ONLY Routine 09/09/2023 ZAAVLA (dyspnea on exertion) STRESS TEST WITH MYOCARDIAL PERFUSION Routine 09/09/2023 ZAVALA (dyspnea on exertion) documented in this encounter Results * Stress test (09/09/2023) [facility] CV STRESS PROCEDURES Kim l Result * Stress test with myocardial perfusion (09/09/2023) [facility] CV STRESS PROCEDURES Kim l Result documented in this encounter Visit Diagnoses Diagnosis ZAVALA (dyspnea on exertion) Other dyspnea and respiratory abnormality documented in this encounter Additional Health Concerns Assessment Noted Time PHQ-9 Depression Total Score: 15 023 11:33 AM EDT documented as of this encounter Care Teams Washer Machine Relationship Specialty Start Date End Date [facility] 70 [place] [address] PCP - General Family Medicine 05/06/22 documented as of this encounter
--- OUTSIDE RECORDS SUMMARY | 2025-01-30 13:59 | XMS_ITS | Encounter Summary ---
Author Organization [employer] Address [address] [place] [address] 7t [place] [address] Care Team Providers Care Pleater Name Role Phone [facility] Primary Care Provider [phone] Reason for Visit * Reason Comments Med Refill Encounter Details Date Type Department Care Team (Late st Contact Info) Description 10/14/2023 Refill [place] [facility] MEDICAL [address] [place] [address] [place], [place] [facility] [address] [place] [address] Social History Tobacco Use Types Packs/Day Years [...] 03/01/2025 12:20 PM EDT Office Visit Hernan [facility] MEDICAL [address] [place] [address] [place], [place] [facility] [address] [place] [address] 06/20/2025 11:00 AM EST Office Visit [place] [facility] Dental [address] [place] [address] Urvashi Gamble LLD [address] [place] [address] documented as of this encounter Visit Diagnoses Not on filedocumented in this encounter Additional Health Concerns Assessment Noted Time PHQ-9 Depression Total Score: 15 023 11:33 AM EDT documented as of this encounter Care Teams Pleater Relationship Specialty Start Date End Date Litzy Raines FNP [address] [place] [address] PCP - General Family Medicine 05/06/22 documented as of this encounter
--- OUTSIDE RECORDS SUMMARY | 2025-01-30 13:59 | XMS_ITS | Encounter Summary ---
Author Organization [facility] Address [address] [facility] [address] [place] [address] Phone Care Team Providers Care Public Relations Director Name Role Phone Chon Tipton DO Unavailable Sandy Romo HANDKERCHIEF PRESSER Unavailable Cierra Ramirez DO Unavailable Guy LagunasBS, PhD Unavailable Cindy Mesa HANDKERCHIEF PRESSER Unavailable Giovanna Padgett CNM Unavailable Danish Alfredo MD Unavailable Jennifer Stein MD Unavailable Mabel Bowman MD Unavailable Jesusita Walters CNM Unavailable Fahad June MD Unavailable Iglesia Pizarro MD Unavailable Pipe Simmons MD Unavailable Elisabeth Hills HANDKERCHIEF PRESSER Unavailable [phone] Dayna Perez MD Unavailable [phone] Julio Johnson MD Unavailable Tigre Shrestha MD Unavailable [phone] Yolanda Harrison MD Unavailable [phone] Angel Byrd MD Unavailable [phone] Gisela Dorsey Keisha HANDKERCHIEF PRESSER Unavailable Janina Moncada MD Primary Care Provider [phone] Kash Live HANDKERCHIEF PRESSER Primary Care Provide r Corenlius Zelaya MD Primary Care Provider [phone] Jiemy Sawant HANDKERCHIEF PRESSER Primary Care Provider + Betsey Long MD Primary Care Provider [place], [place] Evie [facility] Primary Care Provide r [facility] Primary Care Provide r [facility] Primary Care Provide r Encounter Details Date Type Department Care Team (Late st Contact Info) Description 11/11/2018 Ancillary Orders Virtual Department [address] [place] [address] Janina Moncada MD [address] [place] [address] [email or web address] Breast screening Social History Tobacco Use Types [...] MAMMOGRAM SCREENING WITH TOMOSYNTHESIS WITH CAD (BILATERAL) (02/09/2019 2:28 PM EDT) Anatomical Region Laterality Modality Breast Left, Breast Right, Breast Bilateral Bila teral Mammography 02/10/2019 8:49 AM EDT Impressions 02/10/2019 8:54 AM EDT No mammographic signs of malignancy. Annual screening is recommended. BI-RADS CATEGORY: 2 - Benign finding. DENSITY: The breast tissue is heterogeneously dense, an appearance which lowers the sensitivity of mammography. POS - [id number] Narrative 02/10/2019 8:54 AM EDT Bilateral mammography is performed in conjunction with computed aided detection. 3-D tomography along with 2-D C view imaging was also performed. Comparison made to previous dated as far back as 04/13/2012 and as recent as 12/16/2017. Small cluster of a microcalcifications which appear to be related to a cyst in the posterior slight inner left breast. Small cluster of coarse calcifications with benign characteristics in the posterior outer left breast likely related to a cyst or degenerating fibroadenoma. No suspicious masses, areas of architectural distortion or suspicious microcalcifications. Procedure Note Chon Marroquin MD - 02/10/2019 Bilateral mammography is performed in conjunction with computed aideddetection. 3-D tomography along with 2-D C view imaging was alsoperformed. Comparison made to previous dated as far back as 04/13/2012 andas recent as 12/16/2017. Small cluster of a microcalcifications which appear to be related to acyst in the posterior slight inner left breast. Small cluster of coarsecalcifications with benign characteristics in the posterior outer leftbreast likely related to a cyst or degenerating fibroadenoma. Nosuspicious masses, areas of architectural distortion or suspiciousmicrocalcifications. IMPRESSION: No mammographic signs of malignancy. Annual screening is recommended. BI-RADS CATEGORY: 2 - Benign finding. DENSITY: The breast tissue is heterogeneously dense, an appearance whichlowers the sensitivity of mammography. POS - CDHMAM2 Janina Moncada MD IM MG EXAMS Final Result documented in this [...] documented as of this encounter Care Teams Public Relations Director Relationship Specialty Start Date End Date Janina Moncada MD [address] [address] [email or web address] PCP - General Family Medicine 11/14/18 04/19/19 Kash Live NP [address] [place] [address] PCP - General 04/20/19 10/03/19 Cornelius Zelaya MD [address] [place] [address] PCP - General Internal Medicine 10/04/19 10/09/19 Jeimy Sawant NP [address] [place], [place] PCP - General Unknown Provider Specialty 10/10/19 10/31/19 Betsey Long MD [address] [place], [place] PCP - General Family Medicine 11/01/19 01/28/22 Litzy Raines FNP [address] [place], [place] PCP - General Family Medicine 01/29/22 02/14/24 Litzy Raines FNP [address] [place] [address] PCP - General Nurse Practitioner 02/15/24 10/25/24 Litzy Raines FNP [address] [place] [address] PCP - General Nurse Practitioner 10/26/24 hCon Tipton DO [address] [place] [address] Historical LMR Provider 02/28/17 05/17/21 Sandy Romo NP [address] [place] [address] Historical LMR Provider 02/28/17 05/17/21 Cierra Ramirez DO [address] [place] [address] 7 [place] [address] [email or web address] Historical LMR Provider 02/28/17 05/17/21 Guy Lagunas MBBS, PhD [address] [place] [address] [facility] Department of NeurologyWACC [address] [place] [address] [email or web address] Historical LMR Provider 02/28/17 05/17/21 Cindy Mesa NP [address] [place] [address] Historical LMR Provider 02/28/17 05/17/21 Giovanna Padgett CNM [address] [place] [address] Historical LMR Provider 02/28/17 05/17/21 Danish Alfredo MD [address] [place] [address] [email or web address] Historical LMR Provider 02/28/17 Jennifer Stein MD [address] [place] [address] [email or web address] Historical LMR Provider 02/28/17 05/17/21 Mabel Bowman MD [address] [place] [address], 2nd [place] [address] [email or web address] Historical LMR Provider 02/28/17 05/17/21 Jesusita Walters CNM [address] [place] [address] [email or web address] Historical LMR Provider 02/28/17 05/17/21 Fahad June MD [address] [place], [place] [address] [address] [email or web address] Historical LMR Provider 02/28/17 05/17/21 Iglesia Pizarro MD [address] [place] [address] Historical LMR Provider 02/28/17 05/17/21 Pipe Simmons MD [address] [place] [address] 7 [place] [address] [email or web address] Historical LMR Provider 02/28/17 05/17/21 Elisabeth Hills NP [address] [place] [address] Historical LMR Provider 02/28/17 05/17/21 Dayna Perez MD [address] [place] [address] Historical LMR Provider 02/28/17 05/17/21 Julio Johnson MD [address] [address] [email or web address] Historical LMR Provider 02/28/17 Tigre Shrestha MD [address] [place] [address] Historical LMR Provider 02/28/17 05/17/21 Yolanda Harrison MD [address] [place] [address] Historical LMR Provider 02/28/17 05/17/21 Angel Byrd MD [address] [place] [address] Historical LMR Provider 02/28/17 05/17/21 Gisela Dorsey NP [address] [place] [address] Historical LMR Provider 02/28/17 05/17/21 documented as of this encounter Additional Source Comments The information contained in this document represents components of the legal health record. It is not the complete legal health record.[facility]
--- OUTSIDE RECORDS SUMMARY | 2025-01-30 13:59 | XMS_ITS | Encounter Summary ---
Author Organization [employer] Address [address] [place] [address] 7t [place] [address] Care Team Providers Care Pie Filling Mixer Name Role Phone [facility] Primary Care Provider [phone] Encounter Details Date Type Department Care Team (Late st Contact Info) Description 08/12/2023 Orders Only [facility] [address] [place] [address] [facility] [address] [place] [address] Social History Tobacco Use Types Packs/Day Years [...] 03/01/2025 12:20 PM EDT Office Visit Hernan [facility] MEDICAL [address] [place] [address] [facility] [address] [place] [address] 06/20/2025 11:00 AM EST Office Visit Hernan [facility] Dental [address] [place] [address] Urvashi Gamble LLD 9 [place] [address] documented as of this encounter Procedures Procedure Name Priority Date/Time Associated Diagnosis Comments HM FIT DNA/COLOGUARD CANCER SCREENING Routine 03/11/2023 11:25 AM EDT documented in this encounter Results * FIT DNA/Cologuard Cancer Screening (03/11/2023 11:25 AM EDT) Stool [facility] HEALTH MAINTENANCE Final Result documented in this encounter Visit Diagnoses Not on filedocumented in this encounter Additional Health Concerns Assessment Noted Time PHQ-9 Depression Total Score: 15 08/06/ 023 11:33 AM EDT documented as of this encounter Care Teams Pie Filling Mixer Relationship Specialty Start Date End Date [facility] [address] [place] [address] PCP - General Family Medicine 05/06/22 documented as of this encounter
--- OUTSIDE RECORDS SUMMARY | 2025-01-30 13:59 | XMS_ITS | Encounter Summary ---
Author Organization [facility] Address [address] [facility] [address] [place] [address] Phone Care Team Providers Care Enrollment Representative Name Role Phone Danish Alfredo MD Unavailable Julio Johnson MD Unavailable [phone] Litzy Raines [facility] Primary Care Provide r Litzy Raines [facility] Primary Care Provide r Litzy Raines [facility] Primary Care Provide r Reason for Referral * MRI/CAT Scan - Closed Specialty Diagnoses / Procedures Referred By Chance t Referred To Contact Radiology Diagnoses ZAVALA (dyspnea on exertion) Procedures NC Myocardial Perfusion Exercise Multiple NC Myocardial Perfusion Stress Single Litzy Raines FNP [address] [facility], [address] [place] [address] Phone: tel: fax: Referral ID Status Reason Start Date Expiration Date Visits Re quested Visits Authorized [id number] Closed 09/13/2023 09/12/2024 4 4 Encounter Details Date Type Department Care Team (Late st Contact Info) Description 09/13/2023 Transcribe Orders Virtual Department [address] [place] [address] Litzy Raines FNP [address] [place] [address] ZAVALA (dyspnea on exertion) (Primary Dx) Social History Tobacco Use Types [...] documented as of this encounter Results * NC Myocardial Perfusion Exercise Multiple (10/11/2023 11:35 AM EDT) Anatomical Region Laterality Modality Heart, Vascular Nuclear Medicine 10/13/2023 12:0 1 AM EDT Impressions 10/13/2023 12:09 AM EDT Left ventricular ejection fraction: 84% Myocardial perfusion images demonstrate no evidence of ischemia or infarction. Narrative 10/13/2023 12:09 AM EDT EXAM: NC MYOCARDIAL PERFUSION EXERCISE, MULTI CLINICAL INDICATION: Outside Radiology Order. Dyspnea. TECHNIQUE: According to standard departmental protocol, the patient was injected with 10.1 mCi of TC-99M Sestamibi IV at rest and ungated SPECT myocardial images were obtained. Subsequently, a stress test was performed and 33.1 mCi of TC-99M Sestamibi was injected at peak stress. After 30 to 60 minutes, gated SPECT images were obtained and assessed for myocardial perfusion and left ventricular function. Stress EKG findings were interpreted by cardiology and are reported separately. Please refer to that report in [facility]. COMPARISON: None. FINDINGS: PERFUSION: Myocardial perfusion images show no evidence of scar or ischemia. VENTRICULAR SIZE AND FUNCTION: Left ventricular ejection fraction within normal limits. Left ventricular size within normal limits. No regional wall motion abnormality. LV EF: 84% TID Ratio: 0.86 IMAGE QUALITY: Good Procedure Note Laura Amezquita MD - 10/13/2023 EXAM: NC MYOCARDIAL PERFUSION EXERCISE, MULTI CLINICAL INDICATION: Outside Radiology Order. Dyspnea. TECHNIQUE: According to standard departmental protocol, the patient wasinjected with 10.1 mCi of TC-99M Sestamibi IV at rest and ungated SPECTmyocardial images were obtained. Subsequently, a stress test was performedand 33.1 mCi of TC-99M Sestamibi was injected at peak stress. After 30 to60 minutes, gated SPECT images were obtained and assessed for myocardialperfusion and left ventricular function. Stress EKG findings were interpreted by cardiology and are reportedseparately. Please refer to that report in [facility]. COMPARISON: None. FINDINGS: PERFUSION: Myocardial perfusion images show no evidence of scar orischemia. VENTRICULAR SIZE AND FUNCTION: Left ventricular ejection fraction withinnormal limits. Left ventricular size within normal limits. No regionalwall motion abnormality. LV EF: 84% TID Ratio: 0.86 IMAGE QUALITY: Good IMPRESSION: Left ventricular ejection fraction: 84% Myocardial perfusion images demonstrate no evidence of ischemia orinfarction. [facility] CV [place] CARDIAC Final Result documented in this encounter Visit Diagnoses Diagnosis ZAVALA (dyspnea on exertion)- Primary Other dyspnea and respiratory abnormality ZAVALA (dyspnea on exertion) Other dyspnea and respiratory abnormality documented in this encounter Additional Health Concerns Infection Onset Date Last Indicated Resolved Time CoV-Risk 07/18/2024 07/25/2024 08/05/2024 1:21 AM EDT Influenza A 07/18/2024 07/18/2024 07/25/2024 1:22 AM EDT Influenza A 07/25/2024 07/25/2024 08/01/2024 1:21 AM EDT documented as of this encounter Care Teams Enrollment Representative Relationship Specialty Start Date End Date Litzy Raines FNP [address] [address] PCP - General Family Medicine 01/29/22 02/14/24 Litzy Raines FNP [address] [address] PCP - General Nurse Practitioner 02/15/24 10/25/24 [facility] [address] [place] [address] PCP - General Nurse Practitioner 10/26/24 Danish Alfredo MD [address] [place] [address] Historical LMR Provider 02/28/17 Julio Johnson MD [address] [place] [address] Historical LMR Provider 02/28/17 documented as of this encounter Additional Source Comments The information contained in this document represents components of the legal health record. It is not the complete legal health record.[facility]
--- OUTSIDE RECORDS SUMMARY | 2025-01-30 13:59 | XMS_ITS | Clinical Summary ---
Author Organization [employer] Address [address] 7t [place] [address] Care Team Providers Care Distributing Clerk Name Role Phone Litzy Raines HUMAN RESOURCES HR REPRESENTATIVE Primary Care Provider [phone] Allergies Active Allergy Reactions Criticality Noted Date Comments Fluconazole Rash Low 04/12/2017 Gabapentin Swelling 07/22/2017 Iloperidone Rash Low 03/17/2017 Other reaction(s): Other (see comments) Latex 09/10/2021 Green Grass 05/06/2022 Other reaction(s): kidney damage Penicillins Rash [...] 19 Active docusate sodium (Colace) 100 MG capsuleIndication s:Constipation, unspecified constipation type TAKE 1 CAPSULE BY MOUTH EVERY DAY NEEDED 30 capsule 1 06/08/19 23 Active senna (Senokot) 8.6 MG tabletIndications :Chronic constipation TAKE 2 TABLETS AT BEDTIME NEEDED ORALLY ONCE A DAY 60 tablet 3 08/19/19 24 Active haloperidol (Haldol) 2 MG tablet Take 2 mg by mouth Once per day. 09/24/19 Active OLANZapine (ZyPREXA) 5 MG tablet Take 5 mg by mouth Once per day. Active Jardiance 10 MG Take 10 mg by mouth Once per day. 03/15/20 24 Active propranolol (Inderal) 40 MG tabletIndications :Essential (primary) hypertension TAKE 1 TABLET BY MOUTH EVERY DAY IN THE MORNING 90 tablet 3 07/03/19 Active budesonide-formot elmer (Symbicort) 80-4.5 MCG/ACT inhalerIndication s:Mild persistent asthma without complication Inhale 2 puffs in the morning and at bedtime. Rinse mouth with water after use to reduce aftertaste and incidence of candidiasis. Do not swallow. 10.2 g 3 07/27/19 25 2025 Active Albuterol Sulfate, sensor, (ProAir Digihaler) 108 (90 Base) MCG/ACT aerosol powderIndications :Mild persistent asthma without complication Inhale 2 puffs Every 4-6 hours as needed (wheezing). 1 each 3 08/05/19 25 Active fluticasone (Flonase) 50 MCG/ACT nasal sprayIndications: Chronic sinusitis, unspecified location SPRAY 2 SPRAYS INTO EACH NOSTRIL IN THE MORNING SHAKE GENTLY/PRIME BEFORE 1ST USE&CLEAN TIP/REPLACE CAP 48 mL 3 09/21/19 25 Active levothyroxine (Synthroid, Levoxyl) 75 MCG tablet TAKE 1 TABLET BY MOUTH BEFOTRE BREAKFAST 90 tablet 3 09/30/19 25 Active loratadine (Claritin) 10 MG tabletIndications :Allergic rhinitis, unspecified seasonality, unspecified trigger Take 1 tablet (10 mg) by mouth Once per day. 90 tablet 3 11/09/19 25 2025 Active sodium bicarbonate 325 MG tablet Take by mouth. Active topiramate (Topamax) 25 MG tablet Take 50 mg by mouth in the morning. 12/19/19 23 2024 Discontinued lidocaine (Lidoderm) 5 % patchIndications: Degeneration of intervertebral disc of lumbar region with discogenic back pain Apply 1 patch topically Once per day. Apply to painful area 12 hours per day, remove for 12 hours. 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 08/06/2022 Mixed anxiety depressive disorder [...] Encounters Date Type Department Care Team Description 01/29/2025 11:00 AM EDT Office Visit [facility] Dental [address] [place] [address] Marion Canales LLD 01/24/2025 10:00 AM EDT Office Visit [facility] [address] [place] [address] Marion Canales LLD 01/16/2025 Telephone [facility] [address] [place] [address] [place], [place] Prior Authorization (lidocaine) 01/12/2025 9:40 AM EDT Office Visit [address] [address] [place], [place] Basal cell carcinoma (BCC) of skin of other part of face (Primary Dx); Degeneration of intervertebral disc of lumbar region with discogenic back pain; Callus of heel; Stage 3b chronic kidney disease (CMS/HCC); Metabolic acidosis; Schizoaffective disorder, unspecified type (CMS/HCC) 01/01/2025 Results Follow-Up [address] [address] [place], [place] MR Lumbar Spine w/o Contrast 12/12/2024 11:00 AM EDT Office Visit [facility] Dental [address] [place] [address] Urvashi Gamble LLD Encounter for dental examination (Primary Dx); Stage 2 grade B generalized periodontitis per AAP/EFP 2017 classification 12/06/2024 10:00 AM EDT Office Visit [facility] [address] [place] [address] Marion Canales LLD 11/20/2024 10:00 AM EDT Office Visit [facility] [address] [place] [address] Marion Canales LLD 11/15/2024 Telephone [facility] [address] [place] [address] [place], [place], [facility] Advice Only; Medication Question 11/08/2024 11:40 AM EDT Office Visit [facility] MEDICAL [address] [place] [address] [place], [place], [facility] Chronic bilateral low back pain with bilateral sciatica (Primary Dx); Basal cell carcinoma (BCC) of skin of other part of face; Allergic rhinitis, unspecified seasonality, unspecified trigger from Last 3 Months Immunizations Immunization Administration [...] 1 982 - 2019 Smokeless Tobacco: Never Tobacco Cessation:Counseling Given: Not Answered Alcohol Use Standard Drinks/Week Comments Not Currently [...] Pulse 74 01/29/2025 11:13 AM EDT Temperature 36.4 C (97.5 F) 01/12/2025 9:43 AM EDT Respiratory Rate 16 08/11/2023 12:09 PM EDT Oxygen Saturation 95% 01/12/2025 9:43 AM EDT Inhaled Oxygen Concentration - - Weight 83.9 kg (185 lb) 01/12/2025 9:43 AM EDT Height 170.2 cm (5' 7 ) 01/12/2025 9:43 AM EDT Body Mass Index 28.98 01/12/2025 9:43 AM EDT Plan of Treatment Upcoming Encounters Date Type Department Care Team (Late st Contact Info) Description 03/01/2025 12:20 PM EDT Office Visit [facility] MEDICAL [address] [place] [address] [place], [place], [facility] [address] [place] [address] 06/20/2025 11:00 AM EST Office Visit [facility] Dental [address] [place] [address] Urvashi Gamble LLD [address] [place] [address] Health Maintenance Due Date Last Done Comments CT Colonography 1965 Colonoscopy 1965 FIT 1965 Sigmoidoscopy 1965 Derm Melanoma Skin Check 1965 Hepatitis C Screening 1983 Hepatitis B Vaccines (1 of 3 - 19+ 3-dose series) 1984 Pneumococcal Vaccine: 50+ Years (1 of 2 - PCV) 1984 FOBT 03/11/2024 03/11/2023, 03/11/2023 Depression Monitoring 05/11/2025 11/08/2024, 025 Lung Cancer Screening 06/06/2025 06/06/2024, 025 Dental Oral Exam 06/15/2025 12/12/2024, 08/2024, 10/12/2023, Additional history exists Dental Prophylaxis 06/15/2025 12/12/2024, 0 06/13/2024, 10/12/2023, Additional history exists Dental X-Ray: Full Mouth 07/15/2025 07/14/2022, 11/08 Dental X-Ray: Bitewings 12/13/2025 12/13/19 25, 10/12/2023, 07/14/2022, Additional history exists Alcohol/Substance Use Screening 01/12/2026 01/12/2025 Disability Screening 01/12/2026 01/12/2025 SDOH Screening 01/12/2026 01/12/2025 Tobacco Screening 01/24/2026 01/24/2025 Colorectal Cancer Screening 03/11/2026 FIT DNA/Cologuard 03/11/2026 03/11/2023, 03/11/2023 Mammogram 06/20/2026 06/20/2024, 06/10, 06/01/2024, Additional history exists DTaP/Tdap/Td Vaccines (4 - Td or Tdap) 12/08/2027 12/07/2017, 11/26/2010, 11/26/2010 Lipid Panel 02/14/2029 02/15/2024, 01/09, 01/29/2022, Additional history exists Cervical Cancer Screening 09/21/2029 HPV/Cotest 09/21/2029 12/20/2017 Pap Smear 09/21/2029 09/21/2024, 11/08, 11/30/2019, Additional history exists RSV Patients and Patients Aged 60 years or older (1 - 1-dose 75+ series) 2040 HIV Screening Completed 07/21/2018 Zoster Vaccines Completed 04/25/2023, 12/18/2022 COVID-19 Vaccine Completed 01/20/2025, 07/2023, 03/01/2023, Additional history exists Influenza Vaccine Completed 01/20/2025, , 02/08/2023, Additional history exists HIB Vaccines Aged Out [...] Associated Diagnosis Comments DENTURE ADJUSTMENT Routine 01/29/2025 11 :00 AM EDT 2,3,4,5,12,14,15 MAXILLARY PARTIAL DENTURE - RESIN BASE (INCLUDING, RETENTIVE/CLASPING MATERIALS, RESTS, AND TEETH) Routine 01/24/2025 10:00 AM EDT MR LUMBAR SPINE WO CONTRAST Routine 12/28/2024 Chronic bilateral low back pain with bilateral sciatica ORAL HYGIENE INSTRUCTIONS Routine 12/12/2024 11:00 AM EDT BITEWINGS - 4 RADIOGRAPHIC IMAGES Routine 12/12/2024 11:00 AM EDT Full PROPHYLAXIS - ADULT Routine 12/12/2024 11:00 AM EDT PERIODIC ORAL EVALUATION - ESTABLISHED PATIENT Routine 12/12/2024 11:00 AM EDT WAX TRY IN Routine 12/06/2024 10:00 AM EDT DENTURE IMPRESSION Routine 11/20/2024 10 :00 AM EDT PAP SMEAR Routine 09/21/2024 12:00 AM EDT LDCT LUNG SCREENING Routine 06/06/2024 Former smoker BI US BREAST COMPLETE LEFT Routine 06/01/2024 Mass of left breast, unspecified quadrant Abnormal mammogram of left breast LIPID PANEL, STANDARD Routine 02/15/2024 Screening for lipid disorders HM FIT DNA/COLOGUARD CANCER SCREENING Routine 03/11/2023 11:25 AM EDT INTRAORAL - COMPLETE SERIES OF RADIOGRAPHIC IMAGES Routine 07/14/2022 2:00 PM EST Encounter for dental examination HM HIV 1/2 ANTIGEN AND ANTIBODY Routine 07/21/2018 THIN PREP PAP, WITH HPV Routine 12/20/2017 12:00 AM EDT from Last 3 Months or Most Recently Relevant to Health Maintenance Results * MR Lumbar Spine w/o Contrast (12/28/2024) Anatomical Region Laterality Modality Spine, L-spine Magnetic Resonan ce Result [facility] MRI PROCEDURES Final Result * Pap Smear (09/21/2024 12:00 AM EDT) Swab Result [facility] Provider MD LAB CYTOLOGY ORDERABLES F inal Result Performing Organization Address City/[facility] Co de Phone Number EXTERNAL LAB * CT Lung Screening Low dose (06/06/2024) Anatomical Region Laterality Modality Lung Computed Tomogra phy Result [facility] CT PROCEDURES Final R esult * BI US Breast Complete Left (06/01/2024) Anatomical Region Laterality Modality Breast Left Ultrasound Result [facility] US PROCEDURES Final R esult * Lipid Panel, Standard (02/15/2024) Blood Venous blood specimen / Unknown Result [facility] LAB BLOOD ORDERABLES Kim l Result Performing Organization Address City/[facility]/ZIP Co de Phone Number EXTERNAL LAB * FIT DNA/Cologuard Cancer Screening (03/11/2023 11:25 AM EDT) Stool Result [facility] HEALTH MAINTENANCE Final Result * HM HIV 1/2 Antigen and Antibody (07/21/2018) HIV Ag/Ab Nonreactive Result [facility] HEALTH MAINTENANCE Final Result * THIN PREP PAP, WITH HPV (12/20/2017 12:00 AM EDT) us Historical Provider MD LAB CYTOLOGY ORDERABLES F inal Result [facility] [address] [place] [address] from Last 3 Months or Most Recently Relevant to Health Maintenance Insurance [facility] ONE CARE < 65 [facility] DENTAL - HSN FULL (MEDICAID) Care Teams Distributing Clerk Relationship Specialty Start Date End Date [place], [place] [facility] [address] [place] [address] PCP - General Family Medicine 05/06/22
--- OUTSIDE RECORDS SUMMARY | 2025-01-30 13:59 | XMS_ITS | Encounter Summary ---
Author Organization [facility] Address [address] [place] [address] Phone Care Team Providers Care Wastewater Superintendent Name Role Phone Danish Alfredo MD Unavailable Julio Johnson MD Unavailable [phone] [facility] Primary Care Provide r [facility] Primary Care Provide r [facility] Primary Care Provide r Encounter Details Date Type Department Care Team (Late st Contact Info) Description 03/01/2023 Procedure Pass [facility] Endoscopy Admitting Dept Virtual Department [address] [place] [address] Social History Tobacco Use Types Packs/Day Years [...] documented as of this encounter Care Teams Wastewater Superintendent Relationship Specialty Start Date End Date [place], [place] RAM[place] Case [address] [place] [address] PCP - General Family Medicine 01/29/22 02/14/24 [facility] [address] [place] [address] PCP - General Nurse Practitioner 02/15/24 10/25/24 [facility] RAMY De Souza [address] [place] [address] PCP - General Nurse Practitioner 10/26/24 Danish Alfredo MD [address] [place] [address] Historical LMR Provider 02/28/17 Julio Johnson MD [address] [place] [address] Historical LMR Provider 02/28/17 documented as of this encounter Additional Source Comments The information contained in this document represents components of the legal health record. It is not the complete legal health record.[facility]
--- OUTSIDE RECORDS SUMMARY | 2025-01-30 13:59 | XMS_ITS | Encounter Summary ---
Author Organization [facility] Address [address] [facility] [address] [place] [address] Phone Care Team Providers Care Cryogenics Repairer Name Role Phone Danish Alfredo MD Unavailable Julio Johnson MD Unavailable [phone] [facility] Primary Care Provide r [facility] Primary Care Provide r [facility] Primary Care Provide r Encounter Details Date Type Department Care Team (Late st Contact Info) Description 08/13/2022 Procedure Pass [facility] Scan - [address] [address] Social History Tobacco Use Types Packs/Day Years [...] documented as of this encounter Care Teams Cryogenics Repairer Relationship Specialty Start Date End Date [facility] [place] Case [address] [address] PCP - General Family Medicine 01/29/22 02/14/24 [facility] F[facility] [address] [place] [address] PCP - General Nurse Practitioner 02/15/24 10/25/24 [facility] [address] [place] [address] PCP - General Nurse Practitioner 10/26/24 Danish Alfredo MD [address] [place] [address] Historical LMR Provider 02/28/17 Julio Johnson MD [address] [place] [address] Historical LMR Provider 02/28/17 documented as of this encounter Additional Source Comments The information contained in this document represents components of the legal health record. It is not the complete legal health record.[facility]
--- OUTSIDE RECORDS SUMMARY | 2025-01-30 13:59 | XMS_ITS | Encounter Summary ---
Author Organization [employer] Address [address] [facility] 7t [place] [address] Care Team Providers Care Crew Lead Name Role Phone [facility] Primary Care Provider [phone] Encounter Details Date Type Department Care Team [...] Description 03/01/2025 12:20 PM EDT Office Visit [place] [facility] MED[facility] [address] [place] [address] [place], [place] [facility] [address] [place] [address] 06/20/2025 11:00 AM EST Office Visit [place] [facility] Dental [address] [place] [address] Urvashi Gamble LLD [address] [place] [address] documented as of this encounter Visit Diagnoses Not on filedocumented in this encounter Care Teams Crew Lead Relationship Specialty Start Date End Date [place], [place] [facility] [address] [place] [address] PCP - General Family Medicine 05/06/22 documented as of this encounter
--- OUTSIDE RECORDS SUMMARY | 2025-01-30 13:59 | XMS_ITS | Encounter Summary ---
Author Organization [facility] Address [address] [facility] [address] [place] [address] Phone Care Team Providers Care Rock Contractor Name Role Phone Chon Tipton DO Unavailable [phone] Sandy Rmoo PUBLIC HEALTH REGISTRAR Unavailable Cierra Ramirez DO Unavailable Guy LagunasBS, PhD Unavailable [phone] Cindy [place] PUBLIC HEALTH REGISTRAR Unavailable Giovanna Padgett CNM Unavailable Danish Alfredo MD Unavailable Jennifer Stein MD Unavailable Mabel Bowman MD Unavailable Jesusita Walters CNM Unavailable Fahad June MD Unavailable Iglesia Pizarro MD Unavailable Pipe Simmons MD Unavailable Elisabeth Hills PUBLIC HEALTH REGISTRAR Unavailable [phone] Dayna Perez MD Unavailable [phone] Julio Johnson MD Unavailable Tigre Shrestha MD Unavailable [phone] Yolanda Harrison MD Unavailable [phone] Angel Byrd MD Unavailable [phone] StoweGisela Keisha PUBLIC HEALTH REGISTRAR Unavailable Janina Moncada MD Primary Care Provider Kash Live PUBLIC HEALTH REGISTRAR Primary Care Provide r Cornelius Zelaya MD Primary Care Provider [phone] Jeimy Sawant PUBLIC HEALTH REGISTRAR Primary Care Provider + Betsey Long MD Primary Care Provider [facility] Primary Care Provide r [facility] Primary Care Provide r [facility] Primary Care Provide r Encounter Details Date Type Department Care Team (Latest Contact Info) Description 03/06/2019 Transcribe Orders Virtual Department [address] [place] [address] Janina Moncada MD [address] [place] [address] [email or web address] Dysphagia, unspecified type (Primary Dx) Social History [...] documented as of this encounter Care Teams Rock Contractor Relationship Specialty Start Date End Date Janina Moncada MD [address] [address] PCP - General Family Medicine 11/14/18 04/19/19 Kash Live, MARGARITA [address] [place] [address] PCP - General 04/20/19 10/03/19 Cornelius Zelaya MD [address] [place] [address] PCP - General Internal Medicine 10/04/19 10/09/19 Jeimy Sawant NP [address] [place] [address] PCP - General Unknown Provider Specialty 10/10/19 10/31/19 Betsey Long MD [address] [place] [address] PCP - General Family Medicine 11/01/19 01/28/22 Litzy Raines FNP [address] [place] [address] PCP - General Family Medicine 01/29/22 02/14/24 Litzy Raines FNP [address] [place] [address] PCP - General Nurse Practitioner 02/15/24 10/25/24 Litzy Raiens FNP [address] [place] [address] PCP - General Nurse Practitioner 10/26/24 Chon Tipton DO [address] [place] [address] [place] [address] Historical LMR Provider 02/28/17 05/17/21 Sandy Romo NP [address] [place] [address] Historical LMR Provider 02/28/17 05/17/21 Cierra Ramirez DO [address] [place] [address], [facility] [address] [place] [address] [email or web address] Historical LMR Provider 02/28/17 05/17/21 Guy Lagunas MBBS, PhD [address] [place] [address] [facility] Department of NeurologyWA [address] [place] [address] [email or web address] Historical LMR Provider 02/28/17 05/17/21 Cindy [place], MARGARITA [address] [place] [address] Historical LMR Provider 02/28/17 05/17/21 Giovanna Padgett CNM [address] [place] [address] Historical LMR Provider 02/28/17 05/17/21 Danish Alfredo MD [address] [place] [address] [email or web address] Historical LMR Provider 02/28/17 Jennifer Stein MD [address] [place] [address] [email or web address] Historical LMR Provider 02/28/17 05/17/21 Mabel Bowman MD [address] [place] [address], [address] [place] [address] [email or web address] Historical LMR Provider 02/28/17 05/17/21 Jesusita Walters CN [address] [place] [address] [email or web address] Historical LMR Provider 02/28/17 05/17/21 Fahad June MD [address] [place], [place] [address] [place] [address] [email or web address] Historical LMR Provider 02/28/17 05/17/21 Iglesia Pizarro MD [address] [place] [address] Historical LMR Provider 02/28/17 05/17/21 Pipe Simmons MD [address] [place] [address] [address] [place] [address] Historical LMR Provider 02/28/17 05/17/21 Elisabeth Hills NP [address] [place] [address] Historical LMR Provider 02/28/17 05/17/21 Dayna Perez MD [address] [place] [address] Historical LMR Provider 02/28/17 05/17/21 Julio Johnson MD [address] [place] [address] [email or web address] Historical LMR Provider 02/28/17 Tigre Shrestha MD [address] [place] [phone] Historical LMR Provider 02/28/17 05/17/21 Yolanda Harrison MD [address] [place] [address] Historical LMR Provider 02/28/17 05/17/21 Angel Byrd MD [address] [place] [address] Historical LMR Provider 02/28/17 05/17/21 Gisela Dorsey NP [address] [place] [address] Historical LMR Provider 02/28/17 05/17/21 documented as of this encounter Additional Source Comments The information contained in this document represents components of the legal health record. It is not the complete legal health record.[facility]
--- OUTSIDE RECORDS SUMMARY | 2025-01-30 13:59 | XMS_ITS | Encounter Summary ---
Author Organization [employer] Address [address] [facility] 7t [place] [address] Care Team Providers Care Legal Writing Professor Name Role Phone [facility] Primary Care Provider [phone] Encounter Details Date Type Department Care Team (Late st Contact Info) Description 10/21/2023 Orders Only [place] [facility] MED[facility] [address] [place] [address] [facility] [address] [place] [address] Callus Social History Tobacco Use Types Packs/Day [...] Description 03/01/2025 12:20 PM EDT Office Visit [place] [facility] [address] [place] [address] [facility] [address] [place] [address] 06/20/2025 11:00 AM EST Office Visit [place] [facility] Dental [address] [place] [address] Urvashi Gamble LLD [address] [place] [address] documented as of this encounter Procedures Procedure Name Priority Date/Time Associated Diagnosis Comments AMB REFERRAL TO PODIATRY Routine 04/19/2023 Callus documented in this encounter Results * Referral to Podiatry (04/19/2023) [facility] OUTPATIENT REFERRAL ORDER TIFFANY Final Result documented in this encounter Visit Diagnoses Diagnosis Callus Corns and callosities documented in this encounter Additional Health Concerns Assessment Noted Time PHQ-9 Depression Total Score: 15 08/06/ 023 11:33 AM EDT documented as of this encounter Care Teams Legal Writing Professor Relationship Specialty Start Date End Date [facility] [address] [facility] [place] [address] PCP - General Family Medicine 05/06/22 documented as of this encounter
--- OUTSIDE RECORDS SUMMARY | 2025-01-30 14:01 | XMS_ITS | Clinical Summary ---
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 REPLACEMENT MEDICARE PART A & B [facility] CARE MEDICARE REPLACEMENT MEDICARE PART A & B [facility] ONE CARE MEDICARE REPLACEMENT MEDICARE PART A & B [facility] ONE CARE MEDICARE REPLACEMENT MEDICARE PART A & B [facility] CARE MEDICARE REPLACEMENT MEDICARE PART A & B [facility] ONE CARE MEDICARE REPLACEMENT MEDICARE PART A & B [facility] CARE MEDICARE REPLACEMENT [place] [id number] Advance Directives For more information, please contact: [phone] (9AM - 5PM [place], Wednesday-Wednesday) * Full Code (Presumed) (Latest Code Status on File) Date Activated Date Inactivated Comments 07/11/2018 12:57 PM 10/12/2018 1:55 PM * Full Code (Presumed) Date Activated Date Inactivated Comments 05/27/2018 6:02 PM 06/14/2018 4:[address] Teams [address] Maintenance Supervisor Relationship Specialty Start Date End Date Litzy Raines FNP [address] [place] [address] PCP - General Nurse Practitioner 10/26/24 Danish Alfredo MD [address] [place] [address] Historical LMR Provider 02/28/17 Julio Johnson MD [address] [place] [address] Historical LMR Provider 02/28/17 Additional Source Comments The information contained in this document represents components of the legal health record. It is not the complete legal health record.[facility]
--- OUTSIDE RECORDS SUMMARY | 2025-01-30 14:01 | XMS_ITS | Encounter Summary ---
Author Organization [facility] Address [address] [facility] [address] [place] [address] Phone Care Team Providers Care Candle Extrusion Machine Operator Name Role Phone Chon Tipton DO Unavailable Sandy Romo TRAY ROOM WORKER Unavailable Cierra Ramirez DO Unavailable Guy LagunasBS, PhD Unavailable [phone] Cindy Mesa TRAY ROOM WORKER Unavailable Giovanna Padgett CNM Unavailable Danish Alfredo MD Unavailable Jennifer Stein MD Unavailable Mabel Bowman MD Unavailable Jesusita Walters CNM Unavailable Fahad June MD Unavailable Iglesia Pizarro MD Unavailable Pipe Simmons MD Unavailable Elisabeth Hills TRAY ROOM WORKER Unavailable [phone] Dayna Perez MD Unavailable [phone] Julio Johnson MD Unavailable Tigre Shrestha MD Unavailable [phone] Yolanda Harrison MD Unavailable [phone] Angel Byrd MD Unavailable [phone] WinterthurGisela Keisha TRAY ROOM WORKER Unavailable [phone] Cornelius Zelaya MD Primary Care Provider [phone] Jeimy Sawant NP Primary Care Provider + Betsey Long MD Primary Care Provider [facility] Primary Care Provide r [facility] Primary Care Provide r [facility] Primary Care Provide r Reason for Referral * MRI/CAT Scan - Closed Specialty Diagnoses / Procedures Referred By Contlisa t Referred To Contact Radiology Diagnoses Mild cognitive impairment Procedures CT Head Marcelino Weeks MD, PhD Phone: tel: fax: [email or web address] Referral ID Status Reason Start Date Expiration Date Visits Re quested Visits Authorized [id number] Closed 10/04/2019 10/03/2020 1 1 Encounter Details Date Type Department Care Team (Latest Contact Info) Description 10/04/2019 Transcribe Orders Virtual Department [address] [place] [address] Marcelino Weeks MD, PhD [address] [place] [phone] [email or web address] Mild cognitive impairment (Primary Dx) Social History Tobacco Use Types [...] as of this encounter Results * CT HEAD WITHOUT CONTRAST (11/13/2019 1:18 PM EDT) Anatomical Region Laterality Modality Head Computed Tomogra phy 11/13/2019 1:23 PM EDT Impressions 11/13/2019 1:32 PM EDT 1.New mild right frontal lobe white matter disease which may be due to chronic microangiopathy. 2.Stable generalized atrophy. Narrative 11/13/2019 1:32 PM EDT COMPARISON: CT 01/29/2009. MRI 06/24/2015. TECHNIQUE: Nonenhanced head CT from skull base to vertex with multi-planar reformats. Manual dose reduction technique tailored for patient and site of imaging. CT HEAD FINDINGS: Brain: There is no acute intracranial hemorrhage, infarct, or intracranial mass. No mass effect, midline shift or extra-axial fluid collections. Leo-white matter differentiation is preserved. New small right frontal lobe subcortical white matter hypodensity. Otherwise stable minimal periventricular white matter. Stable generalized cortical atrophy. Basal cisterns are patent. Pituitary gland is not enlarged. Ventricles: No hydrocephalus. Stable minimal ventricular enlargement due to volume loss/atrophy. Vasculature: Stable mild bilateral cavernous carotid artery calcified plaque. Orbits: Normal. Mastoids/Middle Ear/Ext Canals/Paranasal Sinuses: Chronic mild ethmoid sinus mucosal thickening. New small right maxillary sinus retention cyst. Scalp/Soft Tissues: Within normal limits. Bones: Within normal limits. Procedure Note Reece Luevano MD - 11/13/2019 COMPARISON: CT 01/29/2009. MRI 06/24/2015. TECHNIQUE: Nonenhanced head CT from skull base to vertex with multi- planarreformats. Manual dose reduction technique tailored for patient and siteof imaging. CT HEAD FINDINGS: Brain: There is no acute intracranial hemorrhage, infarct, orintracranial mass. No mass effect, midline shift or extra-axial fluidcollections. Leo-white matter differentiation is preserved. New smallright frontal lobe subcortical white matter hypodensity. Otherwise stableminimal periventricular white matter. Stable generalized cortical atrophy.Basal cisterns are patent. Pituitary gland is not enlarged. Ventricles: No hydrocephalus. Stable minimal ventricular enlargement dueto volume loss/atrophy. Vasculature: Stable mild bilateral cavernous carotid artery calcifiedplaque. Orbits: Normal. Mastoids/Middle Ear/Ext Canals/Paranasal Sinuses: Chronic mild ethmoidsinus mucosal thickening. New small right maxillary sinus retentioncyst. Scalp/Soft Tissues: Within normal limits. Bones: Within normal limits. IMPRESSION: 1.New mild right frontal lobe white matter disease which may be due tochronic microangiopathy. 2.Stable generalized atrophy. Marcelino Weeks MD, PhD IMG CT HEAD/NECK Final Result documented in this encounter Visit Diagnoses Diagnosis Mild cognitive impairment- Primary Mild cognitive impairment, so stated Mild cognitive impairment Mild cognitive impairment, so stated documented in this encounter Additional Health Concerns Infection Onset Date Last Indicated Resolved Time CoV-Risk 07/18/2024 07/25/2024 08/05/2024 1:21 AM EDT Influenza A 07/18/2024 07/18/2024 07/25/2024 1:22 AM EDT Influenza A 07/25/2024 07/25/2024 08/01/2024 1:21 AM EDT documented as of this encounter Care Teams Candle Extrusion Machine Operator Relationship Specialty Start Date End Date Cornelius Zelaya MD [address] [place] [address] [email or web address] PCP - General Internal Medicine 10/04/19 10/09/19 Jeimy Sawant NP [address] [place] [address] PCP - General Unknown Provider Specialty 10/10/19 10/31/19 Betsey Long MD [address] [place] [address] [email or web address] PCP - General Family Medicine 11/01/19 01/28/22 Litzy Raines FNP [address] [place] [address] PCP - General Family Medicine 01/29/22 02/14/24 Litzy Raines FNP [address] [place] [address] PCP - General Nurse Practitioner 02/15/24 10/25/24 Litzy Raines FNP [address] [place] [address] PCP - General Nurse Practitioner 10/26/24 Chon Tipton DO [address] [place] [address] [place] [address] Historical LMR Provider 02/28/17 05/17/21 Sandy Romo, TRAY ROOM WORKER [address] [place] [address] Historical LMR Provider 02/28/17 05/17/21 Cierra Ramirez DO [address] [place] [address], [address] [place] [address] [email or web address] Historical LMR Provider 02/28/17 05/17/21 Guy Lagunas MBBS, PhD [address] [place] [address] [facility] Neuro[facility]iology [facility] Department of [facility] [address] [place] [address] [email or web address] Historical LMR Provider 02/28/17 05/17/21 Cindy Mesa NP [address] [place] [address] Historical LMR Provider 02/28/17 05/17/21 Giovanna Padgett CNM [address] [place] [address] Historical LMR Provider 02/28/17 05/17/21 Danish Alfredo MD [address] [place] [address] Historical LMR Provider 02/28/17 eJnnifer Stein MD [address] [place] [address] Historical LMR Provider 02/28/17 05/17/21 Mabel Bowman MD [address] [place] [address], [address] [place] [address] Historical LMR Provider 02/28/17 05/17/21 Jesusita Walters CNM [address] [place] [address], [address] [address] Historical LMR Provider 02/28/17 05/17/21 Fahad June MD [address] [place], [place] [address] [address] [email or web address] Historical LMR Provider 02/28/17 05/17/21 Iglesia Pizarro MD [address] [place] [address] Historical LMR Provider 02/28/17 05/17/21 Pipe Simmons MD [address] [place] [address] 7 [place] [address] [email or web address] Historical LMR Provider 02/28/17 05/17/21 Elisabeth Hilsl NP [address] [place] [address] Historical LMR Provider 02/28/17 05/17/21 Dayna Perez MD [address] [place] [address] Historical LMR Provider 02/28/17 05/17/21 Julio Johnson MD [address] [place] [address] [email or web address] Historical LMR Provider 02/28/17 Tigre Shrestha MD [address] [place] [address] Historical LMR Provider 02/28/17 05/17/21 Yolanda Harrison MD [address] [place] [address] Historical LMR Provider 02/28/17 05/17/21 Angel Byrd MD [address] [place] [address] Historical LMR Provider 02/28/17 05/17/21 Gisela Dorsey NP [address] [place], [place] [address] Historical LMR Provider 02/28/17 05/17/21 documented as of this encounter Additional Source Comments The information contained in this document represents components of the legal health record. It is not the complete legal health record.[facility]
--- OUTSIDE RECORDS SUMMARY | 2025-01-30 14:01 | XMS_ITS | Encounter Summary ---
Author Organization [facility] Address [address] [facility] [address] [place] [address] Phone Care Team Providers Care Rn Critical Care Name Role Phone Danish Alfredo MD Unavailable Julio Johnson MD Unavailable [phone] [facility] Primary Care Provide r [facility] Primary Care Provide r [facility] Primary Care Provide r Encounter Details Date Type Department Care Team (Late st Contact Info) Description 05/26/2023 Procedure Pass [facility] - [address] [place] [address] Social History Tobacco Use Types Packs/Day Years [...] documented as of this encounter Care Teams Rn Critical Care Relationship Specialty Start Date End Date [place], [place] RAMY Case [address] [place] [address] PCP - General Family Medicine 01/29/22 02/14/[facility] [address] [place] [address] PCP - General Nurse Practitioner 02/15/24 10/25/24 [facility] [address] [place] [address] PCP - General Nurse Practitioner 10/26/24 Danish Alfredo MD [address] [place] [address] Historical LMR Provider 02/28/17 Julio Johnson MD [address] [place] [address] Historical LMR Provider 02/28/17 documented as of this encounter Additional Source Comments The information contained in this document represents components of the legal health record. It is not the complete legal health record.[facility]
--- OUTSIDE RECORDS SUMMARY | 2025-01-30 14:01 | XMS_ITS | Encounter Summary ---
Author Organization [facility] Address [address] [facility] [address] [place] [address] Phone Care Team Providers Care Cashier Credit Name Role Phone Danish Alfredo MD Unavailable Julio Johnson MD Unavailable [phone] [place] [address] Primary Care Provide r Encounter Details Date Type Department Care Team (Late st Contact Info) Description 11/23/2024 Procedure Pass [facility] [address] [place] [address] Social History Tobacco Use Types Packs/Day Years [...] on filedocumented in this encounter Care Teams Cashier Credit Relationship Specialty Start Date End Date Litzy Raines RAMY Case [address] [place] [address] PCP - General Nurse Practitioner 10/26/24 Danish Alfredo MD [address] [place] [address] Historical LMR Provider 02/28/17 Julio Johnson MD [address] [place] [address] Historical LMR Provider 02/28/17 documented as of this encounter Additional Source Comments The information contained in this document represents components of the legal health record. It is not the complete legal health record.[facility]
--- OUTSIDE RECORDS SUMMARY | 2025-01-30 14:01 | XMS_ITS | Encounter Summary ---
Author Organization [facility] Address [address] [facility] [address] [place] [address] Phone Care Team Providers Care Driller Multiple Spindle Name Role Phone Danish Alfredo MD Unavailable Julio Johnson MD Unavailable [phone] Litzy Raines [facility] Primary Care Provide r Litzy Raines [facility] Primary Care Provide r Litzy Raines [facility] Primary Care Provide r Reason for Referral * MRI/CAT Scan - Closed Specialty Diagnoses / Procedures Referred By Chance quispe Referred To Contact Radiology Diagnoses ZAVALA (dyspnea on exertion) Procedures NC Stress Result for Nuclear Stress Test Litzy Raines FNP [address] [facility], [address] [place] [address] Phone: tel: fax: Referral ID Status Reason Start Date Expiration Date Visits Re quested Visits Authorized [id number] Closed 10/11/2023 10/10/2024 1 1 Encounter Details Date Type Department Care Team (Late st Contact Info) Description 10/11/2023 Ancillary Orders Virtual Department [address] [place] [address] Litzy Raines FNP [address] [place] [address] ZAVALA (dyspnea on exertion) (Primary Dx) Social [...] as of this encounter Results * NC Stress Result for Nuclear Stress Test (10/11/2023 12:25 PM EDT) Max Predicted Heart Rate 162 bpm [facility] Max BP Systolic 162 mmHg [facility] Max BP Diastolic 96 mmHg [facility] Max HR 153 BPM [facility] Resting HR 105 BPM [facility] Peak METS 7.0 METS [facility] Peak HR 150 BPM [facility] Anatomical Region Laterality Modality Heart Other 10/11/2023 10:5 4 AM EDT 10/11/2023 11:10 AM EDT Narrative 10/11/2023 1:54 PM EDT Stress Findings The resting heart rate was 105 BPM. A peak heart rate of 150 BPM was achieved. ECG REPORT- Pt exercised for 4:53 min on a ALEXANDER protocol achieving 7.0 METS. Test terminated due to shortness of breath. Baseline resting HR was 84 bpm. Max heart rate achieved was 153 bpm (94% MPHR). 1. EKG - Baseline EKG showed sinus rhythm with PAC's. During exercise there were no ischemic EKG changes. 2. SYMPTOMS - No chest pain, she did reported significant shortness of breath during exercise,this resolved spontaneously within 2 minutes of recovery. 3. EXERCISE PHYSIOLOGY -Average functional capacity for age. BP 132/82 at rest, BP 162/96 during exercise, BP 122/80 in discharge from stress lab. 4. ARRHYTHMIAS - occasional isolated PAC's Conclusion - There were no EKG changes suggestive for ischemia. There were no symptoms concerning for angina. Nuclear images pending and will be reported separately. Alix Juarez NP with Dr. Dudley Response to Stress The patient exercised for minutes and seconds, achieving 7.0 METS at peak exercise. Baseline blood pressure was/mmHg, and baseline heart rate was 105 bpm. The patient achieved a peak heart rate of 150 bpm, which is% of their maximum predicted heart rate. Litzy MCCANN CV [place] CARDIAC Final Result documented in [...] documented as of this encounter Care Teams Driller Multiple Spindle Relationship Specialty Start Date End Date [place], [place] RAMY Case [address] [address] PCP - General Family Medicine 01/29/22 02/14/24 Litzy Raines FNP [address] [address] PCP - General Nurse Practitioner 02/15/24 10/25/24 Litzy Raines FNP [address] [place] [address] PCP - General Nurse Practitioner 10/26/24 Danish Alfredo MD [address] [place] [address] [email or web address] Historical LMR Provider 02/28/17 Julio Johnson MD [address] [place] [address] [email or web address] Historical LMR Provider 02/28/17 documented as of this encounter Additional Source Comments The information contained in this document represents components of the legal health record. It is not the complete legal health record.[facility]
--- OUTSIDE RECORDS SUMMARY | 2025-01-30 14:01 | XMS_ITS | Encounter Summary ---
Author Organization [facility] Address [address] [place] [address] Phone Care Team Providers Care Mate Relief Name Role Phone Chon Tipton DO Unavailable Sandy Romo FIRST COOK Unavailable Cierra Ramirez DO Unavailable Guy LagunasBS, PhD Unavailable Cindy Mesa FIRST COOK Unavailable Giovanna Padgett CNM Unavailable Danish Alfredo MD Unavailable Jennifer Stein MD Unavailable Mabel Bowman MD Unavailable Jesusita Walters CNM Unavailable Fahad June MD Unavailable Iglesia Pizarro MD Unavailable Pipe Simmons MD Unavailable Elisabeth Hills FIRST COOK Unavailable [phone] Dayna Perez MD Unavailable [phone] Julio Johnson MD Unavailable Tigre Shrestha MD Unavailable [phone] Yolanda Harrison MD Unavailable [phone] Angel Byrd MD Unavailable [phone] Gisela Dorsey FIRST COOK Unavailable [phone] Kash Live FIRST COOK Primary Care Provide r Cornelius Zelaya MD Primary Care Provider [phone] Jeimy Sawant FIRST COOK Primary Care Provider + Betsey Long MD Primary Care Provider Litzy Raines [facility] Primary Care Provide r [place], [place] Evie [facility] Primary Care Provide r [place], [place] Evie [facility] Primary Care Provide r Encounter Details Date Type Department Care Team (Late st Contact Info) Description 07/13/2019 Ancillary Orders [facility], X-Ray - [address] [address] Jeimy Sawant, MARGARITA [address] [place] [address] Injury Social History Tobacco Use Types Packs/Day Years [...] documented as of this encounter Results * XR FACIAL BONES 3 OR MORE VIEWS (07/13/2019 1:36 PM EST) Anatomical Region Laterality Modality Face Radiographic Gina ging 07/13/2019 1:38 PM EST Impressions 07/13/2019 1:41 PM EST No radiographic evidence of facial bone fracture. POS - [id number] Narrative 07/13/2019 1:41 PM EST XR FACIAL BONES 3 OR MORE VIEWS INDICATION: pain. The patient reports right supraorbital pain after a fall 4 weeks ago. COMPARISON: None FINDINGS: Facial bones appear intact without displaced fracture. The nasal septum appears midline. The visualized paranasal sinuses are well aerated without evidence of air-fluid level to suggest acute sinusitis. Procedure Note Shahida Roman MD - 07/13/2019 XR FACIAL BONES 3 OR MORE VIEWS INDICATION: pain. The patient reports right supraorbital pain after afall 4 weeks ago. COMPARISON: None FINDINGS: Facial bones appear intact without displaced fracture. The nasal septumappears midline. The visualized paranasal sinuses are well aeratedwithout evidence of air-fluid level to suggest acute sinusitis. IMPRESSION: No radiographic evidence of facial bone fracture. POS - [id number] Jeimy Sawant FIRST COOK IMG XR HEAD AND SHUNT SE ZAINA Final Result documented in this encounter Visit Diagnoses Diagnosis Injury Injury, other and unspecified, unspecified site Injury Injury, other and unspecified, unspecified site documented in this encounter Additional Health Concerns Infection Onset Date Last Indicated Resolved Time CoV-Risk 07/18/2024 07/25/2024 08/05/2024 1:21 AM EDT Influenza A 07/18/2024 07/18/2024 07/25/2024 1:22 AM EDT Influenza A 07/25/2024 07/25/2024 08/01/2024 1:21 AM EDT documented as of this encounter Care Teams Mate Relief Relationship Specialty Start Date End Date Kash Live NP [address] [place] [address] PCP - General 04/20/19 10/03/19 Cornelius Zelaya MD [address] [place] [address] [email or web address] PCP - General Internal Medicine 10/04/19 10/09/19 Jeimy Sawant NP [address] [place] [address] PCP - General Unknown Provider Specialty 10/10/19 10/31/19 Betsey Long MD [address] [address] [email or web address] PCP - General Family Medicine 11/01/19 01/28/22 Litzy Raines FNP [address] [place] [address] [place] [address] PCP - General Family Medicine 01/29/22 02/14/24 Litzy Raines FNP [address] [place] [address] [place] [address] PCP - General Nurse Practitioner 02/15/24 10/25/24 Litzy Raines FNP [address] [place] [address] PCP - General Nurse Practitioner 10/26/24 Chon Tipton DO [address] [place] [address] [address] [place] [address] Historical LMR Provider 02/28/17 05/17/21 Sandy Romo FIRST COOK 1 [facility] [place] [address] Historical LMR Provider 02/28/17 05/17/21 Cierra Ramirez DO [address] [place] [address] 7 [place] [address] [email or web address] Historical LMR Provider 02/28/17 05/17/21 Guy Lagunas MBBS, PhD [address] [place] [address] [facility] of [facility] [address] [place] [address] [email or web address] Historical LMR Provider 02/28/17 05/17/21 Cindy Mesa NP [address] [place] [address] Historical LMR Provider 02/28/17 05/17/21 Giovanna Padgett CNM [address] [place] [address] Historical LMR Provider 02/28/17 05/17/21 Danish Alfredo MD [address] [place] [address] [email or web address] Historical LMR Provider 02/28/17 Jennifer Stein MD [address] [place] [address] [email or web address] Historical LMR Provider 02/28/17 05/17/21 Mabel Bowman MD [address] [place] [address], [address] [place] [address] [email or web address] Historical LMR Provider 02/28/17 05/17/21 Jesusita Walters CNM [address] [place] [address] [email or web address] Historical LMR Provider 02/28/17 05/17/21 Fahad June MD [address] [place] [address] [email or web address] Historical LMR Provider 02/28/17 05/17/21 Iglesia Pizarro MD [address] [place] [address] Historical LMR Provider 02/28/17 05/17/21 Pipe Simmons MD [address] [place] [address] [email or web address] Historical LMR Provider 02/28/17 05/17/21 Elisabeth Hills NP [address] [place] [address] Historical LMR Provider 02/28/17 05/17/21 Dayna Perez MD [address] [place] [address] Historical LMR Provider 02/28/17 05/17/21 Julio Johnson MD [address] [place] [address] [email or web address] Historical LMR Provider 02/28/17 Tigre Shrestha MD [address] [place] [id number] Historical LMR Provider 02/28/17 05/17/21 Yolanda Harrison MD [address] [place] [address] Historical LMR Provider 02/28/17 05/17/21 Angel Byrd MD [address] [place] [address] Historical LMR Provider 02/28/17 05/17/21 Gisela Dorsey NP [address] [place] [address] Historical LMR Provider 02/28/17 05/17/21 documented as of this encounter Additional Source Comments The information contained in this document represents components of the legal health record. It is not the complete legal health record.[facility]
--- OUTSIDE RECORDS SUMMARY | 2025-01-30 14:01 | XMS_ITS | Encounter Summary ---
Author Organization [facility] Address [address] [place] [address] Phone Care Team Providers Care Cellophane Worker Name Role Phone Chon Tipton DO Unavailable Sandy Romo HYDRAULIC AND PLUMBING INSTALLER Unavailable Cierra Ramirez DO Unavailable Guy LagunasBS, PhD Unavailable Cindy Mesa HYDRAULIC AND PLUMBING INSTALLER Unavailable Giovanna Padgett CNM Unavailable Danish Alfredo MD Unavailable Jennifer Stein MD Unavailable Mabel Bowman MD Unavailable Jesusita Walters CNM Unavailable Fahad June MD Unavailable Iglesia Pizarro MD Unavailable Pipe Simmons MD Unavailable Elisabeth Hills HYDRAULIC AND PLUMBING INSTALLER Unavailable [phone] Dayna Perez MD Unavailable [phone] Julio Johnson MD Unavailable Tigre Shrestha MD Unavailable [phone] Yolanda Harrison MD Unavailable [phone] Angel Byrd MD Unavailable GreenGisela Keisha HYDRAULIC AND PLUMBING INSTALLER Unavailable [phone] Jeimy Sawant HYDRAULIC AND PLUMBING INSTALLER Primary Care Provider + Betsey Long MD Primary Care Provider [facility] Primary Care Provide r [facility] Primary Care Provide r [facility] Primary Care Provide r Encounter Details Date Type Department Care Team (Latest Contact Info) Description 10/10/2019 Transcribe Orders [address] [place] [address] Marcelino Weeks MD, PhD [address] [place], [place] [address] [address] [email or web address] Disease of thyroid gland (Primary Dx); Anemia due to vitamin B12 deficiency, unspecified B12 deficiency type; Vitamin D deficiency, unspecified; Syphilis, unspecified Social History Tobacco Use Types Packs/Day Years [...] documented as of this encounter Results * Syphilis antibody screen (10/10/2019 8:16 AM EDT) RPR NON-REACTIV E NON-REACTI VE [facility] Blood 10/10/2019 8:16 AM EDT 10/10/2019 8:21 AM EDT Marcelino Weeks MD, PhD LAB BLOOD ORDERABLES Fi nal Result Performing Organization Address City/[facility]/ZIP Co de Phone Number [address] [address] * 25-OH vitamin D (10/10/2019 8:16 AM EDT) 25 [place] VIT D (TOTAL) 38 30 - 60 ng/mL [facility] Blood 10/10/2019 8:16 AM EDT 10/10/2019 8:21 AM EDT Marcelino Weeks MD, PhD LAB BLOOD ORDERABLES Fi nal Result Performing Organization Address [facility] de Phone Number [address] [address] * Methylmalonic acid, serum (10/10/2019 8:16 AM EDT) METHYLMALONIC ACID 0.18 <=0.40 nmol/mL [facility] DPT OF LAB MED AND PAT+ Comment: (NOTE) ADDITIONAL INFORMATION This test was developed and its performance characteristics determined by [facility] in a manner consistent with CLIA requirements. This test has not been cleared or approved by the U.S. Food and Drug Administration. Blood 10/10/2019 8:16 AM EDT 10/10/2019 8:21 AM EDT Marcelino Weeks MD, PhD LAB BLOOD ORDERABLES Fi nal Result Performing Organization Address City/[facility]/ZIP Co de Phone Number [facility]PT OF LAB MED AND PAT+ [address] [place] [address] * Homocysteine (10/10/2019 8:16 AM EDT) HOMOCYSTEINE, TOTAL 12.7 0 - 14.2 umol/L [facility] Blood 10/10/2019 8:16 AM EDT 10/10/2019 8:21 AM EDT us Marcelino Weeks MD, PhD LAB BLOOD ORDERABLES Fi nal Result [address] [address] * Folate (10/10/2019 8:16 AM EDT) FOLIC ACID 12.1 4.2 - 19.9 ng/mL [facility] Blood 10/10/2019 8:16 AM EDT 10/10/2019 8:21 AM EDT Marcelino Weeks MD, PhD LAB BLOOD ORDERABLES Fi nal Result Performing Organization Address City/[facility]/ZIP Co de Phone Number [address] [address] * Vitamin B12 (10/10/2019 8:16 AM EDT) VITAMIN B12 649 232 - 1,245 pg/mL [facility] Blood 10/10/2019 8:16 AM EDT 10/10/2019 8:21 AM EDT Marcelino Weeks MD, PhD LAB BLOOD ORDERABLES Fi nal Result Performing Organization Address City/[facility]/ZIP Co de Phone Number [address] [address] * TSH (10/10/2019 8:16 AM EDT) TSH 0.44 0.27 - 4.20 uIU/mL [facility] Blood 10/10/2019 8:16 AM EDT 10/10/2019 8:21 AM EDT us Marcelino Weeks MD, PhD LAB BLOOD ORDERABLES Fi nal Result Performing Organization Address City/[facility]/ZIP Co de Phone Number [address] [address] * (ABNORMAL) Free T4 (10/10/2019 8:16 AM EDT) FREE T4 1.9(H) 0.9 - 1.7 ng/dL [facility] Blood 10/10/2019 8:16 AM EDT 10/10/2019 8:21 AM EDT us Marcelino Weeks MD, PhD LAB BLOOD ORDERABLES Fi nal Result [facility] [address] [place] [address] documented in this encounter Visit Diagnoses Diagnosis Disease of thyroid gland- Primary Unspecified disorder of thyroid Anemia due to vitamin B12 deficiency, unspecified B12 deficiency type Vitamin D deficiency, unspecified Syphilis, unspecified documented in this encounter Additional Health Concerns Infection Onset Date Last Indicated Resolved Time CoV-Risk 07/18/2024 07/25/2024 08/05/2024 1:21 AM EDT Influenza A 07/18/2024 07/18/2024 07/25/2024 1:22 AM EDT Influenza A 07/25/2024 07/25/2024 08/01/2024 1:21 AM EDT documented as of this encounter Care Teams Cellophane Worker Relationship Specialty Start Date End Date Jeimy Sawant NP [address] [place] [address] PCP - General Unknown Provider Specialty 10/10/19 10/31/19 Betsey Long MD [address] [place] [address] PCP - General Family Medicine 11/01/19 01/28/22 Litzy Raines FNP [address] [place] [address] PCP - General Family Medicine 01/29/22 02/14/24 Litzy Raines FNP [address] [place] [address] PCP - General Nurse Practitioner 02/15/24 10/25/24 Litzy Raines FNP [address] [place] [address] PCP - General Nurse Practitioner 10/26/24 Chon Tipton DO [address] [place] [address] Historical LMR Provider 02/28/17 05/17/21 Sandy Romo NP [address] [place] [address] Historical LMR Provider 02/28/17 05/17/21 Cierra Ramirez DO [address] [place] [address], [facility] [address] [place] [address] [email or web address] Historical LMR Provider 02/28/17 05/17/21 Guy Lagunas MBBS, PhD [address] [place] [address] [facility] Neuro[facility] [place] [facility] [address] [place] [address] [email or web address] Historical LMR Provider 02/28/17 05/17/21 Cindy Mesa, MARGARITA [address] [place] [address] Historical LMR Provider 02/28/17 05/17/21 Giovanna Padgett CNM [address] [place] [address] Historical LMR Provider 02/28/17 05/17/21 Danish Alfredo MD [address] [place] [address] [email or web address] Historical LMR Provider 02/28/17 Jennifer Stein MD [address] [place] [address] [email or web address] Historical LMR Provider 02/28/17 05/17/21 Mabel Bowman MD [address] [place] [address] [email or web address] Historical LMR Provider 02/28/17 05/17/21 Jesusita Walters CNM [address] [place] [address] [email or web address] Historical LMR Provider 02/28/17 05/17/21 Fahad June MD [address] [place] [address] [email or web address] Historical LMR Provider 02/28/17 05/17/21 Iglesia Pizarro MD [address] [place] [address] Historical LMR Provider 02/28/17 05/17/21 Pipe Simmons MD [address] [place] [address] [address] [place] [address] Historical LMR Provider 02/28/17 05/17/21 Elisabeth Hills NP [address] [place] [address] Historical LMR Provider 02/28/17 05/17/21 Dayna Perez MD [address], [place] [address] Historical LMR Provider 02/28/17 05/17/21 Julio Johnson MD [address] [place] [address] [email or web address] Historical LMR Provider 02/28/17 Tigre Shrestha MD [address] [place] [phone] Historical LMR Provider 02/28/17 05/17/21 Yolanda Harrison MD [address] [place] [address] Historical LMR Provider 02/28/17 05/17/21 Angel Byrd MD [address] [place] [address] Historical LMR Provider 02/28/17 05/17/21 Gisela Dorsey NP [address] [place] [address] Historical LMR Provider 02/28/17 05/17/21 documented as of this encounter Additional Source Comments The information contained in this document represents components of the legal health record. It is not the complete legal health record.[facility]
--- OUTSIDE RECORDS SUMMARY | 2025-01-30 14:01 | XMS_ITS | Encounter Summary ---
Author Organization [facility] Address [address] [place] [address] Phone Care Team Providers Care Senior Information Security Engineer Name Role Phone Danish Alfredo MD Unavailable Julio Johnson MD Unavailable [phone] [place] [address] Primary Care Provide r Reason for Visit * Reason Comments Medication Refill Encounter Details Date Type Department Care Team (Late st Contact Info) Description 12/21/2024 Refill [facility] at [address] [place] [address] Cynthia Yeh, [facility] [address] [place] [address] [email or web address] Medication Refill Social History Tobacco Use Types Packs/Day Years [...] on file documented as of this encounter Progress Notes * Cynthia Yeh CNP - 12/23/2024 9:23 AM EDT Patient no longer under provider care documented in this encounter Plan of Treatment Not on file documented as of this encounter Visit Diagnoses Diagnosis Shortness of breath documented in this encounter Care Teams Senior Information Security Engineer Relationship Specialty Start Date End Date Litzy Raines FNP [address] [place] [address] PCP - General Nurse Practitioner 10/26/24 Danish Alfredo MD [address] [place] [address] Historical LMR Provider 02/28/17 Julio Johnson MD [address] [place] [address] Historical LMR Provider 02/28/17 documented as of this encounter Additional Source Comments The information contained in this document represents components of the legal health record. It is not the complete legal health record.[facility]
--- OUTSIDE RECORDS SUMMARY | 2025-01-30 14:01 | XMS_ITS | Clinical Summary ---
Author Organization [facility] Address [address] [place] [address] Phone Care Team Providers Care Insurance Broker Name Role Phone Olu Litzy Primary Care Provider [phone] Allergies Active Allergy Reactions Criticality Noted Date Comments Fluconazole Rash Low 04/12/2017 Gabapentin Swelling,Other (see comments) 07/22/2017 Iloperidone Rash,Other (see comments) Low 03/17/2017 Latex 09/10/2021 [place] 05/06/2022 Other reaction(s): kidney damage Penicillins Other [...] Medicaid [place] Care Teams Insurance Broker Relationship Specialty Start Date End Date [place], [place] [address] [place] [address] PCP - General Salesperson [employer] 09/10/21
== END 2025-01-30 11:11 | disposition home or self-care (01) ==
LOC: HO.10HDL 11:10
PROVIDERS: Visit Provider Internal Medicine Nephrology
DX: I12.9 Hypertensive chronic kidney disease with stage 1 through stage 4 chronic kidney disease, or unspecified chronic kidney disease (principal); N18.31 Chronic kidney disease, stage 3a; E87.20 Acidosis, unspecified
CPT/HCPCS: 36415; 80051; 82565; 84520

== ENCOUNTER 2025-02-26 09:45 | Outpatient (REF) | payer OTHER, SELFPAY ==
[2025-02-26 10:47] LABS: Anion Gap 13 (12-20); Blood Urea Nitrogen 30 mg/dL (9-16); Carbon Dioxide 23 mmol/L (22-29); Chloride 108 mmol/L (96-108); Estimated Glomerular Filt Rate 29; Potassium 4.3 mmol/L (3.3-5.1); Sodium 140 mmol/L (135-145)
--- OUTSIDE RECORDS SUMMARY | 2025-02-26 10:55 | XMS_ITS | Clinical Summary ---
Author Organization [facility] Address [address] [place] [address] Phone Care Team Providers Care Boat Loader Helper Name Role Phone Olu Litzy Primary Care Provider [phone] Allergies Active Allergy Reactions Criticality Noted Date Comments Fluconazole Rash Low 04/12/2017 Gabapentin Swelling,Other (see comments) 07/22/2017 Iloperidone Rash,Other (see comments) Low 03/17/2017 Latex 09/10/2021 [place] 05/06/2022 Other reaction(s): kidney damage Penicillins Other [...] Medicaid [place] Medicare [place] Care Teams Boat Loader Helper Relationship Specialty Start Date End Date [place], [place] [address] [place] [address] PCP - General Head Girls Golf Coach 09/10/21
== END 2025-02-26 09:46 | disposition home or self-care (01) ==
LOC: HO.10HDL 09:45
PROVIDERS: Visit Provider Internal Medicine Nephrology
DX: E87.20 Acidosis, unspecified (principal); I12.9 Hypertensive chronic kidney disease with stage 1 through stage 4 chronic kidney disease, or unspecified chronic kidney disease; N18.30 Chronic kidney disease, stage 3 unspecified
CPT/HCPCS: 36415; 80051; 82565; 84520

== ENCOUNTER 2025-03-07 12:03 | Outpatient (AMB) | payer OTHER, SELFPAY ==
--- NOTE | 2025-03-07 12:26 | HO.NEPHOV_ITS ---
Vital Signs 03/07/25 12:30 Height 5 ft 7 in Weight 186 lb BMI 29.1 BP 116/70 Blood Pressure Location Rt brachial Position Sitting Pulse 73 Pulse Source Pulse Oximeter Pulse Oximetry (%) 96 Oxygen Delivery Method Room Air Intake Visit Reasons: 2mon f/u w/labs-Conf Hydrology Technician Required: No Accompanied by: Self / Same As Patient Allergies gabapentin (GABAPENTIN) Allergy (Intermediate, Verified 03/07/25 12:29) SWELLING iloperidone (From FANAPT) Allergy (Mild, Verified 03/07/25 12:29) RASH Penicillins (PENICILLINS) Allergy (Mild, Verified 03/07/25 12:29) RASH sertraline (From ZOLOFT) Allergy (Mild, Verified 03/07/25 12:29) RASH HPI Comments Details: Yadira was seen in follow-up of her chronic kidney disease and hypertension. She has history of mental health disorder and had taken lithium from 1991 which she had discontinued a few years ago. She does not have any chest pain, palpitation, shortness of breath, proximal nocturnal dyspnea, orthopnea, pedal edema, orthostatic or urinary symptoms. Her blood pressure has been at goal. She does not take any excessive nonsteroidal anti-inflammatory medications. Otherwise she was feeling well. She was prescribed Wegovy by PCP which is uncomfortable taking & has not started it yet. She had a renal USS which showed small B/L renal benign cysts. She also is found to have a benign lung nodule as well as BCC of right lower eyelid for which she is going to undergo surgery. She has been metabolically acidotic and is on NaHCO3. She takes Jardiance. Her BP is not at goal [facility] Medical History (Updated 12/13/24 @ 15:37 by Jennifer Khanna, CARLOS, TELEGRAPHIC TYPEWRITER OPERATOR-) Hypertension Chronic kidney disease, stage 3a Surgical History S/P tonsillectomy Family History Mother A-fib Father Lung cancer Social History Alcohol intake: never Patient Tobacco Use Status: Former Tobacco user Substance Use Type: Marijuana Review of Systems Const All systems reviewed & are unremarkable except as noted in HPI and below Physical Exam Vital Signs: Last Vital Signs Pulse 73 03/07/25 12:30 BP 116/70 03/07/25 12:30 Pulse Ox 96 03/07/25 12:30 Oxygen Delivery Method Room Air 03/07/25 12:30 BMI result Body Mass Index 29.1 Const General: comfortable and no acute distress Orientation/consciousness: patient oriented x3 HEENT Head: Yes normocephalic Mouth: Normal oral and palatal mucosa present Eyes EOM: EOMs intact bilaterally Neck Neck: Yes supple Resp Auscultation: clear to auscultation bilaterally Cardio Jugular venous distension: no JVD Rate: regular rate GI Palpation (GI): Soft to palpation Auscultation: normal bowel sounds General: Yes no CVA tenderness Back/Spine/Pelvis Back: no CVA tenderness Skin General skin exam: no rashes or lesions noted Neuro General: patient oriented x3 and moves all extremities Extrem General: Yes no pedal edema Results Reviewed Nephrology Results: Sodium, (135-145) 140 mmol/L 02/26/25 Potassium, (3.3-5.1) 4.3 mmol/L 02/26/25 Chloride, (96-108) 108 mmol/L 02/26/25 Carbon Dioxide, (22-29) 23 mmol/L 02/26/25 BUN, (9-16) 30 mg/dL H 02/26/25 Creatinine, (0.5-1.4) 1.79 mg/dL H 02/26/25 Calcium, (8.4-10.2) 9.2 mg/dL 12/28/24 Assessment & Plan Assessment & Plan (1) Chronic kidney disease, stage 3a: Code(s): N18.31 - Chronic kidney disease, stage 3a Category: Medical (2) Hypertension: Code(s): I10 - Essential (primary) hypertension Category: Medical Qualifiers: Hypertension type: primary hypertension Qualified Code(s): I10 - Essential (primary) hypertension (3) Metabolic acidosis: Code(s): E87.20 - Acidosis, unspecified Category: Medical Plan 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 She does not have any proteinuria. Her blood pressure has not been at goal. Her renal functions are currently stable. She is not taking any non steroidal anti- inflammatories, LAUREN inhibitor or ARB. She is on amlodipine which I increased to 5 mg daily . She has not had any renal stones.She should continue Jardiance 10 mg, which I plan to increase to 25 mg with time if her acidosis is stable/corrected. She likely is a great candidate for LAUREN-inhibitor or ARB with time. She needs to lose some weight and maintain good hydration. All these have been discussed. Follow-up appointment given Medications: Changed From amlodipine 2.5 mg PO DAILY 90 days 90 tabs 3RF To amlodipine 5 mg PO DAILY 90 tabs 3RF 90 days Coding Level of Care Code Est Pt Level 4 (09209) Diagnoses Chronic kidney disease, stage 3a N18.31 Primary hypertension I10 Hypertension type: primary hypertension Metabolic acidosis E87.20
[2025-03-07 12:30] VITALS: BP 116/70; PULSE 73; O2SAT 96; BMI 29.1
--- OUTSIDE RECORDS SUMMARY | 2025-03-07 15:30 | XMS_ITS | Encounter Summary ---
Author Organization [facility] Address [address] [facility] [address] [address] [place] [address] Phone Care Team Providers Care Crossing Flagman Name Role Phone Danish Alfredo MD Unavailable Julio Johnson MD Unavailable [phone] Litzy Raines NP Primary Care Provider Reason for Referral * MRI/CAT Scan - Closed Specialty Diagnoses / Procedures Referred By Chance quispe Referred To Contact Radiology Diagnoses Chronic bilateral low back pain with bilateral sciatica Procedures MRI Lumbar Spine CHG MRI, LUMBAR SPINE Litzy Raines NP [address] [place] [address] Phone: tel: fax: Referral ID Status Reason Start Date Expiration Date Visits Re quested Visits Authorized [id number] Closed 11/23/2024 05/09/2025 1 1 Encounter Details Date Type Department Care Team (Late st Contact Info) Description 11/23/2024 Transcribe Orders Virtual Department [address] [place] [address] Litzy Raines NP [address] [place] [address] Chronic bilateral low back pain with bilateral [...] mild bilateralforaminal stenosis at L4-5. Litzy Raines FAST FOOD MANAGER IMG MR XSPECIALTY Kim l Result documented in this encounter Visit Diagnoses Diagnosis Chronic bilateral low back pain with bilateral sciatica- Primary Chronic bilateral low back pain with bilateral sciatica documented in this encounter Care Teams Crossing Flagman Relationship Specialty Start Date End Date Litzy Raines NP [address] [place] [address] PCP - General Nurse Practitioner 10/26/24 Danish Alfredo MD [address] [place] [address] Historical LMR Provider 02/28/17 Julio Johnson MD [address] [place] [address] Historical LMR Provider 02/28/17 documented as of this encounter Additional Source Comments The information contained in this document represents components of the legal health record. It is not the complete legal health record.[facility]
--- OUTSIDE RECORDS SUMMARY | 2025-03-07 15:30 | XMS_ITS | Encounter Summary ---
Author Organization [facility] Address [address] [facility] [address] [place] [address] Phone Care Team Providers Care Department Director Name Role Phone Chon Tipton DO Unavailable [phone] Sandy Romo SPINNER FIXER Unavailable Cierra Ramirez DO Unavailable Guy LagunasBS, PhD Unavailable [phone] Cindy Mesa SPINNER FIXER Unavailable Giovanna Padgett CNM Unavailable Danish Alfredo MD Unavailable Jennifer Stein MD Unavailable Mabel Bowman MD Unavailable Jesusita Walters CNM Unavailable Fahad June MD Unavailable Iglesia Pizarro MD Unavailable Pipe Simmons MD Unavailable Elisabeth Hills SPINNER FIXER Unavailable [phone] Dayna Perez MD Unavailable [phone] Julio Johnson MD Unavailable Tigre Shrestha MD Unavailable [phone] Yolanda Harrison MD Unavailable [phone] Angel Byrd MD Unavailable [phone] SunitaGisela Keisha SPINNER FIXER Unavailable [phone] Betsey Long MD Primary Care Provider Litzy Raines SPINNER FIXER Primary Care Provider [facility] SPINNER FIXER Primary Care Provider [facility] SPINNER FIXER Primary Care Provider Encounter Details Date Type Department Care Team (Late st Contact Info) Description 04/21/2021 Procedure Pass [address] [place] [address] Social History Tobacco Use Types Packs/Day Years [...] documented as of this encounter Care Teams Department Director Relationship Specialty Start Date End Date Betsey Long MD [address] [place] [address] PCP - General Family Medicine 11/01/19 01/28/22 Litzy Raines SPINNER FIXER [address] [place] [address] PCP - General Family Medicine 01/29/22 02/14/24 [facility]IN[facility]ER [address] [place] [address] PCP - General Nurse Practitioner 02/15/24 10/25/24 [facility], SPINNER FIXER [address] [place] [address] PCP - General Nurse Practitioner 10/26/24 Chon Tipton DO [address] [place] [address] Historical LMR Provider 02/28/17 2 Sandy Romo NP [address] [place] [address] Historical LMR Provider 02/28/17 2 Cierra Ramirez DO [address] [place] [address] 7 [place] [address] Historical LMR Provider 02/28/17 05/17/21 Guy Lagunas MBBS, PhD 60 [place] [address] [email or web address] Historical LMR Provider 02/28/1705/17/21 Cindy Mesa NP [address] [place] [address] Historical LMR Provider 02/28/17 2 Giovanna Padgett CNM 30 [place] [address] Historical LMR Provider 02/28/17 2 Danish Alfredo MD [address] [place] [address] Historical LMR Provider 02/28/17 Jennifer Stein MD [address] [place] [address] Historical LMR Provider 02/28/17 05/17/21 Mabel Bowman MD [address] [place] [address], 2nd [place] [address] Historical LMR Provider 02/28/17 05/17/21 Jesusita Walters CNM [address] [place] [address], [address] [address] Historical LMR Provider 02/28/17 05/17/21 Fahad June MD [address] [place] [address] [place] [address] [email or web address] Historical LMR Provider 02/28/17 05/17/21 Iglesia Pizarro MD [address] [place] [address] Historical LMR Provider 02/28/17 Pipe Simmons MD [address] [place] [address] 7 [place] [address] [email or web address] Historical LMR Provider 02/28/17 05/17/21 Elisabeth Hills NP 30 [place] [address] Historical LMR Provider 02/28/17 2 Dayna Perez MD [address], [place] [address] Historical LMR Provider 02/28/17 2 Julio Johnson MD [address] [place] [address] [email or web address] Historical LMR Provider 02/28/17 Tigre Shrestha MD [address] [place] [address] Historical LMR Provider 02/28/17 2 Yolanda Harrison MD 4 [place] [address] Historical LMR Provider 02/28/17 2 Angel Byrd MD [address] [place] [address] Historical LMR Provider 02/28/17 2 Gisela Dorsey NP [address] [place] [address] Historical LMR Provider 02/28/17 2 documented as of this encounter Additional Source Comments The information contained in this document represents components of the legal health record. It is not the complete legal health record.[facility]
--- OUTSIDE RECORDS SUMMARY | 2025-03-07 15:30 | XMS_ITS | Encounter Summary ---
Author Organization [employer] Address [address] [facility] 7t [place] [address] Care Team Providers Care Hematology Nurse Name Role Phone [facility] Primary Care Provider [phone] Encounter Details Date Type Department Care Team (Late st Contact Info) Description 06/23/2024 Orders Only [facility] [address] [place] [address] [place], [place], [facility] 70 [place] [address] Social History Tobacco Use Types Packs/Day Years [...] Care Team (Late st Contact Info) Description 06/20/2025 11:00 AM EST Office Visit [facility] Dental 70 [place] [address] Urvashi Gamble LLD [address] [place] [address] documented as of this encounter Procedures Procedure Name Priority Date/Time Associated Diagnosis Comments PATHOLOGY REPORT (HISTOPATHOLOGY) Routine 06/20/2024 11:54 AM EST documented in this encounter Results * Pathology Report (Histopathology) (06/20/2024 11:54 AM EST) Tissue [facility] LAB PATHOLOGY ORDERABLES Final Result documented in this encounter Visit Diagnoses Not on filedocumented in this encounter Additional Health Concerns Assessment Noted Time PHQ-9 Depression Total Score: 15 024 11:25 AM EDT documented as of this encounter Care Teams Hematology Nurse Relationship Specialty Start Date End Date Litzy Raines FNP 70 [place] [address] PCP - General Family Medicine 05/06/22 documented as of this encounter
--- OUTSIDE RECORDS SUMMARY | 2025-03-07 15:30 | XMS_ITS | Encounter Summary ---
Author Organization [facility] Address [address] [facility] [address] [place] [address] Phone Care Team Providers Care Tallow Maker Name Role Phone Chon Tipton DO Unavailable Sandy Romo ACCOUNT SERVICES MANAGER Unavailable Cierra Ramirez DO Unavailable Guy LagunasBS, PhD Unavailable Cindy Mesa ACCOUNT SERVICES MANAGER Unavailable Giovanna Padgett CNM Unavailable Danish Alfredo MD Unavailable Jennifer Stein MD Unavailable Mabel Bowman MD Unavailable Jesusita Walters CNM Unavailable Fahad June MD Unavailable Iglesia Pizarro MD Unavailable Pipe Simmons MD Unavailable Elisabeth Hills ACCOUNT SERVICES MANAGER Unavailable [phone] Dayna Perez MD Unavailable [phone] Julio Johnson MD Unavailable Tigre Shrestha MD Unavailable [phone] Yolanda Harrison MD Unavailable [phone] Angel Byrd MD Unavailable [phone] Wilfredo Dorseyon Keisha ACCOUNT SERVICES MANAGER Unavailable Fahad June MD Primary Care Provider + Janina Moncada MD Primary Care Provider Fahad Crenshaw DO Primary Care Provider Janina Moncada MD Primary Care Provider Kash Live ACCOUNT SERVICES MANAGER Primary Care Provide r Cornelius Zelaya MD Primary Care Provider [phone] Jeimy Sawant ACCOUNT SERVICES MANAGER Primary Care Provider + Betsey Long MD Primary Care Provider [facility] Litzy Evie ACCOUNT SERVICES MANAGER Primary Care Provider [facility] ACCOUNT SERVICES MANAGER Primary Care Provider [place], [place] Evie ACCOUNT SERVICES MANAGER Primary Care Provider Encounter Details Date Type Department Care Team (Late st Contact Info) Description 12/08/2017 Ancillary Orders Virtual Department 30 [place] [address] Janina Moncada MD [address] [place] [address] [email or web address] Abnormal mammogram Social History Tobacco Use Types [...] documented as of this encounter Care Teams Tallow Maker Relationship Specialty Start Date End Date Fahad June MD [address] [place] [address] [email or web address] PCP - General Family Medicine 03/17/17 12/15/17 Janina Moncada MD [address] [place] [address] [email or web address] PCP - General Family Medicine 12/16/17 04/11/18 Fahad Crenshaw DO [address] [place] [address], [address] [place] [address] [email or web address] PCP - General Family Medicine 04/12/18 09/13/18 Janina Moncada MD [address] [facility] [place]. [address] [place] [address] [email or web address] PCP - General Family Medicine 11/14/18 04/19/19 Kash Live NP [address] [place] [address] 7 [place] [address] PCP - General 04/20/19 10/03/19 Cornelius Zelaya MD [address] [place] [address] [email or web address] PCP - General Internal Medicine 10/04/19 10/09/19 Jeimy Sawant NP 70 [place] [address] PCP - General Unknown Provider Specialty 10/10/19 10/31/19 Betsey Long MD 70 [place] [address] [email or web address] PCP - General Family Medicine 11/01/19 01/28/22 Litzy Raines NP 70 [place] [address] PCP - General Family Medicine 01/29/22 02/14/24 Litzy Raines NP 70 [place] [address] PCP - General Nurse Practitioner 02/15/24 10/25/24 Litzy Raines NP 70 [place] [address] PCP - General Nurse Practitioner 10/26/24 Chon Tipton DO [address] [place] [address] [address] [place] [address] Historical LMR Provider 02/28/17 05/17/21 Sandy Romo ACCOUNT SERVICES MANAGER 1 [place] [address] Historical LMR Provider 02/28/17 05/17/21 Cierra Ramirez DO [address] [place] [address] 7 [place] [address] Historical LMR Provider 02/28/17 05/17/21 Guy Lagunas MBBS, PhD 60 [place] [address] [email or web address] Historical LMR Provider 02/28/17 05/17/21 Cindy Mesa NP 29 [place] [address] Historical LMR Provider 02/28/17 05/17/21 Giovanna Padgett CNM 30 [place] [address] Historical LMR Provider 02/28/17 05/17/21 Danish Alfredo MD [address] [facility] [address] [place] [address] Historical LMR Provider 02/28/17 Jennifer Stein MD [address] [place] [email or web address] Historical LMR Provider 02/28/17 05/17/21 Mabel Bowman MD [address] [place] [address], 2nd [place] [address] [email or web address] Historical LMR Provider 02/28/17 05/17/21 Jesusita Walters CNM [address] [place] [address] [email or web address] Historical LMR Provider 02/28/17 05/17/21 Fahad uJne MD [address] [place] [address] [place] [address] [email or web address] Historical LMR Provider 02/28/17 05/17/21 Iglesia Pizarro MD [address] [place] [address] Historical LMR Provider 02/28/17 05/17/21 Pipe Simmons MD [address] [place] [address] [email or web address] Historical LMR Provider 02/28/17 05/17/21 Elisabeth Hills ACCOUNT SERVICES MANAGER [address] [place] [address] Historical LMR Provider 02/28/17 05/17/21 Dayna Perez MD [address] [place] [address] Historical LMR Provider 02/28/17 05/17/21 Julio Johnson MD [address] [facility], [address] [place] [address] Historical LMR Provider 02/28/17 Tigre Shrestha MD [address] [place] [phone] Historical LMR Provider 02/28/17 05/17/21 Yolanda Harrison MD [address] [place] [address] Historical LMR Provider 02/28/17 05/17/21 Angel Byrd MD [address] [place] [address] Historical LMR Provider 02/28/17 05/17/21 Gisela Dorsey NP [address] [place] [address] Historical LMR Provider 02/28/17 05/17/21 documented as of this encounter Additional Source Comments The information contained in this document represents components of the legal health record. It is not the complete legal health record.[facility]
--- OUTSIDE RECORDS SUMMARY | 2025-03-07 15:30 | XMS_ITS | Encounter Summary ---
Author Organization [facility] Address [address] [facility] [address] [place] [address] Phone Care Team Providers Care Patient Transition Specialist Name Role Phone Danish Alfredo MD Unavailable Julio Johnson MD Unavailable [phone] Litzy Raines TOWER EXCAVATOR OPERATOR Primary Care Provider Litzy Raines TOWER EXCAVATOR OPERATOR Primary Care Provider Litzy Raines TOWER EXCAVATOR OPERATOR Primary Care Provider Reason for Referral * MRI/CAT Scan - Closed Specialty Diagnoses / Procedures Referred By Chance quispe Referred To Contact Radiology Diagnoses Acute nonintractable headache, unspecified headache type Procedures CT Head Litzy Raines NP Phone: tel: fax: Referral ID Status Reason Start Date Expiration Date Visits Re quested Visits Authorized [id number] Closed 08/13/2022 1 1 Encounter Details Date Type Department Care Team (Latest Contact Info) Description 08/13/2022 Transcribe Orders Virtual Department 30 [place] [address] Litzy Raines NP [address] [place] [address] Acute nonintractable headache, unspecified headache type (Primary [...] but below size threshold which would warrantbiopsy. [facility] TOWER EXCAVATOR OPERATOR IMG US THYROID Final Result * CT [...] IMPRESSION: No acute intracranial abnormality. Litzy Raines TOWER EXCAVATOR OPERATOR IMG CT HEAD/NECK Final Result documented in [...] documented as of this encounter Care Teams Patient Transition Specialist Relationship Specialty Start Date End Date iLtzy Raines NP [address] [address] PCP - General Family Medicine 01/29/22 02/14/24 Litzy Raines NP [address] [address] PCP - General Nurse Practitioner 02/15/24 10/25/24 Litzy Raines NP 70 [place] [address] PCP - General Nurse Practitioner 10/26/24 Danish Alfredo MD [address] [place] [address] Historical LMR Provider 02/28/17 Julio Johnson MD [address] [place] [address] Historical LMR Provider 02/28/17 documented as of this encounter Additional Source Comments The information contained in this document represents components of the legal health record. It is not the complete legal health record.[facility]
--- OUTSIDE RECORDS SUMMARY | 2025-03-07 15:30 | XMS_ITS | Encounter Summary ---
Author Organization [facility] Address [address] [facility] [address] [place] [address] Phone Care Team Providers Care Epic Anesthesia Analyst Name Role Phone Danish Alfredo MD Unavailable Julio Johnson MD Unavailable [phone] [place], [place] Evie TALKING BOOKS LIBRARY CLERK Primary Care Provider [place], [place] Evie TALKING BOOKS LIBRARY CLERK Primary Care Provider [place], [place] Evie TALKING BOOKS LIBRARY CLERK Primary Care Provider Encounter Details Date Type Department Care Team (Late st Contact Info) Description 02/18/2022 Procedure Pass [facility] - [address] [place] [address] Social History Tobacco Use Types Packs/Day Years [...] Date Last Indicated Resolved Time CoV-Risk 07/18/2024 07/25/202408/0508/05/2024 1:21 AM EDT Influenza A 07/18/2024 07/18/2024 07/25/2024 1:22 AM EDT Influenza A 07/25/2024 07/25/2024 08/01/2024 1:21 AM EDT documented as of this encounter Care Teams Epic Anesthesia Analyst Relationship Specialty Start Date End Date [facility] [place] [place] MARGARITA Case [address] [place] [address] PCP - General Family Medicine 01/29/22 02/14/24 [facility] Litzy Case NP [address] [place] [address] PCP - General Nurse Practitioner 02/15/24 10/25/24 [place], [place] MARGARITA Case [address] [place] [address] PCP - General Nurse Practitioner 10/26/24 Danish Alfredo MD [address] [place] [address] Historical LMR Provider 02/28/17 Julio Johnson MD [address] [place] [address] Historical LMR Provider 02/28/17 documented as of this encounter Additional Source Comments The information contained in this document represents components of the legal health record. It is not the complete legal health record.[facility]
--- OUTSIDE RECORDS SUMMARY | 2025-03-07 15:31 | XMS_ITS | Encounter Summary ---
Author Organization [employer] Address [address] [facility] 7t [place] [address] Care Team Providers Care Blue Line Operator Name Role Phone [facility] Primary Care Provider [phone] Encounter Details Date Type Department Care Team (Late st Contact Info) Description 03/02/2025 Orders Only [place] [facility] [address] [place] [address] [place], [place], [facility] 70 [place] [address] Social History Tobacco Use Types Packs/Day Years [...] 06/20/2025 11:00 AM EST Office Visit [facility] Dental 70 [place] [address] Urvashi Gamble LLD 9 [place] [address] documented as of this encounter Procedures Procedure Name Priority Date/Time Associated Diagnosis Comments RENAL FUNCTION PANEL Routine 02/26/2025 10:49 AM EDT documented in this encounter Results * Renal Function Panel (02/26/2025 10:49 AM EDT) Blood Venous blood specimen / Unknown Litzy MCCANN LAB BLOOD ORDERABLES Kim l Result documented in this encounter Visit Diagnoses Not on filedocumented in this encounter Additional Health Concerns Assessment Noted Time PHQ-9 Depression Total Score: 17 025 11:51 AM EDT documented as of this encounter Care Teams Blue Line Operator Relationship Specialty Start Date End Date Litzy Raines FNP [address] Lawanda Zhang [facility] [place] [address] PCP - General Family Medicine 05/06/22 documented as of this encounter
--- OUTSIDE RECORDS SUMMARY | 2025-03-07 15:31 | XMS_ITS | Encounter Summary ---
Author Organization [employer] Address [address] [facility] 7t [place] [address] Care Team Providers Care Grounds Cleaner Name Role Phone [facility] Primary Care Provider [phone] Encounter Details Date Type Department Care Team (Late st Contact Info) Description 03/05/2025 Telephone [facility] [address] [place] [address] [place], [place], [facility] 70 [place] [address] Social History Tobacco Use Types Packs/Day Years [...] encounter Miscellaneous Notes * Telephone Encounter - Sara Wadswotrh LPN - 03/07/2025 11:31 AM EDT Called [facility] and LMOM asking they CB to discuss getting a DRIVER'S LICENSE EXAMINER for pt. After her surgery on 03/20/25. * Telephone Encounter - Milly Healy LPN - 03/05/2025 4:31 PM EDT Images from the original note were not included. RAMY [facility]uro Triage Nurses Patient needs DRIVER'S LICENSE EXAMINER help at home for after her surgery on 03/20. Please assist. I think she should beable to get this through [facility]? documented in this encounter Plan of Treatment Upcoming Encounters Date Type Department Care Team (Late st Contact Info) Description 06/20/2025 11:00 AM EST Office Visit Hernan [facility] Dental [address] [place] [address] Urvashi Gamble LLD 9 [place] [address] documented as of this encounter Visit Diagnoses Not on filedocumented in this encounter Additional Health Concerns Assessment Noted Time PHQ-9 Depression Total Score: 17 11/08/ 025 11:51 AM EDT documented as of this encounter Care Teams Grounds Cleaner Relationship Specialty Start Date End Date Litzy Raines FNP 70 [place] [address] PCP - General Family Medicine 05/06/22 documented as of this encounter
--- OUTSIDE RECORDS SUMMARY | 2025-03-07 15:31 | XMS_ITS | Encounter Summary ---
Author Organization [facility] Address [address] [facility] [address] [place] [address] Phone Care Team Providers Care Media Marketing Specialist Name Role Phone Chon Tipton DO Unavailable [place] Romo ASSISTED LIVING ADMINISTRATOR Unavailable Cierra Ramirez DO Unavailable Guy LagunasBS, PhD Unavailable [phone] Cindy Mesa ASSISTED LIVING ADMINISTRATOR Unavailable Giovanna Padgett CNM Unavailable Danish Alfredo MD Unavailable Jennifer Stein MD Unavailable Mabel Bowman MD Unavailable Jesusita Walters CNM Unavailable Fahad June MD Unavailable Iglesia Pizarro MD Unavailable Pipe Simmons MD Unavailable Elisabeth Hills ASSISTED LIVING ADMINISTRATOR Unavailable [phone] Dayna Perez MD Unavailable [phone] Julio Johnson MD Unavailable Tigre Shrestha MD Unavailable [phone] Yolanda Harrison MD Unavailable [phone] Angel Byrd MD Unavailable [phone] SunitaGisela Keisha ASSISTED LIVING ADMINISTRATOR Unavailable Jeimy Sawant ASSISTED LIVING ADMINISTRATOR Primary Care Provider + Betsey Long MD Primary Care Provider [facility]ISTED LIV[facility] ADMINISTRATOR Primary Care Provider [facility] ASSISTED LIVING ADMINISTRATOR Primary Care Provider [facility] Litzy Evie ASSISTED LIVING ADMINISTRATOR Primary Care Provider Encounter Details Date Type Department Care Team (Late st Contact Info) Description 10/20/2019 Transcribe Orders [address] [place] [address] Shahida Andrews PA-C [address], [address]. [address] [place] [address] Social History Tobacco Use Types Packs/Day Years [...] documented as of this encounter Care Teams Media Marketing Specialist Relationship Specialty Start Date End Date Jeimy Sawant NP [address] [place] [address] PCP - General Unknown Provider Specialty 10/10/19 10/31/19 Betsey Long MD [address] [place] [address] [email or web address] PCP - General Family Medicine 11/01/19 01/28/22 Litzy Raines, MARGARITA [address] [place] [address] PCP - General Family Medicine 01/29/22 02/14/24 Litzy Raines NP [address] [place] [address] PCP - General Nurse Practitioner 02/15/24 10/25/24 Litzy Raines NP [address] [facility] [address] PCP - General Nurse Practitioner 10/26/24 Chon Tipton DO [address] [place] [address] [place] [address] Historical LMR Provider 02/28/17 05/17/21 [place] Romo NP [address] [place] [address] [place] [address] Historical LMR Provider 02/28/17 05/17/21 Cierra Ramirez DO [address] [place] [address], [address] [place] [address] Historical LMR Provider 02/28/17 05/17/21 Guy Lagunas MBBS, PhD [address] [place] [address] [email or web address] Historical LMR Provider 02/28/17 05/17/21 Cindy Mesa, MARGARITA [address] [place] [address] Historical LMR Provider 02/28/17 05/17/21 Giovanna Padgett CNM [address] [place] [address] Historical LMR Provider 02/28/17 05/17/21 Danish Alfredo MD [address] [place] [address] Historical LMR Provider 02/28/17 Jennifer Stein MD [address] [place] [address] Historical LMR Provider 02/28/17 05/17/21 Mabel Bowman MD [address] [place] [address], 2nd [place] [address] Historical LMR Provider 02/28/17 05/17/21 Jesusita Walters CNM [address] [place] [address] Historical LMR Provider 02/28/17 05/17/21 Fahad June MD [address] [place] [address] [email or web address] Historical LMR Provider 02/28/17 05/17/21 Iglesia Pizarro MD [address] [place] [address] Historical LMR Provider 02/28/17 05/17/21 Pipe Simmons MD [address] [place] [address] [email or web address] Historical LMR Provider 02/28/17 05/17/21 Elisabeth Hills NP [address] [place] [address] Historical LMR Provider 02/28/17 05/17/21 Dayna Perez MD [address], [place] [address] Historical LMR Provider 02/28/17 05/17/21 Julio Johnson MD [address] [place] [address] [email or web address] Historical LMR Provider 02/28/17 Tigre Shrestha MD [address] [place] [id number] Historical LMR Provider 02/28/17 05/17/21 Yolanda Harrison MD [address] [place] [address] Historical LMR Provider 02/28/17 05/17/21 Angel Byrd MD [address] [place] [address] Historical LMR Provider 02/28/17 05/17/21 Gisela Dorsey NP [address] [place] [address] Historical LMR Provider 02/28/17 05/17/21 documented as of this encounter Additional Source Comments The information contained in this document represents components of the legal health record. It is not the complete legal health record.[facility]
--- OUTSIDE RECORDS SUMMARY | 2025-03-07 15:31 | XMS_ITS | Encounter Summary ---
Author Organization [facility] Address [address] [facility] [address] [place] [address] Phone Care Team Providers Care Tread Booker Name Role Phone Chon Tipton DO Unavailable [phone] [place] Romo PROFESSIONAL DEVELOPMENT MANAGER Unavailable Cierra Ramirez DO Unavailable Guy LagunasBS, PhD Unavailable Cindy Mesa PROFESSIONAL DEVELOPMENT MANAGER Unavailable Giovanna Padgett CNM Unavailable Danish Alfredo MD Unavailable Jennifer Stein MD Unavailable Mabel Bowman MD Unavailable Jesusita Walters CNM Unavailable Fahad June MD Unavailable Iglesia Pizarro MD Unavailable Pipe Simmons MD Unavailable Elisabeth Hills PROFESSIONAL DEVELOPMENT MANAGER Unavailable [phone] Dayna Perez MD Unavailable [phone] Julio Johnson MD Unavailable Tigre Shrestha MD Unavailable [phone] Yolanda Harrison MD Unavailable [phone] Angel Byrd MD Unavailable [phone] Sunita Gisela Keisha PROFESSIONAL DEVELOPMENT MANAGER Unavailable Jeimy Sawant PROFESSIONAL DEVELOPMENT MANAGER Primary Care Provider + Betsey Long MD Primary Care Provider [facility] bgogs PROFESSIONAL DEVELOPMENT MANAGER Primary Care Provider [facility] boggs PROFESSIONAL DEVELOPMENT MANAGER Primary Care Provider [facility] PROFESSIONAL DEVELOPMENT MANAGER Primary Care Provider Encounter Details Date Type Department Care Team (Latest Contact Info) Description 10/18/2019 Transcribe Orders Virtual Department [address] [place] [address] Chon Gutierrez MD [address] [place] [address] [email or web address] Encounter for pre-operative laboratory testing [...] 9:50 AM EDT) Specimen Source NASOPHARYNGEAL SWAB (PROFESSIONAL DEVELOPMENT MANAGER) [facility] COVID Testing Status Sent to [facility] Micro Lab [facility] Other 10/30/2019 9:50 AM EDT 10/30/2019 10:13 AM EDT Chon Gutierrez MD BODY FLUIDS AND STOOLS ORDER TIFFANY Final Result [address] [address] documented in this encounter Visit Diagnoses Diagnosis Encounter for pre-operative laboratory testing- Primary documented in this encounter Additional Health Concerns Infection Onset Date Last Indicated Resolved Time CoV-Risk 07/18/2024 07/25/2024 08/05/2024 1:21 AM EDT Influenza A 07/18/2024 07/18/2024 07/25/2024 1:22 AM EDT Influenza A 07/25/2024 07/25/2024 08/01/2024 1:21 AM EDT documented as of this encounter Care Teams Tread Booker Relationship Specialty Start Date End Date Jeimy Sawant NP [address] [place] [address] PCP - General Unknown Provider Specialty 10/10/19 10/31/19 Betsey Long MD [address] [place] [address] [email or web address] PCP - General Family Medicine 11/01/19 01/28/22 Litzy Raines NP [address] [place] [address] PCP - General Family Medicine 01/29/22 02/14/24 Litzy Raines NP [address] [place] [address] PCP - General Nurse Practitioner 02/15/24 10/25/24 Litzy Raines NP [address] [place] [address] PCP - General Nurse Practitioner 10/26/24 Chon Tipton DO [address] [place] [address] [address] [place] [address] Historical LMR Provider 02/28/17 05/17/21 [place] Romo PROFESSIONAL DEVELOPMENT MANAGER 1 [place] [address] Historical LMR Provider 02/28/17 05/17/21 Cierra Ramirez DO [address] [place] [address] [email or web address] Historical LMR Provider 02/28/17 05/17/21 Guy Lagunas MBBS, PhD 60 [place] [address] [email or web address] Historical LMR Provider 02/28/17 05/17/21 Cindy Mesa, MARGARITA [address] [place] [address] Historical LMR Provider 02/28/17 05/17/21 Giovanna Padgett CNM [address] [place] [address] Historical LMR Provider 02/28/17 05/17/21 Danish Alfredo MD [address] [place] [address] [email or web address] Historical LMR Provider 02/28/17 Jennifer Stein MD [address] [place] [address] [email or web address] Historical LMR Provider 02/28/17 05/17/21 Mabel Bowman MD [address] [place] [address], 2nd [place] [address] [email or web address] Historical LMR Provider 02/28/17 05/17/21 Jesusita Walters [facility] [address] [place] [address], [address] [place] [address] [email or web address] Historical LMR Provider 02/28/17 05/17/21 Fahad June MD [address] [place] [address] [place] [address] [email or web address] Historical LMR Provider 02/28/17 05/17/21 Iglesia Pizarro MD [address] [place] [address] Historical LMR Provider 02/28/17 05/17/21 Pipe Simmons MD [address] [place] [address] [address] [place] [address] [email or web address] Historical LMR Provider 02/28/17 05/17/21 Elisabeth Hills NP [address] [place] [address] Historical LMR Provider 02/28/17 05/17/21 Dayna Perez MD [address] [place] [address] Historical LMR Provider 02/28/17 05/17/21 Julio Johnson MD [address] [facility] [address] [place] [address] [email or web address] Historical LMR Provider 02/28/17 Tigre Shrestha MD [address] [place] [phone] Historical LMR Provider 02/28/17 05/17/21 Yolanda Harrison MD [address] [place] [address] Historical LMR Provider 02/28/17 05/17/21 Angel Byrd MD [address] [place] [address] Historical LMR Provider 02/28/17 05/17/21 Gisela Dorsey NP [address] [place] [address] Historical LMR Provider 02/28/17 05/17/21 documented as of this encounter Additional Source Comments The information contained in this document represents components of the legal health record. It is not the complete legal health record.[facility]
--- OUTSIDE RECORDS SUMMARY | 2025-03-07 15:31 | XMS_ITS | Encounter Summary ---
Author Organization [facility] Address [address] [facility] [address] [place] [address] Phone Care Team Providers Care Cisco Certified Network Associate Name Role Phone Chon Tipton DO Unavailable [phone] [place] Romo AUTOCAD DRAFTSMAN Unavailable Cierra Ramirez DO Unavailable Guy LagunasBS, PhD Unavailable [phone] Cindy Mesa AUTOCAD DRAFTSMAN Unavailable Giovanna Padgett CNM Unavailable Danish Alfredo MD Unavailable Jennifer Stein MD Unavailable Mabel Bowman MD Unavailable Jesusita Walters CNM Unavailable Fahad June MD Unavailable Iglesia Pizarro MD Unavailable Pipe Simmons MD Unavailable Elisabeth Hills AUTOCAD DRAFTSMAN Unavailable [phone] Dayna Perez MD Unavailable [phone] Julio Johnson MD Unavailable Tigre Shrestha MD Unavailable [phone] Yolanda Harrison MD Unavailable [phone] Angel Byrd MD Unavailable [phone] SunitaGisela Keisha AVILA Unavailable [phone] Betsey Long MD Primary Care Provider Litzy Raines AUTOCAD DRAFTSMAN Primary [facility] Litzy Evie AUTOCAD DRAFTSMAN Primary Care Provider [facility] Litzy Evie AUTOCAD DRAFTSMAN Primary Care Provider Encounter Details Date Type Department Care Team (Late st Contact Info) Description 03/19/2020 Ancillary Orders [facility] [address] [place] [address] Danish Alfredo MD [address] [place] [address], [address] [place] [address] [email or web address] Breast screening Social History Tobacco Use Types [...] documented as of this encounter Care Teams Cisco Certified Network Associate Relationship Specialty Start Date End Date Betsey Long MD [address] [place] [address] PCP - General Family Medicine 11/01/19 01/28/22 Litzy Raines AUTOCAD DRAFTSMAN [address] [place] [address] PCP - General Family Medicine 01/29/22 02/14/24 Litzy Raines AUTOCAD DRAFTSMAN [address] [place] [address] PCP - General Nurse Practitioner 02/15/24 10/25/24 Litzy Raines, AUTOCAD DRAFTSMAN [address] [place] [address] PCP - General Nurse Practitioner 10/26/24 Chon Tipton DO [address] [place] [address] [place] [address] Historical LMR Provider 02/28/17 2 [place] Romo NP [address] [place] [address] Historical LMR Provider 02/28/17 2 Cierra Ramirez DO [address] [place] [address], [facility] 7 [place] [address] Historical LMR Provider 02/28/17 05/17/21 Guy Lagunas MBBS, PhD 60 [place] [address] [email or web address] Historical LMR Provider 02/28/1705/17/21 Cindy Mesa NP [address] [place] [address] Historical LMR Provider 02/28/17 2 Giovanna Padgett CNM [address] [place] [address] Historical LMR Provider 02/28/17 2 Danish Alfredo MD [address] [place] [address], [address] [address] Historical LMR Provider 02/28/17 Jennifer Stein MD [address] [place] [address] Historical LMR Provider 02/28/17 05/17/21 Mabel Bowman MD [address] [place] [address], 2nd [place] [address] Historical LMR Provider 02/28/17 05/17/21 Jesusita Walters CNM [address] [place] [address], [address] [address] Historical LMR Provider 02/28/17 05/17/21 Fahad June MD [address] [place] [address] [place] [address] [email or web address] Historical LMR Provider 02/28/17 05/17/21 Iglesia Pizarro MD [address] [place] [address] Historical LMR Provider 02/28/17 Pipe Simmons MD [address] [place] [address] 7 [place] [address] [email or web address] Historical LMR Provider 02/28/17 05/17/21 Elisabeth Hills NP [address] [place] [address] Historical LMR Provider 02/28/17 2 Dayna Perez MD [address], [place] [address] Historical LMR Provider 02/28/17 2 Julio Johnson MD [address] [place] [address] [email or web address] Historical LMR Provider 02/28/17 Tigre Shrestha MD [address] [place] [address] Historical LMR Provider 02/28/17 2 Yolanda Harrison MD [address] [place] [address] Historical LMR Provider 02/28/17 2 Angel Byrd MD [address] [place] [address] Historical LMR Provider 02/28/17 2 Gisela Dorsey NP [address] [place] [address] Historical LMR Provider 02/28/17 2 documented as of this encounter Additional Source Comments The information contained in this document represents components of the legal health record. It is not the complete legal health record.[facility]
--- OUTSIDE RECORDS SUMMARY | 2025-03-07 15:31 | XMS_ITS | Encounter Summary ---
Author Organization [facility] Address [address] [facility] [address] [place] [address] Phone Care Team Providers Care Business Education Instructor Name Role Phone Chon Tipton DO Unavailable [place] Romo PEDIATRIC CRITICAL CARE NURSE Unavailable Cierra Ramirez DO Unavailable Guy LagunasBS, PhD Unavailable Cindy Mesa PEDIATRIC CRITICAL CARE NURSE Unavailable Giovanna Padgett CNM Unavailable Danish Alfredo MD Unavailable Jennifer Stein MD Unavailable Mabel Bowman MD Unavailable Jesusita Walters CNM Unavailable Fahad June MD Unavailable Iglesia Pizarro MD Unavailable Pipe Simmons MD Unavailable Elisabeth Hills PEDIATRIC CRITICAL CARE NURSE Unavailable [phone] Dayna Perez MD Unavailable [phone] Julio Johnson MD Unavailable Tigre Shrestha MD Unavailable [phone] Yolanda Harrison MD Unavailable [phone] Angel Byrd MD Unavailable [phone] SunitaGisela celestin Keisha PEDIATRIC CRITICAL CARE NURSE Unavailable [phone] Betsey Long MD Primary Care Provider Litzy Raines PEDIATRIC CRITICAL CARE NURSE Primary Care Provider [facility] PEDIATRIC CRITICAL CARE NURSE Primary Care Provider [facility] bog[facility] PEDIATRIC CRITICAL CARE NURSE Primary Care Provider Encounter Details Date Type Department Care Team (Late st Contact Info) Description 02/08/2020 Ancillary Orders Virtual Department [address] [place] [address] [phone] System, Provider Not In, PhD Partners [address] [address] Breast screening Social History Tobacco Use Types [...] documented as of this encounter Care Teams Business Education Instructor Relationship Specialty Start Date End Date Betsey Long MD [address] [place] [address] [phone] [email or web address] PCP - General Family Medicine 11/01/19 01/28/22 Litzy Raines PEDIATRIC CRITICAL CARE NURSE [address] [place] [address] PCP - General Family Medicine 01/29/22 02/14/24 Litzy Raines PEDIATRIC CRITICAL CARE NURSE [address] [place] [address] PCP - General Nurse Practitioner 02/15/24 10/25/24 Litzy Raines PEDIATRIC CRITICAL CARE NURSE [address] [place] [address] PCP - General Nurse Practitioner 10/26/24 Chon Tipton DO [address] [place] [address] Historical LMR Provider 02/28/17 2 [place] Romo NP [address] [place] [address] Historical LMR Provider 02/28/17 2 Cierra Ramirez DO [address] [place] [address] 7 [place] [address] [email or web address] Historical LMR Provider 02/28/17 05/17/21 Guy Lagunas MBBS, PhD 60 [place] [address] [email or web address] Historical LMR Provider 02/28/1705/17/21 Cindy Mesa NP [address] [place] [address] Historical LMR Provider 02/28/17 2 Giovanna Padgett CNM [address] [place] [address] Historical LMR Provider 02/28/17 2 Danish Alfredo MD [address] [address] Historical LMR Provider 02/28/17 Jennifer Stein MD [address] [place] [address] Historical LMR Provider 02/28/17 05/17/21 Mabel Bowman MD [address] [place] [address], [address] [place] [address] Historical LMR Provider 02/28/17 05/17/21 Jesusita Walters CNM [address] [address] Historical LMR Provider 02/28/17 05/17/21 Fahad June MD [address] [place] [address] [email or web address] Historical LMR Provider 02/28/17 05/17/21 Iglesia Pizarro MD [address] [place] [address] Historical LMR Provider 02/28/17 Pipe Simmons MD [address] [place] [address] 7 [place] [address] [email or web address] Historical LMR Provider 02/28/17 05/17/21 Elisabeth Hills NP [address] [place] [address] Historical LMR Provider 02/28/17 2 Dayna Perez MD [address] [place] [address] Historical LMR Provider 02/28/17 2 Julio Johnson MD [address] [place] [address] 102 [place] [address] [email or web address] Historical LMR Provider 02/28/17 Tigre Shrestha MD 61 [place] [address] Historical LMR Provider 02/28/17 2 Yolanda Harrison MD [address] [place] [address] Historical LMR Provider 02/28/17 2 Angel Byrd MD 61 [place] [address] Historical LMR Provider 02/28/17 2 Gisela Dorsey NP [address] [place] [address] Historical LMR Provider 02/28/17 2 documented as of this encounter Additional Source Comments The information contained in this document represents components of the legal health record. It is not the complete legal health record.[facility]
--- OUTSIDE RECORDS SUMMARY | 2025-03-07 15:31 | XMS_ITS | Encounter Summary ---
Author Organization [facility] Address [address] [facility] [address] [place] [address] Phone Care Team Providers Care Chemical Production Machine Operator Name Role Phone Chon Tipton DO Unavailable Sandy Romo GOVERNMENT GUARD Unavailable Cierra Ramirez DO Unavailable Guy LagunasBS, PhD Unavailable Cindy Mesa GOVERNMENT GUARD Unavailable Giovanna Padgett CNM Unavailable Danish Alfredo MD Unavailable Jennifer Stein MD Unavailable Mabel Bowman MD Unavailable Jesusita Walters CNM Unavailable Fahad June MD Unavailable Iglesia Pizarro MD Unavailable Pipe Simmons MD Unavailable Elisabeth Hills GOVERNMENT GUARD Unavailable [phone] Dayna Perez MD Unavailable [phone] Julio Johnson MD Unavailable Tigre Shrestha MD Unavailable [phone] Yolanda Harrison MD Unavailable [phone] Angel Byrd MD Unavailable [phone] Gisela Dorsey NP Unavailable [phone] Betsey Long MD Primary Care Provider Litzy Raines GOVERNMENT GUARD Primary Care Provider Litzy Raines GOVERNMENT GUARD Primary [facility] Provider [facility]OVERNMENT GU[facility] Primary Care Provider Encounter Details Date Type Department Care Team (Late st Contact Info) Description 02/08/2020 Transcribe Orders Virtual Department 30 [place] [address] System, Provider Not In, [place] [address] Thyroid nodule (Primary Dx) Social History Tobacco [...] documented as of this encounter Care Teams Chemical Production Machine Operator Relationship Specialty Start Date End Date Betsey Long MD [address] [place] [address] [email or web address] PCP - General Family Medicine 11/01/19 01/28/22 Litzy Raines NP [address] [place] [address] PCP - General Family Medicine 01/29/22 02/14/24 [facility] [address] [place] [address] PCP - General Nurse Practitioner 02/15/24 10/25/24 [facility] [address] [place] [address] PCP - General Nurse Practitioner 10/26/24 Chon Tipton DO [address] [facility] [address] [place] [address] Historical LMR Provider 02/28/17 2 Sandy Romo NP [address] [place] [address] Historical LMR Provider 02/28/17 2 Cierra Ramirez DO [address] [place] [address] 7 [place] [address] Historical LMR Provider 02/28/17 05/17/21 Guy Lagunas MBBS, PhD [address] [place] [address] [email or web address] Historical LMR Provider 02/28/1705/17/21 Cindy Mesa NP [address] [place] [address] Historical LMR Provider 02/28/17 2 Goivanna Padgett CNM [address] [place] [address] Historical LMR Provider 02/28/17 2 Danish Alfredo MD [address] [place] [address] Historical LMR Provider 02/28/17 Jennifer Stein MD [address] [place] [address] [address] [place] [address] [email or web address] Historical LMR Provider 02/28/17 05/17/21 Mabel Bowman MD [address] [place] [address], 2nd [place] [address] Historical LMR Provider 02/28/17 05/17/21 Jesusita Walters CNM [address] [place] [address] [email or web address] Historical LMR Provider 02/28/17 05/17/21 Fahad June MD [address] [place] [address] [email or web address] Historical LMR Provider 02/28/17 05/17/21 Iglesia Pizarro MD [address] [place] [address] Historical LMR Provider 02/28/17 Pipe Simmons MD [address] [place] [address] [email or web address] Historical LMR Provider 02/28/17 05/17/21 Elisabeth Hills NP 30 [place] [address] Historical LMR Provider 02/28/17 2 Dayna Perez MD [address] [place] [address] Historical LMR Provider 02/28/17 2 Julio Johnson MD [address] [place] [address] Historical LMR Provider 02/28/17 Tigre Shrestha MD [address] [place] [phone] Historical LMR Provider 02/28/17 2 Yolanda Harrison MD [address] [place] [address] Historical LMR Provider 02/28/17 2 Angel Byrd MD [address] [place] [address] Historical LMR Provider 02/28/17 2 Gisela Dorsey NP [address] [place] [address] Historical LMR Provider 02/28/17 2 documented as of this encounter Additional Source Comments The information contained in this document represents components of the legal health record. It is not the complete legal health record.[facility]
--- OUTSIDE RECORDS SUMMARY | 2025-03-07 15:31 | XMS_ITS | Encounter Summary ---
Author Organization [facility] Address [address] [facility] [address] [place] [address] Phone Care Team Providers Care Nanotechnology Engineering Technologist Name Role Phone Chon Tipton DO Unavailable Sandy Romo SPRING TIER Unavailable Cierra Ramirez DO Unavailable Guy LagunasBS, PhD Unavailable [phone] Cindy Mesa SPRING TIER Unavailable Giovanna Padgett CNM Unavailable Danish Alfredo MD Unavailable Jennifer Stein MD Unavailable Mabel Bowman MD Unavailable Jesusita Walters CNM Unavailable Fahad June MD Unavailable Iglesia Pizarro MD Unavailable Pipe Simmons MD Unavailable Elisabeth Hills SPRING TIER Unavailable [phone] Dayna Perez MD Unavailable [phone] Julio Johnson MD Unavailable Tigre Shrestha MD Unavailable [phone] Yolanda Harrison MD Unavailable [phone] Angel Byrd MD Unavailable [phone] SunitaGisela celestin Keisha SPRING TIER Unavailable Fahad June MD Primary Care Provider + Janina Moncada MD Primary Care Provider Fahad Crenshaw DO Primary Care Provider Janina Moncada MD Primary Care Provider Kash Live SPRING TIER Primary Care Provide r Cornelius Zelaya MD Primary Care Provider [phone] Jeimy Sawant SPRING TIER Primary Care Provider + Betsey Long MD Primary Care Provider [place], [place] Evie SPRING TIER Primary Care Provider [place] Evie SPRING TIER Primary Care Provider [place], [place] Evie SPRING TIER Primary Care Provider Encounter Details Date Type Department Care Team (Late st Contact Info) Description 05/31/2017 Ancillary Orders [facility] [address] [place] [address] [place] [address] Fahad June MD [address] [place] [address] [facility] [place] [address] [email or web address] Breast screening Social History Tobacco [...] documented as of this encounter Care Teams Nanotechnology Engineering Technologist Relationship Specialty Start Date End Date Fahad June MD [address] [place] [address] [email or web address] PCP - General Family Medicine 03/17/17 12/15/17 Janina Moncada MD [address] [place] [address] [email or web address] PCP - General Family Medicine 12/16/17 04/11/18 Fahad Crenshaw DO [address] [facility], [address] [place] [address] [email or web address] PCP - General Family Medicine 04/12/18 09/13/18 Janina Moncada MD [address] [facility] [address] [place] [address] [email or web address] PCP - General Family Medicine 11/14/18 04/19/19 Kash Live NP [address] [place] [address] 7 [place] [address] PCP - General 04/20/19 10/03/19 Cornelius Zelaya MD [address] [place] [address] [email or web address] PCP - General Internal Medicine 10/04/19 10/09/19 Jeimy Sawant NP [address] [place] [address] PCP - General Unknown Provider Specialty 10/10/19 10/31/19 Betsey Long MD [address] [place] [address] [email or web address] PCP - General Family Medicine 11/01/19 01/28/22 Litzy Raines NP [address] [place] [address] PCP - General Family Medicine 01/29/22 02/14/24 Litzy Raines NP [address] [place] [address] PCP - General Nurse Practitioner 02/15/24 10/25/24 Litzy Raines, SPRING TIER [address] [place] [address] PCP - General Nurse Practitioner 10/26/24 Chon Tipton DO [address] [place] [address] [place] [address] Historical LMR Provider 02/28/17 05/17/21 Sandy Romo NP [address] [place] [address] Historical LMR Provider 02/28/17 05/17/21 Cierra Ramirez DO [address] [place] [address] 7 [place] [address] Historical LMR Provider 02/28/17 05/17/21 Guy Lagunas MBBS, PhD 60 [place] [address] [email or web address] Historical LMR Provider 02/28/17 05/17/21 Cindy Mesa NP 29 [place] [address] Historical LMR Provider 02/28/17 05/17/21 Giovanna Padgett CNM 30 [place] [address] Historical LMR Provider 02/28/17 05/17/21 Danish Alfredo MD [address] [facility], [address] [place] [address] [email or web address] Historical LMR Provider 02/28/17 Jennifer Stein MD [address] [place] [address] [place] [address] [email or web address] Historical LMR Provider 02/28/17 05/17/21 Mabel Bowman MD [address] [place] [address] [email or web address] Historical LMR Provider 02/28/17 05/17/21 Jesusita Walters CNM [address] [place] [address] [place] [address] [email or web address] Historical LMR Provider 02/28/17 05/17/21 Fahad June MD [address] [place] [address] [email or web address] Historical LMR Provider 02/28/17 05/17/21 Iglesia Pizarro MD [address] [place] [address] Historical LMR Provider 02/28/17 05/17/21 Pipe Simmons MD [address] [place] [address] [email or web address] Historical LMR Provider 02/28/17 05/17/21 Elisabeth Hills NP [address] [place] [address] Historical LMR Provider 02/28/17 05/17/21 Dayna Perez MD [address] [place] [address] Historical LMR Provider 02/28/17 05/17/21 Julio Johnson MD [address] [facility], [address] [address] [email or web address] Historical LMR Provider 02/28/17 Tigre Shrestha MD [address] [place] [phone] Historical LMR Provider 02/28/17 05/17/21 Yolanda Harrison MD [address] [place] [address] Historical LMR Provider 02/28/17 05/17/21 Angel Byrd MD [address] [place] [address] Historical LMR Provider 02/28/17 05/17/21 Gisela Dorsey NP [address] [place] [address] Historical LMR Provider 02/28/17 05/17/21 documented as of this encounter Additional Source Comments The information contained in this document represents components of the legal health record. It is not the complete legal health record.[facility]
--- OUTSIDE RECORDS SUMMARY | 2025-03-07 15:31 | XMS_ITS | Encounter Summary ---
Author Organization [facility] Address [address] [facility] [address] [place] [address] Phone Care Team Providers Care Manager Epic Name Role Phone Chon Tipton DO Unavailable [phone] Sandy Romo SAP SD ANALYST Unavailable Cierra Ramirez DO Unavailable Guy LagunasBS, PhD Unavailable iCndy Mesa SAP SD ANALYST Unavailable Giovanna Padgett CNM Unavailable Danish Alfredo MD Unavailable Jennifer Stein MD Unavailable Mabel Bowman MD Unavailable Jesusita Walters CNM Unavailable Fahad June MD Unavailable Iglesia Pizarro MD Unavailable Pipe Simmons MD Unavailable Elisabeth Hills SAP SD ANALYST Unavailable [phone] Dayna Perez MD Unavailable [phone] Julio Johnson MD Unavailable Tigre Shrestha MD Unavailable [phone] Yolanda Harrison MD Unavailable [phone] Angel Byrd MD Unavailable [phone] SunitaGisela Keisha SAP SD ANALYST Unavailable [phone] Betsey Long MD Primary Care Provider Litzy Raines SAP SD ANALYST Primary Care Provider [facility] SAP SD ANALYST Primary Care Provider [facility] SAP SD ANALYST Primary Care Provider Encounter Details Date Type Department Care Team (Late st Contact Info) Description 02/08/2020 Procedure Pass [address] [place] [address] Social History Tobacco Use Types Packs/Day Years [...] documented as of this encounter Care Teams Manager Epic Relationship Specialty Start Date End Date Betsey Long MD [address] [place] [address] PCP - General Family Medicine 11/01/19 01/28/22 Litzy Raines SAP SD ANALYST [address] [place] [address] PCP - General Family Medicine 01/29/22 02/14/24 [facility] [address] [place] [address] PCP - General Nurse Practitioner 02/15/24 10/25/24 [facility] SAP SD ANALYST [address] [place] [address] PCP - General Nurse Practitioner 10/26/24 Chon Tipton DO [address] [place] [address] Historical LMR Provider 02/28/17 2 Sandy Romo NP [address] [place] [address] Historical LMR Provider 02/28/17 2 Cierra Ramirez DO [address] [place] [address] 7 [place] [address] [email or web address] Historical LMR Provider 02/28/17 05/17/21 Guy Lagunas MBBS, PhD 60 [place] [address] [email or web address] Historical LMR Provider 02/28/1705/17/21 Cindy Mesa NP [address] [place] [address] Historical LMR Provider 02/28/17 2 Giovanna Padgett CNM 30 [place] [address] Historical LMR Provider 02/28/17 2 Danish Alfredo MD [address] [place] [address] Historical LMR Provider 02/28/17 Jennifer Stein MD [address] [place] [address] Historical LMR Provider 02/28/17 05/17/21 Mabel Bowman MD [address] [place] [address], 2nd [place] [address] Historical LMR Provider 02/28/17 05/17/21 Jesusita Walters CNM [address] [place] [address], [address] [address] Historical LMR Provider 02/28/17 05/17/21 Fahad June MD [address] [place] [address] [place] [address] [email or web address] Historical LMR Provider 02/28/17 05/17/21 Iglesia Pizarro MD [address] [place] [address] Historical LMR Provider 02/28/17 Pipe Simmons MD [address] [place] [address] 7 [place] [address] [email or web address] Historical LMR Provider 02/28/17 05/17/21 Elisabeth Hills NP 30 [place] [address] Historical LMR Provider 02/28/17 2 Dayna Perez MD [address] [address] Historical LMR Provider 02/28/17 2 Julio Johnson MD [address] [place] [address] [email or web address] Historical LMR Provider 02/28/17 Tigre Shrestha MD 61 [place] [address] Historical LMR Provider 02/28/17 2 Yolanda Harrison MD 4 [place] [address] Historical LMR Provider 02/28/17 2 Angel Byrd MD 61 [place] [address] Historical LMR Provider 02/28/17 2 Gisela Dorsey NP [address] [place] [address] Historical LMR Provider 02/28/17 2 documented as of this encounter Additional Source Comments The information contained in this document represents components of the legal health record. It is not the complete legal health record.[facility]
--- OUTSIDE RECORDS SUMMARY | 2025-03-07 15:31 | XMS_ITS | Encounter Summary ---
Author Organization [facility] Address [address] [facility] [address] [place] [address] Phone Care Team Providers Care Marble Mason Name Role Phone Danish Alfredo MD Unavailable Julio Johnson MD Unavailable [phone] [facility] Evie PULMONARY FUNCTION TECHNICIAN Primary Care Provider Litzy Raines PULMONARY FUNCTION TECHNICIAN Primary Care Provider Encounter Details Date Type Department Care Team (Late st Contact Info) Description 04/17/2024 Ancillary Orders [facility], [facility] 30 [place] [address] Danish Alfredo MD [address] [facility], [address] [place] [address] [email or web address] Abnormal mammogram (Primary Dx) Social History Tobacco [...] other sonographic abnormality. us Danish Alfredo MD IMG US BREAST Final Result * (ABNORMAL) BI [...] documented as of this encounter Care Teams Marble Mason Relationship Specialty Start Date End Date [place], [place] MARGARITA Case [address] [place] [address] PCP - General Nurse Practitioner 02/15/24 10/25/24 [place] MARGARITA Case [address] [place] [address] PCP - General Nurse Practitioner 10/26/24 Danish Alfredo MD [address] [address] Historical LMR Provider 02/28/17 Julio Johnson MD [address] [place] [address] Historical LMR Provider 02/28/17 documented as of this encounter Additional Source Comments The information contained in this document represents components of the legal health record. It is not the complete legal health record.[facility]
--- OUTSIDE RECORDS SUMMARY | 2025-03-07 15:31 | XMS_ITS | Encounter Summary ---
Author Organization [facility] Address [address] [facility] [address] [place] [address] Phone Care Team Providers Care Underwater Photographer Name Role Phone Chon Tipton DO Unavailable Sandy Romo MANAGEMENT ANALYST Unavailable Cierra Ramirez DO Unavailable Guy LagunasBS, PhD Unavailable [phone] Cindy Mesa MANAGEMENT ANALYST Unavailable Giovanna Padgett CNM Unavailable Danish Alfredo MD Unavailable Jennifer Stein MD Unavailable Mabel Bowman MD Unavailable Jesusita Walters CNM Unavailable Fahad June MD Unavailable Iglesia Pizarro MD Unavailable Pipe Simmons MD Unavailable Elisabeth Hills MANAGEMENT ANALYST Unavailable [phone] Dayna Perez MD Unavailable [phone] Julio Johnson MD Unavailable Tigre Shrestha MD Unavailable [phone] Yolanda Harrison MD Unavailable [phone] Angel Byrd MD Unavailable [phone] SunitaGisela Keisha MANAGEMENT ANALYST Unavailable [phone] Jeimy Sawant MANAGEMENT ANALYST Primary Care Provider + Betsey Long MD Primary Care Provider [facility] Litzy Evie MANAGEMENT ANALYST Primary Care Provider [facility]NAG[facility] Primary Care Provider [facility] Litzy Evie MANAGEMENT ANALYST Primary Care Provider Encounter Details Date Type Department Care Team (Late st Contact Info) Description 10/14/2019 Procedure Pass [facility], Ct Scan - [address] [address] Social History Tobacco Use Types Packs/Day Years [...] documented as of this encounter Care Teams Underwater Photographer Relationship Specialty Start Date End Date Jeimy Sawant NP [address] [place] [address] PCP - General Unknown Provider Specialty 10/10/19 10/31/19 Betsey Long MD 70 [place] [address] [email or web address] PCP - General Family Medicine 11/01/19 01/28/22 Litzy Raines, MANAGEMENT ANALYST [address] [place] [address] PCP - General Family Medicine 01/29/22 02/14/24 Litzy Raines, MANAGEMENT ANALYST [address] [place] [address] PCP - General Nurse Practitioner 02/15/24 10/25/24 Litzy Raines, MARGARITA [address] [place] [address] PCP - General Nurse Practitioner 10/26/24 Chon Tipton DO [address] [place] [address] Historical LMR Provider 02/28/17 05/17/21 Sandy Romo MANAGEMENT ANALYST [address] [place] [address] Historical LMR Provider 02/28/17 05/17/21 Cierra Ramirez DO [address] [place] [address] 7 [place] [address] [email or web address] Historical LMR Provider 02/28/17 05/17/21 Guy Lagunas MBBS, PhD 60 [place] [address] [email or web address] Historical LMR Provider 02/28/17 05/17/21 Cindy Mesa NP 29 [place] [address] Historical LMR Provider 02/28/17 05/17/21 Giovanna Padgett CNM [address] [place] [address] Historical LMR Provider 02/28/17 05/17/21 Danish Alfredo MD [address] [place] [address] Historical LMR Provider 02/28/17 Jennifer Stein MD [address] [place] [address] Historical LMR Provider 02/28/17 05/17/21 Mabel Bowman MD [address] [place] [address], 2nd [place] [address] Historical LMR Provider 02/28/17 05/17/21 Jesusita Walters CNM [address] [place] [address] Historical LMR Provider 02/28/17 05/17/21 Fahad June MD [address] [place], [place] [address] [address] [email or web address] Historical LMR Provider 02/28/17 05/17/21 Iglesia Pizarro MD [address] [place] [address] Historical LMR Provider 02/28/17 05/17/21 Pipe Simmons MD [address] [place] [address] 7 [place] [address] [email or web address] Historical LMR Provider 02/28/17 05/17/21 Elisabeth Hills NP [address] [place] [address] Historical LMR Provider 02/28/17 05/17/21 Dayna Perez MD [address], [place] [address] Historical LMR Provider 02/28/17 05/17/21 Julio Johnson MD [address] [place] [address] 102 [place] [address] Historical LMR Provider 02/28/17 Tigre Shrestha MD 61 [place] [address] Historical LMR Provider 02/28/17 05/17/21 Yolanda Harrison MD 444 [place] [address] Historical LMR Provider 02/28/17 05/17/21 Angel Byrd MD [address] [place] [address] Historical LMR Provider 02/28/17 05/17/21 Gisela Dorsey NP [address] [place] [address] Historical LMR Provider 02/28/17 05/17/21 documented as of this encounter Additional Source Comments The information contained in this document represents components of the legal health record. It is not the complete legal health record.[facility]
--- OUTSIDE RECORDS SUMMARY | 2025-03-07 15:31 | XMS_ITS | Encounter Summary ---
Author Organization [facility] Address [address] [place] [address] Phone Care Team Providers Care Forestry Technical Officer Name Role Phone Danish Alfredo MD Unavailable Julio Johnson MD Unavailable [phone] [facility] Litzy Evie RELEASE COORDINATOR Primary Care Provider Litzy Raines RELEASE COORDINATOR Primary Care Provider Encounter Details Date Type Department Care Team (Late st Contact Info) Description 05/26/2024 Procedure Pass [facility], Ct Scan - [facility] 30 [place] [address] Social History Tobacco Use Types Packs/Day Years [...] documented as of this encounter Care Teams Forestry Technical Officer Relationship Specialty Start Date End Date Litzy Raines NP [address] [place] [address] PCP - General Nurse Practitioner 02/15/24 10/25/24 Litzy Raines NP [address] [place] [address] PCP - General Nurse Practitioner 10/26/24 Danish Alfredo MD [address] [place] [address] Historical LMR Provider 02/28/17 Julio Johnson MD [address] [place] [address] Historical LMR Provider 02/28/17 documented as of this encounter Additional Source Comments The information contained in this document represents components of the legal health record. It is not the complete legal health record.[facility]
--- OUTSIDE RECORDS SUMMARY | 2025-03-07 15:31 | XMS_ITS | Encounter Summary ---
Author Organization [facility] Address [address] [place] [address] Phone Care Team Providers Care Molder Feeder Name Role Phone Danish Alfredo MD Unavailable Julio Johnson MD Unavailable [phone] [place], [place] Evie ZINC SKIMMER Primary Care Provider [facility] [place] Evie ZINC SKIMMER Primary Care Provider Encounter Details Date Type Department Care Team (Late st Contact Info) Description 04/17/2024 Procedure Pass [facility] - [address] [place] [address] Social History Tobacco Use Types Packs/Day Years [...] as of this encounter Care Teams Molder Feeder Relationship Specialty Start Date End Date Litzy Raines NP [address] [place] [address] PCP - General Nurse Practitioner 02/15/24 10/25/24 Litzy Raines NP [address] [place] [address] PCP - General Nurse Practitioner 10/26/24 Danish Alfredo MD [address] [place] [address] Historical LMR Provider 02/28/17 Julio Johnson MD [address] [place] [address] Historical LMR Provider 02/28/17 documented as of this encounter Additional Source Comments The information contained in this document represents components of the legal health record. It is not the complete legal health record.[facility]
--- OUTSIDE RECORDS SUMMARY | 2025-03-07 15:31 | XMS_ITS | Encounter Summary ---
Author Organization [facility] Address [address] [facility] [address] [place] [address] Phone Care Team Providers Care Flight Engineer Manager Name Role Phone Danish Alfredo MD Unavailable Julio Johnson MD Unavailable [phone] Litzy Raines EMT DRIVER Primary Care Provider Litzy Raines EMT DRIVER Primary Care Provider Reason for Referral * MRI/CAT Scan - Closed Specialty Diagnoses / Procedures Referred By Chance quispe Referred To Contact Radiology Diagnoses Former smoker Procedures CT Chest Lung Cancer Screening Initial Or Annual CHG COMPUTED TOMOGRAPHY THORAX LW DOSE LNG CA SCR C- Litzy Raines NP [address] [facility], [address] [place] [address] Phone: tel: fax: Referral ID Status Reason Start Date Expiration Date Visits Re quested Visits Authorized [id number] Closed 05/26/2024 05/09/2025 1 1 Encounter Details Date Type Department Care Team (Late st Contact Info) Description 05/26/2024 Transcribe Orders Virtual Department 30 [place] [address] Litzy Raines NP 73 [place] [address] Former smoker (Primary Dx) Social History Tobacco [...] clinician's provided indication for this examination in [facility]: Lung Cancer Screening - FORMER smoker, quit [...] clinician's provided indication for this examination in [facility]:Lung Cancer Screening - FORMER smoker, quit in [...] the Lung-RADS categories can be found at:[email or web address] [facility] CHEST Final Result documented in this [...] documented as of this encounter Care Teams Flight Engineer Manager Relationship Specialty Start Date End Date Litzy Raines NP [address] [place] [address] PCP - General Nurse Practitioner 02/15/24 10/25/24 Litzy Raines NP [address] [place] [address] PCP - General Nurse Practitioner 10/26/24 Danish Alfredo MD [address] [place] [address] Historical LMR Provider 02/28/17 Julio Johnson MD [address] [place] [address] Historical LMR Provider 02/28/17 documented as of this encounter Additional Source Comments The information contained in this document represents components of the legal health record. It is not the complete legal health record.[facility]
--- OUTSIDE RECORDS SUMMARY | 2025-03-07 15:32 | XMS_ITS | Encounter Summary ---
Author Organization [facility] Address [address] [facility] [address] [place] [address] Phone Care Team Providers Care Lay Out Helper Name Role Phone Chon Tipton DO Unavailable Sandy Romo FACILITIES FLIGHT CHECK PILOT Unavailable Cierra Ramirez DO Unavailable Guy LagunasBS, PhD Unavailable [phone] Cindy Mesa FACILITIES FLIGHT CHECK PILOT Unavailable Giovanna Padgett CNM Unavailable Danish Alfredo MD Unavailable Jennifer Stein MD Unavailable Mabel Bowman MD Unavailable Jesusita Walters CNM Unavailable Fahad June MD Unavailable Iglesia Pizarro MD Unavailable Pipe Simmons MD Unavailable Elisabeth Hills FACILITIES FLIGHT CHECK PILOT Unavailable [phone] Dayna Perez MD Unavailable [phone] Julio Johnson MD Unavailable Tigre Shrestha MD Unavailable [phone] Yolanda Harrison MD Unavailable [phone] Angel Byrd MD Unavailable [phone] Sunita Gisela Keisha AVILA Unavailable [phone] Betsey Long MD Primary Care Provider Litzy Raines FACILITIES FLIGHT CHECK PILOT Primary Care Provider Litzy Raines NP Primary Care Provider Litzy Raines FACILITIES FLIGHT CHECK PILOT Primary Care Provider Encounter Details Date Type Department Care Team (Late st Contact Info) Description 04/21/2021 Transcribe Orders Virtual Department 30 [place] [address] Litzy Raines NP [address] [place] [address] Breast screening (Primary Dx) Social History Tobacco [...] Negative. DENSITY: There are scattered fibroglandular densities. [facility] FACILITIES FLIGHT CHECK PILOT IMG MG EXAMS Final Result documented in [...] documented as of this encounter Care Teams Lay Out Helper Relationship Specialty Start Date End Date Betsey Long MD [address] [place] [address] [email or web address] PCP - General Family Medicine 11/01/19 01/28/22 Litzy Raines, FACILITIES FLIGHT CHECK PILOT [address] [place] [address] PCP - General Family Medicine 01/29/22 02/14/24 Litzy Raines FACILITIES FLIGHT CHECK PILOT [address] [place] [address] PCP - General Nurse Practitioner 02/15/24 10/25/24 Litzy Raines FACILITIES FLIGHT CHECK PILOT [address] [place] [address] PCP - General Nurse Practitioner 10/26/24 Chon Tipton DO [address] [place] [address] [place] [address] Historical LMR Provider 02/28/17 2 Sandy Romo FACILITIES FLIGHT CHECK PILOT 1 [place] [address] Historical LMR Provider 02/28/17 2 Cierra Ramirez DO [address] [place] [address] 7 [place] [address] [email or web address] Historical LMR Provider 02/28/17 05/17/21 Guy Lagunas MBBS, PhD [address] [place] [address] [email or web address] Historical LMR Provider 02/28/1705/17/21 Cindy Mesa NP 29 [place] [address] Historical LMR Provider 02/28/17 2 Giovanna Padgett CNM [address] [place] [address] Historical LMR Provider 02/28/17 2 Danish Alfredo MD [address] [place] [address] Historical LMR Provider 02/28/17 Jennifer Stein MD [address] [place] [address] Historical LMR Provider 02/28/17 05/17/21 Mabel Bowman MD [address] [place] [address], [address] [place] [address] Historical LMR Provider 02/28/17 05/17/21 Jesusita Walters CNM [address] [place] [address] Historical LMR Provider 02/28/17 05/17/21 Fahad June MD [address] [place] [address] [email or web address] Historical LMR Provider 02/28/17 05/17/21 Iglesia Pizarro MD [address] [place] [address] Historical LMR Provider 02/28/17 Pipe Simmons MD [address] [place] [address] 7 [place] [address] [email or web address] Historical LMR Provider 02/28/17 05/17/21 Elisabeth Hills NP 30 [place] [address] Historical LMR Provider 02/28/17 2 Dayna Perez MD [address] [place] [address] Historical LMR Provider 02/28/17 2 Julio Johnson MD [address] [facility] 102 [place] [address] [email or web address] Historical LMR Provider 02/28/17 Tigre Shrestha MD 61 [place] [address] Historical LMR Provider 02/28/17 2 Yolanda Harrison MD 444 [place] [address] Historical LMR Provider 02/28/17 2 Angel Byrd MD 61 [place] [address] Historical LMR Provider 02/28/17 2 Gisela Dorsey NP [address] [place] [address] Historical LMR Provider 02/28/17 2 documented as of this encounter Additional Source Comments The information contained in this document represents components of the legal health record. It is not the complete legal health record.[facility]
--- OUTSIDE RECORDS SUMMARY | 2025-03-07 15:32 | XMS_ITS | Encounter Summary ---
Author Organization [facility] Address [address] [facility] [address] [address] [place] [address] Phone Care Team Providers Care Muck Boss Name Role Phone Chon Tipton DO Unavailable [phone] Sandy Romo WAREHOUSE SHIPPING CLERK Unavailable [phone] Cierra Ramirez DO Unavailable Guy LagunasBS, PhD Unavailable [phone] Cindy Mesa WAREHOUSE SHIPPING CLERK Unavailable Giovanna Padgett CNM Unavailable Danish Alfredo MD Unavailable Jennifer Stein MD Unavailable Mabel Bowman MD Unavailable Jesusita Walters CNM Unavailable Fahad June MD Unavailable Iglesia Pizarro MD Unavailable Pipe Simmons MD Unavailable Elisabeth Hills WAREHOUSE SHIPPING CLERK Unavailable [phone] Dayna Perez MD Unavailable [phone] Julio Johnson MD Unavailable Tigre Shrestha MD Unavailable [phone] Yolanda Harrison MD Unavailable [phone] Angel Byrd MD Unavailable [phone] Gisela Dorsey Keisha WAREHOUSE SHIPPING CLERK Unavailable Fahad June MD Primary Care Provider + Janina Moncada MD Primary Care Provider [phone] Fahad Crenshaw DO Primary Care Provider Janina Moncada MD Primary Care Provider [phone] Kash Live WAREHOUSE SHIPPING CLERK Primary Care Provide r Cornelius Zelaya MD Primary Care Provider [phone] Jeimy Sawant WAREHOUSE SHIPPING CLERK Primary Care Provider + Betsey Long MD Primary Care Provider [place], [place] Evie WAREHOUSE SHIPPING CLERK Primary Care Provider [facility] WAREHOUSE SHIPPING CLERK Primary Care Provider [place], [place] Evie WAREHOUSE SHIPPING CLERK Primary Care Provider Encounter Details Date Type Department Care Team (Late st Contact Info) Description 06/08/2017 Ancillary Orders [facility] [address] [place] [address] [place] [address] Fahad June MD [address] [place] [address] [facility] [place] [address] [email or web address] Social History Tobacco Use Types Packs/Day Years [...] documented as of this encounter Care Teams Muck Boss Relationship Specialty Start Date End Date Fahad June MD [address] [place] [address] [email or web address] PCP - General Family Medicine 03/17/17 12/15/17 Janina Moncada MD [address] [place] [address] [email or web address] PCP - General Family Medicine 12/16/17 04/11/18 Fahad Crenshaw DO [address] [place] [address] [email or web address] PCP - General Family Medicine 04/12/18 09/13/18 Janina Moncada MD [address] [place] [address] [email or web address] PCP - General Family Medicine 11/14/18 04/19/19 Kash Live, MARGARITA [address] [place] [address] 7 [place] [address] PCP - General 04/20/19 10/03/19 Cornelius Zelaya MD [address] [place] [address] PCP - General Internal Medicine 10/04/19 10/09/19 Jeimy Sawant NP [facility] [place] [address] PCP - General Unknown Provider Specialty 10/10/19 10/31/19 Betsey Long MD 70 [place] [address] [email or web address] PCP - General Family Medicine 11/01/19 01/28/22 Litzy Raines, MARGARITA 70 [facility] [place] [address] PCP - General Family Medicine 01/29/22 02/14/24 Litzy Raines NP 70 [place] [address] PCP - General Nurse Practitioner 02/15/24 10/25/24 [place] [address] PCP - General Nurse Practitioner 10/26/24 Chon Tipton DO [address] [place] [address] [place] [address] Historical LMR Provider 02/28/17 05/17/21 Sandy Romo WAREHOUSE SHIPPING CLERK [address] [place] [address] [place] [address] Historical LMR Provider 02/28/17 05/17/21 Cierra Ramirez DO [address] [place] [address], [address] [place] [address] Historical LMR Provider 02/28/17 05/17/21 Guy Lagunas MBBS, PhD 60 [place] [address] [email or web address] Historical LMR Provider 02/28/17 05/17/21 Cindy Mesa, MARGARITA [address] [place] [address] Historical LMR Provider 02/28/17 05/17/21 Giovanna Padgett CNM [address] [place] [address] Historical LMR Provider 02/28/17 05/17/21 Danish Alfredo MD [address] [place] [address] Historical LMR Provider 02/28/17 Jennifer Stein MD [address] [place] [address] Historical LMR Provider 02/28/17 05/17/21 Mabel Bowman MD [address] [place] [address], 2[address] [place] [address] Historical LMR Provider 02/28/17 05/17/21 Jesusita Walters CNM [address] [place] [address] Historical LMR Provider 02/28/17 05/17/21 Fahad June MD [address] [place] [address] [email or web address] Historical LMR Provider 02/28/17 05/17/21 Iglesia Pizarro MD [address] [place] [address] Historical LMR Provider 02/28/17 05/17/21 Pipe Simmons MD [address] [place] [address] [email or web address] Historical LMR Provider 02/28/17 05/17/21 Elisabeth Hills NP 30 [place] [address] Historical LMR Provider 02/28/17 05/17/21 Dayna Perez MD [address], [place] [address] Historical LMR Provider 02/28/17 05/17/21 Julio Johnson MD [address] [place] [address] [email or web address] Historical LMR Provider 02/28/17 Tigre Shrestha MD [address] [place] [address] Historical LMR Provider 02/28/17 05/17/21 Yolanda Harrison MD [address] [place] [address] Historical LMR Provider 02/28/17 05/17/21 Angel Byrd MD [address] [place] [address] Historical LMR Provider 02/28/17 05/17/21 Gisela Dorsey NP [address] [place] [address] Historical LMR Provider 02/28/17 05/17/21 documented as of this encounter Additional Source Comments The information contained in this document represents components of the legal health record. It is not the complete legal health record.[facility]
--- OUTSIDE RECORDS SUMMARY | 2025-03-07 15:32 | XMS_ITS | Encounter Summary ---
Author Organization [facility] Address [address] [facility] [address] [place] [address] Phone Care Team Providers Care Signal Processing Engineer Name Role Phone Danish Alfredo MD Unavailable Julio Johnson MD Unavailable [phone] Litzy Raines EMPLOYEE HEALTH NURSE Primary Care Provider Litzy Raines EMPLOYEE HEALTH NURSE Primary Care Provider Encounter Details Date Type Department Care Team (Latest Contact Info) Description 06/09/2024 Transcribe Orders Virtual Department 30 [place] [address] Litzy Raines NP [address] [place] [address] Hydronephrosis of right kidney (Primary Dx) Social [...] clinician's provided indication for this examination in [facility]: Outside Radiology Order; Hydronephrosis of right [...] clinician's provided indication for this examination in [facility]:Outside Radiology Order; Hydronephrosis of right kidney TECHNIQUE: Kidney Ultrasound. COMPARISON: Chest CT 05/29/2024 FINDINGS: Right Kidney: Size: 10.9 cm Simple cysts measure up to 1.4 cm. No stones or hydronephrosis. Left Kidney: Size: 10.9 cm Subcentimeter cysts measure up to 0.8 cm. No stones or hydronephrosis. Bladder: Normal. IMPRESSION: Small bilateral renal cysts. No hydronephrosis. Litzy Raines EMPLOYEE HEALTH NURSE IMG US RENAL Final Result documented in [...] documented as of this encounter Care Teams Signal Processing Engineer Relationship Specialty Start Date End Date Litzy Raines NP [address] [place] [address] PCP - General Nurse Practitioner 02/15/24 10/25/24 Litzy Raines NP [address] [place] [address] PCP - General Nurse Practitioner 10/26/24 Danish Alfredo MD [address] [place] [address] Historical LMR Provider 02/28/17 Julio Johnson MD [address] [place] [address] Historical LMR Provider 02/28/17 documented as of this encounter Additional Source Comments The information contained in this document represents components of the legal health record. It is not the complete legal health record.[facility]
--- OUTSIDE RECORDS SUMMARY | 2025-03-07 15:32 | XMS_ITS | Encounter Summary ---
Author Organization [employer] Address [address] [place] [address] 7t [place] [address] Care Team Providers Care Meat Counter Clerk Name Role Phone [facility] Primary Care Provider [phone] Encounter Details Date Type Department Care Team (Late st Contact Info) Description 09/09/2023 Orders Only [place] [facility] 70 [place] [address] [place], [place], [facility] 70 [place] [address] ZAVALA (dyspnea on exertion) Social History Tobacco [...] Description 06/20/2025 11:00 AM EST Office Visit [place] [facility] Dental 70 [place] [address] Urvashi Gamble LLD 9 [place] [address] documented as of this encounter Procedures Procedure Name Priority Date/Time Associated Diagnosis Comments STRESS TEST ONLY Routine 09/09/2023 ZAVALA (dyspnea on exertion) STRESS TEST WITH MYOCARDIAL PERFUSION Routine 09/09/2023 ZAVALA (dyspnea on exertion) documented in this encounter Results * Stress test (09/09/2023) [facility] CV STRESS PROCEDURES Kim l Result * Stress test with myocardial perfusion (09/09/2023) [facility] CV STRESS PROCEDURES Kim l Result documented in this encounter Visit Diagnoses Diagnosis ZAVALA (dyspnea on exertion) Other dyspnea and respiratory abnormality documented in this encounter Additional Health Concerns Assessment Noted Time PHQ-9 Depression Total Score: 15 08/06/ 023 11:33 AM EDT documented as of this encounter Care Teams Meat Counter Clerk Relationship Specialty Start Date End Date [facility] [address] [place] [address] PCP - General Family Medicine 05/06/22 documented as of this encounter
--- OUTSIDE RECORDS SUMMARY | 2025-03-07 15:32 | XMS_ITS | Encounter Summary ---
Author Organization [facility] Address [address] [facility] [address] [place] [address] Phone Care Team Providers Care Diagnostics Tech Name Role Phone Chon Tipton DO Unavailable [phone] Sandy Romo SPRAY PILOT Unavailable [phone] Cierra Ramirez DO Unavailable Guy LagunasBS, PhD Unavailable Cindy Mesa SPRAY PILOT Unavailable Giovanna Padgett CNM Unavailable Danish Alfredo MD Unavailable Jennifer Stein MD Unavailable Mabel Bowman MD Unavailable Jesusita Walters CNM Unavailable Fahad June MD Unavailable Iglesia Pizarro MD Unavailable Pipe Simmons MD Unavailable Elisabeth Hills SPRAY PILOT Unavailable [phone] Dayna Perez MD Unavailable [phone] Julio Johnson MD Unavailable Tigre Shrestha MD Unavailable [phone] Yolanda Harrison MD Unavailable [phone] Angel Byrd MD Unavailable [phone] SunitaGisela Keisha SPRAY PILOT Unavailable [phone] Janina Moncada MD Primary Care Provider [phone] Kash Live SPRAY PILOT Primary Care Provide r Cornelius Zelaya MD Primary Care Provider [phone] Jeimy Sawant SPRAY PILOT Primary Care Provider + Betsey Long MD Primary Care Provider Litzy Raines SPRAY PILOT Primary Care Provider Litzy Raines SPRAY PILOT Primary Care Provider [facility] SPRAY PILOT Primary Care Provider Encounter Details Date Type Department Care Team (Latest Contact Info) Description 03/06/2019 Transcribe Orders Virtual Department 30 [place] [address] Janina Moncada MD [address] [place] [address] [email or web address] Dysphagia, unspecified type (Primary Dx) Social History [...] documented as of this encounter Care Teams Diagnostics Tech Relationship Specialty Start Date End Date Janina Moncada MD [address] [address] PCP - General Family Medicine 11/14/18 04/19/19 Kash Live NP [address] [place] [address] PCP - General 04/20/19 10/03/19 Cornelius Zelaya MD [address] [place] [address] PCP - General Internal Medicine 10/04/19 10/09/19 Jeimy Sawant NP 70 [place] [address] PCP - General Unknown Provider Specialty 10/10/19 10/31/19 Betsey Long MD 70 [place] [address] PCP - General Family Medicine 11/01/19 01/28/22 Litzy Raines NP 70 [place] [address] PCP - General Family Medicine 01/29/22 02/14/24 Litzy Raines NP 70 [place] [address] PCP - General Nurse Practitioner 02/15/24 10/25/24 Litzy Raines, SPRAY PILOT 70 [place] [address] PCP - General Nurse Practitioner 10/26/24 Chon Tipton DO [address] [place] [address] [place] [address] Historical LMR Provider 02/28/17 05/17/21 Sandy Romo SPRAY PILOT 1 [place] [address] Historical LMR Provider 02/28/17 05/17/21 Cierra Ramirez DO [address] [place] [address], [facility] 7 [place] [address] [email or web address] Historical LMR Provider 02/28/17 05/17/21 Guy Lagunas MBBS, PhD 60 [place] [address] [email or web address] Historical LMR Provider 02/28/17 05/17/21 Cindy Mesa, MARGARITA 29 [place] [address] Historical LMR Provider 02/28/17 05/17/21 Giovanna Padgett CNM 30 [place] [address] Historical LMR Provider 02/28/17 05/17/21 Danish Alfredo MD [address] [place] [address], [address] [address] [email or web address] Historical LMR Provider 02/28/17 Jennifer Stein MD [address] [place] [address] [email or web address] Historical LMR Provider 02/28/17 05/17/21 Mabel Bowman MD [address] [place] [address] [email or web address] Historical LMR Provider 02/28/17 05/17/21 Jesusita Walters CNM [address] [place] [address], [address] [place] [address] [email or web address] Historical LMR Provider 02/28/17 05/17/21 Fahad June MD [address] [place] [address] [email or web address] Historical LMR Provider 02/28/17 05/17/21 Iglesia Pizarro MD [address] [place] [address] Historical LMR Provider 02/28/17 05/17/21 Pipe Simmons MD [address] [place] [address] 7 [place] [address] [email or web address] Historical LMR Provider 02/28/17 05/17/21 Elisabeth Hills NP 30 [place] [address] Historical LMR Provider 02/28/17 05/17/21 Dayna Perez MD [address] [place] [address] Historical LMR Provider 02/28/17 05/17/21 Julio Johnson MD 22 [facility], [address] [address] [email or web address] Historical LMR Provider 02/28/17 Tigre Shrestha MD 61 [place] [address] Historical LMR Provider 02/28/17 05/17/21 Yolanda Harrison MD [address] [place] [address] Historical LMR Provider 02/28/17 05/17/21 Angel Byrd MD 61 [place] [address] Historical LMR Provider 02/28/17 05/17/21 Gisela Dorsey NP [address] [place] [address] Historical LMR Provider 02/28/17 05/17/21 documented as of this encounter Additional Source Comments The information contained in this document represents components of the legal health record. It is not the complete legal health record.[facility]
--- OUTSIDE RECORDS SUMMARY | 2025-03-07 15:32 | XMS_ITS | Encounter Summary ---
Author Organization [facility] Address [address] [place] [address] Phone Care Team Providers Care Rug Hooker Hand Name Role Phone Chon Tipton DO Unavailable Sandy Romo DRYWALL STRIPPER Unavailable [phone] Cierra Ramirez DO Unavailable Guy LagunasBS, PhD Unavailable Cindy Mesa DRYWALL STRIPPER Unavailable Giovanna Padgett CNM Unavailable Danish Alfredo MD Unavailable Jennifer Stein MD Unavailable Mabel Bowman MD Unavailable Jesusita Walters CNM Unavailable Fahad June MD Unavailable Iglesia Pizarro MD Unavailable Pipe Simmons MD Unavailable Elisabeth Hills DRYWALL STRIPPER Unavailable [phone] Dayna Perez MD Unavailable [phone] Julio Johnson MD Unavailable Tigre Shrestha MD Unavailable [phone] Yolanda Harrison MD Unavailable [phone] Angel Byrd MD Unavailable Gisela Dorsey Keisha DRYWALL STRIPPER Unavailable [phone] Betsey Long MD Primary Care Provider Litzy Raines DRYWALL STRIPPER Primary [facility] Provider [facility]YWALL [facility] Primary Care Provider [facility] Litzy Evie DRYWALL STRIPPER Primary Care Provider Encounter Details Date Type Department Care Team (Latest Contact Info) Description 04/23/2020 Transcribe Orders [address] [place] [address] Rebeca Romeo PA [address] [place] [address]. [place] [address] [email or web address] Baldness (Primary Dx) Social History Tobacco [...] EST) TSH 0.37 0.27 - 4.20 uIU/mL [facility] Blood 04/23/2020 1:03 PM EST 04/23/2020 1:08 PM EST us Rebeca BUENO LAB BLOOD ORDERABLES Final Re sult [address] [address] * CBC (04/23/2020 1:03 PM EST) WBC 10.19 4.00 - 11.00 K/uL [facility] Comment:Note Reference Range updates to all CBC and Differential results. RBC 4.96 3.72 - 5.30 M/uL [facility] HGB 13.8 10.6 - 15.5 g/dL [facility] Comment:Note updated Referen ce Ranges for all CBC and Differential results. HCT 42.8 32.0 - 45.0 % [facility] PLT 368 140 - 430 K/uL [facility] MCV 86.3 78.0 - 97.0 fL [facility] MCH 27.8 25.0 - 33.0 pg [facility] MCHC 32.2 32.0 - 36.0 g/dL [facility] RDW 14.0 11.0 - 16.0 % [facility] MPV 10.9 8.4 - 12.8 [facility] NRBC 0.00 0 /100 WBCs [facility] ABSOLUTE NRBC 0.00 0 K/uL [facility] Blood 04/23/2020 1:03 PM EST 04/23/2020 1:08 PM EST us Rebeca BUENO LAB BLOOD ORDERABLES Final Re sult [address] [address] * (ABNORMAL) Basic metabolic panel (04/23/2020 1:03 PM EST) SODIUM 136 133 - 146 mmol/L [facility] CHLORIDE 103 96 - 108 mmol/L [facility] POTASSIUM 4.3 3.3 - 5.1 mmol/L [facility] CO2 23 21 - 35 mmol/L [facility] BUN 17 6 - 19 mg/dL [facility] CREATININE 1.20 0.5 - 1.5 mg/dL [facility] GLUCOSE 85 70 - 99 mg/dL [facility] CALCIUM 9.7 8.4 - 10.3 mg/dL [facility] EGFR 51(L) >59 mL/min/1.7 3m2 [facility] Comment:Estimated glomerular filtration rate calculated using the CKD-EPI equation. ANION GAP 14 10 - 20 mmol/L [facility] Blood 04/23/2020 1:03 PM EST 04/23/2020 1:08 PM EST Rebeca BUENO LAB BLOOD ORDERABLES Final Re sult [facility] [address] [place] [address] documented in this encounter Visit Diagnoses Diagnosis Baldness- Primary Unspecified alopecia documented in this encounter Additional Health Concerns Infection Onset Date Last Indicated Resolved Time CoV-Risk 07/18/2024 07/25/2024 08/05/2024 1:21 AM EDT Influenza A 07/18/2024 07/18/2024 07/25/2024 1:22 AM EDT Influenza A 07/25/2024 07/25/2024 08/01/2024 1:21 AM EDT documented as of this encounter Care Teams Rug Hooker Hand Relationship Specialty Start Date End Date Betsey Long MD [address] [place] [address] [email or web address] PCP - General Family Medicine 11/01/19 01/28/22 [facility] [address] [place] [address] PCP - General Family Medicine 01/29/22 02/14/24 Litzy Raines NP [address] [place] [address] PCP - General Nurse Practitioner 02/15/24 10/25/24 Litzy Raines NP [address] [place] [address] PCP - General Nurse Practitioner 10/26/24 Chon Tipton DO [address] [place] [address] [place] [address] Historical LMR Provider 02/28/17 2 Sandy Romo DRYWALL STRIPPER [address] [place] [address] Historical LMR Provider 02/28/17 2 Cierra Ramirez DO [address] [place] [address] 7 [place] [address] Historical LMR Provider 02/28/17 05/17/21 Guy Lagunas MBBS, PhD 60 [place] [address] [email or web address] Historical LMR Provider 02/28/1705/17/21 Cindy Mesa, MARGARITA 29 [place] [address] Historical LMR Provider 02/28/17 2 Giovanna Padgett CNM 30 [place] [address] Historical LMR Provider 02/28/17 2 Danish Alfredo MD 22 [facility] 102 [place] [address] Historical LMR Provider 02/28/17 Jennifer Stein MD [address] [place] [address], [address] [place] [email or web address] Historical LMR Provider 02/28/17 05/17/21 Mabel Bowman MD [address] [place] [address], 2nd [place] [address] [email or web address] Historical LMR Provider 02/28/17 05/17/21 Jesusita Walters CNM [address] [place] [address] [email or web address] Historical LMR Provider 02/28/17 05/17/21 Fahad June MD [address] [place] [address] 2nd [place] [address] [email or web address] Historical LMR Provider 02/28/17 05/17/21 Iglesia Pizarro MD [address] [place] [address] Historical LMR Provider 02/28/17 Pipe Simmons MD [address] [place] [address] 7 [place] [address] [email or web address] Historical LMR Provider 02/28/17 05/17/21 Elisabeth Hills DRYWALL STRIPPER [address] [place] [address] Historical LMR Provider 02/28/17 2 Dayna Perez MD [address] [place] [address] Historical LMR Provider 02/28/172 2 Julio Johnson MD [address] [place] [address] Historical LMR Provider 02/28/17 Tigre Shrestha MD [address] [place] [address] Historical LMR Provider 02/28/17 2 Yolanda Harrison MD [address] [place] [address] Historical LMR Provider 02/28/172 2 Angel Byrd MD [address] [place] [address] Historical LMR Provider 02/28/17 2 Gisela Dorsey NP [address] [place] [address] Historical LMR Provider 02/28/172 2 documented as of this encounter Additional Source Comments The information contained in this document represents components of the legal health record. It is not the complete legal health record.[facility]
--- OUTSIDE RECORDS SUMMARY | 2025-03-07 15:32 | XMS_ITS | Encounter Summary ---
Author Organization [facility] Address [address] [place] [address] Phone Care Team Providers Care Acid Loader Name Role Phone Danish Alfredo MD Unavailable Julio Johnson MD Unavailable [phone] [place], [place] Evie GLASS FURNACE OPERATOR Primary Care Provider [place], [place] Evie GLASS FURNACE OPERATOR Primary Care Provider [place], [place] Evie GLASS FURNACE OPERATOR Primary Care Provider Encounter Details Date Type Department Care Team (Late st Contact Info) Description 08/13/2022 Procedure Pass [facility], Ct Scan - [address] [address] Social History Tobacco Use Types Packs/Day Years [...] documented as of this encounter Care Teams Acid Loader Relationship Specialty Start Date End Date [facility] [place] MARGARITA Case [address] [place] [address] PCP - General Family Medicine 01/29/22 02/14/24 [facility] Litzy Case NP [address] [place] [address] PCP - General Nurse Practitioner 02/15/24 10/25/24 [place], [place] MARGARITA Case [address] [place] [address] PCP - General Nurse Practitioner 10/26/24 Danish Alfredo MD [address] [place] [address] Historical LMR Provider 02/28/17 Julio Johnson MD [address] [place] [address] Historical LMR Provider 02/28/17 documented as of this encounter Additional Source Comments The information contained in this document represents components of the legal health record. It is not the complete legal health record.[facility]
--- OUTSIDE RECORDS SUMMARY | 2025-03-07 15:32 | XMS_ITS | Encounter Summary ---
Author Organization [facility] Address [address] [place] [address] Phone Care Team Providers Care Product Strategy Director Name Role Phone Danish Alfredo MD Unavailable Julio Johnson MD Unavailable [phone] [place], [place] Evie CONTACT LENS MANUFACTURER Primary Care Provider [place], [place] Evie CONTACT LENS MANUFACTURER Primary Care Provider Reason for Referral * Outpatient Procedure - Closed Specialty Diagnoses / Procedures Referred By Chance t Referred To Contact Radiology Diagnoses Abnormal mammogram of left breast Procedures Mammogram Diagnostic Post Procedure (Left) Danish Alfredo MD Phone: tel: fax: mailto:[email or web address] Referral ID Status Reason Start Date Expiration Date Visits Re quested Visits Authorized [id number] Closed 06/20/2024 1 1 Encounter Details Date Type Department Care Team (Late st Contact Info) Description 06/20/2024 Ancillary Orders [facility] [address] [place] [address] Danish Alfredo MD [address] [place] [address] [email or web address] Abnormal mammogram of left breast (Primary Dx) [...] available. Narrative 06/20/2024 12:06 PM EST [facility] BIOPSY OF BREAST (LEFT), BI MAMMOGRAM DIAGNOSTIC [...] Note Alivia Tenorio MD - 06/20/2024 [facility] BIOPSY OF BREAST (LEFT), BI MAMMOGRAM DIAGNOSTIC [...] documented as of this encounter Care Teams Product Strategy Director Relationship Specialty Start Date End Date [facility] Litzy MARGARITA Case [address] [place] [address] PCP - General Nurse Practitioner 02/15/24 10/25/24 [facility] Litzy MARGARITA Case [address] [place] [address] PCP - General Nurse Practitioner 10/26/24 Danish Alfredo MD [address] [place] [address] [email or web address] Historical LMR Provider 02/28/17 Julio Johnson MD [address] [place] [address] Historical LMR Provider 02/28/17 documented as of this encounter Additional Source Comments The information contained in this document represents components of the legal health record. It is not the complete legal health record.[facility]
--- OUTSIDE RECORDS SUMMARY | 2025-03-07 15:32 | XMS_ITS | Encounter Summary ---
Author Organization [facility] Address [address] [place] [address] Phone Care Team Providers Care Administrative Hearing Officer Name Role Phone Chon Tipton DO Unavailable Sandy Romo DIE SETTER Unavailable Cierra Ramirez DO Unavailable Guy LagunasBS, PhD Unavailable Cindy Mesa DIE SETTER Unavailable Giovanna Padgett CNM Unavailable Danish Alfredo MD Unavailable Jennifer Stein MD Unavailable Mabel Bowman MD Unavailable Jesusita Walters CNM Unavailable Fahad June MD Unavailable Iglesia Pizarro MD Unavailable Pipe Simmons MD Unavailable Elisabeth Hills DIE SETTER Unavailable [phone] Dayna Perez MD Unavailable [phone] Julio Johnson MD Unavailable Tigre Shrestha MD Unavailable [phone] Yolanda Harrison MD Unavailable [phone] Angel Byrd MD Unavailable [phone] Sunita Gisela Keisha DIE SETTER Unavailable [phone] Betsey Long MD Primary Care Provider Litzy Raines DIE SETTER Primary Care Provider [facility] DIE SETTER Primary Care Provider [facility] Litzy Evie DIE SETTER Primary Care Provider Encounter Details Date Type Department Care Team (Latest Contact Info) Description 02/19/2021 Transcribe Orders [address] [place] [address] Lavelle Alan MD [address] [place] [address] Stage 3 chronic kidney disease, unspecified whether [...] PM EDT) URINE TOTAL PROTEIN 2.8 mg/dL [facility] URINE CREATININE 25 mg/dL [facility] URINE TP CRE RATIO NOT CALCULATED 0 - 0.19 [facility] Comment:DUE TO URINE PROTEIN <4.0 Urine (Urine) 02/19/2021 12: 25 PM EDT 02/19/2021 12:28 PM EDT us Lavelle Alan MD URINE ORDERABLES Final Result Performing Organization Address [facility] Co de Phone Number [address] [address] * (ABNORMAL) Renal panel (02/19/2021 12:25 PM EDT) SODIUM 136 133 - 146 mmol/L [facility] POTASSIUM 4.8 3.3 - 5.1 mmol/L [facility] CHLORIDE 103 96 - 108 mmol/L [facility] CO2 23 21 - 35 mmol/L [facility] GLUCOSE 90 70 - 99 mg/dL [facility] BUN 16 6 - 19 mg/dL [facility] CREATININE 1.30 0.5 - 1.5 mg/dL [facility] CALCIUM 9.4 8.4 - 10.3 mg/dL [facility] PHOSPHORUS 3.8 2.7 - 4.5 mg/dL [facility] ALBUMIN 4.3 3.9 - 4.8 g/dL [facility] EGFR 46(L) >59 mL/min/1.7 3m2 [facility] Comment:Estimated glomerular filtration rate calculated using the CKD-EPI equation. ANION GAP 15 10 - 20 mmol/L [facility] Blood 02/19/2021 12:2 5 PM EDT 02/19/2021 12:28 PM EDT us Lavelle Alan MD LAB BLOOD ORDERAB LES Final Result Performing Organization Address City/[facility]/ZIP Co de Phone Number [address] [address] documented in this encounter Visit Diagnoses Diagnosis [...] documented as of this encounter Care Teams Administrative Hearing Officer Relationship Specialty Start Date End Date Betsey Long MD [address] [place] [address] PCP - General Family Medicine 11/01/19 01/28/22 [facility] MARGARITA [address] [place] [address] PCP - General Family Medicine 01/29/22 02/14/24 [facility] bog[facility] DIE SETTER [address] [place] [address] PCP - General Nurse Practitioner 02/15/24 10/25/24 Litzy Raines NP [address] [place] [address] PCP - General Nurse Practitioner 10/26/24 Chon Tipton DO [address] [place] [address] [place] [address] Historical LMR Provider 02/28/17 2 Sandy Romo DIE SETTER 1 [place] [address] Historical LMR Provider 02/28/17 2 Cierra Ramirez DO [address] [place] [address] 7 [place] [address] Historical LMR Provider 02/28/17 05/17/21 Guy Lagunas MBBS, PhD 60 [place] [address] [email or web address] Historical LMR Provider 02/28/1705/17/21 Cindy Mesa NP [address] [place] [address] Historical LMR Provider 02/28/17 2 Giovanna Padgett CNM [address] [place] [address] Historical LMR Provider 02/28/17 2 Danish Alfredo MD [address] [place] [address] Historical LMR Provider 02/28/17 Jennifer Stein MD [address] [place] [email or web address] Historical LMR Provider 02/28/17 05/17/21 Mabel Bowman MD [address] [place] [address], 2nd [place] [address] Historical LMR Provider 02/28/17 05/17/21 Jesusita Walters CNM [address] [place] [address] Historical LMR Provider 02/28/17 05/17/21 Fahad June MD [address] [place] [address] [address] [place] [address] [email or web address] Historical LMR Provider 02/28/17 05/17/21 Iglesia Pizarro MD [address] [place] [address] Historical LMR Provider 02/28/17 Pipe Simmons MD [address] [place] [address] 7 [place] [address] [email or web address] Historical LMR Provider 02/28/17 05/17/21 Elisabeth Hills NP [address] [place] [address] Historical LMR Provider 02/28/17 2 Dayna Perez MD [address] [address] Historical LMR Provider 02/28/17 2 Julio Johnson MD [address] [place] [address] 102 [place] [address] Historical LMR Provider 02/28/17 Tigre Shrestha MD [address] [place] [address] Historical LMR Provider 02/28/17 2 Yolanda Harrison MD [address] [place] [address] Historical LMR Provider 02/28/17 2 Angel Byrd MD [address] [place] [address] Historical LMR Provider 02/28/17 2 Gisela Dorsey NP [address] [place] [address] Historical LMR Provider 02/28/17 2 documented as of this encounter Additional Source Comments The information contained in this document represents components of the legal health record. It is not the complete legal health record.[facility]
--- OUTSIDE RECORDS SUMMARY | 2025-03-07 15:32 | XMS_ITS | Encounter Summary ---
Author Organization [employer] Address [address] [place] [address] 7 [place] [address] Care Team Providers Care Fishing Rod Trimmer Name Role Phone [facility] Primary Care Provider [phone] Encounter Details Date Type Department Care Team [...] Description 06/20/2025 11:00 AM EST Office Visit [facility] Dental [address] [place] [address] Urvashi Gamble LLD [address] [place] [address] documented as of this encounter Visit Diagnoses Not on filedocumented in this encounter Care Teams Fishing Rod Trimmer Relationship Specialty Start Date End Date Litzy Raines FNP [address] [place] [address] PCP - General Family Medicine 05/06/22 documented as of this encounter
--- OUTSIDE RECORDS SUMMARY | 2025-03-07 15:32 | XMS_ITS | Encounter Summary ---
Author Organization [facility] Address [address] [place] [address] Phone Care Team Providers Care Accountant Budget Name Role Phone Chon Tipton DO Unavailable Sandy Romo CYTOGENETICS LABORATORY MANAGER Unavailable Cierra Ramirez DO Unavailable Guy LagunasBS, PhD Unavailable Cindy Mesa CYTOGENETICS LABORATORY MANAGER Unavailable Giovanna Padgett CNM Unavailable Danish Alfredo MD Unavailable Jennifer Stein MD Unavailable Mabel Bowman MD Unavailable Jesusita Walters CNM Unavailable Fahad June MD Unavailable Iglesia Pizarro MD Unavailable Pipe Simmons MD Unavailable Elisabeth Hills CYTOGENETICS LABORATORY MANAGER Unavailable Dayna Perez MD Unavailable [phone] Julio Johnson MD Unavailable Tigre Shrestha MD Unavailable [phone] Yolanda Harrison MD Unavailable [phone] Angel Byrd MD Unavailable [phone] SunitaGisela Keisha CYTOGENETICS LABORATORY MANAGER Unavailable [phone] Janina Moncada MD Primary Care Provider Kash Live CYTOGENETICS LABORATORY MANAGER Primary Care Provide r Cornelius Zelaya MD Primary Care Provider [phone] Jeimy Sawant CYTOGENETICS LABORATORY MANAGER Primary Care Provider + Betsey Long MD Primary Care Provider Litzy Raines CYTOGENETICS LABORATORY MANAGER Primary Care Provider Litzy Raines CYTOGENETICS LABORATORY MANAGER Primary [facility] CYTOGENETICS LABORATORY MANAGER Primary Care Provider Encounter Details Date Type Department Care Team (Latest Contact Info) Description 03/06/2019 Transcribe Orders Virtual Department [address] [place] [address] Janina Moncada MD [address] [place] [address] [email or web address] Dysphagia, unspecified type (Primary Dx) Social History [...] documented as of this encounter Care Teams Accountant Budget Relationship Specialty Start Date End Date Janina Moncada MD [address] [address] PCP - General Family Medicine 11/14/18 04/19/19 Kash Live NP [address] [place] [address] PCP - General 04/20/19 10/03/19 Cornelius Zelaya MD [address] [place] [address] PCP - General Internal Medicine 10/04/19 10/09/19 Jeimy Sawant NP [address] [place] [address] PCP - General Unknown Provider Specialty 10/10/19 10/31/19 Betsey Long MD [address] [place] [address] PCP - General Family Medicine 11/01/19 01/28/22 Litzy Raines NP [address] [place] [address] PCP - General Family Medicine 01/29/22 02/14/24 Litzy Raines NP 70 [place] [address] PCP - General Nurse Practitioner 02/15/24 10/25/24 Litzy Raines, CYTOGENETICS LABORATORY MANAGER [address] [place] [address] PCP - General Nurse Practitioner 10/26/24 Chon Tipton DO [address] [place] [address] [place] [address] Historical LMR Provider 02/28/17 05/17/21 Sandy Romo CYTOGENETICS LABORATORY MANAGER 1 [place] [address] Historical LMR Provider 02/28/17 05/17/21 Cierra Ramirez DO [address] [place] [address], [facility] 7 [place] [address] [email or web address] Historical LMR Provider 02/28/17 05/17/21 Guy Lagunas MBBS, PhD 60 [place] [address] [email or web address] Historical LMR Provider 02/28/17 05/17/21 Cindy Mesa, MARGARITA [address] [place] [address] Historical LMR Provider 02/28/17 05/17/21 Giovanna Padgett CNM [address] [place] [address] Historical LMR Provider 02/28/17 05/17/21 Danish Alfredo MD [address] [place] [address], [address] [address] [email or web address] Historical LMR Provider 02/28/17 Jennifer Stein MD [address] [place] [email or web address] Historical LMR Provider 02/28/17 05/17/21 Mabel Bowman MD [address] [place] [address] [email or web address] Historical LMR Provider 02/28/17 05/17/21 Jesusita Walters CNM [address] [place] [address], [address] [place] [address] [email or web address] Historical LMR Provider 02/28/17 05/17/21 Fahad June MD [address] [place] [address] [email or web address] Historical LMR Provider 02/28/17 05/17/21 Iglesia Pizarro MD [address] [place] [address] Historical LMR Provider 02/28/17 05/17/21 Pipe Simmons MD [address] [place] [address] 7 [place] [address] [email or web address] Historical LMR Provider 02/28/17 05/17/21 Elisabeth [place] NP [address] [place] [address] Historical LMR Provider 02/28/17 05/17/21 Dayna Perez MD [address] [place] [address] Historical LMR Provider 02/28/17 05/17/21 Julio Johnson MD 22 [facility], [address] [address] [email or web address] Historical LMR Provider 02/28/17 Tigre Shrestha MD [address] [place] [address] Historical LMR Provider 02/28/17 05/17/21 Yolanda Harrison MD [address] [place] [address] Historical LMR Provider 02/28/17 05/17/21 Angel Byrd MD [address] [place] [address] Historical LMR Provider 02/28/17 05/17/21 Gisela Dorsey NP [address] [place] [address] Historical LMR Provider 02/28/17 05/17/21 documented as of this encounter Additional Source Comments The information contained in this document represents components of the legal health record. It is not the complete legal health record.[facility]
--- OUTSIDE RECORDS SUMMARY | 2025-03-07 15:32 | XMS_ITS | Encounter Summary ---
Author Organization [facility] Address [address] [place] [address] Phone Care Team Providers Care Center Customer Service Associate Name Role Phone Chon Tipton DO Unavailable [phone] Sandy Romo REEL FED PRINTER Unavailable Cierra Ramirez DO Unavailable Guy LagunasBS, PhD Unavailable [phone] Cindy Mesa REEL FED PRINTER Unavailable Giovanna Padgett CNM Unavailable Danish Alfredo MD Unavailable Jennifer Stein MD Unavailable Mabel Bowman MD Unavailable Jesusita Walters CNM Unavailable Fahad June MD Unavailable Iglesia Pizarro MD Unavailable Pipe Simmons MD Unavailable Elisabeth Hills REEL FED PRINTER Unavailable [phone] Dayna Perez MD Unavailable [phone] Julio Johnson MD Unavailable Tigre Shrestha MD Unavailable [phone] Yolanda Harrison MD Unavailable [phone] Angel Byrd MD Unavailable [phone] SunitaGisela Keisha REEL FED PRINTER Unavailable [phone] Janina Moncada MD Primary Care Provider Kash Live REEL FED PRINTER Primary Care Provide r Cornelius Zelaya MD Primary Care Provider [phone] Jeimy Sawant REEL FED PRINTER Primary Care Provider + Betsey Long MD Primary Care Provider Litzy Raines REEL FED PRINTER Primary Care Provider Litzy Raines REEL FED PRINTER Primary Care Provider Litzy Raines REEL FED PRINTER Primary Care Provider Encounter Details Date Type Department Care Team (Late st Contact Info) Description 11/11/2018 Ancillary Orders Virtual Department [address] [place] [address] Janina Moncada MD [address] [place] [address] [email or web address] Breast screening Social History [...] mammography. POS - CDHMAM2 Janina Moncada MD IMG MG EXAMS Final [...] documented as of this encounter Care Teams Center Customer Service Associate Relationship Specialty Start Date End Date Janina Moncada MD [address] [address] PCP - General Family Medicine 11/14/18 04/19/19 Kash Live, MARGARITA [address] [address] PCP - General 04/20/19 10/03/19 Cornelius Zelaya MD [address] [place] [address] [email or web address] PCP - General Internal Medicine 10/04/19 10/09/19 Jeimy Sawant NP [address] [place] [address] PCP - General Unknown Provider Specialty 10/10/19 10/31/19 Betsey Long MD 70 [place] [address] PCP - General Family Medicine 11/01/19 01/28/22 Litzy Raines NP [address] [place] [address] PCP - General Family Medicine 01/29/22 02/14/24 Litzy Raines, REEL FED PRINTER 70 [place] [address] PCP - General Nurse Practitioner 02/15/24 10/25/24 Litzy Raines, REEL FED PRINTER 70 [place] [address] PCP - General Nurse Practitioner 10/26/24 Chon Tipton DO [address] [place] [address] Historical LMR Provider 02/28/17 05/17/21 Sandy Romo NP [address] [place] [address] Historical LMR Provider 02/28/17 05/17/21 Cierra Ramirez DO [address] [place] [address] 7 [place] [address] [email or web address] Historical LMR Provider 02/28/17 05/17/21 Guy Lagunas MBBS, PhD 60 [place] [address] [email or web address] Historical LMR Provider 02/28/17 05/17/21 Cindy Mesa NP [address] [place] [address] Historical LMR Provider 02/28/17 05/17/21 Giovanna Padgett CNM [address] [place] [address] Historical LMR Provider 02/28/17 05/17/21 Danish Alfredo MD [address] [place] [address], [address] [place] [address] [email or web address] Historical LMR Provider 02/28/17 Jennifer Stein MD [address] [place] [address], [address] [address] Historical LMR Provider 02/28/17 05/17/21 Mabel Bowman MD [address] [place] [address], 2nd [place] [address] [email or web address] Historical LMR Provider 02/28/17 05/17/21 Jesusita Walters CNM [address] [place] [address], [address] [place] [address] [email or web address] Historical LMR Provider 02/28/17 05/17/21 Fahad June MD [address] [place] [address] [place] [address] [email or web address] Historical LMR Provider 02/28/17 05/17/21 Iglesia Pizarro MD [address] [place] [address] Historical LMR Provider 02/28/17 05/17/21 Pipe Simmons MD [address] [place] [address] 7 [place] [address] Historical LMR Provider 02/28/17 05/17/21 Elisabeth Hills NP [address] [place] [address] Historical LMR Provider 02/28/17 05/17/21 Dayna Perez MD [address] [place] [address] Historical LMR Provider 02/28/17 05/17/21 Julio Johnson MD [address] [address] [email or web address] Historical LMR Provider 02/28/17 Tigre Shrestha MD [address] [place] [address] Historical LMR Provider 02/28/17 05/17/21 Yolanda Harriosn MD [address] [place] [address] Historical LMR Provider 02/28/17 05/17/21 Angel Byrd MD [address] [place] [address] Historical LMR Provider 02/28/17 05/17/21 Gisela Dorsey NP [address] [place] [address] Historical LMR Provider 02/28/17 05/17/21 documented as of this encounter Additional Source Comments The information contained in this document represents components of the legal health record. It is not the complete legal health record.[facility]
--- OUTSIDE RECORDS SUMMARY | 2025-03-07 15:32 | XMS_ITS | Encounter Summary ---
Author Organization [facility] Address [address] [facility] [address] [address] [facility] [address] [place] [address] Phone Care Team Providers Care Icer Hand Name Role Phone Chon Tipton DO Unavailable Sandy Romo LIME PLANT OPERATOR Unavailable Cierra Ramirez DO Unavailable Guy LagunasBS, PhD Unavailable [phone] Cindy Mesa LIME PLANT OPERATOR Unavailable Giovanna Padgett CNM Unavailable Danish Alfredo MD Unavailable Jennifer Stein MD Unavailable Mabel Bowman MD Unavailable Jesusita Walters CNM Unavailable Fahad June MD Unavailable Iglesia Pizarro MD Unavailable Pipe Simmons MD Unavailable Elisabeth Hills LIME PLANT OPERATOR Unavailable [phone] Dayna Perez MD Unavailable [phone] Julio Johnson MD Unavailable Tigre Shrestha MD Unavailable [phone] Yolanda Harrison MD Unavailable [phone] Angel Byrd MD Unavailable [phone] SunitaGisela Keisha LIME PLANT OPERATOR Unavailable Fahad June MD Primary Care Provider + Janina Moncada MD Primary Care Provider Fahad Crenshaw DO Primary Care Provider Janina Moncada MD Primary Care Provider [phone] Kash Live LIME PLANT OPERATOR Primary Care Provide r Cornelius Zelaya MD Primary Care Provider [phone] Jeimy Sawant LIME PLANT OPERATOR Primary Care Provider + Betsey Long MD Primary Care Provider [facility] Litzy Evie LIME PLANT OPERATOR Primary Care Provider [facility] LIME PLANT OPERATOR Primary Care Provider [place], [place] Evie LIME PLANT OPERATOR Primary Care Provider Encounter Details Date Type Department Care Team (Late st Contact Info) Description 06/02/2017 Ancillary Orders [facility] [address] [place] [address] [place] [address] Beatrice George MD [address] [place] [address], 2nd [place] [address] [email or web address] Screening breast examination Social History Tobacco Use [...] documented as of this encounter Care Teams Icer Hand Relationship Specialty Start Date End Date Fahad June MD [address] [place] [address] [email or web address] PCP - General Family Medicine 03/17/17 12/15/17 Janina Moncada MD [address] [place] [address] [email or web address] PCP - General Family Medicine 12/16/17 04/11/18 Fahad Crenshaw DO [address] [place] [address] 7 [place] [address] [email or web address] PCP - General Family Medicine 04/12/18 09/13/18 Janina Moncada MD [address] [place] [address] [email or web address] PCP - General Family Medicine 11/14/18 04/19/19 Kash Live, MARGARITA [address] [place] [address] 7 [place] [address] PCP - General 04/20/19 10/03/19 Cornelius Zelaya MD [address] [place] [address] [email or web address] PCP - General Internal Medicine 10/04/19 10/09/19 Jeiym Sawant NP [address] [place] [address] PCP - General Unknown Provider Specialty 10/10/19 10/31/19 Betsey Long MD [address] [facility] [place] [place] [address] [email or web address] PCP - General Family Medicine 11/01/19 01/28/22 Litzy [place] [address] PCP - General Family Medicine 01/29/22 02/14/24 Litzy Raines NP [address] [place] [address] PCP - General Nurse Practitioner 02/15/24 10/25/24 [place] [address] PCP - General Nurse Practitioner 10/26/24 Chon Tipton DO [address] [place] [address] [place] [address] Historical LMR Provider 02/28/17 05/17/21 Sandy Romo LIME PLANT OPERATOR [address] [facility] [place] [address] Historical LMR Provider 02/28/17 05/17/21 Cierra Ramirez DO [address] [place] [address] [address] [place] [address] Historical LMR Provider 02/28/17 05/17/21 Guy Lagunas MBBS, PhD [address] [place] [address] [email or web address] Historical LMR Provider 02/28/17 05/17/21 Cindy Mesa, MARAGRITA [address] [place] [address] Historical LMR Provider 02/28/17 05/17/21 Giovanna Padgett CNM [address] [place] [address] Historical LMR Provider 02/28/17 05/17/21 Danish Alfredo MD [address] [place] [address] Historical LMR Provider 02/28/17 Jennifer Stein MD [address] [address] Historical LMR Provider 02/28/17 05/17/21 Mabel Bowman MD [address] [place] [address], 2nd [place] [address] Historical LMR Provider 02/28/17 05/17/21 Jesusita Walters CNM [address] [address] Historical LMR Provider 02/28/17 05/17/21 Fahad June MD [address] [place] [address] [email or web address] Historical LMR Provider 02/28/17 05/17/21 Iglesia Pizarro MD [address] [place] [address] Historical LMR Provider 02/28/17 05/17/21 Pipe Simmnos MD [address] [place] [address] [email or web address] Historical LMR Provider 02/28/17 05/17/21 Elisabeth Hills NP 30 [place] [address] Historical LMR Provider 02/28/17 05/17/21 Dayna Perez MD [address] [place] [address] Historical LMR Provider 02/28/17 05/17/21 Julio Johnson MD [address] [place] [address] [address] [place] [address] Historical LMR Provider 02/28/17 Tigre Shrestha MD [address] [place] [address] Historical LMR Provider 02/28/17 05/17/21 Yolanda Harrison MD [address] [place] [address] Historical LMR Provider 02/28/17 05/17/21 Angel Byrd MD [address] [place] [address] Historical LMR Provider 02/28/17 05/17/21 Gisela Dorsey NP [address] [place] [address] Historical LMR Provider 02/28/17 05/17/21 documented as of this encounter Additional Source Comments The information contained in this document represents components of the legal health record. It is not the complete legal health record.[facility]
--- OUTSIDE RECORDS SUMMARY | 2025-03-07 15:32 | XMS_ITS | Data Portability ---
Author Organization [place] [facility] Address [address] [place] [address] Care Team Providers Care Meter Tester Name Role Phone BAUDILIO BAGLEY Primary Care Provider [phone] JOSÉ JEAN OTHER Assessment Encounter Date Assessment Date Assessment LastModified by Organization Details LastModified Time 06/10/2019 06/10/2019 Overview/History : 53-year-old female with schizoaffective disorder and worsening anxiety over the last 7 weeks after she stopped taking some of her psychiatric medication on her own. Patient also has hypothyroidism and approximately 2 months ago was decreased from 88 mcg to 75 mcg daily follow up TSH was thought to be Euthyroid and she was continued on this dose. Denies fever, chest pain, palpitations, shortness of breath. Exam: Calm appearing afebrile female, crying at times. Heart sounds regular, lungs clear, awake, alert, oriented x3. Affect appropriate, no perseveration or flight of thoughts noted. DDx considered, but not limited to: Consider anxiety in a setting of undermedicated schizoaffective disorder. Consider hypothyroidism although her patient most recent labs for thyroid and usually under active thyroid which should lead more to depression and anxiety. Consider general anxiety. Work up/Results: Plan/Discussion: Patient is scheduled to receive Haldol injection later today which should improve symptoms of anxiety. Discussed with patient the importance of not changing medications on her own and instead discussed with prescriber and formulate a plan together. Advise take all medication as prescribed. Continue levothyroxine as prescribed advised take first thing in the morning on an empty stomach with a small sip of water and wait 3260 minutes before taking any additional medications or eating or drinking. Patient has followup in 5 days with her PCP and is advised to discuss thyroid concerns with him, possibly repeat TSH then. Advise follow with psychiatrist as scheduled. Patient instructed to call if symptoms worsen or do not improve; patient acknowledges understands and agrees with plan. Note created with voice recognition software and may contain grammatical errors due to this. Patients PCP contacted and updated on patient status. Patient verbalized understanding of discharge instructions and when to follow up with PCP/911/ED as needed. Patient in agreement with current plan and treatment. Time On Scene with Patient: 00:31:44 [email or web address] Not available 06/10/2019 10:15:06 Plan of Treatment Reminders Order Date Submit Date Provider Last Modified By Organization Details Last Modified Time Details Appointments None record ed. Lab None record ed. Referral None record ed. Procedures None record ed. Surgeries None record ed. Imaging None record ed. Medication Orders None record ed. Patient TargetsNo targets recorded. Patient InstructionsNo instructions recorded. Reason for Referral None Reported. Medical Equipment None Reported. Allergies Allergen ID Allergen Name Allergen Category Reaction Reaction Severity Criticality Documentation Date Start Date Code Code System Note Provider Name and Address Organization Details Recorded Time 88371 Fanapt medicatio n Not available Not available Not available 06/10/2019 69308 3 RxNorm MYLES RODRIGUEZ [address] [place], [address], [place] [facility] 0 09:33:51 21559 Zoloft medicatio n Not available Not available Not available 06/10/2019 25722 RxNorm MYLES RODRIGUEZ [address] [place], [address], [place] [facility] 0 09:34:09 24463 Product containin g penicilli n (product) medicatio n Not available Not available Not available 06/10/2019 58528 8001 SNOMED MYLES RODRIGUEZ [address] [place], [address], [place] [facility] 0 09:34:16 Medications Name Sig Start Date Stop Date Status Note LastModified by Organization Details LastModified Time benztropine 0.5 mg tablet active Not Available Not Available No t Available haloperidol decanoate 100 mg/mL intramuscular solution active Not Available Not Available Not Available lorazepam 1 mg tablet active Not Available Not Available Not Available bupropion HCl SR 200 mg tablet,12 hr sustained-relea se active Not Available Not Available Not Available levothyroxine active Not Available Not Available Not Available senna active Not Available Not Availa ble Not Available Colace active Not Available Not Availa ble Not Available Prilosec active Not Available Not Avai lable Not Available metformin active Not Available Not Lillie ilable Not Available Wellbutrin 06/10 completed Not Available Not Available Not Available Vitals Date Recorded Oxygen saturation Oxygen saturation in Arterial blood by Pulse oximetry Body temperature Respiratory rate Heart rate Systolic And Diastolic Provider Name and Address Organization Details Last Updated DateTime 0 100 % 100 % 97.6 [degF] 18 /min 80 /min 162/102 mm[Hg] Not Available [facility] 0 09:35:55 Social History Question Answer Notes LastModified by Organizat ion Details LastModified Time Tobacco Smoking Status Former Smoker MYLES RODRIGUEZ [address], [place], [address], [place] [facility] 06/10/2019 09:41:18 Do You Have An Advance Directive? No Information not available 06/10/2019 What Is Your Code Status? Full Code Information not available 06/10/2019 Excessive Alcohol Or Drug Use No Information not available 06/10/2019 What Was The Date Of Your Most Recent Tobacco Screening? 06/10/2019 Information not available 06/10/2019 How Much Tobacco Do You Smoke? 1 PPD Information not available 06/10/2019 How Many Years Have You Smoked Tobacco? 17 Information not available 06/10/2019 Sex: Unknown Functional Status Question Answer Note LastModified by Organizat ion Details LastModified Time Do you or have you ever used smokeless tobacco? Never used smokeless tobacco Information not available 06/10/2019 Do you or have you ever used e-cigarettes or vape? Never used electronic cigarettes Information not available 06/10/2019 Mental Status None recorded. Family History Relationship Description Onset Age of this Age Resolved Age Notes LastModified by Organization Details LastModified Time Mother Malignant neoplasm of breast [email or web address] Not available 2019 09:41:06 Medical History Condition Response Diabetes N Coronary Artery Disease N High Cholesterol N Pulmonary Embolism N Cancer N Hypertension N Stroke N COPD N Depression N Asthma N Kidney Disease Y Gynecological HistoryNo gynecological history recorded. Obstetrics History GPAL:G 0 P 0 0 0 0 Past Encounters Encounter ID Performer Location Encounter Start Date Encounter Closed Date Diagnosis/Indication Diagnosis SNOMED-CT Code Diagnosis ICD10 Code Diagnosis IMO Codes Diagnosis Note [id number] [facility] [address] [place] [address] 06/10/2019 09:32:16 06/12/2019 12:59:17 Anxiety 68168289 F41.9 Schizoaffe ctive disorder 23191307 F25.9 Hypothyroidism 17273229 E03.9 Health Concerns Section Related Observation LastModified by Organization Detai ls LastModified Time None Recorded Concern Status LastModified by Organization Details LastModified Time None Recorded Advance Directives Directive N: Payers Insurance Date Sequence Insurance Name Policy Number Policy Xie Covered Member ID Xie Member ID Guarantor Name 06/09/2019 1 *SELF PAY* Yadira Jeter [id number] Yadira Jeter 06/09/2019 1 [facility] - DOS PRIOR TO 2022 - DUAL ELIGIBLE (MEDICARE REPLACEMENT/ADV ANTAGE - HMO) Yadira Jeter [id number] Yadira Jeter Notes Date Note Type Note Provider Name and Address Organization Details Recorded Time 06/10/2019 text/html 53-year-old female, with schizoaffective disorder, presents for evaluation of anxiety. Patient reports over the last 7 weeks has had worsening anxiety. States her anxiety is making her feel nauseous and decreased appetite. Denies chest pain, palpitations, shortness of breath. States she had been previously hospitalized and was changed over onto different medications as she was initially being treated for bipolar disorder however during this hospitalization, was diagnosed in stead with schizoaffective disorder. States she did not like the medications and did not feel she needed them so she started taking herself off of them although is unclear exactly what these medications are. States she gradually came off of them over 6 months' time. States also has hypothyroidism and is currently taking levothyroxine 75 mcg daily. States about 2 months ago she was on 88 mcg daily. Reports a couple weeks after dose adjustment, thyroid levels were run and she was thought to be Euthyroid and continued on 75 mcg. Patient does admit to taking first thing in the morning but with coffee.Patient advised to take levothyroxine first thing in the a.m., on an empty stomach with a small sip of water and wait 3260 minutes before eating or drinking anything else or taking additional medications. Patient states she understands. Patient also recently started on Haldol as she informed her psychiatrist of her medication changes afterward. States her first dose of Haldol injection is to be later today. Reports follow up with PCP later this week and follow up with psychiatrist in approximately a month. Discussed with patient the importance of not making medication changes on his own and to consult prescriber beforehand and discussed together. MYLES RODRIGUEZ [address], [place], [address], [place] [facility] 06/10/2019 10:16:59 OBGyn Episode No OBEpisode recorded.
--- OUTSIDE RECORDS SUMMARY | 2025-03-07 15:32 | XMS_ITS | Encounter Summary ---
Author Organization [facility] Address [address] [facility] [address] [place] [address] Phone Care Team Providers Care Thaw Shed Heater Tender Name Role Phone Danish Alfredo MD Unavailable Julio Johnson MD Unavailable [phone] [place], [place] Evie FIELD MAP TECHNICIAN Primary Care Provider [place], [place] Evie FIELD MAP TECHNICIAN Primary Care Provider [place], [place] Evie FIELD MAP TECHNICIAN Primary Care Provider Encounter Details Date Type Department Care Team (Late st Contact Info) Description 03/01/2023 Procedure Pass [facility]oscopy Admitting Dept Virtual Department [address] [place] [address] Social History Tobacco Use Types Packs/Day Years [...] documented as of this encounter Care Teams Thaw Shed Heater Tender Relationship Specialty Start Date End Date [facility] MARGARITA Case [address] [place] [address] PCP - General Family Medicine 01/29/22 02/14/24 [place], [place] MARGARITA Case [address] [place] [address] PCP - General Nurse Practitioner 02/15/24 10/25/24 [place], [place] MARGARITA Case [address] [place] [address] PCP - General Nurse Practitioner 10/26/24 Danish Alfredo MD [address] [place] [address] Historical LMR Provider 02/28/17 Julio Johnson MD [address] [place] [address] Historical LMR Provider 02/28/17 documented as of this encounter Additional Source Comments The information contained in this document represents components of the legal health record. It is not the complete legal health record.[facility]
--- OUTSIDE RECORDS SUMMARY | 2025-03-07 15:32 | XMS_ITS | Encounter Summary ---
Author Organization [employer] Address [address] [facility] 7t [place] [address] Care Team Providers Care Whipped Topping Supervisor Name Role Phone [facility] Primary Care Provider [phone] Reason for Visit * Reason Comments Med Refill Encounter Details Date Type Department Care Team (Late st Contact Info) Description 04/08/2024 Refill [facility] [address] [place] [address] [place], [place], [facility] [address] [place] [address] Social History Tobacco Use Types Packs/Day Years [...] 06/20/2025 11:00 AM EST Office Visit [facility] [address] [place] [address] Urvashi Gamble [facility] [address] [place] [address] documented as of this encounter Visit Diagnoses Not on filedocumented in this encounter Additional Health Concerns Assessment Noted Time PHQ-9 Depression Total Score: 15 024 11:25 AM EDT documented as of this encounter Care Teams Whipped Topping Supervisor Relationship Specialty Start Date End Date Litzy Raines FNP [address] [place] [address] PCP - General Family Medicine 05/06/22 documented as of this encounter
--- OUTSIDE RECORDS SUMMARY | 2025-03-07 15:32 | XMS_ITS | Encounter Summary ---
Author Organization [employer] Address [address] [place] [address] 7 [place] [address] Care Team Providers Care Classroom Assistant Name Role Phone [facility] Primary Care Provider [phone] Encounter Details Date Type Department Care Team [...] Description 06/20/2025 11:00 AM EST Office Visit [place] [facility] [address] [place] [address] Urvashi Gamble LLD [address] [place] [address] documented as of this encounter Visit Diagnoses Not on filedocumented in this encounter Care Teams Classroom Assistant Relationship Specialty Start Date End Date Litzy Raines FNP 70 [place] [address] PCP - General Family Medicine 05/06/22 documented as of this encounter
--- OUTSIDE RECORDS SUMMARY | 2025-03-07 15:32 | XMS_ITS | Encounter Summary ---
Author Organization [facility] Address [address] [place] [address] Phone Care Team Providers Care Powder Blender And Pourer Name Role Phone Chon Tipton DO Unavailable Sandy Romo LOTTERY SALES CLERK Unavailable Cierra Ramirez DO Unavailable Guy LagunasBS, PhD Unavailable Cindy Mesa LOTTERY SALES CLERK Unavailable Giovanna Padgett CNM Unavailable Danish Alfredo MD Unavailable Jennifer Stein MD Unavailable Mabel Bowman MD Unavailable Jesusita Walters CNM Unavailable Fahad June MD Unavailable Iglesia Pizarro MD Unavailable Pipe Simmons MD Unavailable Elisabeth Hills LOTTERY SALES CLERK Unavailable [phone] Dayna Perez MD Unavailable [phone] Julio Johnson MD Unavailable Tigre Shrestha MD Unavailable [phone] Yolanda Harrison MD Unavailable [phone] Angel Byrd MD Unavailable [phone] Wilfredo Dorseyon Keisha LOTTERY SALES CLERK Unavailable [phone] Betsey Long MD Primary Care Provider Litzy Raines LOTTERY SALES CLERK Primary Care Provider [facility] Litzy Evie LOTTERY SALES CLERK Primary Care Provider [facility] [place] Evie LOTTERY SALES CLERK Primary Care Provider Encounter Details Date Type Department Care Team (Latest Contact Info) Description 05/29/2020 Transcribe Orders [address] [place] [address] Lavelle Alan MD [address] [place] [address] Hypertensive chronic kidney disease with stage 1 [...] AM EST) URINE TOTAL PROTEIN 18.2 mg/dL [facility] URINE CREATININE 141 mg/dL [facility] URINE TP CRE RATIO 0.13 0 - 0.19 [facility] Urine (Urine) 05/29/2020 11: 35 AM EST 05/29/2020 11:44 AM EST us Lavelle Alan MD URINE ORDERABLES Final Result Performing Organization Address [facility]/ZIP Co de Phone Number [address] [address] * Urinalysis w/reflex Urine Culture (05/29/2020 11:35 AM EST) COLOR Yellow Yellow [facility] CLARITY Clear [facility] GLUCOSE Negative Negative [facility] BILI Negative Negative [facility] KETONES Negative Negative [facility] SPECIFIC GRAVITY 1.020 1.005 - 1.030 [facility] BLOOD Negative Negative [facility] PH 6.0 5.0 - 8.0 [facility] Protein-UA Negative Negative [facility] NITRITE Negative Negative [facility] Leukocyte esterase, ur Negative Negative [facility] Urine (Urine) 05/29/2020 11: 35 AM EST 05/29/2020 11:45 AM EST us Lavelle Alan MD URINE ORDERABLES Final Result Performing Organization Address [facility] Co de Phone Number [address] [address] * PT-INR (05/29/2020 11:35 AM EST) PT 10.4 10.2 - 12.9 sec [facility] INR 0.9 0.9 - 1.1 [facility] Comment:Therapeutic range fo r oral Vitamin K antagonists: 2.0-3.5 Blood 05/29/2020 11:3 5 AM EST 05/29/2020 11:45 AM EST us Lavelle Alan MD LAB BLOOD ORDERAB LES Final Result Performing Organization Address [facility]/ZIP Co de Phone Number [address] [address] * (ABNORMAL) CBC and differential (05/29/2020 11:35 AM EST) WBC 10.80 4.00 - 11.00 K/uL [facility] Comment:Note Reference Range updates to all CBC and Differential results. RBC 5.04 3.72 - 5.30 M/uL [facility] HGB 14.0 10.6 - 15.5 g/dL [facility] Comment:Note updated Referen ce Ranges for all CBC and Differential results. HCT 42.7 32.0 - 45.0 % [facility] PLT 354 140 - 430 K/uL [facility] MCV 84.7 78.0 - 97.0 fL [facility] MCH 27.8 25.0 - 33.0 pg [facility] MCHC 32.8 32.0 - 36.0 g/dL [facility] RDW 14.1 11.0 - 16.0 % [facility] MPV 10.6 8.4 - 12.8 fl [facility] NRBC 0.00 0 /100 WBCs [facility] ABSOLUTE NRBC 0.00 0 K/uL [facility] DIFF METHOD Auto [facility] NEUTS 77.0(H) 43.0 - 75.0 % [facility] LYMPHS 13.3(L) 18.2 - 47.4 % [facility] MONOS 7.5 4.00 - 11.00 % [facility] EOS 1.3 0.0 - 8.0 % [facility] BASOS 0.4 0.0 - 2.0 % [facility] Granulocytes, immature (%) 0.5 0.0 - 0.9 % [facility] ABSOLUTE NEUTS 8.32(H) 1.80 - 7.70 K/uL [facility] ABSOLUTE LYMPHS 1.44 1.00 - 3.10 K/uL [facility] ABSOLUTE MONOS 0.81(H) 0.20 - 0.80 K/uL [facility] ABSOLUTE EOS 0.14 0.00 - 0.80 K/uL [facility] ABSOLUTE BASOS 0.04 0.00 - 0.09 K/uL [facility] Granulocytes, immature 0.05 0.00 - 0.05 K/uL [facility] Blood 05/29/2020 11:3 5 AM EST 05/29/2020 11:45 AM EST us Lavelle Alan MD LAB BLOOD ORDERAB LES Final Result Performing Organization Address [facility]/ZIP Co de Phone Number [address] [address] * (ABNORMAL) Renal panel (05/29/2020 11:35 AM EST) SODIUM 137 133 - 146 mmol/L [facility] POTASSIUM 4.0 3.3 - 5.1 mmol/L [facility] CHLORIDE 105 96 - 108 mmol/L [facility] CO2 20(L) 21 - 35 mmol/L [facility] GLUCOSE 120(H) 70 - 99 mg/dL [facility] BUN 21(H) 6 - 19 mg/dL [facility] CREATININE 1.30 0.5 - 1.5 mg/dL [facility] CALCIUM 9.2 8.4 - 10.3 mg/dL [facility] PHOSPHORUS 2.7 2.7 - 4.5 mg/dL [facility] ALBUMIN 4.2 3.9 - 4.8 g/dL [facility] EGFR 46(L) >59 mL/min/1.7 3m2 [facility] Comment:Estimated glomerular filtration rate calculated using the CKD-EPI equation. ANION GAP 16 10 - 20 mmol/L [facility] Blood 05/29/2020 11:3 5 AM EST 05/29/2020 11:45 AM EST us Lavelle Alan MD LAB BLOOD ORDERAB LES Final Result Performing Organization Address City/[facility]/ZIP Co de Phone Number [address] [address] documented in this encounter Visit Diagnoses Diagnosis [...] documented as of this encounter Care Teams Powder Blender And Pourer Relationship Specialty Start Date End Date Betsey Long MD [address] [place] [address] PCP - General Family Medicine 11/01/19 01/28/22 [facility] MARGARITA Case [address] [place] [address] PCP - General Family Medicine 01/29/22 02/14/24 [place], [place] MARGARITA Case [address] [place] [address] PCP - General Nurse Practitioner 02/15/24 10/25/24 [place], [place] MARGARITA Case [address] [place] [address] PCP - General Nurse Practitioner 10/26/24 Chon Tipton DO [address] [place] [address] [address] [place] [address] Historical LMR Provider 02/28/17 2 Sandy Romo LOTTERY SALES CLERK [address] [place] [address] Historical LMR Provider 02/28/17 2 Cierra Ramirez DO [address] [place] [address] 7 [place] [address] Historical LMR Provider 02/28/17 05/17/21 Guy Lagunas MBBS, PhD [address] [place] [address] [email or web address] Historical LMR Provider 02/28/1705/17/21 Cindy Mesa, MARGARITA [address] [place] [address] Historical LMR Provider 02/28/17 2 Giovanna Padgett CNM [address] [place] [address] Historical LMR Provider 02/28/17 2 Danish Alfredo MD [address] [place] [address] [email or web address] Historical LMR Provider 02/28/17 Jennifer Stein MD [address] [address] Historical LMR Provider 02/28/17 05/17/21 Mabel Bowman MD [address] [place] [address], 2nd [place] [address] [email or web address] Historical LMR Provider 02/28/17 05/17/21 Jesusita Walters CNM [address] [address] [email or web address] Historical LMR Provider 02/28/17 05/17/21 Fahad June MD [address] [place] [address] 2[address] [place] [address] [email or web address] Historical LMR Provider 02/28/17 05/17/21 Iglesia Pizarro MD [address] [place] [address] Historical LMR Provider 02/28/17 Pipe Simmons MD [address] [place] [address] 7 [place] [address] [email or web address] Historical LMR Provider 02/28/17 05/17/21 Elisabeth Hills NP [address] [place] [address] Historical LMR Provider 02/28/17 2 Dayna Perez MD [address], [place] [address] Historical LMR Provider 02/28/17 2 Julio Johnson MD [address] [place] [address] [address] [place] [address] Historical LMR Provider 02/28/17 Tigre Shrestha MD [address] [place] [phone] Historical LMR Provider 02/28/17 2 Yolanda Harrison MD 4 [place] [address] Historical LMR Provider 02/28/172 2 Angel Byrd MD [address] [place] [address] Historical LMR Provider 02/28/17 2 Gisela Dorsey NP [address] [place] [address] Historical LMR Provider 02/28/17 2 documented as of this encounter Additional Source Comments The information contained in this document represents components of the legal health record. It is not the complete legal health record.[facility]
--- OUTSIDE RECORDS SUMMARY | 2025-03-07 15:32 | XMS_ITS | Clinical Summary ---
Author Organization [employer] Address [address] 7t [place] [address] Care Team Providers Care Can Closing Machine Tender Name Role Phone Litzy Raines BARREL BRANDER Primary Care Provider [phone] Allergies Active Allergy Reactions Criticality Noted Date Comments Gabapentin Swelling 07/22/2017 Iloperidone Rash Low 03/17/2017 Other reaction(s): Other (see comments) Latex 09/10/2021 [place] 05/06/2022 Other reaction(s): kidney damage Penicillins Rash Low 07/22/2017 Other reaction(s): Other (see comments) Medications amLODIPine [...] 19 Active docusate sodium (Colace) 100 MG capsuleIndicati ons:Constipatio n, unspecified constipation type TAKE 1 CAPSULE BY MOUTH EVERY DAY NEEDED 30 capsule 1 06/08/19 23 Active senna (Senokot) 8.6 MG tabletIndicatio ns:Chronic constipation TAKE 2 TABLETS AT BEDTIME NEEDED ORALLY ONCE A DAY 60 tablet 3 08/19/19 24 Active haloperidol (Haldol) 2 MG tablet Take 2 mg by mouth Once per day. 09/24/19 24 Active OLANZapine (ZyPREXA) 5 MG tablet Take 5 mg by mouth Once per day. Active Jardiance 10 MG Take 10 mg by mouth Once per day. 03/15/20 24 Active Albuterol Sulfate, sensor, (ProAir Digihaler) 108 (90 Base) MCG/ACT aerosol powderIndicatio ns:Mild persistent asthma without complication Inhale 2 puffs Every 4-6 hours as needed (wheezing). 1 each 3 08/05/19 Active levothyroxine (Synthroid, Levoxyl) 75 MCG tablet TAKE 1 TABLET BY MOUTH BEFOTRE BREAKFAST 90 tablet 3 09/30/19 25 Active loratadine (Claritin) 10 MG tabletIndicatio ns:Allergic rhinitis, unspecified seasonality, unspecified trigger Take 1 tablet (10 mg) by mouth Once per day. 90 tablet 3 11/09/19 25 026 Active sodium bicarbonate 325 MG tablet Take by mouth. Active LORazepam (Ativan) 0.5 MG tablet Take 1 tablet by mouth if needed at bedtime for anxiety. 02/20/20 Active sodium bicarbonate 650 MG tablet Take 2 tablets by mouth 2 times daily. 01/23/20 25 Active budesonide-form oterol (Symbicort) 80-4.5 MCG/ACT inhalerIndicati ons:Mild persistent asthma without complication Inhale 2 puffs in the morning and at bedtime. Rinse mouth with water after use to reduce aftertaste and incidence of candidiasis. Do not swallow. 10.2 g 3 03/01/20 25 026 Active fluticasone (Flonase) 50 MCG/ACT nasal sprayIndication s:Chronic sinusitis, unspecified location Administer 1 spray into each nostril Once per day. Shake gently. Before first use, prime pump. After use, clean tip and replace cap. 48 mL 3 03/01/20 Active propranolol (Inderal) 40 MG tabletIndicatio ns:Essential (primary) hypertension Take 1 tablet (40 mg) by mouth in the morning. 90 tablet 3 03/01/20 25 Active propranolol (Inderal) 40 MG tabletIndicatio ns:Essential (primary) hypertension TAKE 1 TABLET BY MOUTH EVERY DAY IN THE MORNING 90 tablet 3 07/03/19 25 025 Discontinued(R eorder (will not trigger notification to Pharmacy)) budesonide-form oterol (Symbicort) 80-4.5 MCG/ACT inhalerIndicati ons:Mild persistent asthma without complication Inhale 2 puffs in the morning and at bedtime. Rinse mouth with water after use to reduce aftertaste and incidence of candidiasis. Do not swallow. 10.2 g 3 07/27/19 25 025 Discontinued(R eorder (will not trigger notification to Pharmacy)) fluticasone (Flonase) 50 MCG/ACT nasal sprayIndication s:Chronic sinusitis, unspecified location SPRAY 2 SPRAYS INTO EACH NOSTRIL IN THE MORNING SHAKE GENTLY/PRIME BEFORE 1ST USE&CLEAN TIP/REPLACE CAP 48 mL 3 09/21/19 25 025 Discontinued(R eorder (will not trigger notification to Pharmacy)) Active Problems Problem Noted Date Diagnosed Date Mild persistent asthma without complication 02/08 Lung nodule 06/09/2024 Class 1 obesity due to exces s calories with serious comorbidity and body mass index (BMI) of 30.0 to 30.9 in adult 03/17/2024 ZAVALA (dyspnea on exertion) 01/20/2024 Stage 3b chronic kidney disease (CMS/HCC) 2022 Acquired hypothyroidism 05/06/2022 Age-related cataract of both eyes 05/06/2022 Bilateral hearing loss 05/06/2022 Chronic constipation 05/06/2022 Chronic GERD 05/06/2022 Hiatal hernia 05/06/2022 Insomnia 05/06/2022 PTSD (post-traumatic stress disorder) 05/06/2022 Schizoaffective disorder (CMS/HCC) 05/06/2022 Migraine headache 02/18/2022 Raynaud's disease 02/18/2022 Spinal stenosis of cervical region 02/18/2022 Hot flashes due to menopause 11/30/2019 Marijuana use, continuous 10/03/2019 Overview (05/06/2022): 3 times or more daily for yrs Chronic sinusitis 05/13/2018 Overview (05/06/2022): Last Assessment & [...] Date Hydronephrosis of right kidney 06/09/2024 11/13/2024 Mild intermittent asthma without complication 05/06/20 22 03/01/2025 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/18/2022 08/06/2022 Mixed anxiety depressive disorder 02/18/2022 08/06/2022 Asthenia 06/27/2020 08/06/2022 Hypertensive renal disease 06/27/2020 0 08/06/2022 Stage 3a chronic kidney disease (CMS/HCC) 06/27/2020 08/06/2022 Headache 11/30/2019 08/06/2022 Neck pain [...] Encounters Date Type Department Care Team Description 03/05/2025 Telephone [place] [facility] [address] [place] [address] [place], [place] [facility] 03/02/2025 Orders Only [place] [employer] [address] [place] [address] [place], [place] [facility] 03/01/2025 12:20 PM EDT Office Visit [address] [address] [place], [place] Pre-op evaluation (Primary Dx); Basal cell carcinoma (BCC) of skin of other part of face; Essential (primary) hypertension; Mild persistent asthma without complication; Chronic sinusitis, unspecified location; Glucosuria 02/22/2025 Travel 01/29/2025 11:00 AM EDT Office Visit [address] [address] [place] [facility] 01/24/2025 10:00 AM EDT Office Visit [address] [address] [place] 01/16/2025 Telephone [facility] MEDICAL [address] [place] [address] [place], [place] Prior Authorization (lidocaine) 01/12/2025 9:40 AM EDT Office Visit [address] [address] [place], [place] Basal cell carcinoma (BCC) of skin of other part of face (Primary Dx); Degeneration of intervertebral disc of lumbar region with discogenic back pain; Callus of heel; Stage 3b chronic kidney disease (CMS/HCC); Metabolic acidosis; Schizoaffective disorder, unspecified type (CMS/HCC) 01/01/2025 Results Follow-Up [address] [address] [place], [place] MR Lumbar Spine w/o Contrast 12/12/2024 11:00 AM EDT Office Visit [address] [address] Urvashi Gamble LLD Encounter for dental examination (Primary Dx); Stage 2 grade B generalized periodontitis per AAP/EFP 2017 classification 12/06/2024 10:00 AM EDT Office Visit [address] [address] [place], [place] from Last 3 Months Immunizations Immunization Administration Dates Next Due Influenza Injectable Quadriv alant Preservative Free IIV4 MDCK 01/22/2019 Influenza injectable quadriv alent IIV4 with preservative 02/08/2023,12/28/2017 Influenza injectable quadriv alent preservative free 01/25/2020,12/28/2017,12/18/2016,2014 Influenza, IIV3, injectable 01/29/2022,1 06/19/2020,02/22/2015,2010 Influenza, Injectable, MDCK, preservative free 01/11/2024 Influenza, Unspecified 01/29/2022,2020,02/22/2015,2013,01/10/2010 Moderna Covid-19 Vaccine 12+ 04/09/2021,10/02/19,09/03/2020 Tdap 12/07/2017,11/26/2010,11/26/2010 Zoster, Recombinant 04/25/2023,12/18/2022 Family History [...] Sign Reading Time Taken Comments Blood Pressure 132/96 03/01/2025 12:28 PM EDT Pulse 75 03/01/2025 12:28 PM EDT Temperature 36.8 C (98.2 F) 03/01/2025 12:28 PM EDT Respiratory Rate 16 08/11/2023 12:09 PM EDT Oxygen Saturation 98% 03/01/2025 12:28 PM EDT Inhaled Oxygen Concentration - - Weight 82.6 kg (182 lb) 03/01/2025 12:28 PM EDT Height 170.2 cm (5' 7 ) 03/01/2025 12:28 PM EDT Body Mass Index 28.51 03/01/2025 12:28 PM EDT Plan of Treatment Upcoming Encounters Date Type Department Care Team (Late st Contact Info) Description 06/20/2025 11:00 AM EST Office Visit [place] [facility] [address] [facility] [place] [address] Urvashi Gamble LLD [address] [place], [place] [id number] Health Maintenance Due Date Last Done Comments [...] history exists Alcohol/Substance Use Screening 01/12/2026 01/12/2025 SDOH Screening 01/12/2026 01/12/2025 Disability Screening 02/22/2026 02/22/2025 Diabetes: Hemoglobin A1C 03/01/2026 025, 02/15/2024, 02/15/2024, Additional history exists Tobacco Screening 03/01/2026 03/01/2025 Colorectal Cancer Screening 03/11/2026 FIT DNA/Cologuard 03/11/2026 [...] Procedure Name Priority Date/Time Associated Diagnosis Comments POCT GLUCOSE Routine 03/01/2025 1:02 PM EDT Glucosuria POCT GLYCOSYLATED HEMOGLOBIN (HGB A1C) Routine 03/01/2025 1:01 PM EDT Glucosuria POCT URINALYSIS DIPSTICK Routine 03/01/2025 1:00 PM EDT Glucosuria RENAL FUNCTION PANEL Routine 02/26/2025 10:49 AM EDT DENTURE ADJUSTMENT Routine 01/29/2025 11 :00 AM [...] TRY IN Routine 12/06/2024 10:00 AM EDT PAP SMEAR Routine 09/21/2024 12:00 [...] Recently Relevant to Health Maintenance Results * POCT glucose manually resulted (03/01/2025 1:02 PM EDT) Glucose Blood, POC 106 60 - 200 mg/dL Blood Capillary blood specimen / Unknown 03/01/2025 1:02 PM EDT [facility] POINT OF CARE TEST ENTER/ EDIT ORDERABLES Final Result * (ABNORMAL) POCT glycosylated hemoglobin (Hgb A1c) (03/01/2025 1:01 PM EDT) Hemoglobin A1C 5.7 4.0 - 5.7 % Blood Capillary blood specimen / Unknown 03/01/2025 1:01 PM EDT Result [facility] POINT OF CARE TEST ENTER/ EDIT ORDERABLES Final Result * (ABNORMAL) POCT urinalysis dipstick manually resulted (CPT 01457) (03/01/2025 1:00 PM EDT) Color, UA Light Yellow Clarity, UA Clear Glucose, UA 3+ 500+++ Bilirubin, UA Negative Ketones, UA Negative Spec Grav, UA 1.010 Blood, UA Negative Negative, None Detected pH, UA 6.0 Protein, UA Negative Urobilinogen, UA 4.0 Leukocytes, UA Negative Negative, Rare, Trace Nitrite, UA Negative Negative, None Detected Urine (Urine, Random) 03/01/2025 1:00 PM EDT Result [facility] POINT OF CARE TEST ENTER/ EDIT ORDERABLES Final Result * Renal Function Panel (02/26/2025 10:49 AM EDT) Blood Venous blood specimen / Unknown Result [facility] LAB BLOOD ORDERABLES Kim l Result * MR Lumbar Spine w/o Contrast (12/28/2024) Anatomical Region Laterality Modality Spine, L-spine Magnetic Resonan ce Result [facility] IMG MRI PROCEDURES Final Result * Pap Smear (09/21/2024 12:00 AM EDT) Swab Result [facility] Provider LAB CYTOLOGY ORDERABLES F inal Result EXTERNAL LAB * CT Lung Screening Low dose (06/06/2024) Anatomical Region Laterality Modality Lung Computed Tomogra phy Result [facility] IMG CT PROCEDURES Final R esult * BI US Breast Complete Left (06/01/2024) Anatomical Region Laterality Modality Breast Left Ultrasound Result [facility] IMG US PROCEDURES Final R esult * Lipid Panel, Standard (02/15/2024) Blood Venous blood specimen / Unknown [facility] LAB BLOOD ORDERABLES Kim l Result Performing Organization Address City/[facility]/ZIP Co de Phone Number EXTERNAL LAB * FIT DNA/Cologuard Cancer Screening (03/11/2023 11:25 AM EDT) Stool [facility] HEALTH MAINTENANCE Final Result * HM HIV 1/2 Antigen and Antibody (07/21/2018) HIV Ag/Ab Nonreactive [facility] HEALTH MAINTENANCE Final Result * THIN PREP PAP, WITH HPV (12/20/2017 12:00 AM EDT) Result [facility] Provider LAB CYTOLOGY ORDERABLES F inal Result Performing Organization Address [facility] Co de Phone Number [facility] [address] [place] [address] from Last 3 Months or Most Recently Relevant to Health Maintenance Insurance [facility] ONE CARE < 65 [place] [id number] DENTAL - [facility] - N FULL (MEDICAID) Care Teams Can Closing Machine Tender Relationship Specialty Start Date End Date [place], [place] [facility] [address] Law[address] Zhang [place], [place] PCP - General Family Medicine 05/06/22
--- OUTSIDE RECORDS SUMMARY | 2025-03-07 15:32 | XMS_ITS | Encounter Summary ---
Author Organization [facility] Address [address] [place] [address] Phone Care Team Providers Care Ruling Machine Set Up Operator Name Role Phone Chon Tipton DO Unavailable Sandy Romo MICROECONOMICS PROFESSOR Unavailable Cierra Ramirez DO Unavailable Guy LagunasBS, PhD Unavailable Cindy Mesa MICROECONOMICS PROFESSOR Unavailable Giovanna Padgett CNM Unavailable Danish Alfredo MD Unavailable Jennifer Stein MD Unavailable Mabel Bowman MD Unavailable Jesusita Walters CNM Unavailable Fahad June MD Unavailable Iglesia Pizarro MD Unavailable Pipe Simmons MD Unavailable Elisabeth Hills MICROECONOMICS PROFESSOR Unavailable [phone] Dayna Perez MD Unavailable [phone] Julio Johnson MD Unavailable Tigre Shrestha MD Unavailable [phone] Yolanda Harrison MD Unavailable [phone] Angel Byrd MD Unavailable [phone] Gisela Dorsey MICROECONOMICS PROFESSOR Unavailable [phone] Betsey Long MD Primary Care Provider Litzy Raines MICROECONOMICS PROFESSOR Primary Care Provider Litzy Raines MICROECONOMICS PROFESSOR Primary Care Provider Litzy Raines MICROECONOMICS PROFESSOR Primary Care Provider Encounter Details Date Type Department Care Team (Late st Contact Info) Description 04/18/2021 Transcribe Orders [facility] [address] [place] [address] [place] [address] Litzy Raines NP [address] [place] [address] Hypothyroidism, unspecified type (Primary Dx); Abdominal bloating; [...] EST) SODIUM 137 133 - 146 mmol/L [facility] POTASSIUM 4.5 3.3 - 5.1 mmol/L [facility] CHLORIDE 105 96 - 108 mmol/L [facility] CO2 20(L) 21 - 35 mmol/L [facility] BUN 22(H) 6 - 19 mg/dL [facility] CREATININE 1.20 0.5 - 1.5 mg/dL [facility] GLUCOSE 79 70 - 99 mg/dL [facility] ALBUMIN 4.3 3.9 - 4.8 g/dL [facility] TOTAL PROTEIN 7.3 6.5 - 8.0 g/dL [facility] CALCIUM 9.5 8.4 - 10.3 mg/dL [facility] ALKALINE PHOSPHATASE 80 39 - 117 U/L [facility] TOTAL BILIRUBIN 0.3 0.0 - 1.2 mg/dL [facility] AST 14 0 - 37 U/L [facility] ALT 10 0 - 40 U/L [facility] GLOBULIN 3.0 1 - 4.8 g/dL [facility] EGFR 53(L) >59 mL/min/1.7 3m2 [facility] Comment:Estimated glomerular filtration rate calculated using the CKD-EPI refit equation. ANION GAP 17 10 - 20 mmol/L [facility] Blood 04/18/2021 12:0 4 PM EST 04/18/2021 12:07 PM EST [facility] LAB BLOOD ORDERABLES F inal Result [facility] [address] [place], [place] [id number] * CBC and differential (04/18/2021 12:04 PM EST) WBC 8.86 4.00 - 11.00 K/uL [facility] RBC 4.84 3.72 - 5.30 M/uL [facility] HGB 13.9 10.6 - 15.5 g/dL [facility] HCT 41.3 32.0 - 45.0 % [facility] PLT 379 140 - 430 K/uL [facility] MCV 85.3 78.0 - 97.0 fL [facility] MCH 28.7 25.0 - 33.0 pg [facility] MCHC 33.7 32.0 - 36.0 g/dL [facility] RDW 13.9 11.0 - 16.0 % [facility] MPV 10.3 8.4 - 12.8 fl [facility] NRBC 0.00 0 /100 WBCs [facility] ABSOLUTE NRBC 0.00 0 K/uL [facility] DIFF METHOD Auto [facility] NEUTS 61.7 43.0 - 75.0 % [facility] LYMPHS 26.7 18.2 - 47.4 % [facility] MONOS 7.4 4.00 - 11.00 % [facility] EOS 3.2 0.0 - 8.0 % [facility] BASOS 0.7 0.0 - 2.0 % [facility] Granulocytes, immature (%) 0.3 0.0 - 0.9 % [facility] ABSOLUTE NEUTS 5.46 1.80 - 7.70 K/uL [facility] ABSOLUTE LYMPHS 2.37 1.00 - 3.10 K/uL [facility] ABSOLUTE MONOS 0.66 0.20 - 0.80 K/uL [facility] ABSOLUTE EOS 0.28 0.00 - 0.80 K/uL [facility] ABSOLUTE BASOS 0.06 0.00 - 0.09 K/uL [facility] Granulocytes, immature 0.03 0.00 - 0.05 K/uL [facility] Blood 04/18/2021 12:0 4 PM EST 04/18/2021 12:07 PM EST [facility] LAB BLOOD ORDERABLES F inal Result Performing Organization Address [facility] Co de Phone Number [address] [address] * TSH with reflex (04/18/2021 12:04 PM EST) TSH 0.87 0.27 - 4.20 uIU/mL [facility] Blood 04/18/2021 12:0 4 PM EST 04/18/2021 12:07 PM EST [facility] LAB BLOOD ORDERABLES F inal Result Performing Organization Address [facility] Co de Phone Number [address] [address] documented in this encounter Visit Diagnoses Diagnosis [...] documented as of this encounter Care Teams Ruling Machine Set Up Operator Relationship Specialty Start Date End Date Betsey Long MD [address] [place] [address] [email or web address] PCP - General Family Medicine 11/01/19 01/28/22 Litzy Raines NP [address] [place] [address] PCP - General Family Medicine 01/29/22 02/14/24 [facility] [address] [place] [address] PCP - General Nurse Practitioner 02/15/24 10/25/24 [facility] [address] [place] [address] PCP - General Nurse Practitioner 10/26/24 Chon Tipton DO [address] [facility] [address] [place] [address] Historical LMR Provider 02/28/17 2 Sandy Romo NP 1 [place] [address] Historical LMR Provider 02/28/17 2 Cierra Ramirez DO [address] [place] [address] 7 [place] [address] Historical LMR Provider 02/28/17 05/17/21 Guy Lagunas MBBS, PhD [address] [place] [address] [email or web address] Historical LMR Provider 02/28/1705/17/21 Cindy Mesa NP [address] [place] [address] Historical LMR Provider 02/28/17 2 Giovanna Padgett CNM [address] [place] [address] Historical LMR Provider 02/28/17 2 Danish Alfredo MD [address] [place] [address] [email or web address] Historical LMR Provider 02/28/17 Jennifer Stein MD [address] [place] [email or web address] Historical LMR Provider 02/28/17 05/17/21 Mabel Bowman MD [address] [place] [address], 2nd [place] [address] Historical LMR Provider 02/28/17 05/17/21 Jesusita Walters CNM [address] [place] [address] [email or web address] Historical LMR Provider 02/28/17 05/17/21 Fahad June MD [address] [place] [address] [email or web address] Historical LMR Provider 02/28/17 05/17/21 Iglesia Pizarro MD [address] [place] [address] Historical LMR Provider 02/28/17 Pipe Simmons MD [address] [place] [address] 7 [place] [address] [email or web address] Historical LMR Provider 02/28/17 05/17/21 Elisabeth Hills NP 30 [place] [address] Historical LMR Provider 02/28/17 2 Dayna Perez MD [address] [place] [address] Historical LMR Provider 02/28/17 2 Julio Johnson MD [address] [place] [address] Historical LMR Provider 02/28/17 Tigre Shrestha MD [address] [place] [address] Historical LMR Provider 02/28/172 2 Yolanda Harrison MD [address] [place] [address] Historical LMR Provider 02/28/172 2 Angel Byrd MD [address] [place] [address] Historical LMR Provider 02/28/172 2 Gisela Dorsey NP [address] [place] [address] Historical LMR Provider 02/28/17 2 documented as of this encounter Additional Source Comments The information contained in this document represents components of the legal health record. It is not the complete legal health record.[facility]
--- OUTSIDE RECORDS SUMMARY | 2025-03-07 15:32 | XMS_ITS | Encounter Summary ---
Author Organization [employer] Address [address] [place] [address] 7 [place] [address] Care Team Providers Care Political Theory Professor Name Role Phone [facility] Primary Care Provider [phone] Encounter Details Date Type Department Care Team [...] Description 06/20/2025 11:00 AM EST Office Visit [place] [facility] Dental [address] [place] [address] Urvashi Gamble LLD 9 [place] [address] documented as of this encounter Visit Diagnoses Not on filedocumented in this encounter Care Teams Political Theory Professor Relationship Specialty Start Date End Date Litzy Raines FNP 70 [place] [address] PCP - General Family Medicine 05/06/22 documented as of this encounter
--- OUTSIDE RECORDS SUMMARY | 2025-03-07 15:32 | XMS_ITS | Encounter Summary ---
Author Organization [employer] Address [address] [place] [address] 7t [place] [address] Care Team Providers Care College Teacher Name Role Phone [facility] Primary Care Provider [phone] Encounter Details Date Type Department Care Team (Late st Contact Info) Description 10/21/2023 Orders Only [place] [facility] MEDICAL [address] [place] [address] [place], [place], [facility] 70 [place] [address] Callus Social History Tobacco Use Types Packs/Day [...] Description 06/20/2025 11:00 AM EST Office Visit [place] [facility] Dental 70 [place] [address] Urvashi Gamble LLD 9 [place] [address] documented as of this encounter Procedures Procedure Name Priority Date/Time Associated Diagnosis Comments AMB REFERRAL TO PODIATRY Routine 04/19/2023 Callus documented in this encounter Results * Referral to Podiatry (04/19/2023) [facility] OUTPATIENT REFERRAL ORDER TIFFANY Final Result documented in this encounter Visit Diagnoses Diagnosis Callus Corns and callosities documented in this encounter Additional Health Concerns Assessment Noted Time PHQ-9 Depression Total Score: 15 023 11:33 AM EDT documented as of this encounter Care Teams College Teacher Relationship Specialty Start Date End Date [facility] 70 [facility] [place] [address] PCP - General Family Medicine 05/06/22 documented as of this encounter
--- OUTSIDE RECORDS SUMMARY | 2025-03-07 15:32 | XMS_ITS | Encounter Summary ---
Author Organization [employer] Address [address] [facility] 7t [place] [address] Care Team Providers Care Car Oiler Name Role Phone [facility] Primary Care Provider [phone] Encounter Details Date Type Department Care Team (Late st Contact Info) Description 08/12/2023 Orders Only [place] [facility] [address] [place] [address] [place], [place], [facility] 70 [place] [address] Social History Tobacco Use Types Packs/Day Years [...] 06/20/2025 11:00 AM EST Office Visit [place] [facility] Dental 70 [place] [address] Urvashi Gamble LLD 9 [place] [address] documented as of this encounter Procedures Procedure Name Priority Date/Time Associated Diagnosis Comments HM FIT DNA/COLOGUARD CANCER SCREENING Routine 03/11/2023 11:25 AM EDT documented in this encounter Results * FIT DNA/Cologuard Cancer Screening (03/11/2023 11:25 AM EDT) Stool [facility] HEALTH MAINTENANCE Final Result documented in this encounter Visit Diagnoses Not on filedocumented in this encounter Additional Health Concerns Assessment Noted Time PHQ-9 Depression Total Score: 15 08/06/ 023 11:33 AM EDT documented as of this encounter Care Teams Car Oiler Relationship Specialty Start Date End Date Litzy Raines FNP 70 [place] [address] PCP - General Family Medicine 05/06/22 documented as of this encounter
--- OUTSIDE RECORDS SUMMARY | 2025-03-07 15:32 | XMS_ITS | Encounter Summary ---
Author Organization [employer] Address [address] [place] [address] 7 [place] [address] Care Team Providers Care Adjunct Trainer Name Role Phone [facility] Primary Care Provider [phone] Reason for Visit * Reason Comments Med Refill Encounter Details Date Type Department Care Team (Late st Contact Info) Description 10/14/2023 Refill [place] [facility] MEDICAL [address] [place] [address] [facility] 70 [place] [address] Social History Tobacco Use Types Packs/Day Years [...] 06/20/2025 11:00 AM EST Office Visit [place] [facility] Dental [address] [place] [address] Urvashi Gamble LLD 9 [place] [address] documented as of this encounter Visit Diagnoses Not on filedocumented in this encounter Additional Health Concerns Assessment Noted Time PHQ-9 Depression Total Score: 15 023 11:33 AM EDT documented as of this encounter Care Teams Adjunct Trainer Relationship Specialty Start Date End Date Litzy Raines FNP [address] [place] [address] PCP - General Family Medicine 05/06/22 documented as of this encounter
--- OUTSIDE RECORDS SUMMARY | 2025-03-07 15:32 | XMS_ITS | Encounter Summary ---
Author Organization [facility] Address [address] [place] [address] Phone Care Team Providers Care Field Observer Name Role Phone Chon Tipton DO Unavailable [phone] Sandy Romo VISUAL BASIC PROGRAMMER Unavailable Cierra Ramirez DO Unavailable Guy LagunasBS, PhD Unavailable Cindy Mesa VISUAL BASIC PROGRAMMER Unavailable Giovanna Padgett CNM Unavailable Danish Alfredo MD Unavailable Jennifer Stein MD Unavailable Mabel Bowman MD Unavailable Jesusita Walters CNM Unavailable Fahad June MD Unavailable Iglesia Pizarro MD Unavailable Pipe Simmons MD Unavailable Elisabeth Hills VISUAL BASIC PROGRAMMER Unavailable [phone] Dayna Perez MD Unavailable Julio Johnson MD Unavailable Tigre Shrestha MD Unavailable [phone] Yolanda Harrison MD Unavailable [phone] Angel Byrd MD Unavailable [phone] SunitaGisela Keisha AVILA Unavailable [phone] Betsey Long MD Primary Care Provider Ltizy Raines NP Primary Care Provider Litzy Raines NP Primary Care Provider Litzy Raines VISUAL BASIC PROGRAMMER Primary Care Provider Encounter Details Date Type Department Care Team (Late st Contact Info) Description 04/21/2021 Transcribe Orders Virtual Department 30 [place] [address] Litzy Raines NP [address] [place] [address] Thyroid nodule (Primary Dx) Social History Tobacco [...] mixed cystic and solid (1), hypoechoic (2), exepj-zetj-yzdk (0), with ill-defined margins (0) and with [...] is mixed cystic and solid (1), hypoechoic (2),pacmk-zylw-dlpw (0), with ill-defined margins (0) and with [...] to theACR- TIRADS, no specific follow-up recommended. Litzy Raines VISUAL BASIC PROGRAMMER IMG US THYROID Final Result documented in [...] documented as of this encounter Care Teams Field Observer Relationship Specialty Start Date End Date Betsey Long MD [address] [place] [address] [email or web address] PCP - General Family Medicine 11/01/19 01/28/22 Litzy Raines NP [address] [place] [address] PCP - General Family Medicine 01/29/22 02/14/24 [facility] [address] [place] [address] PCP - General Nurse Practitioner 02/15/24 10/25/24 Litzy Raines NP [address] [place] [address] PCP - General Nurse Practitioner 10/26/24 Chon Tipton DO [address] [place] [address] [address] [place] [address] Historical LMR Provider 02/28/17 2 Sandy Romo VISUAL BASIC PROGRAMMER 1 [place] [address] Historical LMR Provider 02/28/17 2 Cierra Ramirez DO [address] [place] [address] 7 [place] [address] [email or web address] Historical LMR Provider 02/28/17 05/17/21 Guy Lagunas MBBS, PhD 60 [place] [address] [email or web address] Historical LMR Provider 02/28/1705/17/21 Cindy Mesa NP 29 [place] [address] Historical LMR Provider 02/28/17 2 Giovanna Padgett CNM [address] [place] [address] Historical LMR Provider 02/28/17 2 Danish Alfredo MD [address] [address] [email or web address] Historical LMR Provider 02/28/17 Jennifer Stein MD [address] [address] Historical LMR Provider 02/28/17 05/17/21 Mable Bowman MD [address] [place] [address], 2nd [place] [address] Historical LMR Provider 02/28/17 05/17/21 Jesusita Walters CN [address] [place] [address], [address] [place] [address] [email or web address] Historical LMR Provider 02/28/17 05/17/21 Fahad June MD [address] [place] [address] [place] [address] [email or web address] Historical LMR Provider 02/28/17 05/17/21 Iglesia Pizarro MD [address] [place] [address] Historical LMR Provider 02/28/17 Pipe Simmons MD [address] [place] [address] 7 [place] [address] Historical LMR Provider 02/28/17 05/17/21 Elisabeth Hills VISUAL BASIC PROGRAMMER [address] [place] [address] Historical LMR Provider 02/28/17 2 Dayna Perez MD [address] [address] Historical LMR Provider 02/28/17 2 Julio Johnson MD [address] [place] [address] 102 [place] [address] [email or web address] Historical LMR Provider 02/28/17 Tigre Shrestha MD [address] [place] [address] Historical LMR Provider 02/28/17 2 Yloanda Harrison MD [address] [place] [address] Historical LMR Provider 02/28/17 2 Angel Byrd MD [address] [place] [address] Historical LMR Provider 02/28/17 2 Gisela Dorsey NP [address] [place] [address] Historical LMR Provider 02/28/17 2 documented as of this encounter Additional Source Comments The information contained in this document represents components of the legal health record. It is not the complete legal health record.[facility]
--- OUTSIDE RECORDS SUMMARY | 2025-03-07 15:32 | XMS_ITS | Encounter Summary ---
Author Organization [facility] Address [address] [place] [address] Phone Care Team Providers Care Administrative Staff Supervisor Name Role Phone Chon Tipton DO Unavailable Sandy Romo PASTRY CHEF Unavailable Cierra Ramirez DO Unavailable Guy LagunasBS, PhD Unavailable Cindy Mesa PASTRY CHEF Unavailable Giovanna Padgett CNM Unavailable Danish Alfredo MD Unavailable Jennifer Stein MD Unavailable Mabel Bowman MD Unavailable Jesusita Walters CNM Unavailable Fahad June MD Unavailable Iglesia Pizarro MD Unavailable Pipe Simmons MD Unavailable Elisabeth Hills PASTRY CHEF Unavailable [phone] Dayna Perez MD Unavailable [phone] Julio Johnson MD Unavailable Tigre Shrestha MD Unavailable [phone] Yolanda Harrison MD Unavailable [phone] Angel Byrd MD Unavailable [phone] SunitaGisela celestin Keisha PASTRY CHEF Unavailable Fahad June MD Primary Care Provider + Janina Moncada MD Primary Care Provider Fahad Crenshaw DO Primary Care Provider Janina Moncada MD Primary Care Provider [phone] Kash iLve PASTRY CHEF Primary Care Provide r Cornelius Zelaya MD Primary Care Provider [phone] Jeimy Sawant PASTRY CHEF Primary Care Provider + Betsey Long MD Primary Care Provider [place], [place] Evie PASTRY CHEF Primary Care Provider [place], [place] Evie PASTRY CHEF Primary Care Provider [place], [place] Evie PASTRY CHEF Primary Care Provider Encounter Details Date Type Department Care Team (Late st Contact Info) Description 06/08/2017 Ancillary Orders Virtual Department 30 [place] [address] Fahad June MD [address] [place] [address] 2nd [place] [address] [email or web address] Abnormal mammogram Social History Tobacco Use Types [...] as of this encounter Care Teams Administrative Staff Supervisor Relationship Specialty Start Date End Date Fahad June MD [address] [place] [address] [email or web address] PCP - General Family Medicine 03/17/17 12/15/17 Janina Moncada MD 15 [facility] [place]. [address] [place] [address] [email or web address] PCP - General Family Medicine 12/16/17 04/11/18 Fahad Crenshaw DO [address] [place] [address] 7 [place] [address] [email or web address] PCP - General Family Medicine 04/12/18 09/13/18 Janina Moncada MD [address] [facility]. [address] [place] [address] [email or web address] PCP - General Family Medicine 11/14/18 04/19/19 Kash Live NP [address] [place] [address] 7 [place] [address] PCP - General 04/20/19 10/03/19 Cornelius Zelaya MD [address] [place] [address] [email or web address] PCP - General Internal Medicine 10/04/19 10/09/19 Jeimy Sawant NP [address] [place] [address] PCP - General Unknown Provider Specialty 10/10/19 10/31/19 Betsey Long MD [address] [place] [address] [email or web address] PCP - General Family Medicine 11/01/19 01/28/22 Litzy Raines NP [address] [place] [address] PCP - General Family Medicine 01/29/22 02/14/24 Litzy Raines, PASTRY CHEF 70 [place] [address] PCP - General Nurse Practitioner 02/15/24 10/25/24 Litzy Raines, PASTRY CHEF 70 [place] [address] PCP - General Nurse Practitioner 10/26/24 Chon Tipton DO [address] [place] [address] Historical LMR Provider 02/28/17 05/17/21 Sandy Romo PASTRY CHEF [address] [place] [address] Historical LMR Provider 02/28/17 05/17/21 Cierra Ramirez DO [address] [place] [address] 7 [place] [address] Historical LMR Provider 02/28/17 05/17/21 Guy Lagunas MBBS, PhD [address] [place] [address] [email or web address] Historical LMR Provider 02/28/17 05/17/21 Cindy Mesa NP [address] [place] [address] Historical LMR Provider 02/28/17 05/17/21 Giovanna Padgett CNM [address] [place] [address] Historical LMR Provider 02/28/17 05/17/21 Danish Alfredo MD [address] [place] [address] [email or web address] Historical LMR Provider 02/28/17 Jennifer Stein MD [address] [place] [email or web address] Historical LMR Provider 02/28/17 05/17/21 Mabel Bowman MD [address] [place] [address], 2nd [place] [address] [email or web address] Historical LMR Provider 02/28/17 05/17/21 Jesusita Walters CNM [address] [place] [address] [email or web address] Historical LMR Provider 02/28/17 05/17/21 Fahad June MD [address] [place], [place] [address] [address] [email or web address] Historical LMR Provider 02/28/17 05/17/21 Iglesia Pizarro MD [address] [place] [address] Historical LMR Provider 02/28/17 05/17/21 Pipe Simmons MD [address] [place] [address] [email or web address] Historical LMR Provider 02/28/17 05/17/21 Elisabeth Hills NP 30 [place] [address] Historical LMR Provider 02/28/17 05/17/21 Dayna Perez MD [address] [place] [address] Historical LMR Provider 02/28/17 05/17/21 Julio Johnson MD [address] [address] [email or web address] Historical LMR Provider 02/28/17 Tigre Shrestha MD 61 [place] [address] Historical LMR Provider 02/28/17 05/17/21 Yolanda Harrison MD [address] [place] [address] Historical LMR Provider 02/28/17 05/17/21 Angel Byrd MD 61 [place] [address] Historical LMR Provider 02/28/17 05/17/21 Gisela Dorsey NP [address] [place] [address] Historical LMR Provider 02/28/17 05/17/21 documented as of this encounter Additional Source Comments The information contained in this document represents components of the legal health record. It is not the complete legal health record.[facility]
--- OUTSIDE RECORDS SUMMARY | 2025-03-07 15:32 | XMS_ITS | Encounter Summary ---
Author Organization [employer] Address [address] [place] [address] 7 [place] [address] Care Team Providers Care Partner Manager Name Role Phone [facility] Primary Care Provider [phone] Encounter Details Date Type Department Care Team [...] Description 06/20/2025 11:00 AM EST Office Visit [facility] [address] [place] [address] Urvashi Gamble LLD [address] [place] [address] documented as of this encounter Visit Diagnoses Not on filedocumented in this encounter Care Teams Partner Manager Relationship Specialty Start Date End Date Litzy Raines FNP [address] [place] [address] PCP - General Family Medicine 05/06/22 documented as of this encounter
--- OUTSIDE RECORDS SUMMARY | 2025-03-07 15:33 | XMS_ITS | Encounter Summary ---
Author Organization [facility] Address [address] [facility] [address] [place] [address] Phone Care Team Providers Care Groundman Name Role Phone Chon Tipton DO Unavailable [phone] Sandy Romo AIRLINE STATION AGENT Unavailable Cierra Ramirez DO Unavailable Guy LagunasBS, PhD Unavailable Cindy Mesa AIRLINE STATION AGENT Unavailable Giovanna Padgett CNM Unavailable Danish Alfredo MD Unavailable Jennifer Stein MD Unavailable Mabel Bowman MD Unavailable Jesusita Walters CNM Unavailable Fahad June MD Unavailable Iglesia Pizarro MD Unavailable Pipe Simmons MD Unavailable Elisabeth Hills AIRLINE STATION AGENT Unavailable [phone] Dayna Perez MD Unavailable [phone] Julio Johnson MD Unavailable Tigre Shrestha MD Unavailable [phone] Yolanda Harrison MD Unavailable [phone] Angel Byrd MD Unavailable [phone] SunitaGisela Keisha AIRLINE STATION AGENT Unavailable [phone] Jeimy Sawant AIRLINE STATION AGENT Primary Care Provider + Betsey Long MD Primary Care Provider [facility] Clare[facility]zy AIRLINE STATION AGENT Primary Care Provider [facility] Clare[facility]zy AIRLINE STATION AGENT Primary Care Provider [facility] Clare Litzy Evie AIRLINE STATION AGENT Primary Care Provider Encounter Details Date Type Department Care Team (Latest Contact Info) Description 10/10/2019 Transcribe Orders [address] [place] [address] Marcelino Weeks MD, PhD [address] [place] [email or web address] Disease of thyroid gland (Primary Dx); Anemia [...] AM EDT) RPR NON-REACTIV E NON-REACTI VE [facility] Blood 10/10/2019 8:16 AM EDT 10/10/2019 8:21 AM EDT Marcelino Weeks MD, PhD LAB BLOOD ORDERABLES Fi nal Result Performing Organization Address City/[facility]/ZIP Co de Phone Number [address] [address] * 25-OH vitamin D (10/10/2019 8:16 AM EDT) 25 OH VIT D (TOTAL) 38 30 - 60 ng/mL [facility] Blood 10/10/2019 8:16 AM EDT 10/10/2019 8:21 AM EDT Marcelino Weeks MD, PhD LAB BLOOD ORDERABLES Fi nal Result Performing Organization Address [facility] Co de Phone Number [address] [address] * Methylmalonic acid, serum (10/10/2019 8:16 AM EDT) METHYLMALONIC ACID 0.18 <=0.40 nmol/mL [facility] DPT OF LAB MED AND PAT+ Comment: (NOTE) ADDITIONAL INFORMATION This test was developed and its performance characteristics determined by [facility] in a manner consistent with CLIA requirements. This test has not been cleared or approved by the U.S. Food and Drug Administration. Blood 10/10/2019 8:16 AM EDT 10/10/2019 8:21 AM EDT Marcelino Weeks MD, PhD LAB BLOOD ORDERABLES Fi nal Result Performing Organization Address City/[facility]/ZIP Co de Phone Number [facility] DPT OF LAB MED AND PAT+ [address] [place] [address] * Homocysteine (10/10/2019 8:16 AM EDT) HOMOCYSTEINE, TOTAL 12.7 0 - 14.2 umol/L [facility] Blood 10/10/2019 8:16 AM EDT 10/10/2019 8:21 AM EDT us Marcelino Weeks MD, PhD LAB BLOOD ORDERABLES Fi nal Result [address] [address] * Folate (10/10/2019 8:16 AM EDT) FOLIC ACID 12.1 4.2 - 19.9 ng/mL [facility] Blood 10/10/2019 8:16 AM EDT 10/10/2019 8:21 AM EDT Marcelino Weeks MD, PhD LAB BLOOD ORDERABLES Fi nal Result Performing Organization Address City/[facility]/ZIP Co de Phone Number [address] [address] * Vitamin B12 (10/10/2019 8:16 AM EDT) VITAMIN B12 649 232 - 1,245 pg/mL [facility] Blood 10/10/2019 8:16 AM EDT 10/10/2019 8:21 AM EDT us Marcelino Weeks MD, PhD LAB BLOOD ORDERABLES Fi nal Result Performing Organization Address City/[facility] Co de Phone Number [address] [address] * TSH (10/10/2019 8:16 AM EDT) TSH 0.44 0.27 - 4.20 uIU/mL [facility] Blood 10/10/2019 8:16 AM EDT 10/10/2019 8:21 AM EDT Marcelino Weeks MD, PhD LAB BLOOD ORDERABLES Fi nal Result Performing Organization Address City/[facility]/ZIP Co de Phone Number [address] [address] * (ABNORMAL) Free T4 (10/10/2019 8:16 AM EDT) FREE T4 1.9(H) 0.9 - 1.7 ng/dL [facility] Blood 10/10/2019 8:16 AM EDT 10/10/2019 8:21 AM EDT us Marcelino Weeks MD, PhD LAB BLOOD ORDERABLES Fi nal Result [facility] [address] [place] [address] documented in this encounter Visit Diagnoses Diagnosis [...] documented as of this encounter Care Teams Groundman Relationship Specialty Start Date End Date Jeiym Sawant NP [address] [place] [address] PCP - General Unknown Provider Specialty 10/10/19 10/31/19 Betsey Long MD [address] [place] [address] PCP - General Family Medicine 11/01/19 01/28/22 Litzy Raines NP [address] [place] [address] PCP - General Family Medicine 01/29/22 02/14/24 Litzy Raines, AIRLINE STATION AGENT [address] [place] [address] PCP - General Nurse Practitioner 02/15/24 10/25/24 Litzy Raines, AIRLINE STATION AGENT [address] [place] [address] PCP - General Nurse Practitioner 10/26/24 Chon Tipton DO [address] [place] [address] [place] [address] Historical LMR Provider 02/28/17 05/17/21 Sandy Romo AIRLINE STATION AGENT [address] [place] [address] Historical LMR Provider 02/28/17 05/17/21 Cierra Ramirez DO [address] [place] [address] 7 [place] [address] Historical LMR Provider 02/28/17 05/17/21 Guy Lagunas MBBS, PhD [address] [place] [address] [email or web address] Historical LMR Provider 02/28/17 05/17/21 Cindy Mesa NP [address] [place] [address] Historical LMR Provider 02/28/17 05/17/21 Giovanna Padgett CNM [address] [place] [address] Historical LMR Provider 02/28/17 05/17/21 Danish Alfredo MD [address] [place] [address] [email or web address] Historical LMR Provider 02/28/17 Jennifer Stein MD [address] [place] [email or web address] Historical LMR Provider 02/28/17 05/17/21 Mabel Bowman MD [address] [place] [address], 2nd [place] [address] [email or web address] Historical LMR Provider 02/28/17 05/17/21 Jesusita Walters CN [address] [place] [address] [place] [address] [email or web address] Historical LMR Provider 02/28/17 05/17/21 Fahad June MD [address] [place], [place] [address] [address] [email or web address] Historical LMR Provider 02/28/17 05/17/21 Iglesia Pizarro MD [address] [place] [address] Historical LMR Provider 02/28/17 05/17/21 Pipe Simmons MD [address] [place] [address] 7 [place] [address] [email or web address] Historical LMR Provider 02/28/17 05/17/21 Elisabeth Hills NP [address] [place] [address] Historical LMR Provider 02/28/17 05/17/21 Dayna Perez MD [address] [place] [address] Historical LMR Provider 02/28/17 05/17/21 Julio Johnson MD [address] [address] [email or web address] Historical LMR Provider 02/28/17 Tigre Shrestha MD [address] [place] [address] Historical LMR Provider 02/28/17 05/17/21 Yolanda [place] MD [address] [place] [address] Historical LMR Provider 02/28/17 05/17/21 Angel Byrd MD [address] [place] [address] Historical LMR Provider 02/28/17 05/17/21 Gisela Dorsey NP [address] [place] [address] Historical LMR Provider 02/28/17 05/17/21 documented as of this encounter Additional Source Comments The information contained in this document represents components of the legal health record. It is not the complete legal health record.[facility]
--- OUTSIDE RECORDS SUMMARY | 2025-03-07 15:33 | XMS_ITS | Encounter Summary ---
Author Organization [facility] Address [address] [facility] [address] [place] [address] Phone Care Team Providers Care Frequency Checker Name Role Phone Danish Alfredo MD Unavailable Julio Johnson MD Unavailable [phone] Litzy Raines DIRECTOR OF DEVELOPMENT AND MARKETING Primary Care Provider Litzy Raines DIRECTOR OF DEVELOPMENT AND MARKETING Primary Care Provider Litzy Raines DIRECTOR OF DEVELOPMENT AND MARKETING Primary Care Provider Reason for Referral * MRI/CAT Scan - Closed Specialty Diagnoses / Procedures Referred By Contlisa t Referred To Contact Radiology Diagnoses ZAVALA (dyspnea on exertion) Procedures NC Stress Result for Nuclear Stress Test Litzy Raines NP [address] [facility] [address] [place] [address] Phone: tel: fax: Referral ID Status Reason Start Date Expiration Date Visits Re quested Visits Authorized [id number] Closed 10/11/2023 10/10/2024 1 1 Encounter Details Date Type Department Care Team (Late st Contact Info) Description 10/11/2023 Ancillary Orders Virtual Department [address] [place] [address] Litzy Raines NP [address] [place] [address] ZAVALA (dyspnea on exertion) (Primary Dx) Social [...] [facility] Peak HR 150 BPM [facility] Anatomical Region Laterality Modality Heart Other 10/11/2023 [...] of their maximum predicted heart rate. Litzy Raines NP CV NM CARDIAC Final Result documented in [...] documented as of this encounter Care Teams Frequency Checker Relationship Specialty Start Date End Date Litzy Raines NP [address] [place] [address] [address] PCP - General Family Medicine 01/29/22 02/14/24 Litzy Raines NP [address] [place] [address] [address] PCP - General Nurse Practitioner 02/15/24 10/25/24 Litzy Raines NP [address] [place] [address] PCP - General Nurse Practitioner 10/26/24 Danish Alfredo MD [address] [place] [address] [email or web address] Historical LMR Provider 02/28/17 Julio Johnson MD [address] [place] [address] [email or web address] Historical LMR Provider 02/28/17 documented as of this encounter Additional Source Comments The information contained in this document represents components of the legal health record. It is not the complete legal health record.[facility]
--- OUTSIDE RECORDS SUMMARY | 2025-03-07 15:33 | XMS_ITS | Clinical Summary ---
Author Organization [facility] Address [address] [facility] [address] [place] [address] Phone Care Team Providers Care Fisheries Enforcement Officer Name Role Phone Danish Alfredo MD Unavailable Julio Johnson MD Unavailable [phone] Litzy Raines NP Primary Care Provider Allergies Active Allergy Reactions Criticality Noted Date Comments Fluconazole Rash Low 04/12/2017 Unsure was taking penicillin at the same time of the rash Gabapentin Swelling 07/22/2017 Iloperidone Rash Low 03/17/2017 Other reaction(s): Other (see comments) Manns Choice 05/06/2022 Other reaction(s): kidney damage Penicillins Rash [...] stress disorder had been getting medications for OUTSIDE MACHINIST HELPER by a nurse practitioner but she is [...] I asked for her to have her percolator operator call me is so we can substantiate her claims about what is going on with the house. Did recommend follow back up with OUTSIDE MACHINIST HELPER which she stopped going to and is not taking appropriate medication for her psych issues other than Lamictal and Wellbutrin. Unsure if patient is compliant even with those Chronic tension headache 10/20/2017 Encounters Date Type Department Care Team Description 12/28/2024 3:39 PM EDT - 12/28/2024 11:59 PM EDT Hospital Encounter [address] [address] Litzy Raines NP Discharge Disposition: Home or Self Care 12/21/2024 Refill [facility] at [address] [place] [address] Cynthia Yeh CNP Medication Refill 12/13/2024 10:12 AM EDT - 12/13/2024 11:59 PM EDT Hospital Encounter [facility] [address] [place] [address] [place] [address] Lavelle Alan MD Discharge Disposition: Home or Self Care 11/23/2024 Procedure Pass [facility], [facility] [address] [place] [address] from Last 3 Months Immunizations Immunization Administration [...] TEST 2010 SIGMOIDOSCOPY 2010 VIRTUAL COLONOSCOPY 2010 RSV VACCINE (1 - Risk 50-74 years 1-dose series) 2015 FOBT 07/31/2019 07/30/2018 INFLUENZA VACCINE (#1) 2024 , 02/08/2023, 01/29/2022, Additional history exists COVID-19 VACCINE ( season) 2025 01/11/2024, 03/01/2023, 03/17/2022, Additional history exists LIPID PANEL 02/14/2025 02/15/2024, 12/2023, 01/29/2022, Additional history exists TSH LEVEL 02/14/2025 02/15/2024, 07/09, 08/07/2022, Additional history exists MAMMOGRAM 04/14/2025 04/14/2024, 10/2023, 05/29/2022, Additional history exists BLOOD PRESSURE [...] Completed 07/21/2018 ZOSTER VACCINES Completed 04/25/2023, 12/18/2022 HEPATITIS A VACCINES Aged Out No long [...] this topic Medical Devices Implanted Type Area Flight Control Specialist Device Identifier Shelf Expiration Date Model / Serial / Lot Marker Ultraclip 17ga 10cm Tissue Dual Trigger Breast Ti Heart Shape Bx/5ea - [id number] Implanted:Qty: 1 on 06/20/2024 by Alivia Tenorio MD at [facility] Left: Breast [employer] [id number] / / Procedures Procedure Name Priority Date/Time [...] stenosis and mild bilateralforaminal stenosis at L4-5. us Litzy Raines OUTDOOR EDUCATION TEACHER IMG MR XSPECIALEILEEN Alvarez l Result * (ABNORMAL) Creatinine/eGFR (12/13/2024 10:16 AM EDT) CREATININE 1.80(H) 0.5 - 1.5 mg/dL [facility] EGFR 32(L) >59 mL/min/1.7 3m2 [facility] Comment:Estimated glomerular filtration rate calculated using the CKD-EPI refit equation. Blood 12/13/2024 10:1 6 AM EDT 12/13/2024 10:21 AM EDT us Lavelle Alan MD LAB BLOOD ORDERAB LES Final Result Performing Organization Address [facility]/ZIP Co de Phone Number [address] [address] * (ABNORMAL) BUN (12/13/2024 10:16 AM EDT) BUN 33(H) 6 - 19 mg/dL [facility] Blood 12/13/2024 10:1 6 AM EDT 12/13/2024 10:21 AM EDT us Lavelle Alan MD LAB BLOOD ORDERAB LES Final Result [address] [address] * (ABNORMAL) Electrolytes (12/13/2024 10:16 AM EDT) SODIUM 137 133 - 146 mmol/L [facility] POTASSIUM 4.1 3.3 - 5.1 mmol/L [facility] CHLORIDE 109(H) 96 - 108 mmol/L [facility] CO2 14(LL) 21 - 35 mmol/L [facility] Comment: Critical value: Results called to and read back by: Saman Farooq ANION GAP 18 10 - 20 mmol/L [facility] Blood 12/13/2024 10:1 6 AM EDT 12/13/2024 10:21 AM EDT us Lavelle Alan MD LAB BLOOD ORDERAB LES Final Result [address] [address] * Pap Test (09/21/2024 12:00 AM EDT) Report [address] [address] Mandarin Tutor: Prosper Smith MD MOBILE LOUNGE DRIVER OR OPERATOR Cytology Report FINAL DIAGNOSIS A. PAP SMEAR (THIN PREP) CE: SPECIMEN ADEQUACY: Satisfactory for evaluation; transformation zone present. INTERPRETATION: NEGATIVE FOR INTRAEPITHELIAL LESION OR MALIGNANCY. This specimen was analyzed by the automated ThinPrep Imaging System (LookFlow.) and the selected bhatt were reviewed by a mri supervisor. Electronically Signed Out By: ESE Kitchen(ASCP) The [...] by real-time polymerase chain reaction (PCR) at [facility], [address] [place] [address] using the FDA-approved BD Onclarity HPV Assay with extended genotyping. Uses of the assay in scenarios other than those approved by the FDA should be considered off-label use. The accuracy and precision of this test for all other off-label specimen sources has been verified in the Cytopathology Laboratory of the [facility] and has not been cleared or approved [...] : 1965 (Age: 59) Sex: F Institution: [facility] Location: [facility] Date of Collection: 09/21/2024 Date of Reported: 09/26/2024 13:57 Results to: Danish Alfredo MD [facility] Final Diagnosis A. PAP SMEAR (THIN PREP) CE: SPECIMEN ADEQUACY: Satisfactory for evaluation; transformation zone present. INTERPRETATION: NEGATIVE FOR INTRAEPITHELIAL LESION OR MALIGNANCY. This specimen was analyzed by the automated ThinPrep Imaging System (LookFlow.) and the selected bhatt were reviewed by a mri supervisor. [facility] Results\Inter pretation A. PAP SMEAR (THIN PREP) CE: High-risk HPV Panel w/ extended genotyping NEG HPV 16-NEG HPV 18-NEG HPV 45-NEG HPV 33/58-NEG HPV 31-NEG HPV 56/59/66-NEG HPV 51-NEG HPV 52-NEG HPV 35/39/68-NEG Performed by real-time polymerase chain reaction (PCR) at [facility], [address] [place] [address] using the FDA-approved [place] Onclarity HPV Assay with extended genotyping. Uses of the assay in scenarios other than those approved by the FDA should be considered off-label use. The accuracy and precision of this test for all other off-label specimen sources has been verified in the Cytopathology Laboratory of the [facility] and has not been cleared or approved by the U.S. Food and Drug Administration. Clinical correlation is advised. The assay assesses the E6/E7 DNA target and utilizes human beta globin as an internal control. Cytology and HPV testing are screening assays and should not be used as the sole means of detecting cancer. False-positives and false-negatives can occur. [facility] Conversion Type (Conversion Source) 09/21/2024 09/22/2024 9:16 AM EDT us Danish Alfredo MD CYTOLOGY ORDERABLES Edited Resul t - Final [address] [address] * (ABNORMAL) BI MAMMOGRAM SCREENING WITH TOMOSYNTHESIS [...] the patient to arrange for theadditional imaging. Danish Alfredo MD IMG MG EXAMS Final Result * TSH (02/15/2024 11:06 AM EDT) TSH 1.43 0.27 - 4.20 uIU/mL [facility] Blood 02/15/2024 11:0 6 AM EDT 02/15/2024 11:10 AM EDT [facility] Evie Raines OUTDOOR EDUCATION TEACHER LAB BLOOD ORDERABLES F inal Result [facility] [address] [place] [address] * (ABNORMAL) Lipid panel (02/15/2024 11:06 AM EDT) HDL 45 mg/dL [facility] Comment: Interpretation <40 mg/dL: Low HDL cholesterol (major risk factor for CHD) Greater than or equal to 60 mg/dL: High HDL cholesterol ( negative risk factor for CHD) HDL - cholesterol is affected by a number of factors, e.g. smoking, excerise, hormones, sex and age. CHOLESTEROL 196 0 - 240 mg/dL [facility] TRIGLYCERIDES 189(H) 30 - 160 mg/dL [facility] LDL 113 50 - 129 mg/dL [facility] Comment: LDL levels in terms of risk for coronary heart disease: <100 mg/dL: Optimal 100-129 mg/dL: Near or above optimal 130-159 mg/dL: Borderline high 160-189 mg/dL: High >190 mg/dL: Very High CARDIAC RISK RATIO 4.4 3.3 - 4.4 C [facility] Blood 02/15/2024 11:0 6 AM EDT 02/15/2024 11:10 AM EDT us Litzy Raines NP LAB BLOOD ORDERABLES F inal Result Performing Organization Address City/[facility]/ZIP Co de Phone Number [address] [address] * Fecal occult blood test 3 (07/30/2018 9:09 AM EDT) FECAL OCC BLD 1 DATE 32,319 [facility] Occult bld, stool, #1 Negative Negative [facility] Stool (Stool) 07/30/2018 9:0 9 AM EDT 07/30/2018 9:33 AM EDT Evie Jarquin MD NON CULTURE MICROBIOLOG Y Final Result [address] [address] from Last 3 Months or Most Recently Relevant to Health Maintenance Insurance [facility] C[facility] MEDICARE REPLACEMENT MEDICARE PART A & B [facility] [id number] MEDICARE PART A & B [facility] CARE MEDICARE REPLACEMENT MEDICARE PART A & B [facility] CARE MEDICARE REPLACEMENT MEDICARE PART A & B [facility] ONE CARE MEDICARE REPLACEMENT Member Subscriber Plan / Payer ( fective 2023-) Name:Jessica Jteer Relation to Subscriber:Self Name:Jessica Jeter Payer ID:[id number] (NAIC) Group ID:[id number] Type:Medicare Address: [place] [id number] MEDICARE PART A & B [facility] CARE MEDICARE REPLACEMENT MEDICARE PART A & B [facility] CARE MEDICARE REPLACEMENT MEDICARE PART [facility] ONE CARE MEDICARE REPLACEMENT MEDICARE PART A & [facility] CARE MEDICARE REPLACEMENT MEDICARE PART A & B [facility] [place]TT [id number] Advance Directives For more information, please contact: [phone] (9AM - 5PM Ruthann/[facility], Wednesday-Wednesday) * Full Code (Presumed) (Latest Code Status on File) Date Activated Date Inactivated Comments 07/11/2018 12:57 PM 10/12/2018 1:55 PM * Full Code (Presumed) Date Activated Date Inactivated Comments 05/27/2018 6:02 PM 06/14/2018 4:23 PM Care Teams Fisheries Enforcement Officer Relationship Specialty Start Date End Date Litzy Raines NP [address] [place] [address] PCP - General Nurse Practitioner 10/26/24 Danish Alfredo MD [address] [place] [address] Historical LMR Provider 02/28/17 Julio Johnson MD [address] [place] [address] Historical LMR Provider 02/28/17 Additional Source Comments The information contained in this document represents components of the legal health record. It is not the complete legal health record.[facility]
--- OUTSIDE RECORDS SUMMARY | 2025-03-07 15:33 | XMS_ITS | Encounter Summary ---
Author Organization [facility] Address [address] [place] [address] Phone Care Team Providers Care Winder Hand Name Role Phone Danish Alfredo MD Unavailable Julio Johnson MD Unavailable [phone] [facility] Primary Care Provider Encounter Details Date Type Department Care Team (Late st Contact Info) Description 11/23/2024 Procedure Pass [facility] [address] [place] [address] Social History Tobacco Use Types Packs/Day Years [...] on filedocumented in this encounter Care Teams Winder Hand Relationship Specialty Start Date End Date Litzy Raines NP [address] [place] [address] PCP - General Nurse Practitioner 10/26/24 Danish Alfredo MD [address] [place] [address] Historical LMR Provider 02/28/17 Julio Johnson MD [address] [place] [address] Historical LMR Provider 02/28/17 documented as of this encounter Additional Source Comments The information contained in this document represents components of the legal health record. It is not the complete legal health record.[facility]
--- OUTSIDE RECORDS SUMMARY | 2025-03-07 15:33 | XMS_ITS | Encounter Summary ---
Author Organization [facility] Address [address] [place] [address] Phone Care Team Providers Care Relay Checker Name Role Phone Danish Alfredo MD Unavailable Julio Johnson MD Unavailable [phone] Litzy Raines FUR REMODELER Primary Care Provider Litzy Raines FUR REMODELER Primary Care Provider Litzy Raines FUR REMODELER Primary Care Provider Reason for Referral * MRI/CAT Scan - Closed Specialty Diagnoses / Procedures Referred By Contlisa t Referred To Contact Radiology Diagnoses ZAVALA (dyspnea on exertion) Procedures NC Myocardial Perfusion Exercise Multiple NC Myocardial Perfusion Stress Single Litzy Raines NP [address], [address] [place] [address] Phone: tel: fax: Referral ID Status Reason Start Date Expiration Date Visits Re quested Visits Authorized [id number] Closed 09/13/2023 09/12/2024 4 4 Encounter Details Date Type Department Care Team (Late st Contact Info) Description 09/13/2023 Transcribe Orders Virtual Department [address] [place] [address] Litzy Raines NP [address] [place] [address] ZAVALA (dyspnea on exertion) (Primary Dx) Social [...] separately. Please refer to that report in Epic. COMPARISON: None. FINDINGS: PERFUSION: Myocardial perfusion images [...] reportedseparately. Please refer to that report in [facility]. COMPARISON: None. FINDINGS: PERFUSION: Myocardial perfusion images show no evidence of scar orischemia. VENTRICULAR SIZE AND FUNCTION: Left ventricular ejection fraction withinnormal limits. Left ventricular size within normal limits. No regionalwall motion abnormality. LV EF: 84% TID Ratio: 0.86 IMAGE QUALITY: Good IMPRESSION: Left ventricular ejection fraction: 84% Myocardial perfusion images demonstrate no evidence of ischemia orinfarction. Litzy Raines NP CV NM CARDIAC Final [...] documented as of this encounter Care Teams Relay Checker Relationship Specialty Start Date End Date Litzy Raines NP [address] [place] [address] PCP - General Family Medicine 01/29/22 02/14/24 Litzy Raines NP [address] [place] [address] PCP - General Nurse Practitioner 02/15/24 10/25/24 Litzy Raines NP [address] [place] [address] PCP - General Nurse Practitioner 10/26/24 Danish Alfredo MD [address] [place] [address] Historical LMR Provider 02/28/17 Julio Johnson MD [address] [place] [address] Historical LMR Provider 02/28/17 documented as of this encounter Additional Source Comments The information contained in this document represents components of the legal health record. It is not the complete legal health record.[facility]
--- OUTSIDE RECORDS SUMMARY | 2025-03-07 15:33 | XMS_ITS | Clinical Summary ---
Author Organization [facility] Address [address] [place] [address] Phone Care Team Providers Care Ornamental Metal Worker Apprentice Name Role Phone Olu Litzy Primary Care Provider [phone] Allergies Active Allergy Reactions Criticality Noted Date Comments Fluconazole Rash Low 04/12/2017 Gabapentin Swelling,Other (see comments) 07/22/2017 Iloperidone Rash,Other (see comments) Low 03/17/2017 Latex 09/10/2021 [place] 05/06/2022 Other reaction(s): kidney damage Penicillins Other [...] Discontinued Jan 2019 Last Assessment & Plan: Yaidra is smoking above 20 cigarettes a day. [...] Medicaid [place] Care Teams Ornamental Metal Worker Apprentice Relationship Specialty Start Date End Date [place], [place] [address] [place] [address] PCP - General Fish Culturist 09/10/21
--- OUTSIDE RECORDS SUMMARY | 2025-03-07 15:33 | XMS_ITS | Encounter Summary ---
Author Organization [facility] Address [address] [place] [address] Phone Care Team Providers Care Crib Pad Maker Name Role Phone Chon Tipton DO Unavailable [phone] Sandy Romo DEAN [employer] BOYS Unavailable [phone] Cierra Ramirez DO Unavailable Guy LagunasBS, PhD Unavailable Cindy Mesa [facility] [employer] BOYS Unavailable Giovanna Padgett CNM Unavailable Danish Alfredo MD Unavailable Jennifer Stein MD Unavailable Mabel Bowman MD Unavailable Jesusita Walters CNM Unavailable Fahad June MD Unavailable Iglesia Pizarro MD Unavailable Pipe Simmons MD Unavailable Elisabeth Hills [facility] [employer] BOYS Unavailable [phone] Dayna Perez MD Unavailable [phone] Julio Johnson MD Unavailable Tigre Shrestha MD Unavailable [phone] Yolanda Harrison MD Unavailable [phone] Angel Byrd MD Unavailable [phone] Wilfredo Dorseyon Keisha [facility] [employer] BOYS Unavailable Kash Live DE[facility] [employer] BOYS Primary Care Provide r Cornelius Zelaya MD Primary Care Provider [phone] Jeimy Sawant NP Primary Care Provider + Betsey Long MD Primary Care Provider Litzy Raines NP Primary Care Provider Litzy Raines NP Primary Care Provider Litzy Raines NP Primary Care Provider Encounter Details Date Type Department Care Team (Late st Contact Info) Description 07/13/2019 Ancillary Orders [facility], X-Ray - [address] [address] Jeimy Sawant, DEAN OF BOYS [address] [place] [address] Injury Social History Tobacco Use Types Packs/Day [...] evidence of facial bone fracture. POS - [id number] Narrative 07/13/2019 1:41 PM EST XR FACIAL [...] evidence of facial bone fracture. POS - [id number] Jeimy Kim Sawant DE[facility] [employer] BOYS IMG XR HEAD AND SHUNT SE ZAINA [...] documented as of this encounter Care Teams Crib Pad Maker Relationship Specialty Start Date End Date Kash Live NP [address] [place] [address] PCP - General 04/20/19 10/03/19 Cornelius Zelaya MD [address] [place] [address] [email or web address] PCP - General Internal Medicine 10/04/19 10/09/19 Jeimy Sawant NP [address] [place] [address] PCP - General Unknown Provider Specialty 10/10/19 10/31/19 Betsey Long MD [address] [place] [address] [email or web address] PCP - General Family Medicine 11/01/19 01/28/22 [place] [address] PCP - General Family Medicine 01/29/22 02/14/24 [place] [address] PCP - General Nurse Practitioner 02/15/24 10/25/24 Litzy Raines, [place] [address] PCP - General Nurse Practitioner 10/26/24 Chon Tipton DO [address] [place] [address] [address] [place] [address] Historical LMR Provider 02/28/17 05/17/21 Sandy Romo DE[facility] [employer] BOYS 1 [facility] [place] [address] Historical LMR Provider 02/28/17 05/17/21 Cierra Ramirez DO [address] [place] [address] 7 [place] [address] Historical LMR Provider 02/28/17 05/17/21 Guy Lagunas MBBS, PhD [address] [place] [address] [email or web address] Historical LMR Provider 02/28/17 05/17/21 Cindy Mesa, MARGARITA [address] [place] [address] Historical LMR Provider 02/28/17 05/17/21 Giovanna Padgett CNM [address] [place] [address] Historical LMR Provider 02/28/17 05/17/21 Danish Alfredo MD [address] [place] [address] [email or web address] Historical LMR Provider 02/28/17 Jennifer Stein MD [address] [address] Historical LMR Provider 02/28/17 05/17/21 Mabel Bowman MD [address] [place] [address], [address] [place] [address] Historical LMR Provider 02/28/17 05/17/21 Jesusita Walters CNM [address] [place] [address] [email or web address] Historical LMR Provider 02/28/17 05/17/21 Fahad June MD [address] [place] [address] [address] [place] [address] [email or web address] Historical LMR Provider 02/28/17 05/17/21 Iglesia Pizarro MD [address] [place] [address] Historical LMR Provider 02/28/17 05/17/21 Pipe Simmons MD [address] [place] [address] [email or web address] Historical LMR Provider 02/28/17 05/17/21 Elisabeth Hills NP [address] [place] [address] Historical LMR Provider 02/28/17 05/17/21 Dayna Perez MD [address] [place] [address] Historical LMR Provider 02/28/17 05/17/21 Julio Johnson MD [address] [place] [address] [address] [place] [address] [email or web address] Historical LMR Provider 02/28/17 Tigre Shrestha MD [address] [place] [address] Historical LMR Provider 02/28/17 05/17/21 Yolanda Harrison MD [address] [place] [address] Historical LMR Provider 02/28/17 05/17/21 Angel Byrd MD [address] [place] [address] Historical LMR Provider 02/28/17 05/17/21 Gisela Dorsey NP [address] [place] [address] Historical LMR Provider 02/28/17 05/17/21 documented as of this encounter Additional Source Comments The information contained in this document represents components of the legal health record. It is not the complete legal health record.[facility]
--- OUTSIDE RECORDS SUMMARY | 2025-03-07 15:33 | XMS_ITS | Encounter Summary ---
Author Organization [facility] Address [address] [place] [address] Phone Care Team Providers Care Wire Drawing Machine Operator Name Role Phone Danish Alfredo MD Unavailable Julio Johnson MD Unavailable [phone] [place], [place] Evie RN OPERATING ROOM Primary Care Provider [place], [place] Evie RN OPERATING ROOM Primary Care Provider [place], [place] Evie RN OPERATING ROOM Primary Care Provider Encounter Details Date Type Department Care Team (Late st Contact Info) Description 05/26/2023 Procedure Pass [facility] - [address] [place] [address] Social History Tobacco Use Types Packs/Day Years [...] documented as of this encounter Care Teams Wire Drawing Machine Operator Relationship Specialty Start Date End Date [place], [place] MARGARITA Case [address] [place] [address] PCP - General Family Medicine 01/29/22 02/14/24 [place], [place] MARGARITA Case [address] [place] [address] PCP - General Nurse Practitioner 02/15/24 10/25/24 [place], [place] MARGARITA Case [address] [place] [address] PCP - General Nurse Practitioner 10/26/24 Danish Alfredo MD [address] [place] [address] Historical LMR Provider 02/28/17 Julio Johnson MD [address] [place] [address] Historical LMR Provider 02/28/17 documented as of this encounter Additional Source Comments The information contained in this document represents components of the legal health record. It is not the complete legal health record.[facility]
--- OUTSIDE RECORDS SUMMARY | 2025-03-07 15:33 | XMS_ITS | Encounter Summary ---
Author Organization [facility] Address [address] [place] [address] Phone Care Team Providers Care Sheet Metal Technician Name Role Phone Chon Tipton DO Unavailable [phone] Sandy Romo SENIOR BIOSTATISTICIAN/GROUP LEADER Unavailable Cierra Ramirez DO Unavailable Guy LagunasBS, PhD Unavailable Cindy Mesa SENIOR BIOSTATISTICIAN/GROUP LEADER Unavailable Giovanna Padgett CNM Unavailable Danish Alfredo MD Unavailable Jennifer Stein MD Unavailable Mabel Bowman MD Unavailable Jesusita Walters CNM Unavailable Fahad June MD Unavailable Iglesia Pizarro MD Unavailable Pipe Simmons MD Unavailable Elisabeth Hills SENIOR BIOSTATISTICIAN/GROUP LEADER Unavailable [phone] Dayna Perez MD Unavailable [phone] Julio Johnson MD Unavailable Tigre Shrestha MD Unavailable [phone] Yolanda Harrison MD Unavailable [phone] Angel Byrd MD Unavailable [phone] Gisela Dorsey Keisha SENIOR BIOSTATISTICIAN/GROUP LEADER Unavailable [phone] Cornelius Zelaya MD Primary Care Provider [phone] Jese Jeimymickey Alvarez SENIOR BIOSTATISTICIAN/GROUP LEADER Primary Care Provider + Betsey Long MD [facility] SENIOR BIOSTATISTICIAN/GROUP LEADER Primary Care [facility] SENIOR BIOSTATISTICIAN/GROUP LEADER Primary Care Provider [facility] SENIOR BIOSTATISTICIAN/GROUP LEADER Primary Care Provider Reason for Referral * MRI/CAT Scan - Closed Specialty Diagnoses / Procedures Referred By Chance quispe Referred To Contact Radiology Diagnoses Mild cognitive impairment Procedures CT Head Marcelino Weeks MD, PhD Phone: tel: fax: [email or web address] Referral ID Status Reason Start Date Expiration Date Visits Re quested Visits Authorized [id number] Closed 10/04/2019 10/03/2020 1 1 Encounter Details Date Type Department Care Team (Latest Contact Info) Description 10/04/2019 Transcribe Orders Virtual Department [address] [place] [address] Marcelino Weeks MD, PhD [address] [place] [address] [email or web address] Mild cognitive impairment (Primary Dx) Social History [...] documented as of this encounter Care Teams Sheet Metal Technician Relationship Specialty Start Date End Date Cornelius Zelaya MD [address] [place] [address] [email or web address] PCP - General Internal Medicine 10/04/19 10/09/19 Jeimy Sawant NP [address] [place] [address] PCP - General Unknown Provider Specialty 10/10/19 10/31/19 Betsey Long MD [address] [place] [address] [email or web address] PCP - General Family Medicine 11/01/19 01/28/22 Litzy Raines, SENIOR BIOSTATISTICIAN/GROUP LEADER [address] [place] [address] PCP - General Family Medicine 01/29/22 02/14/24 Litzy Raiens, SENIOR BIOSTATISTICIAN/GROUP LEADER [address] [place] [address] PCP - General Nurse Practitioner 02/15/24 10/25/24 Litzy Raines, SENIOR BIOSTATISTICIAN/GROUP LEADER [address] [place] [address] PCP - General Nurse Practitioner 10/26/24 Chon Tipton, [address] [place] [address] Historical LMR Provider 02/28/17 05/17/21 Sandy Romo, SENIOR BIOSTATISTICIAN/GROUP LEADER [address] [place] [address] Historical LMR Provider 02/28/17 05/17/21 Cierra Ramirez DO [address] [place] [address], [address] [place] [address] Historical LMR Provider 02/28/17 05/17/21 Guy Lagunas MBBS, PhD [address] [place] [address] [email or web address] Historical LMR Provider 02/28/17 05/17/21 Cindy Mesa NP [address] [place] [address] Historical LMR Provider 02/28/17 05/17/21 Giovanna Padgett CNM [address] [place] [address] Historical LMR Provider 02/28/17 05/17/21 Danish Alfredo MD [address] [place] [address] [email or web address] Historical LMR Provider 02/28/17 Jennifer Stein MD [address] [place] [address] [email or web address] Historical LMR Provider 02/28/17 05/17/21 Mabel Bowman MD [address] [place] [address] Historical LMR Provider 02/28/17 05/17/21 Jesusita Walters CNM [address] [place] [address] [email or web address] Historical LMR Provider 02/28/17 05/17/21 Fahad June MD [address] [place] [address] [email or web address] Historical LMR Provider 02/28/17 05/17/21 Iglesia Pizarro MD [address] [place] [address] Historical LMR Provider 02/28/17 05/17/21 Pipe Simmons MD [address] [place] [address] 7 [place] [address] [email or web address] Historical LMR Provider 02/28/17 05/17/21 Elisabeth Hills NP [address] [place] [address] Historical LMR Provider 02/28/17 05/17/21 Dayna Perez MD [address] [place] [address] Historical LMR Provider 02/28/17 05/17/21 Julio Johnson MD [address] [place] [address] [address] [place] [address] [email or web address] Historical LMR Provider 02/28/17 Tigre Shrestha MD [address] [place] [address] Historical LMR Provider 02/28/17 05/17/21 Yolanda Harrison MD [address] [place] [address] Historical LMR Provider 02/28/17 05/17/21 Angel Byrd MD [address] [place] [address] Historical LMR Provider 02/28/17 05/17/21 Gisela Dorsey NP [address] [place] [address] Historical LMR Provider 02/28/17 05/17/21 documented as of this encounter Additional Source Comments The information contained in this document represents components of the legal health record. It is not the complete legal health record.[facility]
--- OUTSIDE RECORDS SUMMARY | 2025-03-07 15:33 | XMS_ITS | Encounter Summary ---
Author Organization [facility] Address [address] [place] [address] Phone Care Team Providers Care Side Seam Tender Name Role Phone Danish Alfredo MD Unavailable Julio Johnson MD Unavailable [phone] [facility] Litzy Evie AVILA Primary Care Provider Reason for Visit * Reason Comments Medication Refill Encounter Details Date Type Department Care Team (Late st Contact Info) Description 12/21/2024 Refill [facility] at [address] [place] [address] Cynthia Yeh, BUSINESS EDITOR [address] [place] [address] [email or web address] Medication Refill Social History Tobacco Use Types [...] breath documented in this encounter Care Teams Side Seam Tender Relationship Specialty Start Date End Date Litzy Raines NP [address] [place] [address] PCP - General Nurse Practitioner 10/26/24 Danish Alfredo MD [address] [place] [address] Historical LMR Provider 02/28/17 Julio Johnson MD [address] [place] [address] Historical LMR Provider 02/28/17 documented as of this encounter Additional Source Comments The information contained in this document represents components of the legal health record. It is not the complete legal health record.[facility]
== END 2025-03-07 12:45 | disposition home or self-care (01) ==
LOC: HO.HKA 12:04
PROVIDERS: PCP Nurse Practitioner; Visit Provider Internal Medicine Nephrology
DX: N18.31 Chronic kidney disease, stage 3a (principal); I10 Essential (primary) hypertension; E87.20 Acidosis, unspecified
CPT/HCPCS: 99214

== ENCOUNTER → 2025-03-07 12:03 | Outpatient (BNVA) | payer OTHER, SELFPAY | PROVIDERS: PCP Nurse Practitioner; Visit Provider Internal Medicine Nephrology | DX: I12.9 Hypertensive chronic kidney disease with stage 1 through stage 4 chronic kidney disease, or unspecified chronic kidney disease (principal); N18.31 Chronic kidney disease, stage 3a; E87.20 Acidosis, unspecified | CPT/HCPCS: 99212 ==